=== PATIENT | male | born 1945 | race Caucasian/White ===

== ENCOUNTER 2016-12-04 07:05 | Day surgery (SDC) | payer MEDICARE, BC ==
[2016-11-29 12:02] VITALS: BMI 39.5
[~2016-12-04 07:05] MED LIST: LACTATED RINGERS 1,000 ML IV SCH
[2016-12-04 07:22] VITALS: TEMP 97.2
[2016-12-04 07:27] LABS: Glucose,Whole Blood 190 mg/dL (75-99)
[2016-12-04] MEDS ORDERED: PROPOFOL 10 MG/ML 20 ML VIAL IV ONE (07:33)
[2016-12-04] MEDS ORDERED: LIDOCAINE 1% INJ 10MG/ML (20 ML MDV) ONE (07:33)
--- NOTE | 2016-12-04 08:07 | P.PCN ---
Date of Procedure: 12/04/16 Procedure(s) Performed: BRIEF HISTORY: Patient is a 71-year-old pleasant white male, scheduled for an elective colonoscopy as a part of evaluation of change in bowel habits and prior history of colon polyps. According to the patient as well as colonoscopy was 5 years ago. PROCEDURE PERFORMED: Colonoscopy. PREOPERATIVE DIAGNOSIS: Change in bowel habits and prior history of colon polyps. IV sedation per Anesthesia. PROCEDURE: After informed consent was obtained, the patient, was brought into the endoscopy unit. IV sedation was administered by Anesthesia under continuous monitoring. Digital rectal examination was normal. Initially the Olympus CF-160 flexible video colonoscope was then inserted in the rectum, gradually advanced into the cecum without any difficulty. Careful examination was performed as the scope was gradually being withdrawn. Ileocecal valve and the appendiceal orifice were visualized and appeared normal. Prep was excellent. Mucosa of the cecum, ascending colon, transverse colon, descending colon, sigmoid colon, and rectum appeared normal. Scattered sigmoid diverticulosis seen. Retroflexion was performed in the rectum and no lesions were seen. The patient tolerated the procedure well. IMPRESSION: Normal-appearing colon from rectum to cecum with no evidence of colorectal neoplasia . Scattered sigmoid diverticulosis. RECOMMENDATIONS: Findings of this examination were discussed with the patient as well as his family. He was advised to have a repeat surveillance colonoscopy in 5 years from now because of the prior history of colon polyps.
[2016-12-04 08:15] LABS: Glucose,Whole Blood 196 mg/dL (75-99)
[2016-12-04 08:23] VITALS: BP 132/75; PULSE 77; RESP 18
== END 2016-12-04 09:21 | disposition home or self-care (01) ==
LOC: ORWHC2ENDO 07:05
PROVIDERS: ATTEND Internal Medicine Gastroenterology
DX: K57.30 Diverticulosis of large intestine without perforation or abscess without bleeding (principal); R19.4 Change in bowel habit; Z86.010 Personal history of colon polyps; I25.10 Atherosclerotic heart disease of native coronary artery without angina pectoris; I10 Essential (primary) hypertension; E78.5 Hyperlipidemia, unspecified; E11.9 Type 2 diabetes mellitus without complications; N28.9 Disorder of kidney and ureter, unspecified; E07.9 Disorder of thyroid, unspecified; Z86.73 Personal history of transient ischemic attack (TIA), and cerebral infarction without residual deficits; F32.9 Major depressive disorder, single episode, unspecified; K21.9 Gastro-esophageal reflux disease without esophagitis; Z95.1 Presence of aortocoronary bypass graft; Z79.84 Long term (current) use of oral hypoglycemic drugs; Z79.02 Long term (current) use of antithrombotics/antiplatelets; Z79.82 Long term (current) use of aspirin; Z79.899 Other long term (current) drug therapy; Z88.1 Allergy status to other antibiotic agents; Z88.0 Allergy status to penicillin; Z91.09 Other allergy status, other than to drugs and biological substances
CPT/HCPCS: 45378; J2001; J2704

== ENCOUNTER 2016-12-08 12:30 | Inpatient (IN) | payer MEDICARE, BC ==
[2016-12-08] MEDS ORDERED: SODIUM CHLORIDE 0.9% 1,000 ML IV STA (12:43)
[2016-12-08] MEDS ORDERED: RX INFO: IV CONTRAST WAS GIVEN 1 EACH MISC MISCELLANE PRN ×2 (12:43→22:30)
--- NOTE | 2016-12-08 12:43 | ED ---
General Adult HPI - General Chief complaint: Neuro Symptoms/Deficit Stated complaint: CVA Symptoms Time Seen by Provider: 12/08/16 12:40 Source: family, RN notes reviewed, old records reviewed Mode of arrival: wheelchair Limitations: altered mental status - History of Present Illness Initial comments: This is a 8-year-old male to the ER for evaluation. Patient does urinary for evaluation of weakness, altered mental status, left lower extremity and left upper extremity weakness. History of TIA, no permanent deficits from prior neurological issues. No headache. Patient states last night he had difficulty ambulating difficulty with strength in his left side tenderness was worse when he woke up this morning. Patient denies any trauma no headache no nausea vomiting shortness of breath of bowel pain recent travel history and no fevers. - Related Data Home Medications Medication Instructions Recorded Confirmed Allopurinol [Zyloprim] 100 mg PO DAILY 11/28/15 12/08/16 Aspirin 81 mg PO HS 11/28/15 12/08/16 Atorvastatin [Lipitor] 80 mg PO HS 11/28/15 12/08/16 Calcitriol 0.25 mcg PO QAM 11/28/15 12/08/16 Clopidogrel Bisulfate [Plavix] 75 mg PO QAM 11/28/15 12/08/16 Doxepin HCl [SINEquan] 50 mg PO HS 11/28/15 12/08/16 Folic Acid 1 mg PO QAM 11/28/15 12/08/16 Isosorbide Mononitrate [Isosorbide 30 mg PO HS 11/28/15 12/08/16 Mononitrate ER] Levothyroxine Sodium [Synthroid] 137 mcg PO QAM 11/28/15 12/08/16 Magnesium Oxide [Mag-Ox] 500 mg PO QAM 11/28/15 12/08/16 Ergocalciferol (Vitamin D2) 50,000 unit PO QMONTH 11/29/16 12/08/16 [Vitamin D2] Finasteride [Proscar] 5 mg PO DAILY 11/29/16 12/08/16 Furosemide [Lasix] 40 mg PO DAILY 11/29/16 12/08/16 Tamsulosin [Flomax] 0.4 mg PO DAILY 11/29/16 12/08/16 Acetaminophen [Tylenol Arthritis] 1,300 mg PO HS 12/08/16 12/08/16 Citalopram Hydrobromide [CeleXA] 20 mg PO DAILY 12/08/16 12/08/16 Ferrous Sulfate [Feosol] 325 mg PO DAILY 12/08/16 12/08/16 Metoprolol Succinate (ER) [Toprol 50 mg PO BID 12/08/16 12/08/16 Xl] [place]-3 Fatty Acids [Duck-3] 1,000 mg PO DAILY 12/08/16 12/08/16 Ranitidine HCl [Zantac] 150 mg PO BID 12/08/16 12/08/16 glipiZIDE [Glucotrol] 5 mg PO BID 12/08/16 12/08/16 Allergies Allergy/AdvReac Type Severity Reaction Status Date / Time Penicillins Allergy Severe Anaphylaxis Verified 12/08/16 14:30 cephalexin monohydrate Allergy Rash/Hives Verified 12/08/16 14:30 [From Keflex] gemfibrozil [From Lopid] AdvReac Abdominal Verified 12/08/16 14:30 Pain Review of Systems ROS Statement: Those systems with pertinent positive or pertinent negative responses have been documented in the HPI. ROS Other: All systems not noted in ROS Statement are negative. Past Medical History Past Medical History: Coronary Artery Disease (CAD), CVA/TIA, Diabetes Mellitus , GERD/Reflux, Hyperlipidemia, Hypertension, Myocardial Infarction (IA), Osteoarthritis (OA), Prostate Disorder, Renal Disease, Sleep Apnea/CPAP/BIPAP, Thyroid Disorder Additional Past Medical History / Comment(s): stroke 2003, heart murmer, OCC SOB , kidney stones, leakage of urine Last Myocardial Infarction Date:: 2010 History of Any Multi-Drug Resistant Organisms: None Reported Past Surgical History: Coronary Bypass/CABG, Heart Catheterization, Hernia Repair, Orthopedic Surgery Additional Past Surgical History / Comment(s): vasectomy, CABG 2010, keke knee arthroscopy, rt hand surgery x 3 Past Anesthesia/Blood Transfusion Reactions: No Reported Reaction Past Psychological History: No Psychological Hx Reported Smoking Status: Never smoker Past Alcohol Use History: None Reported Past Drug Use History: None Reported - Past Family History Mother Family Medical History: No Reported History General Exam - General Exam Comments Initial Comments: MH of 2, left and left leg to gravity Limitations: altered mental status General appearance: alert, in no apparent distress Head exam: Present: atraumatic, normocephalic, normal inspection Eye exam: Present: normal appearance, PERRL, EOMI. Absent: scleral icterus, conjunctival injection, periorbital swelling ENT exam: Present: normal exam, mucous membranes moist Neck exam: Present: normal inspection. Absent: tenderness, meningismus, lymphadenopathy Respiratory exam: Present: normal lung sounds bilaterally. Absent: respiratory distress, wheezes, rales, rhonchi, stridor Cardiovascular Exam: Present: regular rate, normal rhythm, normal heart sounds. Absent: systolic murmur, diastolic murmur, rubs, gallop, clicks GI/Abdominal exam: Present: soft, normal bowel sounds. Absent: distended, tenderness, guarding, rebound, rigid Extremities exam: Present: normal inspection, full ROM, normal capillary refill. Absent: tenderness, pedal edema, joint swelling, calf tenderness Back exam: Present: normal inspection Neurological exam: Present: alert, oriented X3, CN II-XII intact Psychiatric exam: Present: normal affect, normal mood Skin exam: Present: warm, dry, intact, normal color. Absent: rash Course Vital Signs 12/08/16 12/08/16 12/08/16 12:31 14:09 14:55 Temperature 99.4 F 97.9 F Pulse Rate 109 H 100 101 H Respiratory 18 24 20 Rate Blood Pressure 131/90 122/68 120/64 O2 Sat by Pulse 93 L 96 96 Oximetry - Reevaluation(s) Reevaluation #1: 12/08/16 15:18 Patient showing no improvement in symptoms at this time Reevaluation #2: 12/08/16 15:18 Patient not TPA secondary to low NIH but mainly outside window of time EKG Findings - EKG Comments: EKG Findings:: EKG shows sinus tachycardia rate 16, pr 200, QRS 96, QTC 441 Medical Decision Making - Medical Decision Making Summoning the ER for evaluation of left-sided weakness. Patient can lift left arm and left leg to gravity but states it is weaker left or right. A NIH of 2 2 , low NIH, patient be admitted for CVA enterological evaluation, history of TIA - Lab Data Result diagrams: 12/08/16 12:50 12/08/16 12:50 Lab Results 12/08/16 12/08/16 12/08/16 Range/Units 12:50 12:50 12:50 WBC 12.0 H (3.8-10.6) k/uL RBC 4.28 L (4.30-5.90) m/uL Hgb 13.3 (13.0-17.5) gm/dL Hct 38.3 L (39.0-53.0) % MCV 89.6 (80.0-100.0) fL MCH 31.1 (25.0-35.0) pg MCHC 34.7 (31.0-37.0) g/dL RDW 13.4 (11.5-15.5) % Plt Count 108 L (150-450) k/uL Neutrophils % 87 % Lymphocytes % 5 % Monocytes % 6 % Eosinophils % 1 % Basophils % 0 % Neutrophils # 10.4 H (1.3-7.7) k/uL Lymphocytes # 0.6 L (1.0-4.8) k/uL Monocytes # 0.7 (0-1.0) k/uL Eosinophils # 0.1 (0-0.7) k/uL Basophils # 0.0 (0-0.2) k/uL PT (9.0-12.0) sec INR (<1.1) APTT (22.0-30.0) sec Sodium 135 L (137-145) mmol/L Potassium 4.6 (3.5-5.1) mmol/L Chloride 98 (98-107) mmol/L Carbon Dioxide 21 L (22-30) mmol/L Anion Gap 16 mmol/L BUN 39 H (9-20) mg/dL Creatinine 1.71 H (0.66-1.25) mg/dL Est GFR (MDRD) Af Amer 48 (>60 ml/min/1.73 sqM) Est GFR (MDRD) Non-Af 40 (>60 ml/min/1.73 sqM) Glucose 311 H (74-99) mg/dL Calcium 9.4 (8.4-10.2) mg/dL Total Bilirubin 1.7 H (0.2-1.3) mg/dL AST 20 (17-59) U/L ALT 30 (21-72) U/L Alkaline Phosphatase 104 (38-126) U/L Total Creatine Kinase 28 L (55-170) U/L CK-MB (CK-2) <0.2 (0.0-2.4) ng/mL CK-MB (CK-2) Rel Index Troponin I <0.012 (0.000-0.034) ng/mL Total Protein 6.6 (6.3-8.2) g/dL Albumin 4.1 (3.5-5.0) g/dL 12/08/16 Range/Units 12:50 WBC (3.8-10.6) k/uL RBC (4.30-5.90) m/uL Hgb (13.0-17.5) gm/dL Hct (39.0-53.0) % MCV (80.0-100.0) fL MCH (25.0-35.0) pg MCHC (31.0-37.0) g/dL RDW (11.5-15.5) % Plt Count (150-450) k/uL Neutrophils % % Lymphocytes % % Monocytes % % Eosinophils % % Basophils % % Neutrophils # (1.3-7.7) k/uL Lymphocytes # (1.0-4.8) k/uL Monocytes # (0-1.0) k/uL Eosinophils # (0-0.7) k/uL Basophils # (0-0.2) k/uL PT 10.1 (9.0-12.0) sec INR 1.0 (<1.1) APTT 23.4 (22.0-30.0) sec Sodium (137-145) mmol/L Potassium (3.5-5.1) mmol/L Chloride (98-107) mmol/L Carbon Dioxide (22-30) mmol/L Anion Gap mmol/L BUN (9-20) mg/dL Creatinine (0.66-1.25) mg/dL Est GFR (MDRD) Af Amer (>60 ml/min/1.73 sqM) Est GFR (MDRD) Non-Af (>60 ml/min/1.73 sqM) Glucose (74-99) mg/dL Calcium (8.4-10.2) mg/dL Total Bilirubin (0.2-1.3) mg/dL AST (17-59) U/L ALT (21-72) U/L Alkaline Phosphatase (38-126) U/L Total Creatine Kinase (55-170) U/L CK-MB (CK-2) (0.0-2.4) ng/mL CK-MB (CK-2) Rel Index Troponin I (0.000-0.034) ng/mL Total Protein (6.3-8.2) g/dL Albumin (3.5-5.0) g/dL - Radiology Data Radiology results: report reviewed (CT brain negative for acute disease), image reviewed Disposition Clinical Impression: Altered mental status, Cerebrovascular accident Disposition: ADMITTED IP TO THIS [facility] Condition: Serious Referrals: Bulmaro Graham DO [Primary Care Provider] - 1-2 days
[2016-12-08 12:59] LABS: Basophils % (A) 0 %; CH 30.8; CHCM 34.5; Eosinophils # (A) 0.1 k/uL (0-0.7); Eosinophils % (A) 1 %; HCT 38.3 % (39.0-53.0); HDW 2.28; HGB 13.3 gm/dL (13.0-17.5); Luc % (Auto) 1; Lymphocytes # (A) 0.6 k/uL (1.0-4.8); Lymphocytes % (A) 5 %; MCH 31.1 pg (25.0-35.0); MCHC 34.7 g/dL (31.0-37.0); MCV 89.6 fL (80.0-100.0); Mean Platelet Volume 8.8; Monocytes # (A) 0.7 k/uL (0-1.0); Monocytes % (A) 6 %; Neutrophils # (A) 10.4 k/uL (1.3-7.7); Neutrophils % (A) 87 %; RBC 4.28 m/uL (4.30-5.90); RDW 13.4 % (11.5-15.5); WBC (Perox) 11.92
[2016-12-08] MEDS ORDERED: ONDANSETRON 4 MG/2 ML VIAL IVP STA (13:06)
[2016-12-08 13:08] LABS: Calcium 9.4 mg/dL (8.4-10.2); Potassium 4.6 mmol/L (3.5-5.1); Total Bilirubin 1.7 mg/dL (0.2-1.3); Total Protein 6.6 g/dL (6.3-8.2)
[2016-12-08 13:14] LABS: Partial Thromboplastin Time 23.4 sec (22.0-30.0); Prothrombin Time 10.1 sec (9.0-12.0)
[2016-12-08 13:21] LABS: Creatine Kinase 28 U/L (55-170)
[2016-12-08 13:34] LABS: Creatine Kinase MB <0.2 ng/mL (0.0-2.4); Troponin I <0.012 ng/mL (0.000-0.034)
--- NOTE | 2016-12-08 13:39 | CT ---
EXAMINATION TYPE: CT brain wo con for TPA DATE OF EXAM: 12/08/2016 1:29 PM COMPARISON: 11/29/2015 HISTORY: dizzy CT DLP: 1056.6 mGycm Automated exposure control for dose reduction was used. FINDINGS: There is a 4 x 3 cm area of hypodensity in the left occipital lobe. There is a 1 x 1.5 cm hypodense a karo in the anterior right internal capsule. There is similar area in the more anterior left internal capsule. There is no midline shift. There is no sign of intracranial hemorrhage. There is no mass eff ect. There is cerebral cortical atrophy. IMPRESSION: Old left occipital lobe infarct. Bilateral old anterior internal capsule infarcts. No acute abnormali ty and no adverse change compared to old CT scan.
--- NOTE | 2016-12-08 13:59 | XR ---
EXAMINATION TYPE: XR chest 2V DATE OF EXAM: 12/08/2016 1:50 PM COMPARISON: 12/01/2015 HISTORY: Difficulty walking TECHNIQUE: Frontal and lateral views of the chest are obtained. FINDINGS: There is no heart failure nor confluent pneumonic infiltrate. There is coarsening of inter stitial markings. Thoracic aorta is atheromatous. There are sternal wires. There is no pleural effusi on. IMPRESSION: Pulmonary fibrotic changes. No acute lung disease. No change compared to old exam.
[2016-12-08] MEDS ORDERED: ASPIRIN 325 MG TAB PO STA (15:15)
[2016-12-08 15:23] LABS: Appearance,Urine Clear (Clear); Bilirubin,Urine Negative (Negative); Glucose,Urine (UA) 3+ (Negative); Ketones,Urine Negative (Negative); Leukocyte Esterase,Urine Small (Negative); Mucus,Urine Rare /hpf; Nitrite,Urine Negative (Negative); Particle Count 5218; Protein,Urine 1+ (Negative); RBC,Urine 6 /hpf (0-5); Specific Gravity,Urine 1.007 (1.001-1.035); UA Billing (MACRO vs. MICRO) MICRO; Urobilinogen,Urine <2.0 mg/dL (<2.0); WBC,Urine 17 /hpf (0-5)
[2016-12-08] MEDS ORDERED: INSULIN LISPRO (humaLOG) 300 UNIT/3 ML VIAL SQ ONE (17:11)
[2016-12-08 17:30] LABS: Glucose,Whole Blood 310 mg/dL (75-99)
[2016-12-08] MEDS: SODIUM CHLORIDE 0.9% 1,000 ML IV SCH (17:37)
[2016-12-08] MEDS: glipiZIDE 5 MG TAB PO SCH (18:24)
[2016-12-08 20:48] LABS: Glucose,Whole Blood 197 mg/dL (75-99)
[2016-12-08] MEDS ORDERED: INSULIN GLARGINE 100 UNIT/ML 10 ML VIAL SQ SCH (21:00)
[2016-12-08] MEDS ORDERED: ONDANSETRON 4 MG/2 ML VIAL IVP PRN (21:58)
[2016-12-08 22:44] LABS: Glucose,Whole Blood 190 mg/dL (75-99)
--- NOTE | 2016-12-08 23:10 | CT ---
EXAM: CT Head Without Intravenous Contrast. CLINICAL HISTORY: Reason: Code Stroke TECHNIQUE: Axial computed tomography images of the head/brain without intravenous contrast. CTDI is 60.30 mGy and DLP is 1144.70 mGy-cm This CT exam was performed using one or more of the following dose reduction techniques: automated exposure control, adjustment of the mA and/or kV according to patient size, and/or use of iterative reconstruction technique. COMPARISON: CT head on 12/08/2016 at 1319 FINDINGS: Brain: No acute infarct or hemorrhage idenitified. No extra-axial fluid collection. No mass effect or midline shift. Stable scattered areas of hypoattenuation in the supratentorial white matter likely represent chronic small vessel ischemic changes. Involutional changes. Stable encephalomalacia in the left occipital lobe, compatible with remote infarct. Stable hypodensities in the anterior limbs of the internal capsule bilaterally, likely representing remote lacunar infarcts. Ventricles and sulci: No hydrocephalus. Skull: Normal. No bony lesion or fracture. Subcutaneous tissues: Normal. Sinuses: Mild mucosal thickening in the maxillary sinuses. Orbits: Grossly unremarkable. Other: Atherosclerotic calcifications in the intracranial vasculature. IMPRESSION: 1. No acute intracranial abnormality. 2. Stable chronic small vessel ischemic changes and remote infarcts in the left occipital lobe and anterior limbs of the internal capsules bilaterally.
--- NOTE | 2016-12-08 23:19 | CT ---
EXAM: CT Angiography Head With Intravenous Contrast. CLINICAL HISTORY: Reason: cva TECHNIQUE: Axial computed tomographic angiography images of the head with intravenous contrast using CT angiography protocol. CTDI is 185.40 mGy and DLP is 374.20 mGy-cm This CT exam was performed using one or more of the following dose reduction techniques: automated exposure control, adjustment of the mA and/or kV according to patient size, and/or use of iterative reconstruction technique. MIP reconstructed images were created and reviewed. COMPARISON: None FINDINGS: Distal internal carotid arteries: Atherosclerotic calcifications in the cavernous and supraclinoid portions of bilateral ICAs without significant stenosis. Teller of Maria: No significant stenosis, occlusion, or aneurysm. Distal vertebral arteries: Diminutive right vertebral artery. Atherosclerotic calcifications in the V4 segment of the left vertebral artery without significant stenosis. Basilar artery: No significant stenosis, aneurysm, or occlusion. IMPRESSION: No significant stenosis, occlusion, or aneurysm. EXAM: CT Angiography Neck With Intravenous Contrast. CLINICAL HISTORY: Reason: cva TECHNIQUE: Axial computed tomographic angiography images of the neck with intravenous contrast using CT angiography protocol. CTDI is 185.40 mGy and DLP is 374.20 mGy-cm This CT exam was performed using one or more of the following dose reduction techniques: automated exposure control, adjustment of the mA and/or kV according to patient size, and/or use of iterative reconstruction technique. MIP reconstructed images were created and reviewed. COMPARISON: None FINDINGS: Common carotid arteries: Normal without significant stenosis, occlusion, or dissection. Internal carotid arteries: Minimal atherosclerotic calcification in the proximal right ICA without significant stenosis. Normal left ICA without significant stenosis or occlusion or dissection. Vertebral arteries: Dominant left vertebral artery. 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 Other: Atherosclerotic calcifications of the aortic arch. Mild mucosal thickening in the maxillary sinuses. Small amount of fluid in the left mastoid air cells. 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 Difficult to determine the acuity of these findings without prior exams available for comparison. [employer] 12/08/16 23:28 Call Doctor Regarding Other, called Dr. Griffin on 12/08 23:27 (-04:00)
[2016-12-08 23:38] LABS: CH 30.9; CHCM 33.7; HCT 38.6 % (39.0-53.0); HDW 2.24; HGB 12.6 gm/dL (13.0-17.5); MCH 30.1 pg (25.0-35.0); MCHC 32.7 g/dL (31.0-37.0); MCV 92.1 fL (80.0-100.0); Mean Platelet Volume 8.3; RBC 4.19 m/uL (4.30-5.90); RDW 13.4 % (11.5-15.5); WBC 10.1 k/uL (3.8-10.6)
[2016-12-08 23:47] LABS: Potassium 4.4 mmol/L (3.5-5.1)
[2016-12-08 23:48] LABS: Partial Thromboplastin Time 24.7 sec (22.0-30.0); Prothrombin Time 10.6 sec (9.0-12.0)
[2016-12-08] MEDS ORDERED: ACETAMINOPHEN IV (For NPO) 1,000 MG in EMPTY BAG 1 BAG IVPB PRN (23:50)
[2016-12-09] MEDS: METOPROLOL SUCCINATE (ER) 50 MG TAB.ER.24H PO SCH ×3 (01:45→21:31)
[2016-12-09] MEDS: DOXEPIN 25 MG CAP PO SCH ×2 (01:46→21:30)
[2016-12-09] MEDS: FAMOTIDINE 20 MG TAB PO SCH ×2 (01:46→08:52)
[2016-12-09] MEDS: ATORVASTATIN 80 MG TAB PO SCH ×2 (01:46→21:29)
[2016-12-09] MEDS: SODIUM CHLORIDE 0.9% 1,000 ML IV SCH ×3 (01:48→21:31)
[2016-12-09 06:31] LABS: Cholesterol 129 mg/dL (<200); HDL Cholesterol 42 mg/dL (40-60); Triglycerides 172 mg/dL (<150)
[2016-12-09 06:36] LABS: Glucose,Whole Blood 342 mg/dL (75-99)
[2016-12-09] MEDS: glipiZIDE 5 MG TAB PO SCH (07:00)
[2016-12-09] MEDS: INSULIN LISPRO (humaLOG) 300 UNIT/3 ML VIAL SQ SCH ×4 (07:00→21:30)
[2016-12-09] MEDS: CLOPIDOGREL 75 MG TAB PO SCH (08:52)
[2016-12-09] MEDS ORDERED: ASPIRIN 325 MG TAB PO SCH (09:00)
[2016-12-09 10:44] LABS: Hemoglobin A1C 9.7 % (4.2-6.1)
[2016-12-09 11:53] LABS: Glucose,Whole Blood 253 mg/dL (75-99)
[2016-12-09 13:54] VITALS: BMI 36.3
--- NOTE | 2016-12-09 16:08 | HP ---
DATE OF ADMISSION: Patient is a 71-year-old gentleman who came in with left lower limb weakness and with some weakness in the left upper extremity along with altered mental status. His symptoms did improve significantly since his hospitalization. Patient's strength is about 5/5 now. Patient had a CVA on the left side in the past. Patient had CT angiography, although unfortunately CT angiography with some vertebral abnormalities with right-sided vertebral occlusion. Patient's CT of the head showed some old left occipital infarct and old bilateral anterior internal capsule infarcts from his old stroke. Patient is already on aspirin and Plavix. Patient has significant history of coronary artery disease. His ejection fraction is around 45%. Patient has other multiple medical issues with CKD stage III to IV, baseline creatinine of around 1.7 to 1.8. ( ) fortunately he received contrast with that kidney function yesterday for CT angiogram of the head and neck. Patient cannot have an MRI because of metal in his eyes. Patient's symptoms did improve now and Neurology will evaluate the patient. The patient was short of breath. Patient denied any clinical orthopnea or PND. Patient has had this shortness of breath going on since his coronary artery bypass grafting. Chest x-ray showed some pulmonary fibrotic changes. REVIEW OF SYSTEMS: CONSTITUTIONAL: No fever, no malaise, no fatigue. HEENT: No recent visual problems or hearing problems. Denied any sore throat. CARDIOVASCULAR: No chest pain, orthopnea, PND, no palpitations, no syncope. PULMONARY: No shortness of breath, no cough, no hemoptysis. GASTROINTESTINAL: No diarrhea, no nausea, no vomiting, no abdominal pain. Normoactive bowel sounds. NEUROLOGICAL: As described in HPI. HEMATOLOGICAL: Denies any bleeding or petechiae. GENITOURINARY: Denies any burning micturition, frequency, or urgency. MUSCULOSKELETAL/RHEUMATOLOGICAL: Denies any joint pain, swelling, or any muscle pain. ENDOCRINE: Denies any polyuria or polydipsia. The rest of the 14 point review of systems is negative. Home medications include: 1. Allopurinol. 2. Aspirin. 3. Atorvastatin. 4. Plavix. 5. Doxepin. 6. Folic acid. 7. Isosorbide mononitrate. 8. Levothyroxine. 9. Magnesium oxide. 10. Finasteride. 11. Lasix. 12. Tamsulosin. 13. Acetaminophen. 14. Celexa. 15. Ferrous sulfate. 16. Metoprolol. 17. [place]-3 fatty acids. 18. Ranitidine. 19. Glipizide. ALLERGIES: 1. PENICILLIN. 2. CEPHALEXIN. 3. GEMFIBROZIL. Past medical history is significant for: 1. Coronary artery disease. 2. CVA, TIA in the past. 3. Diabetes mellitus. 4. Gastroesophageal reflux disease. 5. Hyperlipidemia. 6. Hypertension. 7. Myocardial infarction. 8. Osteoarthritis. 9. Benign prostatic hypertrophy. 10. Sleep apnea. 11. Hypothyroidism. 12. Patient had a stroke in 2003. 13. Kidney stones in the past. PAST SURGICAL HISTORY: 1. Coronary artery bypass grafting. 2. Cardiac catheterization in the past. 3. Hernia repair. 4. Orthopedic surgeries in the past. SOCIAL HISTORY: Denied any smoking, alcohol abuse or any drug abuse. FAMILY HISTORY: None available at this point of time. PHYSICAL EXAMINATION: VITAL SIGNS: Temperature 97.9, pulse of 80, respiratory rate of 20. Blood pressure is 130/70. Saturating at 94% on 2 L of oxygen by nasal cannula. GENERAL: The patient is alert and oriented x3, not in any acute distress. Well developed, well nourished. HEENT: Pupils are round and equally reacting to light. EOMI. No scleral icterus. No conjunctival pallor. Normocephalic, atraumatic. No pharyngeal erythema. No thyromegaly. CARDIOVASCULAR: S1 and S2 present. No murmurs, rubs, or gallops. PULMONARY: Chest is clear to auscultation, no wheezing or crackles. ABDOMEN: Soft, nontender, nondistended, normoactive bowel sounds. No palpable organomegaly. MUSCULOSKELETAL: No joint swelling or deformity. EXTREMITIES: No cyanosis, clubbing, or pedal edema. NEUROLOGICAL: Gross neurological examination did not reveal any focal deficits. SKIN: No rashes. ASSESSMENT AND PLAN: 1. Possible transient ischemic attack or cerebrovascular accident involving the left side of the body. Patient's workup so far as mentioned above. Patient had a recent echocardiogram, because of which I am not repeating an echocardiogram. Patient is already on aspirin and Plavix. Neurology will further evaluate. Further plan as per their recommendations. 2. Shortness of breath. Patient does not appear to have a pneumonic process or congestive heart failure. Suspicious pulmonary fibrotic changes on the chest x-ray. Go ahead and consult Pulmonary for further evaluation. Etiology of his shortness of breath and hypoxemia is unknown, although patient gets short of breath significantly with minimal ambulation. 3. Coronary artery disease, status post coronary artery bypass graft. 4. Type 2 diabetes mellitus. Glipizide will be discontinued. Patient will be started on insulin. I will increase the dose of Glargine to 25 units. Patient will not be a candidate for glipizide, considering his multiple medical problems, including renal dysfunction. Patient does not take any pre-meal insulin. Patient may benefit from pre-meal insulin down the line. 5. Hypertension. 6. Chronic kidney disease, stage III, secondary to diabetic nephropathy. 7. Hypothyroidism. Continue with levothyroxine. 8. Minimally elevated troponin, probably due to chronic kidney disease. I will repeat another troponin, make sure it is not going up. Patient has multiple medical problems. His overall prognosis is poor.
[2016-12-09 17:02] LABS: Glucose,Whole Blood 175 mg/dL (75-99)
[2016-12-09 20:57] LABS: Glucose,Whole Blood 153 mg/dL (75-99)
[2016-12-09] MEDS: INSULIN GLARGINE 100 UNIT/ML 10 ML VIAL SQ SCH (21:30)
[2016-12-09] MEDS: ACETAMINOPHEN TAB 325 MG TAB PO PRN (21:32)
--- NOTE | 2016-12-09 23:15 | CONS ---
DATE OF CONSULTATION: 12/09/2016 CHIEF COMPLAINT: Left-sided weakness. HISTORY OF PRESENT ILLNESS: Mr. Ruiz is a pleasant 71-year-old male who is being evaluated by the neurology service per the request of Dr. Keating for left-sided weakness. The patient was brought into [facility] Emergency Room with symptoms of left lower extremity weakness. The patient states that he also had some mild weakness in his left upper extremity. The patient has a previous history of ischemic stroke with left-sided weakness and right visual field cut. He is on aspirin and Plavix at home. By the time he was in the emergency room, his left-sided weakness had significantly improved. A CT scan of the brain was done which showed an old ischemic stroke involving the left occipital lobe and lacunar infarcts involving bilateral internal capsules. Small-vessel ischemic changes were also seen. A repeat CT scan of the brain today showed no changes from his admission. A CT angiogram of the neck was done which showed occlusion of the right vertebral artery. His INR on admission was normal. His basic metabolic profile showed renal insufficiency with a BUN of 43 and creatinine of 1.8. His fasting lipid panel and serum homocysteine levels were normal. His CBC showed thrombocytopenia at 92,000 and mild anemia with a hemoglobin of 12.6. At the time of my evaluation, the patient is lying in his bed and appears to be in no acute distress. He reports resolution of his new left-sided weakness. PAST MEDICAL HISTORY: 1. Ischemic stroke. 2. Coronary artery disease. 3. Diabetes. 4. Gastroesophageal reflux disease. 5. Dyslipidemia. 6. Hypertension. 7. History of myocardial infarction. 8. Arthritis. 9. Benign prostatic hypertrophy. 10. Obstructive sleep apnea. 11. Hypothyroidism. 12. History of nephrolithiasis. 13. History of coronary artery bypass grafting. 14. Hernia repair. 15. Orthopedic surgeries. SOCIAL HISTORY: He denied any tobacco, alcohol or drug use. FAMILY HISTORY: Noncontributory. HOME MEDICATIONS: Reviewed in the chart. ALLERGIES: 1. PENICILLIN. 2. KEFLEX. 3. LOPID. REVIEW OF SYSTEMS: CONSTITUTIONAL: Positive for fatigue. EYES: Positive for right visual field deficit from previous stroke. ENT: Negative. CARDIOVASCULAR: As mentioned above. RESPIRATORY: Negative. NEUROLOGICAL: As mentioned above. GASTROINTESTINAL: Positive for occasional heartburn. GENITOURINARY: Positive for benign prostatic hypertrophy. Also positive for history of nephrolithiasis. PSYCHIATRIC: Negative. ENDOCRINE: Positive for diabetes and hypothyroidism. MUSCULOSKELETAL: Positive for occasional joint pain. DERMATOLOGICAL: Negative. PHYSICAL EXAM: Vital signs show a temperature of 97.1, pulse 104, respiration 20, blood pressure 122/60. GENERAL APPEARANCE: The patient is a mildly obese male who appears to be in no acute distress. HEENT: Normocephalic, atraumatic. Mild left facial droop is seen. Extraocular muscles are intact. Neck is supple with no masses felt. CARDIOVASCULAR: Regular rate and rhythm. ABDOMEN: Nontender, nondistended. Extremities showed trace edema with no clubbing seen. NEUROLOGICAL EXAM: The patient is awake and oriented x3. Speech and language are normal. Strength is 5 minus out of 5 in all 4 extremities. No pronator drift is seen. Sensory exam was normal to light touch in all 4 extremities. No tremors are noticed. Cranial nerve testing showed mild left facial droop and right visual field cut. IMPRESSION: 1. Transient ischemic attack. 2. Transient episode of left hemiparesis, resolved. 3. History of previous ischemic stroke with right visual field cut. 4. Thrombocytopenia. 5. Right vertebral artery occlusion. 6. Renal insufficiency. 7. Hypertension. 8. Dyslipidemia. RECOMMENDATION: The patient does appear to have suffered a transient ischemic attack with a transient episode of left hemiparesis. His left lower and upper extremity weakness appears to have resolved at this time. He continues to have a mild left facial droop, but it is unclear if this is new or old. His right visual field cut is old and is due to his left occipital lobe stroke. I will continue Plavix and aspirin at his home doses. Continue IV hydration as tolerated, given his renal insufficiency. I do recommend continuing to monitor his platelet level, as he does have thrombocytopenia on this admission. Physical Therapy has been consulted. Continue statin therapy. An EEG has been ordered. I will continue to follow with you. Further recommendations to follow. Thank you for allowing me to participate in the care of your patient. If you have any questions, please feel free to contact me.
[2016-12-10 06:17] LABS: Glucose,Whole Blood 151 mg/dL (75-99)
[2016-12-10] MEDS: LEVOTHYROXINE 137 MCG TAB PO SCH (06:50)
[2016-12-10] MEDS: INSULIN LISPRO (humaLOG) 300 UNIT/3 ML VIAL SQ SCH ×4 (06:51→21:51)
[2016-12-10] MEDS: SODIUM CHLORIDE 0.9% 1,000 ML IV SCH ×3 (06:51→20:29)
[2016-12-10 07:36] LABS: CH 30.5; CHCM 33.6; HCT 37.1 % (39.0-53.0); HDW 2.32; HGB 12.4 gm/dL (13.0-17.5); MCH 30.6 pg (25.0-35.0); MCHC 33.6 g/dL (31.0-37.0); MCV 91.3 fL (80.0-100.0); Mean Platelet Volume 8.9; RBC 4.06 m/uL (4.30-5.90); RDW 13.6 % (11.5-15.5); WBC 11.7 k/uL (3.8-10.6)
[2016-12-10 07:50] LABS: Calcium 8.4 mg/dL (8.4-10.2); Potassium 4.1 mmol/L (3.5-5.1)
[2016-12-10] MEDS: FAMOTIDINE 20 MG TAB PO SCH (10:17)
[2016-12-10] MEDS: FINASTERIDE 5 MG TAB PO SCH (10:18)
[2016-12-10] MEDS: CALCITRIOL 0.25 MCG CAP PO SCH (10:18)
[2016-12-10] MEDS: METOPROLOL SUCCINATE (ER) 50 MG TAB.ER.24H PO SCH ×2 (10:18→20:29)
[2016-12-10] MEDS: TAMSULOSIN 0.4 MG CAP.ER.24H PO SCH (10:19)
[2016-12-10] MEDS: ALLOPURINOL 100 MG TAB PO SCH (10:19)
[2016-12-10] MEDS: CITALOPRAM HYDROBROMIDE 20 MG TAB PO SCH (10:19)
[2016-12-10] MEDS: CLOPIDOGREL 75 MG TAB PO SCH (10:19)
[2016-12-10 11:45] LABS: Glucose,Whole Blood 280 mg/dL (75-99)
[2016-12-10] MEDS: FOLIC ACID 1 MG TAB PO SCH (12:02)
--- NOTE | 2016-12-10 14:16 | P.CNPUL ---
History of Present Illness Consult date: 12/10/16 Reason for consult: other Chief complaint: CVA, neurologic deficits History of present illness: 71-year-old male who came into the emergency room for evaluation. He apparently came in for complaints of weakness and mental status changes. He apparently at the left lower extremity left upper semi-weakness. He was thought to possibly have a CVA. Computed tomography scan showed nothing new. He did have some old strokes in the remote past. Those CAT scans were apparently stable. There are no new ischemic areas or hemorrhagic areas. He does have a history of TIA and previous CVAs and permanent deficits from the prior neurologic events. Apparently was not complaining of any headaches. He apparently was found have some difficulty ambulating and again the left side of his body seemed weaker tender. No trauma. No headache. No nausea vomiting. No shortness of breath. No chest pain. No other complaints for that matter. Review of Systems A 12 point review of system is performed. Currently not really having much in way of complaints. Still feels a little weak. No nausea vomiting. No chest pain or chest discomfort. No shortness of breath. He does feel a bit weak. Denies other complaints. Past Medical History Past Medical History: Coronary Artery Disease (CAD), CVA/TIA, Diabetes Mellitus , GERD/Reflux, Hyperlipidemia, Hypertension, Myocardial Infarction (MS), Osteoarthritis (OA), Prostate Disorder, Renal Disease, Sleep Apnea/CPAP/BIPAP, Thyroid Disorder Additional Past Medical History / Comment(s): stroke 2003, heart murmer, OCC SOB , kidney stones, leakage of urine Last Myocardial Infarction Date:: 2010 History of Any Multi-Drug Resistant Organisms: None Reported Past Surgical History: Coronary Bypass/CABG, Heart Catheterization, Hernia Repair, Orthopedic Surgery Additional Past Surgical History / Comment(s): vasectomy, CABG 2010 with 4 vessels, keke knee arthroscopy, rt hand surgery x 3 Past Anesthesia/Blood Transfusion Reactions: No Reported Reaction Past Psychological History: No Psychological Hx Reported Smoking Status: Never smoker Past Alcohol Use History: None Reported Past Drug Use History: None Reported - Past Family History Mother Family Medical History: No Reported History Medications and Allergies Home Medications Medication Instructions Recorded Confirmed Type Allopurinol [Zyloprim] 100 mg PO DAILY 11/28/15 12/08/16 History Aspirin 81 mg PO HS 11/28/15 12/08/16 History Atorvastatin [Lipitor] 80 mg PO HS 11/28/15 12/08/16 History Calcitriol 0.25 mcg PO QAM 11/28/15 12/08/16 History Clopidogrel Bisulfate [Plavix] 75 mg PO QAM 11/28/15 12/08/16 History Doxepin HCl [SINEquan] 50 mg PO HS 11/28/15 12/08/16 History Folic Acid 1 mg PO QAM 11/28/15 12/08/16 History Isosorbide Mononitrate [Isosorbide 30 mg PO HS 11/28/15 12/08/16 History Mononitrate ER] Levothyroxine Sodium [Synthroid] 137 mcg PO QAM 11/28/15 12/08/16 History Magnesium Oxide [Mag-Ox] 500 mg PO QAM 11/28/15 12/08/16 History Ergocalciferol (Vitamin D2) 50,000 unit PO QMONTH 11/29/16 12/08/16 History [Vitamin D2] Finasteride [Proscar] 5 mg PO DAILY 11/29/16 12/08/16 History Furosemide [Lasix] 40 mg PO DAILY 11/29/16 12/08/16 History Tamsulosin [Flomax] 0.4 mg PO DAILY 11/29/16 12/08/16 History Acetaminophen [Tylenol Arthritis] 1,300 mg PO HS 12/08/16 12/08/16 History Citalopram Hydrobromide [CeleXA] 20 mg PO DAILY 12/08/16 12/08/16 History Ferrous Sulfate [Feosol] 325 mg PO DAILY 12/08/16 12/08/16 History Metoprolol Succinate (ER) [Toprol 50 mg PO BID 12/08/16 12/08/16 History Xl] Whitsett-3 Fatty Acids [Whitsett-3] 1,000 mg PO DAILY 12/08/16 12/08/16 History Ranitidine HCl [Zantac] 150 mg PO BID 12/08/16 12/08/16 History glipiZIDE [Glucotrol] 5 mg PO BID 12/08/16 12/08/16 History Allergies Allergy/AdvReac Type Severity Reaction Status Date / Time Penicillins Allergy Severe Anaphylaxis Verified 12/08/16 14:30 cephalexin monohydrate Allergy Rash/Hives Verified 12/08/16 14:30 [From Keflex] gemfibrozil [From Lopid] AdvReac Abdominal Verified 12/08/16 14:30 Pain Physical Exam Osteopathic Statement: *. No significant issues noted on an osteopathic structural exam other than those noted in the History and Physical/Consult. Vitals: Vital Signs Temp Pulse Resp BP Pulse Ox 12/10/16 05:23 98.0 F 103 H 20 134/69 91 L 12/10/16 04:00 101 H 20 12/10/16 03:23 96.9 F L 101 H 20 131/68 94 L 12/10/16 01:23 97.6 F 101 H 20 134/70 92 L 12/10/16 00:00 107 H 20 12/09/16 23:23 98.0 F 107 H 20 144/79 90 L 12/09/16 21:23 97.0 F L 107 H 20 134/71 90 L 12/09/16 20:00 107 H 20 12/09/16 19:23 97.6 F 100 20 130/70 90 L 12/09/16 17:13 97.1 F L 104 H 20 122/60 93 L 12/09/16 16:00 90 20 12/09/16 15:23 98.3 F 90 20 128/76 96 Intake and Output 12/09/16 12/10/16 12/10/16 22:59 06:59 14:59 Intake Total 130 1000 480 Output Total 150 200 Balance -20 1000 280 Intake: IV 10 1000 Invasive Line 2 10 Sodium Chloride 0.9% 1, 1000 000 ml @ 100 mls/hr IV . Q10H [facility] Rx#:[id number] Oral 120 480 Output: Urine 150 200 Other: Voiding Method Urinal Urinal Urinal Diaper Diaper Diaper Incontinent Incontinent Incontinent # Voids 1 1 1 # Bowel Movements 0 1 Weight 115 kg 116.3 kg No acute distress, oriented 3. HEENT examination is grossly unremarkable. Mucous membranes are moist. No oral lesions. Neck supple. Full range of motion. No adenopathy or thyromegaly. Neck veins are flat. Cardiovascular examination reveals regular rhythm rate. S1 and S2 normal. No S3-S4 or murmur. Lungs reveal diminished breath sounds. No wheezes or rhonchi. No crackles. Breath sounds are equal bilaterally. Abdomen soft bowel sounds are heard. Extremities are intact. No cyanosis clubbing or edema. Skin is without rash or lesions. Brief neurological examination is nonfocal. Results - Laboratory Findings CBC and BMP: 12/10/16 07:13 12/10/16 07:13 PT/INR, D-dimer PT 10.6 sec (9.0-12.0) 12/08/16 23:21 INR 1.0 (<1.1) 12/08/16 23:21 Abnormal lab findings: Abnormal Labs 12/08/16 12/08/16 12/08/16 17:09 20:46 22:24 WBC RBC Hgb Hct Plt Count Sodium Carbon Dioxide BUN Creatinine Glucose POC Glucose (mg/dL) 310 H 197 H 190 H Creatine Kinase Troponin I Triglycerides 12/08/16 12/08/16 12/09/16 23:21 23:21 05:22 WBC RBC 4.19 L Hgb 12.6 L Hct 38.6 L Plt Count 92 L Sodium 135 L Carbon Dioxide BUN 43 H Creatinine 1.80 H Glucose 200 H POC Glucose (mg/dL) Creatine Kinase 37 L Troponin I 0.035 H* Triglycerides 12/09/16 12/09/16 12/09/16 05:22 06:33 11:49 WBC RBC Hgb Hct Plt Count Sodium Carbon Dioxide BUN Creatinine Glucose POC Glucose (mg/dL) 342 H 253 H Creatine Kinase Troponin I Triglycerides 172 H 12/09/16 12/09/16 12/09/16 16:59 18:57 20:56 WBC RBC Hgb Hct Plt Count Sodium Carbon Dioxide BUN Creatinine Glucose POC Glucose (mg/dL) 175 H 153 H Creatine Kinase Troponin I 0.057 H* Triglycerides 12/10/16 12/10/16 12/10/16 06:15 07:13 07:13 WBC 11.7 H RBC 4.06 L Hgb 12.4 L Hct 37.1 L Plt Count 113 L Sodium Carbon Dioxide 21 L BUN 51 H Creatinine 2.39 H Glucose 156 H POC Glucose (mg/dL) 151 H Creatine Kinase Troponin I Triglycerides 12/10/16 11:43 WBC RBC Hgb Hct Plt Count Sodium Carbon Dioxide BUN Creatinine Glucose POC Glucose (mg/dL) 280 H Creatine Kinase Troponin I Triglycerides - Diagnostic Findings Chest x-ray: image reviewed (X-rays labs and medications are all reviewed.) Assessment and Plan (1) CAD (coronary artery disease) Status: Acute (2) Diabetes Status: Acute (3) GERD (gastroesophageal reflux disease) Status: Acute (4) Hyperlipidemia Status: Acute (5) Hypertension Status: Acute (6) Myocardial infarction Status: Acute (7) Sleep apnea Status: Acute (8) Altered mental status Status: Acute (9) Cerebrovascular accident Status: Acute (10) Encephalopathy Status: Acute (11) TIA (transient ischemic attack) Status: Acute Plan: Plan dated 12/10/2016 The patient seemed to be relatively stable. 2 CAT scan showed no evidence of acute infarct. There are remote changes in the internal capsular is in other areas of the brain. No areas hemorrhage. The patient seems be relatively stable. We'll continue to follow. Time with Patient: Greater than 30
[2016-12-10 17:29] LABS: Glucose,Whole Blood 244 mg/dL (75-99)
[2016-12-10] MEDS: DOXEPIN 25 MG CAP PO SCH (20:29)
[2016-12-10] MEDS: ATORVASTATIN 80 MG TAB PO SCH (20:29)
[2016-12-10] MEDS: INSULIN GLARGINE 100 UNIT/ML 10 ML VIAL SQ SCH (20:33)
--- NOTE | 2016-12-10 21:15 | P.PN ---
Subjective Principal diagnosis: TIA Patient is 71 year-old male a followed by neurology for TIA which originally had presented with left-sided weakness that subsequently resolved. Patient does have a history of left-sided CVA with a right visual field cut. Home medications included Plavix and aspirin. On arrival at the ED, the patient' s deficits had significantly resolved. Patient's CT of the brain noted old lacunar infarcts and left occipital lobe infarct. CT angiogram noted occlusion of the right vertebral artery. On contact today, the patient was sitting in a bedside chair with family present. Patient was alert and oriented 3 and in no acute distress. Objective - Vital Signs Vital signs: Vital Signs Temp 99.1 F 12/10/16 20:00 Pulse 91 12/10/16 20:00 Resp 20 12/10/16 20:00 BP 131/75 12/10/16 20:00 Pulse Ox 94 L 12/10/16 20:00 Intake & Output 12/10/16 12/10/16 12/11/16 06:59 18:59 06:59 Intake Total 1000 480 327 Output Total 150 900 Balance 850 -420 327 Weight 116.3 kg Intake: IV 1000 Sodium Chloride 0.9% 1, 1000 000 ml @ 100 mls/hr IV . Q10H [facility] Rx#:[id number] Oral 480 327 Output: Urine 150 900 Other: Voiding Method Urinal Urinal Urinal Diaper Diaper Diaper Incontinent Incontinent Incontinent # Voids 1 1 2 # Bowel Movements 1 - Exam Constitutional: AOx3, cooperative Head: NC/AT EENT: mmild left facial droop, extraocular muscles intact.Throat: Supple, no masses Respiratory: No increased work of breathing Cardiac: Regular rate and Rhythm GI: non tender, non distended Musculoskeletal: [employer] strengths are equal bilaterally 5-/5, Lower extremity strengths are equal bilaterally at 5-/5. Neurological: CN II-XII in tact, patient was AOx3, speech and language are normal, no unilateralizing weakness, no seizure activity note on physical exam. Sensation was normal. No pronator drift. Mild left facial droop. Right visual field cut Integementary: no rash, no erythema Psychiatric: mood and affect appropriate - Constitutional Constitutional Comment(s): review of systems: all systems were negative unless piercing noted in the HPI. - Labs CBC & Chem 7: 12/10/16 07:13 04/18/17 07:13 Labs: Abnormal Lab Results - Last 24 Hours (Table) 12/10/16 12/10/16 12/10/16 Range/Units 06:15 07:13 07:13 WBC 11.7 H (3.8-10.6) k/uL RBC 4.06 L (4.30-5.90) m/uL Hgb 12.4 L (13.0-17.5) gm/dL Hct 37.1 L (39.0-53.0) % Plt Count 113 L (150-450) k/uL Carbon Dioxide 21 L (22-30) mmol/L BUN 51 H (9-20) mg/dL Creatinine 2.39 H (0.66-1.25) mg/dL Glucose 156 H (74-99) mg/dL POC Glucose (mg/dL) 151 H (75-99) mg/dL 12/10/16 12/10/16 Range/Units 11:43 17:06 WBC (3.8-10.6) k/uL RBC (4.30-5.90) m/uL Hgb (13.0-17.5) gm/dL Hct (39.0-53.0) % Plt Count (150-450) k/uL Carbon Dioxide (22-30) mmol/L BUN (9-20) mg/dL Creatinine (0.66-1.25) mg/dL Glucose (74-99) mg/dL POC Glucose (mg/dL) 280 H 244 H (75-99) mg/dL Assessment and Plan (1) Hyperlipidemia Status: Acute (2) Hypertension Status: Acute (3) TIA (transient ischemic attack) Status: Acute Plan: Patient's symptoms do appear to be consistent with a transient ischemic attack. TIA involved left hemiparesis. Weakness of the left-sided upper and lower extremity appears to have resolved. Patient does have ongoing mild left facial droop but it is unclear whether this is new or old. Right visual field cut is old and remaining from his left occipital lobe stroke. Continue Plavix and aspirin at existing dose and frequency. Continue Lipitor at existing dose and frequency EEG is pending. Physical therapy and occupational therapy have consulted on the patient. Outpatient physical therapy can be coordinated through our office at his follow-up appointment. Status: If the patient's EEG returns normal, the patient can be cleared for discharge from a neurological standpoint. Continue aspirin, Plavix and Lipitor as noted above at discharge. Patient to be advised to contact our office and have a follow-up appointment within 10-14 business days. I discussed the patient's pertinent medical information with Dr. Painter. He agrees with the plan of care as implemented.
[2016-12-10 22:10] LABS: Glucose,Whole Blood 215 mg/dL (75-99)
[2016-12-11 05:54] LABS: Glucose,Whole Blood 200 mg/dL (75-99)
[2016-12-11] MEDS: INSULIN LISPRO (humaLOG) 300 UNIT/3 ML VIAL SQ SCH ×4 (06:24→21:31)
[2016-12-11] MEDS: LEVOTHYROXINE 137 MCG TAB PO SCH (06:24)
[2016-12-11] MEDS: SODIUM CHLORIDE 0.9% 1,000 ML IV SCH (06:24)
[2016-12-11 07:08] LABS: Basophils % (A) 0 %; CH 30.8; CHCM 34.5; Eosinophils % (A) 0 %; HCT 33.1 % (39.0-53.0); HDW 2.42; HGB 11.2 gm/dL (13.0-17.5); Luc # (Auto) 0.22; Luc % (Auto) 3; Lymphocytes # (A) 0.5 k/uL (1.0-4.8); Lymphocytes % (A) 7 %; MCH 30.3 pg (25.0-35.0); MCHC 33.8 g/dL (31.0-37.0); MCV 89.7 fL (80.0-100.0); Mean Platelet Volume 8.8; Monocytes # (A) 0.6 k/uL (0-1.0); Monocytes % (A) 9 %; Neutrophils # (A) 5.7 k/uL (1.3-7.7); Neutrophils % (A) 80 %; RBC 3.69 m/uL (4.30-5.90); WBC 7.1 k/uL (3.8-10.6); WBC (Perox) 7.85
[2016-12-11] MEDS: TAMSULOSIN 0.4 MG CAP.ER.24H PO SCH (08:49)
[2016-12-11] MEDS: LEVOFLOXACIN 250 MG TAB PO SCH (08:49)
[2016-12-11] MEDS: FAMOTIDINE 20 MG TAB PO SCH (08:49)
[2016-12-11] MEDS: METOPROLOL SUCCINATE (ER) 50 MG TAB.ER.24H PO SCH ×2 (08:49→21:34)
[2016-12-11] MEDS: CITALOPRAM HYDROBROMIDE 20 MG TAB PO SCH (08:49)
[2016-12-11] MEDS: CALCITRIOL 0.25 MCG CAP PO SCH (08:49)
[2016-12-11] MEDS: ALLOPURINOL 100 MG TAB PO SCH (08:49)
[2016-12-11] MEDS: CLOPIDOGREL 75 MG TAB PO SCH (08:49)
[2016-12-11] MEDS: FINASTERIDE 5 MG TAB PO SCH (08:50)
--- NOTE | 2016-12-11 09:02 | EEG ---
DATE OF SERVICE: 12/10/2016 REASON FOR TESTING: Stroke. AGE: 71Y DESCRIPTION OF THE PROCEDURE: This EEG was performed using a 21-channel digital electroencephalograph, following the international 10 - 20 system. DESCRIPTION OF THE RECORDING: From the beginning of the tracing, and with the patient's eyes closed, the background rhythm was mostly consisting of 8 Hz alpha frequency in the posterior occipital leads. No obvious asymmetry is seen. Photic stimulation was performed with a minimal driving response seen. No pathological waves were elicited. Occasional movement artifacts and muscle artifacts are seen. Hyperventilation was not performed. The patient remains awake throughout the tracing. No epileptiform discharges were seen. His EKG lead showed a regular rate and rhythm. INTERPRETATION: This awake EEG can be considered within normal limits. There was no asymmetry seen. No epileptiform discharges were noticed. The absence of epileptiform discharges does not rule out the diagnosis of epilepsy, therefore, clinical correlation is recommended.
[2016-12-11] MEDS: ACETAMINOPHEN TAB 325 MG TAB PO PRN (09:45)
--- NOTE | 2016-12-11 09:47 | PN ---
DATE OF SERVICE: 12/10/2016 INTERVAL HISTORY: Mr. uRiz is a 71-year-old male with a known history of CVA with history of left-sided occipital CVA with right visual field cut came to the hospital with complaints of left-sided weakness which has subsequently resolved most likely from TIA. Patient had a stroke workup done including CT head, CT angiogram. CT angiogram showed occlusion of the proximal right vertebral artery with minimal reconstitution of flow within a diminutive distal right vertebral artery at approximately level of C4. No carotid stenosis has been noted. Otherwise, the patient denied any new complaints now. Patient is being followed with PT, OT and speech therapy. Denied any new complaints. No acute overnight issues. No complaints of chest pain. No short of breath. No nausea, vomiting, abdominal pain. All other 14-point review of systems negative except as above. Current medications include Tylenol, allopurinol, Lipitor, calcitriol, Celexa, Plavix, doxepin, famotidine, Proscar, folic acid, Lantus, Humalog, Synthroid, Toprol XL, Zofran and Flomax. PHYSICAL EXAMINATION: A 71-year-old male sitting on the chair, comfortable, wake, alert, oriented x3. Appears to be in no apparent distress. VITALS: Blood pressure is 131/75, pulse is 91, respirations 20, temperature afebrile, pulse ox 94% on 2 L nasal cannula. HEENT: Atraumatic, normocephalic. Neck is supple. No JVD. CVS EXAM: S1, S2 heard. No murmurs, no gallop. LUNGS: Bilateral air entry is present. No wheezing. No crackles. Nonlabored breathing. ABDOMEN: Soft, nontender. Bowel sounds present. [employer] DECK HAND: Awake, alert, oriented x3. Right visual field defect. Mild strength 4 out of 5 in bilateral lower extremities. PSYCHIATRIC: Cooperative. SKIN: No rash or skin lesions. LABORATORY DATA: WBC 11.7, hemoglobin 12.4, platelets 113. Sodium 137, potassium 4.1, chloride 103, bicarb 21. BUN 51, creatinine 2.39. IMPRESSION: 1. Transient ischemic attack involving the left side of the body, resolved at this time. Weakness is completely resolved. 2. History of cerebrovascular accident with right visual field cut due to occipital cerebrovascular accident previously. 3. Shortness of breath and hypoxemia, resolved at this time. Patient is saturating well on room air. 4. Suspected fibrotic changes in the lung. Pulmonary is following this patient. 5. History of coronary artery disease, status post coronary artery bypass graft. 6. Type 2 diabetes mellitus, currently patient was started on insulin. Will continue to hold glipizide upon discharge. 7. Hypertension. 8. Chronic kidney disease, stage III, secondary to diabetic nephropathy. 9. Hypothyroidism. 10. Minimally elevated troponin, possibly due to chronic kidney disease. Will continue ( ). 11. Acute on chronic kidney disease, stage III. DISCUSSION AND PLAN: Patient will be continued on aspirin and Plavix and stroke workup has been negative so far. EEG is pending. Continue the PT, OT and speech therapy. [facility] has been consulted for outpatient physical therapy and speech therapy setup. Neurology is following this patient. Possible discharge in next 24 hours.
[2016-12-11] MEDS ORDERED: HYDROcodone/APAP 5-325MG 1 EACH TAB PO PRN (10:46)
[2016-12-11 12:24] LABS: Glucose,Whole Blood 240 mg/dL (75-99)
[2016-12-11] MEDS: FOLIC ACID 1 MG TAB PO SCH (12:27)
[2016-12-11 14:06] LABS: Glucose,Whole Blood 199 mg/dL (75-99)
--- NOTE | 2016-12-11 16:30 | P.PN ---
Subjective Progress note dated 12/11/2016 71-year-old male who was seen in the emergency room for changes of mental status issues as well as weakness. He was thought to possibly have a CVA. Computed tomography scan of the head head did not show anything new area but he did have some old changes. He does have a previous history of TIA and CVAs in the past. Doing relatively well today. No major complaints. No chest pain or chest discomfort shortness of breath. No nausea vomiting or diarrhea. No fever no chills. No other complaints for that matter. Feels like he is almost back to baseline. Objective - Vital Signs Vital signs: Vital Signs Temp 97.4 F L 12/11/16 12:00 Pulse 84 12/11/16 12:00 Resp 20 12/11/16 12:00 BP 133/87 12/11/16 12:00 Pulse Ox 97 12/11/16 12:00 Intake & Output 12/10/16 12/11/16 12/11/16 18:59 06:59 18:59 Intake Total 480 1127 1120 Output Total 900 Balance -420 1127 1120 Weight 120.5 kg Intake: IV 800 800 Sodium Chloride 0.9% 1, 800 800 000 ml @ 100 mls/hr IV . Q10H [facility] Rx#:[id number] Oral 480 327 320 Output: Urine 900 Other: Voiding Method Urinal Urinal Urinal Diaper Diaper Diaper Incontinent Incontinent Incontinent # Voids 1 2 # Bowel Movements 1 - Exam No acute distress, oriented 3. HEENT examination is unremarkable. No oral lesions. Neck supple. Full range of motion. No adenopathy or thyromegaly. No neck vein distention. Cardiovascular examination reveals regular rhythm rate. S1 and S2 normal. No murmur. Lungs reveal some diminished breath sounds. No wheezes rhonchi or crackles. Abdomen soft bowel sounds are heard. No masses or tenderness. Extremities are intact. No cyanosis clubbing or edema. Skin without rash or lesion Brief neurologic examination is nonfocal. - Labs CBC & Chem 7: 12/11/16 05:55 12/11/16 05:55 Labs: Abnormal Lab Results - Last 24 Hours (Table) 12/10/16 12/10/16 12/11/16 Range/Units 17:06 21:50 05:52 RBC (4.30-5.90) m/uL Hgb (13.0-17.5) gm/dL Hct (39.0-53.0) % Plt Count (150-450) k/uL Lymphocytes # (1.0-4.8) k/uL Sodium (137-145) mmol/L Carbon Dioxide (22-30) mmol/L BUN (9-20) mg/dL Creatinine (0.66-1.25) mg/dL Glucose (74-99) mg/dL POC Glucose (mg/dL) 244 H 215 H 200 H (75-99) mg/dL Calcium (8.4-10.2) mg/dL 12/11/16 12/11/16 12/11/16 Range/Units 05:55 05:55 12:21 RBC 3.69 L (4.30-5.90) m/uL Hgb 11.2 L (13.0-17.5) gm/dL Hct 33.1 L (39.0-53.0) % Plt Count 95 L (150-450) k/uL Lymphocytes # 0.5 L (1.0-4.8) k/uL Sodium 136 L (137-145) mmol/L Carbon Dioxide 20 L (22-30) mmol/L BUN 53 H (9-20) mg/dL Creatinine 2.24 H (0.66-1.25) mg/dL Glucose 196 H (74-99) mg/dL POC Glucose (mg/dL) 240 H (75-99) mg/dL Calcium 8.0 L (8.4-10.2) mg/dL 12/11/16 Range/Units 14:03 RBC (4.30-5.90) m/uL Hgb (13.0-17.5) gm/dL Hct (39.0-53.0) % Plt Count (150-450) k/uL Lymphocytes # (1.0-4.8) k/uL Sodium (137-145) mmol/L Carbon Dioxide (22-30) mmol/L BUN (9-20) mg/dL Creatinine (0.66-1.25) mg/dL Glucose (74-99) mg/dL POC Glucose (mg/dL) 199 H (75-99) mg/dL Calcium (8.4-10.2) mg/dL Assessment and Plan (1) CAD (coronary artery disease) Status: Acute (2) Diabetes Status: Acute (3) GERD (gastroesophageal reflux disease) Status: Acute (4) Hyperlipidemia Status: Acute (5) Hypertension Status: Acute (6) Myocardial infarction Status: Acute (7) Sleep apnea Status: Acute (8) Altered mental status Status: Acute (9) Cerebrovascular accident Status: Acute (10) Encephalopathy Status: Acute (11) TIA (transient ischemic attack) Status: Acute Plan: Plan dated 12/10/2016 The patient seemed to be relatively stable. 2 CAT scan showed no evidence of acute infarct. There are remote changes in the internal capsular is in other areas of the brain. No areas hemorrhage. The patient seems be relatively stable. We'll continue to follow. Plan dated 12/11/2016 Patient seemed be doing relatively well. His CAT scan showed no evidence of an acute abnormality. He did have chronic changes but nothing again acute. Neurologic examination is nonfocal. Clinically he feels well. Additional recommendations are made. We'll continue to follow. Time with Patient: Less than 30
[2016-12-11 16:42] LABS: Glucose,Whole Blood 184 mg/dL (75-99)
[2016-12-11 19:53] LABS: Glucose,Whole Blood 251 mg/dL (75-99)
[2016-12-11] MEDS: INSULIN GLARGINE 100 UNIT/ML 10 ML VIAL SQ SCH (21:31)
[2016-12-11] MEDS: ATORVASTATIN 80 MG TAB PO SCH (21:32)
[2016-12-11] MEDS: DOXEPIN 25 MG CAP PO SCH (21:32)
[2016-12-12] MEDS: SODIUM CHLORIDE 0.9% 1,000 ML IV SCH ×2 (00:12→11:35)
[2016-12-12] MEDS: LEVOTHYROXINE 137 MCG TAB PO SCH (06:11)
[2016-12-12 07:37] LABS: Glucose,Whole Blood 180 mg/dL (75-99)
--- NOTE | 2016-12-12 09:11 | PN ---
DATE OF SERVICE: 12/11/2016 INTERVAL HISTORY: Mr. 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 He came to the hospital complaining of left-sided weakness which has subsequently resolved. Due to possible transient ischemic attack the patient had a stroke work-up done, CT head and CT angiogram and EEG, having shown no acute abnormalities noted. Patient was also found to have hypoxia which has resolved as well. Currently PT and OT are following. Anticipate discharge to rehab in the next 24 hours. The patient denied any complaints of chest pain or shortness of breath. No nausea, vomiting, abdominal pain. All other review of systems negative except as above. Current medications reviewed. PHYSICAL EXAMINATION: GENERAL: A 71-year-old male, lying in the bed, awake, alert, oriented x3. Appears to be in no apparent distress. VITALS: Blood pressure 137/81, pulse is 80, respirations 20, temperature afebrile, pulse ox 96% on 3 L nasal cannula. HEENT: Atraumatic, normocephalic. NECK: Supple. No JVD. CVS: S1, S2 heard. No murmurs, no gallops. LUNGS: Bilateral air entry is present. ABDOMEN: Soft, nontender. Bowel sounds present. JAVA J2EE ARCHITECT: Awake, alert, oriented x3. Able to move all extremities. The patient does visual field defect in the right eye. EXTREMITIES: No edema. PSYCHIATRIC: Cooperative, nonsuicidal. SKIN: No rash or skin lesions. LABORATORY DATA: WBC 7.1, hemoglobin 11.2, platelets are 95, sodium 136, potassium 4.0, chloride 105, bicarb is 23, creatinine 2.24. Blood sugar is elevated at 200. Calcium 8.0, troponin 0.034. IMPRESSION: 1. Transient ischemic attack involving the left side of the body, resolved at this time. 2. History of cerebrovascular accident with right visual field cut due to previous cerebrovascular accident. 3. Shortness of breath and hypoxia on admission, currently saturating on room air. 4. Suspected fibrotic changes in the lungs. Pulmonary has cleared the patient. No acute issues noted. 5. History of coronary artery disease, status post coronary artery bypass graft. 6. Type 2 diabetes mellitus. Currently started on insulin. Hold glipizide upon discharge. 7. Hypertension. 8. Chronic kidney disease stage III secondary to diabetic nephropathy. 9. Hypothyroidism. 10. Mildly elevated troponin, possibly due to chronic kidney disease. 11. Acute on chronic kidney disease stage III. RECOMMENDATIONS AND PLAN: The patient will be continued on aspirin, Plavix and statins. EEG is normal. Continue PT and OT. ( ) is following up possible to transfer to rehab tomorrow. Further recommendations based on clinical course.
[2016-12-12] MEDS: INSULIN LISPRO (humaLOG) 300 UNIT/3 ML VIAL SQ SCH ×2 (09:21→11:56)
[2016-12-12] MEDS: ALLOPURINOL 100 MG TAB PO SCH (09:22)
[2016-12-12] MEDS: CALCITRIOL 0.25 MCG CAP PO SCH (09:22)
[2016-12-12] MEDS: CLOPIDOGREL 75 MG TAB PO SCH (09:23)
[2016-12-12] MEDS: LEVOFLOXACIN 250 MG TAB PO SCH (09:23)
[2016-12-12] MEDS: FINASTERIDE 5 MG TAB PO SCH (09:23)
[2016-12-12] MEDS: METOPROLOL SUCCINATE (ER) 50 MG TAB.ER.24H PO SCH (09:23)
[2016-12-12] MEDS: TAMSULOSIN 0.4 MG CAP.ER.24H PO SCH (09:24)
[2016-12-12] MEDS: CITALOPRAM HYDROBROMIDE 20 MG TAB PO SCH (10:00)
[2016-12-12] MEDS: FAMOTIDINE 20 MG TAB PO SCH (10:00)
[2016-12-12 11:22] LABS: Glucose,Whole Blood 189 mg/dL (75-99)
[2016-12-12] MEDS: FOLIC ACID 1 MG TAB PO SCH (11:56)
--- NOTE | 2016-12-12 15:49 | P.PN ---
Subjective Progress note dated 12/11/2016 71-year-old male who was seen in the emergency room for changes of mental status issues as well as weakness. He was thought to possibly have a CVA. Computed tomography scan of the head head did not show anything new area but he did have some old changes. He does have a previous history of TIA and CVAs in the past. Doing relatively well today. No major complaints. No chest pain or chest discomfort shortness of breath. No nausea vomiting or diarrhea. No fever no chills. No other complaints for that matter. Feels like he is almost back to baseline. Progress note dated 12/12/2016 71-year-old male who was seen in the emergency room for changes in mental status as well as weakness. He was initially thought to have a possible CVA. CT T scan of the head did not show anything new. He did have some old changes. Doing relatively well. He may be discharged home today. He is not sure. Still feels weak and fatigued. No chest pain or chest discomfort. No fever no chills. No nausea vomiting or diarrhea. No abdominal pain. Denies other complaints at this time. Seems be eating and drinking okay. Objective - Vital Signs Vital signs: Vital Signs Temp 97.3 F L 12/12/16 07:00 Pulse 86 12/12/16 07:00 Resp 16 12/12/16 07:00 BP 145/76 12/12/16 07:00 Pulse Ox 98 12/12/16 11:40 Intake & Output 12/11/16 12/12/16 12/12/16 18:59 06:59 18:59 Intake Total 1770 Balance 1770 Intake: IV 800 Sodium Chloride 0.9% 1, 800 000 ml @ 100 mls/hr IV . Q10H [facility] Rx#:[id number] Oral 970 Other: Voiding Method Urinal Urinal Diaper Diaper Incontinent Incontinent # Voids 1 1 - Exam No acute distress, oriented 3. HEENT examination is unremarkable. No oral lesions. Neck supple. Full range of motion. No adenopathy or thyromegaly. No neck vein distention. Cardiovascular examination reveals regular rhythm rate. S1 and S2 normal. No murmur. Lungs reveal some diminished breath sounds. No wheezes rhonchi or crackles. Abdomen soft bowel sounds are heard. No masses or tenderness. Extremities are intact. No cyanosis clubbing or edema. Skin without rash or lesion Brief neurologic examination is nonfocal. - Labs CBC & Chem 7: 12/11/16 05:55 12/11/16 05:55 Labs: Abnormal Lab Results - Last 24 Hours (Table) 12/11/16 12/11/16 12/12/16 Range/Units 16:40 19:51 07:33 POC Glucose (mg/dL) 184 H 251 H 180 H (75-99) mg/dL 12/12/16 Range/Units 11:17 POC Glucose (mg/dL) 189 H (75-99) mg/dL Assessment and Plan (1) CAD (coronary artery disease) Status: Acute (2) Diabetes Status: Acute (3) GERD (gastroesophageal reflux disease) Status: Acute (4) Hyperlipidemia Status: Acute (5) Hypertension Status: Acute (6) Myocardial infarction Status: Acute (7) Sleep apnea Status: Acute (8) Altered mental status Status: Acute (9) Cerebrovascular accident Status: Acute (10) Encephalopathy Status: Acute (11) TIA (transient ischemic attack) Status: Acute Plan: Plan dated 12/10/2016 The patient seemed to be relatively stable. 2 CAT scan showed no evidence of acute infarct. There are remote changes in the internal capsular is in other areas of the brain. No areas hemorrhage. The patient seems be relatively stable. We'll continue to follow. Plan dated 12/11/2016 Patient seemed be doing relatively well. His CAT scan showed no evidence of an acute abnormality. He did have chronic changes but nothing again acute. Neurologic examination is nonfocal. Clinically he feels well. Additional recommendations are made. We'll continue to follow. Plan dated 12/12/2016 Patient continues to do well. The patient feels well. Still feels weak. They' re considering possible discharge. No decision has menorrhagia. No chest pain or chest discomfort. No respiratory issues. Not coughing up any phlegm. No GI or issues. Almost feels back to baseline. Time with Patient: Less than 30
[2016-12-12 15:50] VITALS: BP 147/78; PULSE 85; RESP 18; TEMP 98.6
--- NOTE | 2016-12-12 17:03 | DS ---
DATE OF ADMISSION: 12/08/2016 DATE OF DISCHARGE: 12/12/2016 DISCHARGE DIAGNOSES: 1. Transient ischemic attack on the left side of the body, resolved at this time. 2. History of cerebrovascular accident with right visual field cut due to previous occipital cerebrovascular accident. 3. Shortness of breath and hypoxia on admission, resolved now; saturating well on room air. 4. Suspected fibrotic changes in the lung. Patient was seen by Pulmonary. 5. Type 2 diabetes mellitus, uncontrolled; hemoglobin A1C of 9.7. Patient was started on insulin regimen and glipizide has been discontinued. 6. History of coronary artery disease, status post coronary artery bypass graft in the past. 7. Hypertension. 8. Chronic kidney disease, stage III. 9. Acute on chronic kidney disease, stage III. Baseline creatinine around 1.7. 10. Hypothyroidism. 11. Mildly elevated troponin secondary to acute kidney injury on chronic kidney disease. 12. Medical debility. 13. Enterococcus faecalis urinary tract infection. HOSPITAL COURSE: Mr. Ruiz is a 71-year-old male with known history of previous CVA admitted to the hospital with left-sided weakness, which subsequently resolved. Patient underwent stroke workup, including CT head x2 and EEG as well as CT angiography of the head and neck. 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 Patient was seen by Neurology and Pulmonary. Patient also had an EEG done which showed no epileptic focus and was within normal limits. Otherwise, patient is saturating well on room air and tolerating p.o. diet now. Patient does have uncontrolled diabetes mellitus and insulin regimen has been started. Patient was started on Lantus 25 units at bedtime along with sliding scale, and glipizide has been discontinued. Blood sugars are fairly maintained. Otherwise, patient is stable to be discharged to rehab. DISCHARGE PHYSICAL EXAMINATION: A 71-year-old male lying in the bed. Awake, alert, oriented x3. Appears to be in no distress. VITALS: Blood pressure is 147/78, pulse 85, respiration 18, temperature afebrile, pulse ox 94% on room air. Laboratory data reviewed. HEENT: Atraumatic, normocephalic. Neck is supple. No JVD. EYES: Extraocular movements intact. CVS: S1, S2 heard. No murmurs. No gallop. LUNGS: Bilateral air entry is present. No wheezing. No crackles. ABDOMEN: Soft, nontender. Bowel sounds are present. BREAD DISTRIBUTOR: Awake, alert, oriented x3. Able to move all his extremities. Patient does have visual field defect in the right eye. EXTREMITIES: Trace edema. Pulses palpable bilaterally. No clubbing or cyanosis. PSYCHIATRIC: Cooperative. LABORATORY DATA: Reviewed. BUN 53, creatinine 2.24 as of 12/11/2016. Influenza A and B negative. Otherwise, patient is stable to be discharged [facility] today. Discharge medications include: 1. Zyloprim 100 mg p.o. daily. 2. Aspirin 81 p.o. at bedtime. 3. Atorvastatin 80 mg p.o. at bedtime. 4. Calcitriol 0.25 mcg p.o. each morning. 5. Plavix 75 mg p.o. each morning. 6. Doxepin 50 mg p.o. at bedtime. 7. Folic acid 1 mg p.o. each morning. 8. Imdur 30 mg p.o. at bedtime. 9. Levothyroxine 137 mcg p.o. each morning. 10. Magnesium oxide 500 mg p.o. each morning. 11. Vitamin D2 50,000 units monthly. 12. Proscar 5 mg p.o. daily. 13. Flomax 0.4 mg p.o. daily. 14. Tylenol Arthritis 1300 mg p.o. at bedtime. 15. Celexa 20 mg p.o. daily. 16. Ferrous sulfate 320 mg p.o. daily. 17. Metoprolol XL 50 mg p.o. b.i.d. 18. [place]-3 fatty acids 30 mg p.o. daily. 19. Ranitidine 150 mg p.o. b.i.d. 20. Levofloxacin 250 mg p.o. daily. 21. Tamiflu 30 mg p.o. daily for 5 days. Start when you see the first signs of flu symptoms. 22. Insulin sliding scale. 23. Lantus 25 units subcutaneously at bedtime. Patient will be discharged to [facility] in stable condition. Activity as tolerated. Heart-healthy and diabetic diet. Follow with the primary care physician Dr. Bulmaro Velazquez in 1 to 3 days. Follow up with Dr. Painter in a week. Time taken more than 35 minutes, including 18 minutes counseling the patient and coordinating care.
[2016-12-12] MEDS ORDERED: INSULIN LISPRO (humaLOG) 300 UNIT/3 ML VIAL SQ SCH (17:30)
== END 2016-12-12 17:15 | DRG 69 ==
LOC: EC 12:30 → 6SEL 15:15 → 5MS5E 12-11 18:42
PROVIDERS: ADMIT Internal Medicine; ATTEND Internal Medicine
DX: G45.9 Transient cerebral ischemic attack, unspecified (principal); G93.40 Encephalopathy, unspecified; N17.9 Acute kidney failure, unspecified; N39.0 Urinary tract infection, site not specified; E11.65 Type 2 diabetes mellitus with hyperglycemia; D69.6 Thrombocytopenia, unspecified; E11.22 Type 2 diabetes mellitus with diabetic chronic kidney disease; N18.3 Chronic kidney disease, stage 3 (moderate); B95.2 Enterococcus as the cause of diseases classified elsewhere; E03.9 Hypothyroidism, unspecified; E78.5 Hyperlipidemia, unspecified; G47.30 Sleep apnea, unspecified; I69.398 Other sequelae of cerebral infarction; I12.9 Hypertensive chronic kidney disease with stage 1 through stage 4 chronic kidney disease, or unspecified chronic kidney disease; I25.10 Atherosclerotic heart disease of native coronary artery without angina pectoris; I25.2 Old myocardial infarction; I65.01 Occlusion and stenosis of right vertebral artery; K21.9 Gastro-esophageal reflux disease without esophagitis; R09.02 Hypoxemia; M19.90 Unspecified osteoarthritis, unspecified site; N40.0 Benign prostatic hyperplasia without lower urinary tract symptoms; D64.9 Anemia, unspecified; R01.1 Cardiac murmur, unspecified; R32 Unspecified urinary incontinence; Z79.84 Long term (current) use of oral hypoglycemic drugs; Z79.82 Long term (current) use of aspirin; Z79.899 Other long term (current) drug therapy; Z79.02 Long term (current) use of antithrombotics/antiplatelets; Z88.1 Allergy status to other antibiotic agents; Z88.0 Allergy status to penicillin; Z95.1 Presence of aortocoronary bypass graft
CPT/HCPCS: 36415; 70450; 70496; 70498; 71020; 80048; 80051; 80053; 80061; 81001; 82550; 82553; 82565; 82947; 83036; 83090; 83605; 84484; 84520; 85025; 85027; 85610; 85730; 87077; 87086; 87186; 87502; 93005; 94760; 95819; 96361; 96374; 99285

== ENCOUNTER → 2017-02-10 | Outpatient (CLI) | payer MEDICARE, BC ==
[2017-02-10 15:26] LABS: EKG EKG PERFORMED
[2017-02-10 15:46] LABS: Basophils % (A) 0 %; CH 29.7; CHCM 32.6; Eosinophils # (A) 0.2 k/uL (0-0.7); Eosinophils % (A) 2 %; HCT 36.3 % (39.0-53.0); HDW 2.36; HGB 11.8 gm/dL (13.0-17.5); Luc # (Auto) 0.06; Luc % (Auto) 1; Lymphocytes # (A) 1.6 k/uL (1.0-4.8); Lymphocytes % (A) 20 %; MCH 29.6 pg (25.0-35.0); MCHC 32.4 g/dL (31.0-37.0); MCV 91.4 fL (80.0-100.0); Mean Platelet Volume 7.6; Monocytes # (A) 0.3 k/uL (0-1.0); Monocytes % (A) 4 %; Neutrophils # (A) 5.7 k/uL (1.3-7.7); Neutrophils % (A) 73 %; RBC 3.97 m/uL (4.30-5.90); RDW 14.7 % (11.5-15.5); WBC 7.8 k/uL (3.8-10.6); WBC (Perox) 8.06
[2017-02-10 15:57] LABS: Anion Gap 15 mmol/L; Blood Urea Nitrogen 43 mg/dL (9-20); Calcium 9.7 mg/dL (8.4-10.2); Carbon Dioxide 23 mmol/L (22-30); Chloride 104 mmol/L (98-107); Glucose 157 mg/dL (74-99); Non-African American GFR(MDRD) 35 (>60 ml/min/1.73 sqM); Potassium 5.3 mmol/L (3.5-5.1); Sodium 142 mmol/L (137-145)
== END | disposition home or self-care (01) ==
LOC: LABWHC1 15:18
PROVIDERS: ATTEND Urology
DX: Z01.818 Encounter for other preprocedural examination (principal); E11.9 Type 2 diabetes mellitus without complications; E03.9 Hypothyroidism, unspecified; R35.0 Frequency of micturition; N40.1 Benign prostatic hyperplasia with lower urinary tract symptoms; R39.14 Feeling of incomplete bladder emptying; I10 Essential (primary) hypertension; I50.9 Heart failure, unspecified
CPT/HCPCS: 36415; 80048; 85025; 87077; 87086; 87186; 93005

== ENCOUNTER 2017-02-27 06:19 | Day surgery (SDC) | payer MEDICARE, BC ==
[2017-02-13 10:16] VITALS: BMI 36.2
[~2017-02-27 06:19] MED LIST changes: +CLINDAMYCIN 900 MG in DEXTROSE 5% IN WATER 50 ML IVPB ONE; +LIDOCAINE 1% 20 ML VIAL (10MG/ML) FOR IV START INTRADERMA PRN
[2017-02-27] MEDS ORDERED: LEVOFLOXACIN 500MG-D5W PMX 500 MG in DEXTROSE/WATER 1 100ML.BAG IVPB STA (06:33)
[2017-02-27 06:45] LABS: Glucose,Whole Blood 130 mg/dL (75-99)
[2017-02-27] MEDS ORDERED: PHENYLEPHRINE-0.9% NACL SYG 1 MG/10 ML SYRINGE ONE (07:42)
[2017-02-27] MEDS ORDERED: ROCURONIUM BROMIDE 10 MG/ML 10 ML VIAL IV ONE (07:42)
[2017-02-27] MEDS ORDERED: ePHEDrine 50 MG/ML 1 ML AMP ONE (07:42)
[2017-02-27] MEDS ORDERED: PROPOFOL 10 MG/ML 20 ML VIAL IV ONE (07:42)
[2017-02-27] MEDS ORDERED: MIDAZOLAM 2 MG/2 ML VIAL ONE (07:42)
[2017-02-27] MEDS ORDERED: LIDOCAINE 1% INJ 10MG/ML (20 ML MDV) ONE (07:42)
[2017-02-27] MEDS ORDERED: fentaNYL (PF) 50 MCG/ML 2 ML AMP ONE (07:42)
[2017-02-27] MEDS ORDERED: SUCCINYLCHOLINE CHLORIDE 100 MG/5 ML SYR IV ONE (07:42)
[2017-02-27] MEDS ORDERED: LACTATED RINGERS 1,000 ML IV ONE (09:05)
--- NOTE | 2017-02-27 10:08 | P.OP ---
Date of Procedure: 02/27/17 Preoperative Diagnosis: BPH with Obstruction Postoperative Diagnosis: Same Procedure(s) Performed: Cystoscopy, Bipolar Transurethral Resection of Prostate (TURP) Implants: Anesthesia: ELISAA Surgeon: Alli Delgado Estimated Blood Loss (ml): 50 IV fluids (ml): 800 Pathology: other (prostate chips) Condition: stable Disposition: PACU Indications for Procedure: He is a 71 year-old male with a history of a mildly elevated PSA level, likely due to BPH. He has no family history of prostate cancer. He has been evaluated in the past for microhematuria and obstructive voiding symptoms. On examination , the prostate is enlarged but smooth. The postvoid residual is increased. We discussed the fact that his progressive symptoms are likely due to BPH. He elected to be treated with combination medical BPH therapy (tamsulosin + finasteride), and although his PSA level decreased as expected his voiding symptoms failed to improve. Cystoscopy confirmed the presence of BPH, and he was advised to consider a TURP. I anticipate that this will improve his bladder emptying, but I explained to him that his irritative voiding symptoms may persist and require treatment with an OAB medication if indeed bladder emptying is improved. He recently received cardiac clearance for knee surgery, which he might put off until the fall, and he has elected to undergo a TURP prior to knee surgery. Operative Findings: Bilobar BPH, complete occlusion. Description of Procedure: The patient was taken in the operating room and placed in the dorsolithotomy position, The external genitalia was prepped and draped sterilely. The 25- [place] ACM[employer] resectoscope sheath was introduced into the bladder. The bladder was inspected. Both ureteral orifices were of normal anatomic location and configuration, and clear urine effluxed from both. No tumors or foreign bodies were seen. Examination of the prostate revealed complete obstruction with a bilobar configuration. Using the bipolar cutting loop, the lateral lobes were resected down to the surgical capsule. The floor of the prostate was then resected, proximal to the verumontanum. Lastly, any remaining anterior tissue was resected. The prostatic fossa was then carefully examined. The remaining apical tissue was then carefully resected. The resection was carried down to the surgical capsule in all 4 quadrants. The prostatic fossa was then carefully examined, and any areas of bleeding were controlled with electrocautery. Excellent hemostasis was attained. The resectoscope was withdrawn into the bulbous urethra. The external urinary sphincter remained intact. The prostatic fossa was open. The [employer] evacuator was used to remove all prostate chips from the bladder. These were saved and sent for pathologic examination. The resectoscope was removed, and a 20 [place] Barnhart catheter was placed. The return was clear. The patient tolerated the procedure well was taken to the recovery room in stable condition.
[2017-02-27 10:22] VITALS: TEMP 97
[2017-02-27 10:29] LABS: Glucose,Whole Blood 160 mg/dL (75-99)
[2017-02-27 13:46] VITALS: RESP 18
[2017-02-27 13:47] VITALS: BP 119/64; PULSE 77
== END 2017-02-27 13:51 | disposition home or self-care (01) ==
LOC: OR 06:19
PROVIDERS: ATTEND Urology
DX: N40.1 Benign prostatic hyperplasia with lower urinary tract symptoms (principal); N39.41 Urge incontinence; N13.8 Other obstructive and reflux uropathy; R39.14 Feeling of incomplete bladder emptying; R97.20 Elevated prostate specific antigen [PSA]; R39.15 Urgency of urination; R35.0 Frequency of micturition; N20.0 Calculus of kidney; I11.0 Hypertensive heart disease with heart failure; I50.9 Heart failure, unspecified; I25.10 Atherosclerotic heart disease of native coronary artery without angina pectoris; E11.9 Type 2 diabetes mellitus without complications; M10.9 Gout, unspecified; E03.9 Hypothyroidism, unspecified; E78.00 Pure hypercholesterolemia, unspecified; M19.90 Unspecified osteoarthritis, unspecified site; E78.5 Hyperlipidemia, unspecified; G47.33 Obstructive sleep apnea (adult) (pediatric); N28.9 Disorder of kidney and ureter, unspecified; I69.398 Other sequelae of cerebral infarction; H53.9 Unspecified visual disturbance; I25.2 Old myocardial infarction; Z79.84 Long term (current) use of oral hypoglycemic drugs; Z79.82 Long term (current) use of aspirin; Z79.899 Other long term (current) drug therapy; Z88.1 Allergy status to other antibiotic agents; Z88.0 Allergy status to penicillin; Z88.8 Allergy status to other drugs, medicaments and biological substances
CPT/HCPCS: 84132; 52601; J1956; 88305

== ENCOUNTER 2017-05-22 10:59 | Emergency (ER) | payer MEDICARE, BC ==
[2017-05-22] MEDS ORDERED: DIPH,PERTUS(ACELL)TETVAC-LF 0.5 ML VIAL IM ONE (11:06)
--- NOTE | 2017-05-22 11:11 | ED ---
General Adult HPI - General Stated complaint: Fall Time Seen by Provider: 05/22/17 11:05 Source: patient, RN notes reviewed Mode of arrival: ambulatory Limitations: no limitations - History of Present Illness Initial comments: Patient is a pleasant 71-year-old male presenting to the emergency department following a fall. Incident occurred just prior to arrival. Patient was 2 steps on a ladder and was getting down. Patient missed a step and fell. Patient did strike his head. Patient is on Plavix. No loss of consciousness. No headache or neck pain. No chest pain or dyspnea. No abdominal pain. Patient has mild lower back discomfort that he attributes to a fall that he had a week ago. Patient states he did not hurt his back at all today. - Related Data Home Medications Medication Instructions Recorded Confirmed Allopurinol [Zyloprim] 100 mg PO DAILY 11/28/15 05/22/17 Aspirin 81 mg PO HS 11/28/15 05/22/17 Atorvastatin [Lipitor] 80 mg PO HS 11/28/15 05/22/17 Calcitriol 0.25 mcg PO QAM 11/28/15 05/22/17 Clopidogrel Bisulfate [Plavix] 75 mg PO QAM 11/28/15 05/22/17 Doxepin HCl [SINEquan] 50 mg PO HS 11/28/15 05/22/17 Folic Acid 1 mg PO QAM 11/28/15 05/22/17 Isosorbide Mononitrate [Isosorbide 30 mg PO HS 11/28/15 05/22/17 Mononitrate ER] Levothyroxine Sodium [Synthroid] 137 mcg PO QAM 11/28/15 05/22/17 Ergocalciferol (Vitamin D2) 50,000 unit PO QMONTH 11/29/16 05/22/17 [Vitamin D2] Finasteride [Proscar] 5 mg PO DAILY 11/29/16 05/22/17 Tamsulosin [Flomax] 0.4 mg PO DAILY 11/29/16 05/22/17 Acetaminophen [Tylenol Arthritis] 1,300 mg PO HS 12/08/16 05/22/17 Citalopram Hydrobromide [CeleXA] 20 mg PO DAILY 12/08/16 05/22/17 Ferrous Sulfate [Iron (65 MG 325 mg PO DAILY 12/08/16 05/22/17 Elemental)] Sturdivant-3 Fatty Acids [Sturdivant-3] 1,000 mg PO DAILY 12/08/16 05/22/17 Ranitidine HCl [Zantac] 150 mg PO BID 12/08/16 05/22/17 Hydrocodone/Acetaminophen [[place] 1 tab PO BID 05/22/17 05/22/17 5-325] INSULIN LISPRO (humaLOG) [humaLOG See Protocol SQ AC-TID 05/22/17 05/22/17 (formulary)] Sulfamethoxazole/Trimethoprim 1 tab PO BID 05/22/17 05/22/17 [Bactrim DS 800-160 mg] glipiZIDE XL [Glucotrol Xl] 5 mg PO BID 05/22/17 05/22/17 Previous Rx's Medication Instructions Recorded Insulin Glargine [Lantus] 25 unit SQ HS #1 vial 12/12/16 Allergies Allergy/AdvReac Type Severity Reaction Status Date / Time Penicillins Allergy Severe Anaphylaxis Verified 05/22/17 11:43 cephalexin monohydrate Allergy Rash/Hives Verified 05/22/17 11:43 [From Keflex] gemfibrozil [From Lopid] AdvReac Abdominal Verified 05/22/17 11:43 Pain Review of Systems ROS Statement: Those systems with pertinent positive or pertinent negative responses have been documented in the HPI. ROS Other: All systems not noted in ROS Statement are negative. Constitutional: Denies: fever Eyes: Denies: eye pain ENT: Denies: ear pain Respiratory: Denies: cough Cardiovascular: Denies: chest pain Endocrine: Denies: fatigue Gastrointestinal: Denies: abdominal pain Genitourinary: Denies: dysuria Musculoskeletal: Denies: arthralgia Skin: Denies: rash Neurological: Denies: weakness, confusion Past Medical History Past Medical History: Coronary Artery Disease (CAD), CVA/TIA, Diabetes Mellitus , GERD/Reflux, Hyperlipidemia, Hypertension, Myocardial Infarction ([place]), Osteoarthritis (OA), Prostate Disorder, Renal Disease, Sleep Apnea/CPAP/BIPAP, Thyroid Disorder Additional Past Medical History / Comment(s): hx. TIA's, last one November 2016, heart murmur, OCC SOB, kidney stones, leakage of urine, uses CPAP, decreased kidney function, placed on antibiotics recently for UTI Last Myocardial Infarction Date:: 2010 History of Any Multi-Drug Resistant Organisms: None Reported Past Surgical History: Coronary Bypass/CABG, Heart Catheterization, Hernia Repair, Orthopedic Surgery Additional Past Surgical History / Comment(s): vasectomy, CABG 2011 with 4 vessels, keke knee arthroscopy, rt hand surgery x 3 Past Anesthesia/Blood Transfusion Reactions: No Reported Reaction Past Psychological History: No Psychological Hx Reported Smoking Status: Never smoker - Past Family History Mother Family Medical History: No Reported History General Exam Limitations: no limitations General appearance: alert Head exam: Present: other (Posterior left scalp laceration) Eye exam: Present: normal appearance, PERRL, EOMI. Absent: nystagmus ENT exam: Present: normal oropharynx Neck exam: Present: normal inspection. Absent: tenderness Respiratory exam: Present: normal lung sounds bilaterally Cardiovascular Exam: Present: regular rate, normal rhythm GI/Abdominal exam: Present: soft. Absent: tenderness Extremities exam: Present: normal inspection, full ROM. Absent: tenderness Back exam: Present: other (Mild ecchymosis right paralumbar region with deep yellow appearance and some purplish appearance consistent with healing ecchymotic region). Absent: tenderness Neurological exam: Present: alert, oriented X3, CN II-XII intact. Absent: motor sensory deficit Expanded Speech: Present: fluid speech Cranial nerves: EOM's Intact: Normal, Facial Sensation: Normal Sensory exam: Upper Extremity Light Touch: Normal, Lower Extremity Light Touch: Normal Motor strength exam: RUE: 5, LUE: 5, RLE: 5, LLE: 5 Eye Response: (4) open spontaneously Motor Response: (6) obeys commands Verbal Response: (5) oriented Psychiatric exam: Present: normal affect, normal mood Skin exam: Present: normal color Course Vital Signs 05/22/17 12:08 Temperature 97.8 F Pulse Rate 85 Respiratory 18 Rate Blood Pressure 145/85 O2 Sat by Pulse 96 Oximetry - Reevaluation(s) Reevaluation #1: 05/22/17 11:38 Patient does not want x-rays done of his lower back 05/22/17 12:20 Adry and creatinine are somewhat normal for patient. Elevated potassium. Patient be provided medication and is advised to follow-up with his doctor tomorrow for repeat potassium level. Patient also advised to follow-up for another repeat potassium level likely in the beginning of the week. EKG Findings - EKG Comments: EKG Findings:: Normal sinus rhythm 72. First-degree AV block LA 204. QRS 98. QT 398. QTC 435. Normal axis. Normal QRS. No acute ST change. Procedures - Laceration Laceration #1 Consent Obtained: verbal consent Time Out Performed: Yes Indication: laceration Site: scalp Size (cm): 3 Description: linear Depth: simple, single layer Pre-repair: wound explored, irrigated extensively Type of Sutures: other ([place]) Number of Sutures: 9 Patient Tolerated Procedure: well, no complications Medical Decision Making - Medical Decision Making Patient reevaluated and resting comfortably in bed. Patient and updated on results. Advised to hold Plavix for 2 days. Patient did ambulate without difficulty. - Lab Data Result diagrams: 05/22/17 11:28 05/22/17 11:28 Lab Results 05/22/17 05/22/17 05/22/17 Range/Units 11:11 11:28 11:28 WBC 5.5 (3.8-10.6) k/uL RBC 4.19 L (4.30-5.90) m/uL Hgb 12.6 L (13.0-17.5) gm/dL Hct 38.2 L (39.0-53.0) % MCV 91.3 (80.0-100.0) fL MCH 30.1 (25.0-35.0) pg MCHC 32.9 (31.0-37.0) g/dL RDW 14.1 (11.5-15.5) % Plt Count 134 L (150-450) k/uL Neutrophils % 77 % Lymphocytes % 12 % Monocytes % 5 % Eosinophils % 3 % Basophils % 1 % Neutrophils # 4.2 (1.3-7.7) k/uL Lymphocytes # 0.7 L (1.0-4.8) k/uL Monocytes # 0.3 (0-1.0) k/uL Eosinophils # 0.2 (0-0.7) k/uL Basophils # 0.0 (0-0.2) k/uL PT (9.0-12.0) sec INR (<1.2) APTT (22.0-30.0) sec Sodium 140 (137-145) mmol/L Potassium 6.1 H (3.5-5.1) mmol/L Chloride 111 H (98-107) mmol/L Carbon Dioxide 18 L (22-30) mmol/L Anion Gap 11 mmol/L BUN 56 H (9-20) mg/dL Creatinine 2.40 H (0.66-1.25) mg/dL Est GFR (MDRD) Af Amer 33 (>60 ml/min/1.73 sqM) Est GFR (MDRD) Non-Af 27 (>60 ml/min/1.73 sqM) Glucose 114 H (74-99) mg/dL POC Glucose (mg/dL) 124 H (75-99) mg/dL POC Glu Investigative Assistant ID [place] Calcium 9.1 (8.4-10.2) mg/dL Total Bilirubin 0.5 (0.2-1.3) mg/dL AST 14 L (17-59) U/L ALT 25 (21-72) U/L Alkaline Phosphatase 86 (38-126) U/L Total Creatine Kinase (55-170) U/L Total Protein 5.8 L (6.3-8.2) g/dL Albumin 3.6 (3.5-5.0) g/dL Amylase 36 (30-110) U/L Lipase 94 (23-300) U/L Serum Alcohol <10 mg/dL 05/22/17 05/22/17 Range/Units 11:28 11:28 WBC (3.8-10.6) k/uL RBC (4.30-5.90) m/uL Hgb (13.0-17.5) gm/dL Hct (39.0-53.0) % MCV (80.0-100.0) fL MCH (25.0-35.0) pg MCHC (31.0-37.0) g/dL RDW (11.5-15.5) % Plt Count (150-450) k/uL Neutrophils % % Lymphocytes % % Monocytes % % Eosinophils % % Basophils % % Neutrophils # (1.3-7.7) k/uL Lymphocytes # (1.0-4.8) k/uL Monocytes # (0-1.0) k/uL Eosinophils # (0-0.7) k/uL Basophils # (0-0.2) k/uL PT 10.2 (9.0-12.0) sec INR 1.0 (<1.2) APTT 24.9 (22.0-30.0) sec Sodium (137-145) mmol/L Potassium (3.5-5.1) mmol/L Chloride (98-107) mmol/L Carbon Dioxide (22-30) mmol/L Anion Gap mmol/L BUN (9-20) mg/dL Creatinine (0.66-1.25) mg/dL Est GFR (MDRD) Af Amer (>60 ml/min/1.73 sqM) Est GFR (MDRD) Non-Af (>60 ml/min/1.73 sqM) Glucose (74-99) mg/dL POC Glucose (mg/dL) (75-99) mg/dL POC Glu Investigative Assistant ID Calcium (8.4-10.2) mg/dL Total Bilirubin (0.2-1.3) mg/dL AST (17-59) U/L ALT (21-72) U/L Alkaline Phosphatase (38-126) U/L Total Creatine Kinase 35 L (55-170) U/L Total Protein (6.3-8.2) g/dL Albumin (3.5-5.0) g/dL Amylase (30-110) U/L Lipase (23-300) U/L Serum Alcohol mg/dL - Radiology Data Radiology results: image reviewed (Computed tomography scan of the brain and cervical spine show no acute fracture. Old infarcts. Scalp laceration.) Disposition Clinical Impression: Fall, Head injury, Laceration of scalp, Hyperkalemia Disposition: HOME SELF-CARE Condition: Stable Instructions: Laceration (ED), Fall Prevention for Older Adults (ED), Head Injury (ED) Additional Instructions: Twice daily apply antibiotic ointment to area of laceration. Staple removal in 7-10 days. Follow-up with primary care physician tomorrow for recheck and repeat potassium level. Hold Plavix for 2 days. Return for change in mental status, weakness, worsening symptoms or other concerns. [id number] Tylenol if needed for discomfort. Referrals: Bulmaro Graham DO [Primary Care Provider] - 1-2 days Time of Disposition: 12:00
[2017-05-22 11:12] LABS: Glucose,Whole Blood 124 mg/dL (75-99)
--- NOTE | 2017-05-22 11:30 | XR ---
EXAMINATION TYPE: XR pelvis AP view DATE OF EXAM: 05/22/2017 CLINICAL HISTORY: Fall TECHNIQUE: A single AP view of the pelvis is obtained. COMPARISON: None. FINDINGS: Exam is suboptimal secondary to patient body habitus and soft tissues obscuring bony detai l. There is no acute fracture/dislocation evident in the pelvis. The hip and sacroiliac joints appea r symmetric and unremarkable. The overlying soft tissue appears unremarkable. Degenerative changes o f the femoral acetabular joints are seen as joint space narrowing and acetabular sclerosis. Atheromat ous changes are present of the femoral arteries. IMPRESSION: There is no gross evidence for acute fracture or dislocation in the pelvis.
--- NOTE | 2017-05-22 11:30 | XR ---
EXAMINATION TYPE: XR chest 1V portable DATE OF EXAM: 05/22/2017 Comparison: 12/08/2016 Clinical History: 71-year-old male with pain, fall today and 2 days ago. Findings: Median sternotomy wires are present with post-CABG clips. Heart remains enlarged. Atelectatic calcifi cations within the aortic arch. Diffuse interstitial changes appear chronic. Hazy lower lung and renate pheral densities relating to large patient body habitus. No jodi consolidation, pneumothorax, or sig nificant pleural effusion identified. Impression: Cardiomegaly with extensive chronic appearing interstitial changes. No definite acute process.
[2017-05-22 11:48] LABS: Basophils % (A) 1 %; CH 29.4; CHCM 32.3; Eosinophils # (A) 0.2 k/uL (0-0.7); Eosinophils % (A) 3 %; HCT 38.2 % (39.0-53.0); HDW 2.24; HGB 12.6 gm/dL (13.0-17.5); Luc # (Auto) 0.08; Luc % (Auto) 1; Lymphocytes # (A) 0.7 k/uL (1.0-4.8); Lymphocytes % (A) 12 %; MCH 30.1 pg (25.0-35.0); MCHC 32.9 g/dL (31.0-37.0); MCV 91.3 fL (80.0-100.0); Mean Platelet Volume 7.9; Monocytes # (A) 0.3 k/uL (0-1.0); Monocytes % (A) 5 %; Neutrophils # (A) 4.2 k/uL (1.3-7.7); Neutrophils % (A) 77 %; RBC 4.19 m/uL (4.30-5.90); RDW 14.1 % (11.5-15.5); WBC 5.5 k/uL (3.8-10.6); WBC (Perox) 5.53
--- NOTE | 2017-05-22 11:52 | CT ---
EXAMINATION TYPE: CT brain tanya izaguirre con DATE OF EXAM: 05/22/2017 COMPARISON: 12/08/2016 HISTORY: 71-year-old male trauma, fall, laceration to back of head CT DLP: 1900 mGycm Automated exposure control for dose reduction was used. Technique: Examination of the head was done in axial plane without intravenous contrast. Coronal and sagittal reconstructions performed. CT of the cervical spine was obtained in axial plane without intravenous injection of contrast mater ial. Coronal and sagittal reformatted images were obtained from the axial views for evaluation of f ractures, spinal alignment and canal. FINDINGS: Head: There is no evidence of acute intracranial hemorrhage, acute ischemic changes, mass, mass-effect, or extra-axial fluid collection. There is no effacement of cerebral sulci or basal subarachnoid cister ns. There is no hydrocephalus. There is no midline shift. Vitale-white matter distinction is preserv ed. Areas of encephalomalacia within the bilateral basal ganglia and left occipital parietal junction are unchanged. Mild mucosal thickening within the maxillary sinuses. Partial opacification of the inferior left mast oid air cells. Stable high density material along the lateral margin of the right lobe. Orbits and gl obes are otherwise intact. There there is a mild to moderate superior left lateral scalp contusion with associated skin injury. No underlying calvarial fracture. Cervical spine: No craniocervical junction of the body, predental space widening, or prevertebral soft tissue swellin g. Degenerative changes at the C1 dens articulation. Alignment is maintained. Small disc osteophyte complexes at C3-C4 and C4-C5. Assessment of the spinal canal from C5-C6 and bel ow is limited secondary to artifact from the patient's shoulders. No acute fracture is identified. Sc attered facet arthropathy within the lower cervical spine with mild uncovertebral joint degenerative change. No significant bony spondylotic neural foraminal narrowing. Sagittal and coronal reformatted images confirm above findings. COMBINED IMPRESSION: 1. Left lateral scalp contusion and skin laceration. No underlying calvarial fracture or acute intrac ranial abnormality seen. 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 2. No acute fracture or malalignment of the cervical spine. Mild spondylitic change. 3. Mild chronic maxillary sinus disease. Some unchanged trapped fluid in the left mastoid air cells. Correlate for any mastoid pain to exclude mastoiditis.
[2017-05-22 12:02] LABS: ALT 25 U/L (21-72); AST 14 U/L (17-59); Alcohol <10 mg/dL; Alkaline Phosphatase 86 U/L (38-126); Amylase 36 U/L (30-110); Anion Gap 11 mmol/L; Blood Urea Nitrogen 56 mg/dL (9-20); Calcium 9.1 mg/dL (8.4-10.2); Carbon Dioxide 18 mmol/L (22-30); Chloride 111 mmol/L (98-107); Glucose 114 mg/dL (74-99); Non-African American GFR(MDRD) 27 (>60 ml/min/1.73 sqM); Potassium 6.1 mmol/L (3.5-5.1); Sodium 140 mmol/L (137-145); Total Bilirubin 0.5 mg/dL (0.2-1.3); Total Protein 5.8 g/dL (6.3-8.2)
[2017-05-22 12:09] LABS: Creatine Kinase 35 U/L (55-170)
[2017-05-22 12:11] VITALS: BP 145/85; PULSE 85; RESP 18; TEMP 97.8
[2017-05-22 12:12] LABS: Partial Thromboplastin Time 24.9 sec (22.0-30.0); Prothrombin Time 10.2 sec (9.0-12.0)
[2017-05-22] MEDS ORDERED: SODIUM POLYSTYRENE SULFONATE 15 GM/60 ML BOTTLE PO STA (12:13)
[2017-05-22] MEDS ORDERED: CALCIUM CARB-VIT D 500MG-200UN 1 EACH TAB PO STA (12:15)
[2017-05-22] MEDS ORDERED: SODIUM BICARBONATE TAB 650 MG TAB PO STA (12:18)
[2017-05-22 12:23] LABS: Troponin I <0.012 ng/mL (0.000-0.034)
== END 2017-05-22 12:35 | disposition home or self-care (01) ==
LOC: EC 10:59
DX: S01.01XA Laceration without foreign body of scalp, initial encounter (principal); S30.0XXA Contusion of lower back and pelvis, initial encounter; E87.5 Hyperkalemia; E78.5 Hyperlipidemia, unspecified; I10 Essential (primary) hypertension; I25.10 Atherosclerotic heart disease of native coronary artery without angina pectoris; E11.9 Type 2 diabetes mellitus without complications; K21.9 Gastro-esophageal reflux disease without esophagitis; E07.9 Disorder of thyroid, unspecified; M19.90 Unspecified osteoarthritis, unspecified site; N42.9 Disorder of prostate, unspecified; I25.2 Old myocardial infarction; Z79.02 Long term (current) use of antithrombotics/antiplatelets; Z79.4 Long term (current) use of insulin; Z79.82 Long term (current) use of aspirin; Z79.84 Long term (current) use of oral hypoglycemic drugs; Z79.891 Long term (current) use of opiate analgesic; Z79.899 Other long term (current) drug therapy; Z88.0 Allergy status to penicillin; Z88.1 Allergy status to other antibiotic agents; Z88.8 Allergy status to other drugs, medicaments and biological substances; Z87.442 Personal history of urinary calculi; Z86.73 Personal history of transient ischemic attack (TIA), and cerebral infarction without residual deficits; Z87.898 Personal history of other specified conditions; Z23 Encounter for immunization; W10.9XXA Fall (on) (from) unspecified stairs and steps, initial encounter
CPT/HCPCS: 12002; 36415; 70450; 71010; 72125; 72170; 80053; 80320; 82150; 82550; 82553; 83690; 84484; 85025; 85610; 85730; 86850; 86900; 86901; 90471; 90715; 93005; 99284

== ENCOUNTER → 2017-06-03 | Outpatient (CLI) | payer MEDICARE, BC ==
--- NOTE | 2017-06-03 15:43 | PN ---
PROGRESS NOTE This is a 71-year-old male patient coming in for an annual check regarding his sleep apnea. The patient was diagnosed having complex sleep apnea. His initial evaluation was done at [facility] in [place]. Subsequently the patient underwent a CPAP titration here in our Sleep Center and during the titration he had treatment emergent central apneas specially at CPAP pressures of 11 cm of water. My last evaluation with this patient was in May of 2016 and back then I switched this patient to an auto CPAP with a minimum pressure of 4 maximum pressure of 11 cm. Asked him to come make back for a followup. Initially he was responding. However over the past 6 months his response has gotten worse. Note that during this time, he suffered a CVA with some residual visual deficits in his right eye. He also underwent a prostate surgery. I checked his compliance data and looks very poor. His compliance data shows a CPAP use of 58 days only out of the past 180 days. His average CPAP is around 6.7 hours per night. His P90 pressure is at 9.8, his AHI while on treatment is 24 with 11.6, central events. His treatment is not successful. He is still having both obstructive and central events and on automatic CPAP pressure minimum of 4 and maximum of 11. He is using a Mirage Quattro full face mask. He is requesting further advice. He is insistence in his treatment knowing that he is quite symptomatic and sleep quality is poor. He is snoring very loudly. He is very much somnolent and sleepy during the day. His current vital signs are as follows: Blood pressure is 140/85, pulse 65, respirations 18, temperature 97.6, saturation 97% on room air. Weight is 251, height is 68 inches. BMI 38.1. Ringold score is 5. General appearance is calm and comfortable. Obese. Head is atraumatic, normocephalic. Neck is short. There is Mallampati class 4. There is no goiter or neck mass. Lungs diminished breath sounds; otherwise clear. Heart sounds are regular rate and rhythm. Normal S1, S2. No S3, S4. No murmurs. Abdomen is soft, nontender. No organomegaly. EXTREMITIES: No edema. No cyanosis or clubbing. Skin is negative for colitis or ulcers or wounds. Psych: Appropriate mood. No significant anxiety. Neuro alert and oriented times three. There is no focal neurological deficits. IMPRESSION: 1. Complex sleep apnea, a combination of obstructive and central. The patient had treatment emergent central sleep apnea and he failed CPAP therapy. He has been using all CPAP units for the past 1 year and based on the compliance data that was noted today, the patient continued to have residual and obstructive and central events despite using his CPAP machine. 2. Recent cerebrovascular accident recovered without any deficits. 3. Coronary artery disease without heart failure. He has undergone previous bypass surgery. 4. Diabetes mellitus. 5. Hypertension. 6. Hyperlipidemia. 7. Hypothyroidism. 8. Generalized anxiety/depression. PLAN: 1. I had a lengthy discussion with the patient. 2. I noted that the patient has gained around 20 pounds since his last evaluation and I asked him to lose weight. 3. Optimize sleep hygiene measures. 4. My advice to him is to come into the sleep center to undergo another titration. We will do a BiPAP titration. If he fails, we will upgrade him to an ASV mode of ventilation. He does not have any cardiomyopathy. Irregular CPAP therapy would not be successful for him as the over the past 1 year. MMODL / IJN: [id number] /
== END ==
LOC: SLEEP 13:49
PROVIDERS: ATTEND Internal Medicine Critical Care Medicine
DX: G47.33 Obstructive sleep apnea (adult) (pediatric) (principal); I25.10 Atherosclerotic heart disease of native coronary artery without angina pectoris; E11.9 Type 2 diabetes mellitus without complications; I10 Essential (primary) hypertension; E78.5 Hyperlipidemia, unspecified; E03.9 Hypothyroidism, unspecified; F41.9 Anxiety disorder, unspecified; F32.9 Major depressive disorder, single episode, unspecified

== ENCOUNTER 2017-07-10 13:40 | Inpatient (IN) | payer MEDICARE, BC ==
[2017-07-10] MEDS ORDERED: LEVOFLOXACIN 750MG-D5W PMX 750 MG in DEXTROSE/WATER 1 150ML.BAG IVPB STA (13:47)
[2017-07-10] MEDS ORDERED: IBUPROFEN 600 MG TAB PO STA (13:47)
[2017-07-10] MEDS ORDERED: ACETAMINOPHEN TAB 500 MG TAB PO STA (13:47)
[2017-07-10 13:52] LABS: Glucose,Whole Blood 187 mg/dL (75-99)
--- NOTE | 2017-07-10 13:59 | ED ---
General Adult HPI - General Stated complaint: CVA Time Seen by Provider: 07/10/17 13:40 Source: RN notes reviewed - History of Present Illness Initial comments: 71-year-old male who presents emergency department with past medical history significant for stroke with some residual facial droop. Patient will up this morning and was initially doing okay but about 9:00 he became weak all over. Patient states she has no focal weakness but in general he just feels extremely weak and tired all over. Patient denies any headache patient denies any numbness or focal weakness. Patient denies any lightheadedness or dizziness. Patient denies chest pain palpitations difficulty breathing shortness of breath. Patient denies abdominal pain patient denies nausea vomiting diarrhea. Patient denies any recent injury or trauma. Patient states family brought him in because they were worried he was having another stroke because of his overall weakness. - Related Data Home Medications Medication Instructions Recorded Confirmed Allopurinol [Zyloprim] 100 mg PO DAILY 11/28/15 07/10/17 Aspirin 81 mg PO HS 11/28/15 07/10/17 Atorvastatin [Lipitor] 80 mg PO HS 11/28/15 07/10/17 Calcitriol 0.25 mcg PO QAM 11/28/15 07/10/17 Clopidogrel Bisulfate [Plavix] 75 mg PO QAM 11/28/15 07/10/17 Doxepin HCl [SINEquan] 50 mg PO HS 11/28/15 07/10/17 Folic Acid 1 mg PO QAM 11/28/15 07/10/17 Isosorbide Mononitrate [Isosorbide 30 mg PO HS 11/28/15 07/10/17 Mononitrate ER] Levothyroxine Sodium [Synthroid] 137 mcg PO QAM 11/28/15 07/10/17 Ergocalciferol (Vitamin D2) 50,000 unit PO QMONTH 11/29/16 07/10/17 [Vitamin D2] Acetaminophen [Tylenol Arthritis] 1,300 mg PO BID 12/08/16 07/10/17 Citalopram Hydrobromide [CeleXA] 20 mg PO DAILY 12/08/16 07/10/17 Ferrous Sulfate [Iron (65 MG 325 mg PO DAILY 12/08/16 07/10/17 Elemental)] [place]-3 Fatty Acids [[place]-3] 1,000 mg PO DAILY 12/08/16 07/10/17 Ranitidine HCl [Zantac] 150 mg PO BID 12/08/16 07/10/17 Hydrocodone/Acetaminophen [[place] 1 tab PO BID 05/22/17 07/10/17 5-325] INSULIN LISPRO (humaLOG) [humaLOG] See Protocol SQ AC-TID 05/22/17 07/10/17 glipiZIDE XL [Glucotrol Xl] 5 mg PO BID 05/22/17 07/10/17 Previous Rx's Medication Instructions Recorded Insulin Glargine [Lantus] 25 unit SQ HS #1 vial 12/12/16 Allergies Allergy/AdvReac Type Severity Reaction Status Date / Time Penicillins Allergy Severe Anaphylaxis Verified 07/10/17 15:03 cephalexin monohydrate Allergy Rash/Hives Verified 07/10/17 15:03 [From Keflex] gemfibrozil [From Lopid] AdvReac Abdominal Verified 07/10/17 15:03 Pain Review of Systems ROS Statement: Those systems with pertinent positive or pertinent negative responses have been documented in the HPI. ROS Other: All systems not noted in ROS Statement are negative. Past Medical History Past Medical History: Coronary Artery Disease (CAD), CVA/TIA, Diabetes Mellitus , GERD/Reflux, Hyperlipidemia, Hypertension, Myocardial Infarction ([place]), Osteoarthritis (OA), Prostate Disorder, Renal Disease, Sleep Apnea/CPAP/BIPAP, Thyroid Disorder Additional Past Medical History / Comment(s): hx. TIA's, last one November 2016, heart murmur, OCC SOB, kidney stones, leakage of urine, uses CPAP, decreased kidney function, placed on antibiotics recently for UTI Last Myocardial Infarction Date:: 2010 History of Any Multi-Drug Resistant Organisms: None Reported Past Surgical History: Coronary Bypass/CABG, Heart Catheterization, Hernia Repair, Orthopedic Surgery Additional Past Surgical History / Comment(s): vasectomy, CABG 2011 with 4 vessels, keke knee arthroscopy, rt hand surgery x 3 Past Anesthesia/Blood Transfusion Reactions: No Reported Reaction Past Psychological History: No Psychological Hx Reported Smoking Status: Never smoker - Past Family History Mother Family Medical History: No Reported History General Exam - General Exam Comments Initial Comments: GENERAL: Patient is well-developed and well-nourished. Patient is nontoxic and well- hydrated and is in mild distress. ENT: Neck is soft and supple. No significant lymphadenopathy is noted. Oropharynx is clear. Moist mucous membranes. Neck has full range of motion without eliciting any pain. EYES: The sclera were anicteric and conjunctiva were pink and moist. Extraocular movements were intact and pupils were equal round and reactive to light. Eyelids were unremarkable. PULMONARY: Unlabored respirations. Good breath sounds bilaterally. No audible rales rhonchi or wheezing was noted. CARDIOVASCULAR: There is a regular rate and rhythm without any murmurs gallops or rubs. ABDOMEN: Soft and nontender with normal bowel sounds. No palpable organomegaly was noted. There is no palpable pulsatile mass. SKIN: Skin is clear with no lesions or rashes and otherwise unremarkable. Patient's skin is extremely hot I took his temperature he was 101.9 NEUROLOGIC: Patient is alert and oriented x3. Cranial nerves II through XII are grossly intact. Motor and sensory are also intact. Normal speech, volume and content. Symmetrical smile. MUSCULOSKELETAL: Normal extremities with adequate strength and full range of motion. No lower extremity swelling or edema. No calf tenderness. LYMPHATICS: No significant lymphadenopathy is noted PSYCHIATRIC: Normal psychiatric evaluation. Course Vital Signs 07/10/17 07/10/17 07/10/17 13:45 13:50 14:50 Temperature 101.9 F H 100.9 F H Pulse Rate 121 H 121 H 124 H Respiratory 20 20 18 Rate Blood Pressure 163/82 149/74 134/73 O2 Sat by Pulse 96 97 97 Oximetry 07/10/17 15:15 Temperature Pulse Rate 131 H Respiratory 18 Rate Blood Pressure 126/75 O2 Sat by Pulse 97 Oximetry Medical Decision Making - Medical Decision Making EKG shows a sinus tachycardia at 133 bpm ND interval is 160 QRS is 94 QT interval 342 QTC is 509. Patient's EKG shows no significant ST segment elevation. Patient was started on Levaquin immediately. Patient has urinary tract infection. I spoke with Dr. Keating and I admitted the patient and wrote admitting orders. - Lab Data Result diagrams: 07/10/17 14:02 07/10/17 14:02 Lab Results 07/10/17 07/10/17 07/10/17 Range/Units 13:44 14:02 14:02 WBC 8.4 (3.8-10.6) k/uL RBC 4.38 (4.30-5.90) m/uL Hgb 12.6 L (13.0-17.5) gm/dL Hct 39.5 (39.0-53.0) % MCV 90.3 (80.0-100.0) fL MCH 28.7 (25.0-35.0) pg MCHC 31.8 (31.0-37.0) g/dL RDW 15.7 H (11.5-15.5) % Plt Count 118 L (150-450) k/uL Neutrophils % 93 % Lymphocytes % 4 % Monocytes % 3 % Eosinophils % 1 % Basophils % 0 % Neutrophils # 7.8 H (1.3-7.7) k/uL Lymphocytes # 0.3 L (1.0-4.8) k/uL Monocytes # 0.2 (0-1.0) k/uL Eosinophils # 0.1 (0-0.7) k/uL Basophils # 0.0 (0-0.2) k/uL PT (9.0-12.0) sec INR (<1.2) APTT (22.0-30.0) sec Sodium (137-145) mmol/L Potassium (3.5-5.1) mmol/L Chloride (98-107) mmol/L Carbon Dioxide (22-30) mmol/L Anion Gap mmol/L BUN (9-20) mg/dL Creatinine (0.66-1.25) mg/dL Est GFR (MDRD) Af Amer (>60 ml/min/1.73 sqM) Est GFR (MDRD) Non-Af (>60 ml/min/1.73 sqM) Glucose (74-99) mg/dL POC Glucose (mg/dL) 187 H (75-99) mg/dL POC Glu Organ Fixer ID Cecily Leger Plasma Lactic Acid Meek (0.7-2.0) mmol/L Calcium (8.4-10.2) mg/dL Total Bilirubin (0.2-1.3) mg/dL AST (17-59) U/L ALT (21-72) U/L Alkaline Phosphatase (38-126) U/L Total Creatine Kinase 56 (55-170) U/L CK-MB (CK-2) <0.2 (0.0-2.4) ng/mL CK-MB (CK-2) Rel Index Troponin I <0.012 (0.000-0.034) ng/mL Total Protein (6.3-8.2) g/dL Albumin (3.5-5.0) g/dL Urine Color Urine Appearance (Clear) Urine pH (5.0-8.0) Ur Specific [place] (1.001-1.035) Urine Protein (Negative) Urine Glucose (UA) (Negative) Urine Ketones (Negative) Urine Blood (Negative) Urine Nitrite (Negative) Urine Bilirubin (Negative) Urine Urobilinogen (<2.0) mg/dL Ur Leukocyte Esterase (Negative) Urine RBC (0-5) /hpf Urine WBC (0-5) /hpf Urine WBC Clumps (None) /hpf Urine Bacteria (None) /hpf Urine Mucus (None) /hpf Urine Yeast (Budding) (None) /hpf 07/10/17 07/10/17 07/10/17 Range/Units 14:02 14:02 14:02 WBC (3.8-10.6) k/uL RBC (4.30-5.90) m/uL Hgb (13.0-17.5) gm/dL Hct (39.0-53.0) % MCV (80.0-100.0) fL MCH (25.0-35.0) pg MCHC (31.0-37.0) g/dL RDW (11.5-15.5) % Plt Count (150-450) k/uL Neutrophils % % Lymphocytes % % Monocytes % % Eosinophils % % Basophils % % Neutrophils # (1.3-7.7) k/uL Lymphocytes # (1.0-4.8) k/uL Monocytes # (0-1.0) k/uL Eosinophils # (0-0.7) k/uL Basophils # (0-0.2) k/uL PT 11.3 (9.0-12.0) sec INR 1.1 (<1.2) APTT 24.0 (22.0-30.0) sec Sodium 140 (137-145) mmol/L Potassium 4.9 (3.5-5.1) mmol/L Chloride 111 H (98-107) mmol/L Carbon Dioxide 16 L (22-30) mmol/L Anion Gap 13 mmol/L BUN 43 H (9-20) mg/dL Creatinine 1.90 H (0.66-1.25) mg/dL Est GFR (MDRD) Af Amer 43 (>60 ml/min/1.73 sqM) Est GFR (MDRD) Non-Af 35 (>60 ml/min/1.73 sqM) Glucose 190 H (74-99) mg/dL POC Glucose (mg/dL) (75-99) mg/dL POC Glu Organ Fixer ID Plasma Lactic Acid [place] 1.7 (0.7-2.0) mmol/L Calcium 9.3 (8.4-10.2) mg/dL Total Bilirubin 1.4 H (0.2-1.3) mg/dL AST 15 L (17-59) U/L ALT 28 (21-72) U/L Alkaline Phosphatase 73 (38-126) U/L Total Creatine Kinase (55-170) U/L CK-MB (CK-2) (0.0-2.4) ng/mL CK-MB (CK-2) Rel Index Troponin I (0.000-0.034) ng/mL Total Protein 6.1 L (6.3-8.2) g/dL Albumin 3.9 (3.5-5.0) g/dL Urine Color Urine Appearance (Clear) Urine pH (5.0-8.0) Ur Specific [place] (1.001-1.035) Urine Protein (Negative) Urine Glucose (UA) (Negative) Urine Ketones (Negative) Urine Blood (Negative) Urine Nitrite (Negative) Urine Bilirubin (Negative) Urine Urobilinogen (<2.0) mg/dL Ur Leukocyte Esterase (Negative) Urine RBC (0-5) /hpf Urine WBC (0-5) /hpf Urine WBC Clumps (None) /hpf Urine Bacteria (None) /hpf Urine Mucus (None) /hpf Urine Yeast (Budding) (None) /hpf 07/10/ Range/Units 14:45 WBC (3.8-10.6) k/uL RBC (4.30-5.90) m/uL Hgb (13.0-17.5) gm/dL Hct (39.0-53.0) % MCV (80.0-100.0) fL MCH (25.0-35.0) pg MCHC (31.0-37.0) g/dL RDW (11.5-15.5) % Plt Count (150-450) k/uL Neutrophils % % Lymphocytes % % Monocytes % % Eosinophils % % Basophils % % Neutrophils # (1.3-7.7) k/uL Lymphocytes # (1.0-4.8) k/uL Monocytes # (0-1.0) k/uL Eosinophils # (0-0.7) k/uL Basophils # (0-0.2) k/uL PT (9.0-12.0) sec INR (<1.2) APTT (22.0-30.0) sec Sodium (137-145) mmol/L Potassium (3.5-5.1) mmol/L Chloride (98-107) mmol/L Carbon Dioxide (22-30) mmol/L Anion Gap mmol/L BUN (9-20) mg/dL Creatinine (0.66-1.25) mg/dL Est GFR (MDRD) Af Amer (>60 ml/min/1.73 sqM) Est GFR (MDRD) Non-Af (>60 ml/min/1.73 sqM) Glucose (74-99) mg/dL POC Glucose (mg/dL) (75-99) mg/dL POC Glu Organ Fixer ID Plasma Lactic Acid Meek (0.7-2.0) mmol/L Calcium (8.4-10.2) mg/dL Total Bilirubin (0.2-1.3) mg/dL AST (17-59) U/L ALT (21-72) U/L Alkaline Phosphatase (38-126) U/L Total Creatine Kinase (55-170) U/L CK-MB (CK-2) (0.0-2.4) ng/mL CK-MB (CK-2) Rel Index Troponin I (0.000-0.034) ng/mL Total Protein (6.3-8.2) g/dL Albumin (3.5-5.0) g/dL Urine Color Light Yellow Urine Appearance Cloudy (Clear) Urine pH 6.5 (5.0-8.0) Ur Specific [place] 1.011 (1.001-1.035) Urine Protein 2+ H (Negative) Urine Glucose (UA) Negative (Negative) Urine Ketones Negative (Negative) Urine Blood Moderate H (Negative) Urine Nitrite Negative (Negative) Urine Bilirubin Negative (Negative) Urine Urobilinogen <2.0 (<2.0) mg/dL Ur Leukocyte Esterase Large H (Negative) Urine RBC 12 H (0-5) /hpf Urine WBC >182 H (0-5) /hpf Urine WBC Clumps Many H (None) /hpf Urine Bacteria Moderate H (None) /hpf Urine Mucus Rare H (None) /hpf Urine Yeast (Budding) Few H (None) /hpf Critical Care Time Critical Care Time: Yes Total Critical Care Time: 35 Disposition Clinical Impression: Sepsis, Urinary tract infection Disposition: ADMITTED IP TO THIS HOSP Referrals: None,Stated [REFERRING] - 1-2 days Time of Disposition: 16:02
[2017-07-10] MEDS: SODIUM CHLORIDE 0.9% 500 ML IV SCH ×2 (14:02→15:39)
[2017-07-10 14:26] LABS: INR 1.1 (<1.2); Prothrombin Time 11.3 sec (9.0-12.0)
[2017-07-10 14:32] LABS: Calcium 9.3 mg/dL (8.4-10.2); Potassium 4.9 mmol/L (3.5-5.1); Total Bilirubin 1.4 mg/dL (0.2-1.3); Total Protein 6.1 g/dL (6.3-8.2)
[2017-07-10 14:39] LABS: Basophils % (A) 0 %; CH 29.5; CHCM 32.9; Eosinophils # (A) 0.1 k/uL (0-0.7); Eosinophils % (A) 1 %; HCT 39.5 % (39.0-53.0); HDW 2.18; HGB 12.6 gm/dL (13.0-17.5); Luc # (Auto) 0.02; Luc % (Auto) 0; Lymphocytes # (A) 0.3 k/uL (1.0-4.8); Lymphocytes % (A) 4 %; MCH 28.7 pg (25.0-35.0); MCHC 31.8 g/dL (31.0-37.0); MCV 90.3 fL (80.0-100.0); Mean Platelet Volume 8.7; Monocytes # (A) 0.2 k/uL (0-1.0); Monocytes % (A) 3 %; Neutrophils # (A) 7.8 k/uL (1.3-7.7); Neutrophils % (A) 93 %; RBC 4.38 m/uL (4.30-5.90); RDW 15.7 % (11.5-15.5); WBC 8.4 k/uL (3.8-10.6)
--- NOTE | 2017-07-10 14:39 | XR ---
EXAMINATION TYPE: XR chest 2V DATE OF EXAM: 07/10/2017 COMPARISON: 05/22/2017 INDICATION: Fever altered mental status TECHNIQUE: Frontal and lateral views of the chest are obtained. FINDINGS: The heart size is prominent. The pulmonary vasculature is normal. Some mild infiltrate present at the retrocardiac left lower lobe. Correlate for atelectasis or pneumo brenna.. IMPRESSION: 1. Retrocardiac infiltrate is not excluded. Follow-up can be performed as clinically indicated.
[2017-07-10 14:42] LABS: Creatine Kinase 56 U/L (55-170)
[2017-07-10 14:55] LABS: Creatine Kinase MB <0.2 ng/mL (0.0-2.4); Troponin I <0.012 ng/mL (0.000-0.034)
[2017-07-10 15:51] LABS: Appearance,Urine Cloudy (Clear); Bacteria,Urine Moderate /hpf; Bilirubin,Urine Negative (Negative); Glucose,Urine (UA) Negative (Negative); Ketones,Urine Negative (Negative); Leukocyte Esterase,Urine Large (Negative); Mucus,Urine Rare /hpf; Nitrite,Urine Negative (Negative); PH, Urine 6.5 (5.0-8.0); Particle Count 3762; Protein,Urine 2+ (Negative); RBC,Urine 12 /hpf (0-5); Specific Gravity,Urine 1.011 (1.001-1.035); UA Billing (MACRO vs. MICRO) MICRO; Urobilinogen,Urine <2.0 mg/dL (<2.0); WBC,Urine >182 /hpf (0-5)
[2017-07-10] MEDS ORDERED: ERGOCALCIFEROL 50,000 UNIT CAP PO SCH (16:15)
--- NOTE | 2017-07-10 16:29 | P.HPIM ---
History of Present Illness Patient is a pleasant 71-year-old gentleman came in with complaints of fever chills started last night increased urinary frequency dysuria with significantly abnormal urine of increased the WBC in the urine white blood cell counts of greater than 180 in the urine along with increased leukocyte esterase WBC clumps. Patient had Enterococcus faecalis UTIs in the past, patient's enterococcus is fortunately sensitive to fluoroquinolones and patient is ALLERGIC to penicillins and cephalosporins area patient had ureteral procedure for a stricture couple days ago area patient denied any cough runny nose chest x -ray was questionable for retrocardiac shadow as per the radiologist reading although patient does not have any symptoms of pneumonia. Patient does have chronic kidney disease and his kidney function at this time is 1.9 which is actually better than his baseline. Urine cultures and blood cultures were obtained. Patient does not have any leukocytosis. Review of Systems REVIEW OF SYSTEMS: CONSTITUTIONAL: As mentioned in HPI HEENT: No recent visual problems or hearing problems. Denied any sore throat. CARDIOVASCULAR: No chest pain, orthopnea, PND, no palpitations, no syncope. PULMONARY: No shortness of breath, no cough, no hemoptysis. GASTROINTESTINAL: No diarrhea, no nausea, no vomiting, no abdominal pain. Normoactive bowel sounds. NEUROLOGICAL: No headaches, no weakness, no numbness. HEMATOLOGICAL: Denies any bleeding or petechiae. GENITOURINARY: As mentioned in HPI MUSCULOSKELETAL/RHEUMATOLOGICAL: Denies any joint pain, swelling, or any muscle pain. ENDOCRINE: Denies any polyuria or polydipsia. The rest of the 14-point review of systems is negative. Past Medical History Past Medical History: Coronary Artery Disease (CAD), CVA/TIA, Diabetes Mellitus , GERD/Reflux, Hyperlipidemia, Hypertension, Myocardial Infarction ([place]), Osteoarthritis ([place]), Prostate Disorder, Renal Disease, Sleep Apnea/CPAP/BIPAP, Thyroid Disorder Additional Past Medical History / Comment(s): hx. TIA's, last one November 2016, heart murmur, OCC SOB, kidney stones, leakage of urine, uses CPAP, decreased kidney function, placed on antibiotics recently for UTI Last Myocardial Infarction Date:: 2010 History of Any Multi-Drug Resistant Organisms: None Reported Past Surgical History: Coronary Bypass/CABG, Heart Catheterization, Hernia Repair, Orthopedic Surgery Additional Past Surgical History / Comment(s): vasectomy, CABG 2010 with 4 vessels, keke knee arthroscopy, rt hand surgery x 3 Past Anesthesia/Blood Transfusion Reactions: No Reported Reaction Past Psychological History: No Psychological Hx Reported Smoking Status: Never smoker - Past Family History Mother Family Medical History: No Reported History Medications and Allergies Home Medications Medication Instructions Recorded Confirmed Type Allopurinol [Zyloprim] 100 mg PO DAILY 11/28/15 07/10/17 History Aspirin 81 mg PO HS 11/28/15 07/10/17 History Atorvastatin [Lipitor] 80 mg PO HS 11/28/15 07/10/17 History Calcitriol 0.25 mcg PO QAM 11/28/15 07/10/17 History Clopidogrel Bisulfate [Plavix] 75 mg PO QAM 11/28/15 07/10/17 History Doxepin HCl [SINEquan] 50 mg PO HS 11/28/15 07/10/17 History Folic Acid 1 mg PO QAM 11/28/15 07/10/17 History Isosorbide Mononitrate [Isosorbide 30 mg PO HS 11/28/15 07/10/17 History Mononitrate ER] Levothyroxine Sodium [Synthroid] 137 mcg PO QAM 11/28/15 07/10/17 History Ergocalciferol (Vitamin D2) 50,000 unit PO QMONTH 11/29/16 07/10/17 History [Vitamin D2] Acetaminophen [Tylenol Arthritis] 1,300 mg PO BID 12/08/16 07/10/17 History Citalopram Hydrobromide [CeleXA] 20 mg PO DAILY 12/08/16 07/10/17 History Ferrous Sulfate [Iron (65 MG 325 mg PO DAILY 12/08/16 07/10/17 History Elemental)] [place]-3 Fatty Acids [[place]-3] 1,000 mg PO DAILY 12/08/16 07/10/17 History Ranitidine HCl [Zantac] 150 mg PO BID 12/08/16 07/10/17 History Insulin Glargine [Lantus] 25 unit SQ HS #1 vial 12/12/16 07/10/17 Rx Hydrocodone/Acetaminophen [[place] 1 tab PO BID 05/22/17 07/10/17 History 5-325] INSULIN LISPRO (humaLOG) [humaLOG] See Protocol SQ AC-TID 05/22/17 07/10/17 History glipiZIDE XL [Glucotrol Xl] 5 mg PO BID 05/22/17 07/10/17 History Allergies Allergy/AdvReac Type Severity Reaction Status Date / Time Penicillins Allergy Severe Anaphylaxis Verified 07/10/17 15:03 cephalexin monohydrate Allergy Rash/Hives Verified 07/10/17 15:03 [From Keflex] gemfibrozil [From Lopid] AdvReac Abdominal Verified 07/10/17 15:03 Pain Physical Exam Vitals: Vital Signs Temp Pulse Resp BP Pulse Ox 07/10/17 15:15 131 H 18 126/75 97 07/10/17 14:50 100.9 F H 124 H 18 134/73 97 07/10/17 13:50 121 H 20 149/74 97 07/10/17 13:45 101.9 F H 121 H 20 163/82 96 Intake and Output 07/10/17 07/10/17 07/10/17 06:59 14:59 22:59 Other: Weight 119.794 kg Patient Weight 07/11/17 06:59 Weight 119.794 kg PHYSICAL EXAMINATION: GENERAL: The patient is alert and oriented x3, not in any acute distress. Obese appears to be tired and fatigued HEENT: Pupils are round and equally reacting to light. EOMI. No scleral icterus. No conjunctival pallor. Normocephalic, atraumatic. No pharyngeal erythema. No thyromegaly. CARDIOVASCULAR: S1 and S2 present. No murmurs, rubs, or gallops. PULMONARY: Chest is clear to auscultation, no wheezing or crackles. ABDOMEN: Soft, nontender, nondistended, normoactive bowel sounds. No palpable organomegaly. MUSCULOSKELETAL: No joint swelling or deformity. EXTREMITIES: No cyanosis, clubbing, or pedal edema. NEUROLOGICAL: Gross neurological examination did not reveal any focal deficits. SKIN: No rashes. Results CBC & Chem 7: 07/10/17 14:02 07/10/17 14:02 Labs: Abnormal Lab Results - Last 24 Hours (Table) 07/10/17 07/10/17 07/10/17 Range/Units 13:44 14:02 14:02 Hgb 12.6 L (13.0-17.5) gm/dL RDW 15.7 H (11.5-15.5) % Plt Count 118 L (150-450) k/uL Neutrophils # 7.8 H (1.3-7.7) k/uL Lymphocytes # 0.3 L (1.0-4.8) k/uL Chloride 111 H (98-107) mmol/L Carbon Dioxide 16 L (22-30) mmol/L BUN 43 H (9-20) mg/dL Creatinine 1.90 H (0.66-1.25) mg/dL Glucose 190 H (74-99) mg/dL POC Glucose (mg/dL) 187 H (75-99) mg/dL Total Bilirubin 1.4 H (0.2-1.3) mg/dL AST 15 L (17-59) U/L Total Protein 6.1 L (6.3-8.2) g/dL Urine Protein (Negative) Urine Blood (Negative) Ur Leukocyte Esterase (Negative) Urine RBC (0-5) /hpf Urine WBC (0-5) /hpf Urine WBC Clumps (None) /hpf Urine Bacteria (None) /hpf Urine Mucus (None) /hpf Urine Yeast (Budding) (None) /hpf 07/10/ Range/Units 14:45 Hgb (13.0-17.5) gm/dL RDW (11.5-15.5) % Plt Count (150-450) k/uL Neutrophils # (1.3-7.7) k/uL Lymphocytes # (1.0-4.8) k/uL Chloride (98-107) mmol/L Carbon Dioxide (22-30) mmol/L BUN (9-20) mg/dL Creatinine (0.66-1.25) mg/dL Glucose (74-99) mg/dL POC Glucose (mg/dL) (75-99) mg/dL Total Bilirubin (0.2-1.3) mg/dL AST (17-59) U/L Total Protein (6.3-8.2) g/dL Urine Protein 2+ H (Negative) Urine Blood Moderate H (Negative) Ur Leukocyte Esterase Large H (Negative) Urine RBC 12 H (0-5) /hpf Urine WBC >182 H (0-5) /hpf Urine WBC Clumps Many H (None) /hpf Urine Bacteria Moderate H (None) /hpf Urine Mucus Rare H (None) /hpf Urine Yeast (Budding) Few H (None) /hpf Assessment and Plan Plan: #1 urinary tract infection: Recent urethral procedure, patient will be started on levofloxacin. Await urine cultures and blood cultures. #2 morbid obesity with history of sleep apnea patient will continue CPAP machine here. 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 #4 recent history of CVA without any residual weakness. #5 gastric esophageal reflux disease number #6 hyponatremia #7 hypertension #8 cannot disease #9 urethral stricture and prostatic hypertrophy #7 hypothyroidism #8 chronic kidney disease stage III secondary to diabetic nephropathy, avoid nephrotoxic agents For above-mentioned chronic medical problems patient will be continued on appropriate home medications.
[2017-07-10 17:22] LABS: Glucose,Whole Blood 154 mg/dL (75-99)
[2017-07-10] MEDS ORDERED: SODIUM CHLORIDE 0.9% 1,000 ML IV ONE (19:37)
[2017-07-10 21:00] LABS: Glucose,Whole Blood 215 mg/dL (75-99)
[2017-07-10] MEDS: SODIUM CHLORIDE 0.9% 1,000 ML IV SCH (21:22)
[2017-07-10] MEDS: ISOSORBIDE MONONITRATE ER 30 MG TAB.ER.24H PO SCH (21:29)
[2017-07-10] MEDS: INSULIN DETEMIR 100 UNIT/ML 10 ML VIAL SQ SCH (21:29)
[2017-07-10] MEDS: ASPIRIN 81 MG PO SCH (21:29)
[2017-07-10] MEDS: ATORVASTATIN 80 MG TAB PO SCH (21:29)
[2017-07-10] MEDS: INSULIN ASPART 100 UNIT/ML 1 ML 10 ML VIAL SQ SCH (21:29)
[2017-07-10] MEDS: FAMOTIDINE 20 MG TAB PO SCH (21:30)
[2017-07-10] MEDS: DOXEPIN 25 MG CAP PO SCH (21:30)
[2017-07-10] MEDS: HYDROcodone/APAP 5-325MG 1 EACH TAB PO SCH (21:34)
[2017-07-11] MEDS: SODIUM CHLORIDE 0.9% 1,000 ML IV SCH ×2 (05:18→12:24)
[2017-07-11] MEDS: LEVOTHYROXINE 137 MCG TAB PO SCH (06:13)
[2017-07-11 07:09] LABS: Glucose,Whole Blood 159 mg/dL (75-99)
[2017-07-11 08:23] LABS: Basophils % (A) 0 %; CH 29.6; Eosinophils % (A) 0 %; HCT 33.5 % (39.0-53.0); HDW 2.19; HGB 10.7 gm/dL (13.0-17.5); Luc # (Auto) 0.15; Luc % (Auto) 1; Lymphocytes # (A) 0.5 k/uL (1.0-4.8); Lymphocytes % (A) 4 %; MCH 28.9 pg (25.0-35.0); MCV 90.1 fL (80.0-100.0); Mean Platelet Volume 8.2; Monocytes # (A) 0.8 k/uL (0-1.0); Monocytes % (A) 6 %; Neutrophils # (A) 13.2 k/uL (1.3-7.7); Neutrophils % (A) 90 %; RBC 3.72 m/uL (4.30-5.90); RDW 14.1 % (11.5-15.5); WBC 14.8 k/uL (3.8-10.6); WBC (Perox) 14.89
[2017-07-11 08:35] LABS: Potassium 4.7 mmol/L (3.5-5.1); Total Bilirubin 1.2 mg/dL (0.2-1.3)
[2017-07-11] MEDS ORDERED: ACETAMINOPHEN TAB 325 MG TAB PO STA (08:40)
[2017-07-11] MEDS ORDERED: LEVOFLOXACIN 750MG-D5W PMX 750 MG in DEXTROSE/WATER 1 150ML.BAG IVPB SCH (09:00)
[2017-07-11] MEDS ORDERED: NON-FORMULARY DRUG (Omega-3 Fatty Acids [Omega-3] 1,000 MG) PO SCH (09:00)
--- NOTE | 2017-07-11 09:20 | XR ---
EXAMINATION TYPE: XR chest 1V portable DATE OF EXAM: 07/11/2017 COMPARISON: 07/10/2017 HISTORY: Fever TECHNIQUE: Single frontal view of the chest is obtained. FINDINGS: Bilateral areas of subsegmental infiltrate noted. Heart is enlarged and there is postsurgi [place] change. Atherosclerotic change of the aorta. No pneumothorax. Biapical pleural thickening. IMPRESSION: 1. Bilateral areas of infiltrate stable. 2. Interstitium appears to be improved may reflect improving interstitial congestion or pneumonitis. Correlate clinically.
[2017-07-11] MEDS: FOLIC ACID 1 MG TAB PO SCH (09:22)
[2017-07-11] MEDS: ALLOPURINOL 100 MG TAB PO SCH (09:22)
[2017-07-11] MEDS: CALCITRIOL 0.25 MCG CAP PO SCH (09:22)
[2017-07-11] MEDS: FERROUS SULFATE 325 MG TAB PO SCH (09:22)
[2017-07-11] MEDS: CITALOPRAM HYDROBROMIDE 20 MG TAB PO SCH (09:22)
[2017-07-11] MEDS: FAMOTIDINE 20 MG TAB PO SCH (09:22)
[2017-07-11] MEDS: CLOPIDOGREL 75 MG TAB PO SCH (09:22)
[2017-07-11] MEDS: HYDROcodone/APAP 5-325MG 1 EACH TAB PO SCH ×2 (09:33→21:50)
[2017-07-11] MEDS: INSULIN ASPART 100 UNIT/ML 1 ML 10 ML VIAL SQ SCH ×4 (09:34→21:50)
--- NOTE | 2017-07-11 09:55 | P.NPCON ---
History of Present Illness - Reason for Consult chronic renal failure - History of Present Illness Reason for consultation: Chronic kidney disease History of present illness: Patient is a 71-year-old male seen in renal consultation for chronic kidney disease. Patient has chronic kidney disease stage III secondary to diabetic kidney disease with baseline creatinine near 2. Patient presented to the hospital with generalized weakness. He does have a history of CVA in the family was worried that he was having another stroke and therefore brought him to the hospital. He is currently able to move all his extremities. He does admit to having dry heaves prior to admission which is now resolved. He did receive 2 L of fluid bolus on admission and was maintained on normal saline at 1 25 mL an hour overnight. Fluids were discontinued this morning. Oral intake is good. Admits to good urine output. No hematuria or dysuria. Patient states he did have urethral stricture and had scar tissue removed this past Friday. He denies any hematuria or dysuria. His urinalysis is suggestive of a UTI and is currently maintained on antibiotics. Creatinine is 2.1 today. Hemodynamically he stable. Denies use of NSAIDs. No other complaints at this time. Vital signs are stable. Temperature was 100.9F as of this morning. He's also noted to be tachycardic. General: The patient appeared well nourished and normally developed. HEENT: Head exam is unremarkable. Neck is without jugular venous distension. LUNGS: Lungs are clear to auscultation and percussion. Breath sounds decreased. HEART: Rate and Rhythm are regular. First and second heart sounds normal. No murmurs, rubs or gallops. ABDOMEN: Abdominal exam reveals normal bowel sounds. Non-tender and non- distended. No evidence of peritonitis. EXTREMITITES: No clubbing, cyanosis, or edema. Past Medical History Past Medical History: Coronary Artery Disease (CAD), CVA/TIA, Diabetes Mellitus , GERD/Reflux, Hyperlipidemia, Hypertension, Myocardial Infarction ([place]), Osteoarthritis (OA), Prostate Disorder, Renal Disease, Sleep Apnea/CPAP/BIPAP, Thyroid Disorder Additional Past Medical History / Comment(s): hx. TIA's, last one November 2016, heart murmur, OCC SOB, kidney stones, leakage of urine, uses CPAP, decreased kidney function, placed on antibiotics recently for UTI Last Myocardial Infarction Date:: 2010 History of Any Multi-Drug Resistant Organisms: None Reported Past Surgical History: Coronary Bypass/CABG, Heart Catheterization, Hernia Repair, Orthopedic Surgery, Prostate Surgery Additional Past Surgical History / Comment(s): vasectomy, CABG 2011 with 4 vessels, keke knee arthroscopy, rt hand surgery x 3 Past Anesthesia/Blood Transfusion Reactions: No Reported Reaction Smoking Status: Never smoker - Past Family History Mother Family Medical History: Congestive Heart Failure (CHF) Additional Family Medical History / Comment(s): at age 92 Father Family Medical History: CVA/TIA, Myocardial Infarction ([place]) Medications and Allergies Home Medications Medication Instructions Recorded Confirmed Type Allopurinol [Zyloprim] 100 mg PO DAILY 11/28/15 07/10/17 History Aspirin 81 mg PO HS 11/28/15 07/10/17 History Atorvastatin [Lipitor] 80 mg PO HS 11/28/15 07/10/17 History Calcitriol 0.25 mcg PO QAM 11/28/15 07/10/17 History Clopidogrel Bisulfate [Plavix] 75 mg PO QAM 11/28/15 07/10/17 History Doxepin HCl [SINEquan] 50 mg PO HS 11/28/15 07/10/17 History Folic Acid 1 mg PO QAM 11/28/15 07/10/17 History Isosorbide Mononitrate [Isosorbide 30 mg PO HS 11/28/15 07/10/17 History Mononitrate ER] Levothyroxine Sodium [Synthroid] 137 mcg PO QAM 11/28/15 07/10/17 History Ergocalciferol (Vitamin D2) 50,000 unit PO QMONTH 11/29/16 07/10/17 History [Vitamin D2] Acetaminophen [Tylenol Arthritis] 1,300 mg PO BID 12/08/16 07/10/17 History Citalopram Hydrobromide [CeleXA] 20 mg PO DAILY 12/08/16 07/10/17 History Ferrous Sulfate [Iron (65 MG 325 mg PO DAILY 12/08/16 07/10/17 History Elemental)] [place]-3 Fatty Acids [[place]-3] 1,000 mg PO DAILY 12/08/16 07/10/17 History Ranitidine HCl [Zantac] 150 mg PO BID 12/08/16 07/10/17 History Insulin Glargine [Lantus] 25 unit SQ HS #1 vial 12/12/16 07/10/17 Rx Hydrocodone/Acetaminophen [[place] 1 tab PO BID 05/22/17 07/10/17 History 5-325] INSULIN LISPRO (humaLOG) [humaLOG] See Protocol SQ AC-TID 05/22/17 07/10/17 History glipiZIDE XL [Glucotrol Xl] 5 mg PO BID 05/22/17 07/10/17 History Allergies Allergy/AdvReac Type Severity Reaction Status Date / Time Penicillins Allergy Severe Anaphylaxis Verified 07/10/17 15:03 cephalexin monohydrate Allergy Rash/Hives Verified 07/10/17 15:03 [From Keflex] gemfibrozil [From Lopid] AdvReac Abdominal Verified 07/10/17 15:03 Pain Physical Exam Vitals: Vital Signs Temp Pulse Pulse Resp BP BP Pulse Ox 07/11/17 07:00 100.9 F H 111 H 20 129/76 97 07/10/17 23:00 97.8 F 119 H 18 145/89 96 07/10/17 20:00 119 H 18 07/10/17 17:12 16 07/10/17 16:37 98.5 F 112 H 20 107/72 96 07/10/17 15:15 131 H 18 126/75 97 07/10/17 14:50 100.9 F H 124 H 18 134/73 97 07/10/17 13:50 121 H 20 149/74 97 07/10/17 13:45 101.9 F H 121 H 20 163/82 96 Intake and Output 07/10/17 07/11/17 07/11/17 22:59 06:59 14:59 Intake Total 3023 Balance 3023 Intake: Intake, IV Titration 3023 Amount Levofloxacin 750Mg-D5w 999 Pmx 750 mg In Dextrose/ Water 1 150ml.bag @ 100 mls/hr IVPB ONCE STA Rx#: [id number] Levofloxacin 750Mg-D5w 150 Pmx 750 mg In Dextrose/ Water 1 150ml.bag @ 100 mls/hr IVPB Q24HR [facility] Rx# :[id number] Sodium Chloride 0.9% 1, 375 000 ml @ 125 mls/hr IV . Q8H [facility] Rx#:[id number] Sodium Chloride 0.9% 1, 999 000 ml @ 999 mls/hr IV . Q1H1M ONE Rx#:[id number] Sodium Chloride 0.9% 500 500 ml @ 1000 mls/hr IV Q35M [facility] Rx#:[id number] Other: # Voids 3 Results - Lab Results Most recent lab results Calcium 8.0 mg/dL (8.4-10.2) L 07/11/17 08:00 07/11/17 08:00 07/11/17 08:00 Assessment and Plan Plan: Assessment: #1. Chronic kidney disease stage III secondary to diabetic kidney disease with baseline creatinine near 2. GFR is near baseline. Serologic workup as an outpatient has been negative. #2. Metabolic acidosis secondary to chronic kidney disease and IV fluids. Also noted to have a high lactic acid level on admission which improved with IV hydration. #3. UTI maintained on antibiotics. #4. Insulin-dependent diabetes mellitus. Plan: Continue to hold off on IV fluids at this time. His oral intake is good. Follow-up urine culture. Avoid nephrotoxic agents and hypotensive episodes. Add oral sodium bicarbonate 650 mg twice daily. Thank you for the consultation. I will continue to follow the patient with you during his hospital stay.
[2017-07-11 11:54] LABS: Glucose,Whole Blood 165 mg/dL (75-99)
[2017-07-11] MEDS: SODIUM BICARBONATE TAB 650 MG TAB PO SCH ×2 (13:27→21:50)
--- NOTE | 2017-07-11 13:41 | CDI ---
In responding to this query, please exercise your independent professional judgment. The [facility] Coding Staff and Clinical Documentation Specialists appreciate your assistance in clarifying documentation, maintaining compliance with coding guidelines, accurately documenting patients condition and capturing severity of illness. The fact that a question is asked does not imply that any particular answer is desired or expected. Communication forms are a method of clarifying documentation and are not made part of the Legal Health Record. Thank you in advance for your clarification. Last Revision, June 2015 Aniyahadelfo Montano [address] [facility] [place] [address] Documentation Clarification Form Date: 07/11/2017 1:36:00 PM From: Tabitha Hilton Admit Date: 07/10/2017 4:11:00 PM Patient Name: Junaid Ruiz Visit Number: [id number] Dr. Lucero Keating The H&P shows documentation of 'hyponatremia'. Clinical indicators: Labs on 07/10 show Na 140 Treatment: IV fluids 0.9% Sodium Chloride boluses given In order to capture the severity of condition, please clarify if the condition signifies: Hyponatremia Ruled In Hyponatremia Ruled Out Unable to determine Other condition, please specify Please document in your progress notes and discharge summary in order to capture severity of illness and risk of mortality. Include clinical findings that support your diagnosis. FYI: Press F11 to launch patient chart. JED
--- NOTE | 2017-07-11 13:48 | CDI ---
In responding to this query, please exercise your independent professional judgment. The [facility] Coding Staff and Clinical Documentation Specialists appreciate your assistance in clarifying documentation, maintaining compliance with coding guidelines, accurately documenting patients condition and capturing severity of illness. The fact that a question is asked does not imply that any particular answer is desired or expected. Communication forms are a method of clarifying documentation and are not made part of the Legal Health Record. Thank you in advance for your clarification. Last Revision, June 2015 Aniyah Montano [address] [facility] [place] [address] Documentation Clarification Form Date: 07/11/2017 1:41:00 PM From: Tabitha Hilton Admit Date: 07/10/2017 4:11:00 PM Patient Name: Junaid Ruiz Visit Number: [id number] Dr. Lucero Keating History/Risk Factors: 'Patient had a ureteral procedure for a stricture a couple days ago' per H& P. DM Renal Disease - CKD stage 3 Clinical Indicators: Vital Signs on admission: temp 101.9, hr 121 WBC on admission: 8.4, on 07/11 was 14.8 Urinalysis: cloudy, 2+ prot, mod blood, lg leuks, wbc >182 Urine Culture: pending Treatment: Antibiotics: IV Levaquin IV fluid boluses Please document the condition that these clinical indicators signify, whether Present on Admission, and cause if known: UTI - If due to catheter, device or implant, or recent procedure please document Specify organism, if known Contaminated specimen Unable to determine Other Please document in your progress notes and discharge summary in order to capture severity of illness and risk of mortality. Include clinical findings that support your diagnosis. FYI: Press F11 to launch patient chart. JED
--- NOTE | 2017-07-11 13:58 | CDI ---
In responding to this query, please exercise your independent professional judgment. The [facility] Coding Staff and Clinical Documentation Specialists appreciate your assistance in clarifying documentation, maintaining compliance with coding guidelines, accurately documenting patients condition and capturing severity of illness. The fact that a question is asked does not imply that any particular answer is desired or expected. Communication forms are a method of clarifying documentation and are not made part of the Legal Health Record. Thank you in advance for your clarification. Last Revision, November 2016 Aniyah Montano [address] [facility] [place] [address] Documentation Clarification Form Date: 07/11/2017 1:50:00 PM From: Tabitha Hilton Admit Date: 07/10/2017 4:11:00 PM Patient Name: Junaid Ruiz Visit Number: [id number] Dr. Lucero Keating History/Risk Factors: Recent ureteral procedure UTI DM CKD stg 3 Clinical Indicators: WBC on admission was 8.4, on 07/11 was 14.8 Lactic acid: on admission was 1.7, then 3.0 and 2.6 Vitals signs on admission: temp 101.9, hr 121, RR 20, bp 163/82, sats 96% on 4L nc 'Sepsis' was noted by the ED Sepsis screening shows 'severe sepsis risk...sepsis protocol followed' Treatment: Antibiotics: IV Levaquin IV fluid Bolus In your professional opinion, please clarify if these findings signify one of the following conditions, whether the condition is POA, and cause, if known: Sepsis, ruled out Sepsis, ruled in Unable to determine Other, please specify Present on Admission: Yes No Please document in your progress notes and discharge summary in order to capture severity of illness and risk of mortality. Include clinical findings that support your diagnosis. FYI: Press F11 to launch patient chart. JED
[2017-07-11] MEDS ORDERED: IPRATROPIUM-ALBUTEROL 3 ML NEB INHALATION PRN (14:58)
[2017-07-11] MEDS: IPRATROPIUM-ALBUTEROL 3 ML NEB INHALATION SCH ×2 (16:15→20:00)
[2017-07-11 17:07] LABS: Glucose,Whole Blood 151 mg/dL (75-99)
--- NOTE | 2017-07-11 17:35 | P.GSCN ---
History of Present Illness Consult date: 07/11/17 Reason for Consult: Urinary tract infection with sepsis History of present illness: The patient is a 71-year-old male admitted through the emergency room on 07/10 with a fever of 101.9 and possible sepsis with hypotension secondary to a urinary tract infection. He had undergone cystoscopy with dilation of a bulbus urethral stricture on 07/[address] Delgado. He was given 500 mg of Cipro orally following the procedure. He said the following day he developed urinary frequency, urgency and was somewhat weak. On 07/10 he apparently passed out when he stood up and was taken to the emergency room for evaluation. He was noted to have a white blood count of 8400 and a urinalysis suggested a UTI. He has been placed on antibiotics and says that he is no longer dizzy. He says that he had been experiencing frequency and urgency prior to his admission but this has improved. The patient has a history of BPH and underwent TURP in 02/2017. He had been evaluated by Dr. Delgado earlier in the week due to cyst and slow urinary flow and at that time was noted to have a postvoid residual of 354 mL. He says that his urine flow is improved following urethral dilation. Cystoscopy showed no residual bladder outflow obstruction from the prostate. Review of Systems - Constitutional Reports chills, Reports fever, Reports weakness - Cardiovascular Reports lightheadedness, Denies chest pain, Denies palpitations - Respiratory Denies cough, Denies wheezing - Gastrointestinal Denies abdominal pain - Genitourinary Reports as per HPI Past Medical History Past Medical History: Coronary Artery Disease (CAD), CVA/TIA, Diabetes Mellitus , GERD/Reflux, Hyperlipidemia, Hypertension, Myocardial Infarction ([place]), Osteoarthritis (OA), Prostate Disorder, Renal Disease, Sleep Apnea/CPAP/BIPAP, Thyroid Disorder Additional Past Medical History / Comment(s): hx. TIA's, last one November 2016, heart murmur, OCC SOB, kidney stones, leakage of urine, uses CPAP, decreased kidney function, placed on antibiotics recently for UTI Last Myocardial Infarction Date:: 2010 History of Any Multi-Drug Resistant Organisms: None Reported Past Surgical History: Coronary Bypass/CABG, Heart Catheterization, Hernia Repair, Orthopedic Surgery, Prostate Surgery Additional Past Surgical History / Comment(s): vasectomy, CABG 2010 with 4 vessels, keke knee arthroscopy, rt hand surgery x 3, TURP 02/2017 Past Anesthesia/Blood Transfusion Reactions: No Reported Reaction Smoking Status: Never smoker - Past Family History Mother Family Medical History: Congestive Heart Failure (CHF) Additional Family Medical History / Comment(s): at age 92 Father Family Medical History: CVA/TIA, Myocardial Infarction ([place]) Medications and Allergies Home Medications Medication Instructions Recorded Confirmed Type Allopurinol [Zyloprim] 100 mg PO DAILY 11/28/15 07/10/17 History Aspirin 81 mg PO HS 11/28/15 07/10/17 History Atorvastatin [Lipitor] 80 mg PO HS 11/28/15 07/10/17 History Calcitriol 0.25 mcg PO QAM 11/28/15 07/10/17 History Clopidogrel Bisulfate [Plavix] 75 mg PO QAM 11/28/15 07/10/17 History Doxepin HCl [SINEquan] 50 mg PO HS 11/28/15 07/10/17 History Folic Acid 1 mg PO QAM 11/28/15 07/10/17 History Isosorbide Mononitrate [Isosorbide 30 mg PO HS 11/28/15 07/10/17 History Mononitrate ER] Levothyroxine Sodium [Synthroid] 137 mcg PO QAM 11/28/15 07/10/17 History Ergocalciferol (Vitamin D2) 50,000 unit PO QMONTH 11/29/16 07/10/17 History [Vitamin D2] Acetaminophen [Tylenol Arthritis] 1,300 mg PO BID 12/08/16 07/10/17 History Citalopram Hydrobromide [CeleXA] 20 mg PO DAILY 12/08/16 07/10/17 History Ferrous Sulfate [Iron (65 MG 325 mg PO DAILY 12/08/16 07/10/17 History Elemental)] [place]-3 Fatty Acids [[place]-3] 1,000 mg PO DAILY 12/08/16 07/10/17 History Ranitidine HCl [Zantac] 150 mg PO BID 12/08/16 07/10/17 History Insulin Glargine [Lantus] 25 unit SQ HS #1 vial 12/12/16 07/10/17 Rx Hydrocodone/Acetaminophen [[place] 1 tab PO BID 05/22/17 07/10/17 History 5-325] INSULIN LISPRO (humaLOG) [humaLOG] See Protocol SQ AC-TID 05/22/17 07/10/17 History glipiZIDE XL [Glucotrol Xl] 5 mg PO BID 05/22/17 07/10/17 History Allergies Allergy/AdvReac Type Severity Reaction Status Date / Time Penicillins Allergy Severe Anaphylaxis Verified 07/10/17 15:03 cephalexin monohydrate Allergy Rash/Hives Verified 07/10/17 15:03 [From Keflex] gemfibrozil [From Lopid] AdvReac Abdominal Verified 07/10/17 15:03 Pain Surgical - Exam Vital Signs Temp Pulse Resp BP Pulse Ox 101.9 F H 121 H 20 163/82 96 07/10/17 13:45 07/10/17 13:45 07/10/17 13:45 07/10/17 13:45 07/10/17 13:45 Results - Labs 07/11/17 08:00 07/11/17 08:00 Abnormal Lab Results - Last 24 Hours (Table) 07/10/17 07/10/17 07/10/17 Range/Units 14:45 17:19 18:00 WBC (3.8-10.6) k/uL RBC (4.30-5.90) m/uL Hgb (13.0-17.5) gm/dL Hct (39.0-53.0) % Plt Count (150-450) k/uL Neutrophils # (1.3-7.7) k/uL Lymphocytes # (1.0-4.8) k/uL Chloride (98-107) mmol/L Carbon Dioxide (22-30) mmol/L BUN (9-20) mg/dL Creatinine (0.66-1.25) mg/dL Glucose (74-99) mg/dL POC Glucose (mg/dL) 154 H (75-99) mg/dL Hemoglobin A1c 6.8 H (4.0-6.0) % Plasma Lactic Acid Meek (0.7-2.0) mmol/L Calcium (8.4-10.2) mg/dL Total Protein (6.3-8.2) g/dL Albumin (3.5-5.0) g/dL Urine Protein 2+ H (Negative) Urine Blood Moderate H (Negative) Ur Leukocyte Esterase Large H (Negative) Urine RBC 12 H (0-5) /hpf Urine WBC >182 H (0-5) /hpf Urine WBC Clumps Many H (None) /hpf Urine Bacteria Moderate H (None) /hpf Urine Mucus Rare H (None) /hpf Urine Yeast (Budding) Few H (None) /hpf 07/10/17 07/10/17 07/10/17 Range/Units 18:21 20:59 22:19 WBC (3.8-10.6) k/uL RBC (4.30-5.90) m/uL Hgb (13.0-17.5) gm/dL Hct (39.0-53.0) % Plt Count (150-450) k/uL Neutrophils # (1.3-7.7) k/uL Lymphocytes # (1.0-4.8) k/uL Chloride (98-107) mmol/L Carbon Dioxide (22-30) mmol/L BUN (9-20) mg/dL Creatinine (0.66-1.25) mg/dL Glucose (74-99) mg/dL POC Glucose (mg/dL) 215 H (75-99) mg/dL Hemoglobin A1c (4.0-6.0) % Plasma Lactic Acid Meek 3.0 H* 2.6 H* (0.7-2.0) mmol/L Calcium (8.4-10.2) mg/dL Total Protein (6.3-8.2) g/dL Albumin (3.5-5.0) g/dL Urine Protein (Negative) Urine Blood (Negative) Ur Leukocyte Esterase (Negative) Urine RBC (0-5) /hpf Urine WBC (0-5) /hpf Urine WBC Clumps (None) /hpf Urine Bacteria (None) /hpf Urine Mucus (None) /hpf Urine Yeast (Budding) (None) /hpf 07/11/17 07/11/17 07/11/17 Range/Units 07:04 08:00 08:00 WBC 14.8 H (3.8-10.6) k/uL RBC 3.72 L (4.30-5.90) m/uL Hgb 10.7 L (13.0-17.5) gm/dL Hct 33.5 L (39.0-53.0) % Plt Count 104 L (150-450) k/uL Neutrophils # 13.2 H (1.3-7.7) k/uL Lymphocytes # 0.5 L (1.0-4.8) k/uL Chloride 112 H (98-107) mmol/L Carbon Dioxide 16 L (22-30) mmol/L BUN 45 H (9-20) mg/dL Creatinine 2.10 H (0.66-1.25) mg/dL Glucose 159 H (74-99) mg/dL POC Glucose (mg/dL) 159 H (75-99) mg/dL Hemoglobin A1c (4.0-6.0) % Plasma Lactic Acid Meek (0.7-2.0) mmol/L Calcium 8.0 L (8.4-10.2) mg/dL Total Protein 5.0 L (6.3-8.2) g/dL Albumin 2.9 L (3.5-5.0) g/dL Urine Protein (Negative) Urine Blood (Negative) Ur Leukocyte Esterase (Negative) Urine RBC (0-5) /hpf Urine WBC (0-5) /hpf Urine WBC Clumps (None) /hpf Urine Bacteria (None) /hpf Urine Mucus (None) /hpf Urine Yeast (Budding) (None) /hpf 07/11/17 Range/Units 11:49 WBC (3.8-10.6) k/uL RBC (4.30-5.90) m/uL Hgb (13.0-17.5) gm/dL Hct (39.0-53.0) % Plt Count (150-450) k/uL Neutrophils # (1.3-7.7) k/uL Lymphocytes # (1.0-4.8) k/uL Chloride (98-107) mmol/L Carbon Dioxide (22-30) mmol/L BUN (9-20) mg/dL Creatinine (0.66-1.25) mg/dL Glucose (74-99) mg/dL POC Glucose (mg/dL) 165 H (75-99) mg/dL Hemoglobin A1c (4.0-6.0) % Plasma Lactic Acid Meek (0.7-2.0) mmol/L Calcium (8.4-10.2) mg/dL Total Protein (6.3-8.2) g/dL Albumin (3.5-5.0) g/dL Urine Protein (Negative) Urine Blood (Negative) Ur Leukocyte Esterase (Negative) Urine RBC (0-5) /hpf Urine WBC (0-5) /hpf Urine WBC Clumps (None) /hpf Urine Bacteria (None) /hpf Urine Mucus (None) /hpf Urine Yeast (Budding) (None) /hpf Microbiology - Last 24 Hours (Table) 07/10/17 14:45 Urine Culture - Preliminary Urine,Voided Diabetes panel 07/10/17 07/11/17 Range/Units 18:00 08:00 Sodium 138 (137-145) mmol/L Potassium 4.7 (3.5-5.1) mmol/L Chloride 112 H (98-107) mmol/L Carbon Dioxide 16 L (22-30) mmol/L BUN 45 H (9-20) mg/dL Creatinine 2.10 H (0.66-1.25) mg/dL Glucose 159 H (74-99) mg/dL Hemoglobin A1c 6.8 H (4.0-6.0) % Calcium 8.0 L (8.4-10.2) mg/dL AST 24 (17-59) U/L ALT 28 (21-72) U/L Alkaline Phosphatase 57 (38-126) U/L Total Protein 5.0 L (6.3-8.2) g/dL Albumin 2.9 L (3.5-5.0) g/dL Calcium panel 07/11/17 Range/Units 08:00 Calcium 8.0 L (8.4-10.2) mg/dL Albumin 2.9 L (3.5-5.0) g/dL Pituitary panel 07/11/17 Range/Units 08:00 Sodium 138 (137-145) mmol/L Potassium 4.7 (3.5-5.1) mmol/L Chloride 112 H (98-107) mmol/L Carbon Dioxide 16 L (22-30) mmol/L BUN 45 H (9-20) mg/dL Creatinine 2.10 H (0.66-1.25) mg/dL Glucose 159 H (74-99) mg/dL Calcium 8.0 L (8.4-10.2) mg/dL Adrenal panel 07/11/17 Range/Units 08:00 Sodium 138 (137-145) mmol/L Potassium 4.7 (3.5-5.1) mmol/L Chloride 112 H (98-107) mmol/L Carbon Dioxide 16 L (22-30) mmol/L BUN 45 H (9-20) mg/dL Creatinine 2.10 H (0.66-1.25) mg/dL Glucose 159 H (74-99) mg/dL Calcium 8.0 L (8.4-10.2) mg/dL Total Bilirubin 1.2 (0.2-1.3) mg/dL AST 24 (17-59) U/L ALT 28 (21-72) U/L Alkaline Phosphatase 57 (38-126) U/L Total Protein 5.0 L (6.3-8.2) g/dL Albumin 2.9 L (3.5-5.0) g/dL Assessment and Plan Assessment: Patient appears to have sepsis secondary to a urinary tract source. It is possible that he developed bacteremia immediately following his urethral dilation on 07/08. He has improved with the use of IV fluids and IV levofloxacin. Postvoid residual will be checked to ensure that the bladder is emptying adequately. Further recommendations are dependent on the results of the urine culture.
--- NOTE | 2017-07-11 18:04 | P.PN ---
Subjective Progress Note Date: 07/11/17 progress note being dictated for Dr. Keating Interval history:Patient is a pleasant 71-year-old gentleman came in with complaints of fever chills started last night increased urinary frequency dysuria with significantly abnormal urine of increased the WBC in the urine white blood cell counts of greater than 180 in the urine along with increased leukocyte esterase WBC clumps. Patient had Enterococcus faecalis UTIs in the past, patient's enterococcus is fortunately sensitive to fluoroquinolones and patient is ALLERGIC to penicillins and cephalosporins area patient had ureteral procedure for a stricture couple days ago area patient denied any cough runny nose chest x-ray was questionable for retrocardiac shadow as per the radiologist reading although patient does not have any symptoms of pneumonia. Patient does have chronic kidney disease and his kidney function at this time is 1.9 which is actually better than his baseline. Urine cultures and blood cultures were obtained. Patient does not have any leukocytosis. Review of Systems REVIEW OF SYSTEMS: CONSTITUTIONAL: As mentioned in HPI HEENT: No recent visual problems or hearing problems. Denied any sore throat. CARDIOVASCULAR: No chest pain, orthopnea, PND, no palpitations, no syncope. PULMONARY: No shortness of breath, no cough, no hemoptysis. GASTROINTESTINAL: No diarrhea, no nausea, no vomiting, no abdominal pain. Normoactive bowel sounds. NEUROLOGICAL: No headaches, no weakness, no numbness. HEMATOLOGICAL: Denies any bleeding or petechiae. GENITOURINARY: As mentioned in HPI MUSCULOSKELETAL/RHEUMATOLOGICAL: Denies any joint pain, swelling, or any muscle pain. ENDOCRINE: Denies any polyuria or polydipsia. The rest of the 14-point review of systems is negative. 07/11/2017 received IV fluids for elevated lactic acid, significantly improved, down to 1.6. tachycardia improved, down to low 100s.T-max 100.9,WBC 14.8.urine culture pending,preliminary blood culture negative at 24 hours.creatinine mildly worsened up to 2.1. maintaining O2 sats of 95% on 4lnc in a patient who does not wear O2 at home, chest x-ray ordered, results noted.good diet intake , with no nausea vomiting or diarrhea.IV fluids have been discontinued. evaluated by nephrology, recommendations noted. Objective - Vital Signs Vital signs: Vital Signs Temp 98.0 F 11/17/17 09:52 Pulse 103 H 07/11/17 09:52 Resp 20 07/11/17 09:52 BP 129/76 07/11/17 07:00 Pulse Ox 95 07/11/17 09:52 Intake & Output 07/10/17 07/11/17 07/11/17 18:59 06:59 18:59 Intake Total 3023 Balance 3023 Weight 119.794 kg Intake: Intake, IV Titration 3023 Amount Levofloxacin 750Mg-D5w 999 Pmx 750 mg In Dextrose/ Water 1 150ml.bag @ 100 mls/hr IVPB ONCE STA Rx#: [id number] Levofloxacin 750Mg-D5w 150 Pmx 750 mg In Dextrose/ Water 1 150ml.bag @ 100 mls/hr IVPB Q24HR [facility] Rx# :[id number] Sodium Chloride 0.9% 1, 375 000 ml @ 125 mls/hr IV . Q8H [facility] Rx#:[id number] Sodium Chloride 0.9% 1, 999 000 ml @ 999 mls/hr IV . Q1H1M [facility] Rx#:[id number] Sodium Chloride 0.9% 500 500 ml @ 1000 mls/hr IV Q35M [facility] Rx#:[id number] Other: # Voids 3 - Exam GENERAL: The patient is alert and oriented x3, not in any acute distress. HEENT: Pupils are round and equally reacting to light. EOMI. No scleral icterus. No conjunctival pallor. Normocephalic, atraumatic. No pharyngeal erythema. No thyromegaly. CARDIOVASCULAR: S1 and S2 present. No murmurs, rubs, or gallops. PULMONARY: Chest is clear to auscultation, no wheezing or crackles. ABDOMEN: Soft, nontender, nondistended, normoactive bowel sounds. No palpable organomegaly. MUSCULOSKELETAL: No joint swelling or deformity. EXTREMITIES: No cyanosis, clubbing, or pedal edema. NEUROLOGICAL: Gross neurological examination did not reveal any focal deficits. SKIN: No rashes. - Labs CBC & Chem 7: 07/11/17 08:00 07/11/17 08:00 Labs: Abnormal Lab Results - Last 24 Hours (Table) 07/10/17 07/10/17 07/10/17 Range/Units 14:45 17:19 18:00 WBC (3.8-10.6) k/uL RBC (4.30-5.90) m/uL Hgb (13.0-17.5) gm/dL Hct (39.0-53.0) % Plt Count (150-450) k/uL Neutrophils # (1.3-7.7) k/uL Lymphocytes # (1.0-4.8) k/uL Chloride (98-107) mmol/L Carbon Dioxide (22-30) mmol/L BUN (9-20) mg/dL Creatinine (0.66-1.25) mg/dL Glucose (74-99) mg/dL POC Glucose (mg/dL) 154 H (75-99) mg/dL Hemoglobin A1c 6.8 H (4.0-6.0) % Plasma Lactic Acid Meek (0.7-2.0) mmol/L Calcium (8.4-10.2) mg/dL Total Protein (6.3-8.2) g/dL Albumin (3.5-5.0) g/dL Urine Protein 2+ H (Negative) Urine Blood Moderate H (Negative) Ur Leukocyte Esterase Large H (Negative) Urine RBC 12 H (0-5) /hpf Urine WBC >182 H (0-5) /hpf Urine WBC Clumps Many H (None) /hpf Urine Bacteria Moderate H (None) /hpf Urine Mucus Rare H (None) /hpf Urine Yeast (Budding) Few H (None) /hpf 07/10/17 07/10/17 07/10/17 Range/Units 18:21 20:59 22:19 WBC (3.8-10.6) k/uL RBC (4.30-5.90) m/uL Hgb (13.0-17.5) gm/dL Hct (39.0-53.0) % Plt Count (150-450) k/uL Neutrophils # (1.3-7.7) k/uL Lymphocytes # (1.0-4.8) k/uL Chloride (98-107) mmol/L Carbon Dioxide (22-30) mmol/L BUN (9-20) mg/dL Creatinine (0.66-1.25) mg/dL Glucose (74-99) mg/dL POC Glucose (mg/dL) 215 H (75-99) mg/dL Hemoglobin A1c (4.0-6.0) % Plasma Lactic Acid Meek 3.0 H* 2.6 H* (0.7-2.0) mmol/L Calcium (8.4-10.2) mg/dL Total Protein (6.3-8.2) g/dL Albumin (3.5-5.0) g/dL Urine Protein (Negative) Urine Blood (Negative) Ur Leukocyte Esterase (Negative) Urine RBC (0-5) /hpf Urine WBC (0-5) /hpf Urine WBC Clumps (None) /hpf Urine Bacteria (None) /hpf Urine Mucus (None) /hpf Urine Yeast (Budding) (None) /hpf 07/11/17 07/11/17 07/11/17 Range/Units 07:04 08:00 08:00 WBC 14.8 H (3.8-10.6) k/uL RBC 3.72 L (4.30-5.90) m/uL Hgb 10.7 L (13.0-17.5) gm/dL Hct 33.5 L (39.0-53.0) % Plt Count 104 L (150-450) k/uL Neutrophils # 13.2 H (1.3-7.7) k/uL Lymphocytes # 0.5 L (1.0-4.8) k/uL Chloride 112 H (98-107) mmol/L Carbon Dioxide 16 L (22-30) mmol/L BUN 45 H (9-20) mg/dL Creatinine 2.10 H (0.66-1.25) mg/dL Glucose 159 H (74-99) mg/dL POC Glucose (mg/dL) 159 H (75-99) mg/dL Hemoglobin A1c (4.0-6.0) % Plasma Lactic Acid Meek (0.7-2.0) mmol/L Calcium 8.0 L (8.4-10.2) mg/dL Total Protein 5.0 L (6.3-8.2) g/dL Albumin 2.9 L (3.5-5.0) g/dL Urine Protein (Negative) Urine Blood (Negative) Ur Leukocyte Esterase (Negative) Urine RBC (0-5) /hpf Urine WBC (0-5) /hpf Urine WBC Clumps (None) /hpf Urine Bacteria (None) /hpf Urine Mucus (None) /hpf Urine Yeast (Budding) (None) /hpf 07/11/17 Range/Units 11:49 WBC (3.8-10.6) k/uL RBC (4.30-5.90) m/uL Hgb (13.0-17.5) gm/dL Hct (39.0-53.0) % Plt Count (150-450) k/uL Neutrophils # (1.3-7.7) k/uL Lymphocytes # (1.0-4.8) k/uL Chloride (98-107) mmol/L Carbon Dioxide (22-30) mmol/L BUN (9-20) mg/dL Creatinine (0.66-1.25) mg/dL Glucose (74-99) mg/dL POC Glucose (mg/dL) 165 H (75-99) mg/dL Hemoglobin A1c (4.0-6.0) % Plasma Lactic Acid Meek (0.7-2.0) mmol/L Calcium (8.4-10.2) mg/dL Total Protein (6.3-8.2) g/dL Albumin (3.5-5.0) g/dL Urine Protein (Negative) Urine Blood (Negative) Ur Leukocyte Esterase (Negative) Urine RBC (0-5) /hpf Urine WBC (0-5) /hpf Urine WBC Clumps (None) /hpf Urine Bacteria (None) /hpf Urine Mucus (None) /hpf Urine Yeast (Budding) (None) /hpf Microbiology - Last 24 Hours (Table) 07/10/17 14:45 Urine Culture - Preliminary Urine,Voided Assessment and Plan Assessment: #1 sepsis with acuteurinary tract infection: Recent urethral procedure, patient will be started on levofloxacin. Await urine cultures and blood cultures. 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 #5 gastric esophageal reflux disease number #6 morbid obesity,BMI 36.8 with history of sleep apnea patient will continue CPAP machine here. #7 hypertension #8 CAD #9 urethral stricture and prostatic hypertrophy #7 hypothyroidism #8 chronic kidney disease stage III secondary to diabetic nephropathy plan: Continue on current medication regime, sodium bicarb,monitoring. Duo nebs added to med regime. await final urine and blood culture results.repeat lactic acid. ID consulted. The impression and plan of care has been dictated as directed. : I performed a history and examination of this patient, discussed the same with the dictator. I agree with the dictator's note ,documented as a scribe. Any additional findings or plans will be noted.
--- NOTE | 2017-07-11 18:06 | P.PN ---
Subjective Progress Note Date: 07/11/17 progress note being dictated for Dr. Keating Interval history:Patient is a pleasant 71-year-old gentleman came in with complaints of fever chills started last night increased urinary frequency dysuria with significantly abnormal urine of increased the WBC in the urine white blood cell counts of greater than 180 in the urine along with increased leukocyte esterase WBC clumps. Patient had Enterococcus faecalis UTIs in the past, patient's enterococcus is fortunately sensitive to fluoroquinolones and patient is ALLERGIC to penicillins and cephalosporins area patient had ureteral procedure for a stricture couple days ago area patient denied any cough runny nose chest x-ray was questionable for retrocardiac shadow as per the radiologist reading although patient does not have any symptoms of pneumonia. Patient does have chronic kidney disease and his kidney function at this time is 1.9 which is actually better than his baseline. Urine cultures and blood cultures were obtained. Patient does not have any leukocytosis. Review of Systems REVIEW OF SYSTEMS: CONSTITUTIONAL: As mentioned in HPI HEENT: No recent visual problems or hearing problems. Denied any sore throat. CARDIOVASCULAR: No chest pain, orthopnea, PND, no palpitations, no syncope. PULMONARY: No shortness of breath, no cough, no hemoptysis. GASTROINTESTINAL: No diarrhea, no nausea, no vomiting, no abdominal pain. Normoactive bowel sounds. NEUROLOGICAL: No headaches, no weakness, no numbness. HEMATOLOGICAL: Denies any bleeding or petechiae. GENITOURINARY: As mentioned in HPI MUSCULOSKELETAL/RHEUMATOLOGICAL: Denies any joint pain, swelling, or any muscle pain. ENDOCRINE: Denies any polyuria or polydipsia. The rest of the 14-point review of systems is negative. 07/11/2017 received IV fluids for elevated lactic acid, significantly improved, down to 1.6. tachycardia improved, down to low 100s.T-max 100.9,WBC 14.8.urine culture pending,preliminary blood culture negative at 24 hours.creatinine mildly worsened up to 2.1. maintaining O2 sats of 95% on 4lnc in a patient who does not wear O2 at home, chest x-ray ordered, results noted.good diet intake , with no nausea vomiting or diarrhea.IV fluids have been discontinued. evaluated by nephrology, recommendations noted. Objective - Vital Signs Vital signs: Vital Signs Temp 99.2 F 11/17/17 15:00 Pulse 101 H 07/11/17 16:24 Resp 18 07/11/17 16:00 BP 109/60 07/11/17 15:00 Pulse Ox 95 07/11/17 15:00 Intake & Output 07/10/17 07/11/17 07/11/17 18:59 06:59 18:59 Intake Total 3023 Output Total 325 Balance 3023 -325 Weight 119.794 kg Intake: Intake, IV Titration 3023 Amount Levofloxacin 750Mg-D5w 999 Pmx 750 mg In Dextrose/ Water 1 150ml.bag @ 100 mls/hr IVPB ONCE STA Rx#: [id number] Levofloxacin 750Mg-D5w 150 Pmx 750 mg In Dextrose/ Water 1 150ml.bag @ 100 mls/hr IVPB Q24HR [facility] Rx# :[id number] Sodium Chloride 0.9% 1, 375 000 ml @ 125 mls/hr IV . Q8H [facility] Rx#:[id number] Sodium Chloride 0.9% 1, 999 000 ml @ 999 mls/hr IV . Q1H1M [facility] Rx#:[id number] Sodium Chloride 0.9% 500 500 ml @ 1000 mls/hr IV Q35M [facility] Rx#:[id number] Output: Urine 325 Other: # Voids 3 1 - Labs CBC & Chem 7: 07/11/17 08:00 07/11/17 08:00 Labs: Abnormal Lab Results - Last 24 Hours (Table) 07/10/17 07/10/17 07/10/17 Range/Units 18:00 18:21 20:59 WBC (3.8-10.6) k/uL RBC (4.30-5.90) m/uL Hgb (13.0-17.5) gm/dL Hct (39.0-53.0) % Plt Count (150-450) k/uL Neutrophils # (1.3-7.7) k/uL Lymphocytes # (1.0-4.8) k/uL Chloride (98-107) mmol/L Carbon Dioxide (22-30) mmol/L BUN (9-20) mg/dL Creatinine (0.66-1.25) mg/dL Glucose (74-99) mg/dL POC Glucose (mg/dL) 215 H (75-99) mg/dL Hemoglobin A1c 6.8 H (4.0-6.0) % Plasma Lactic Acid Meek 3.0 H* (0.7-2.0) mmol/L Calcium (8.4-10.2) mg/dL Total Protein (6.3-8.2) g/dL Albumin (3.5-5.0) g/dL 07/10/17 07/11/17 07/11/17 Range/Units 22:19 07:04 08:00 WBC 14.8 H (3.8-10.6) k/uL RBC 3.72 L (4.30-5.90) m/uL Hgb 10.7 L (13.0-17.5) gm/dL Hct 33.5 L (39.0-53.0) % Plt Count 104 L (150-450) k/uL Neutrophils # 13.2 H (1.3-7.7) k/uL Lymphocytes # 0.5 L (1.0-4.8) k/uL Chloride (98-107) mmol/L Carbon Dioxide (22-30) mmol/L BUN (9-20) mg/dL Creatinine (0.66-1.25) mg/dL Glucose (74-99) mg/dL POC Glucose (mg/dL) 159 H (75-99) mg/dL Hemoglobin A1c (4.0-6.0) % Plasma Lactic Acid Meek 2.6 H* (0.7-2.0) mmol/L Calcium (8.4-10.2) mg/dL Total Protein (6.3-8.2) g/dL Albumin (3.5-5.0) g/dL 07/11/17 07/11/17 07/11/17 Range/Units 08:00 11:49 17:06 WBC (3.8-10.6) k/uL RBC (4.30-5.90) m/uL Hgb (13.0-17.5) gm/dL Hct (39.0-53.0) % Plt Count (150-450) k/uL Neutrophils # (1.3-7.7) k/uL Lymphocytes # (1.0-4.8) k/uL Chloride 112 H (98-107) mmol/L Carbon Dioxide 16 L (22-30) mmol/L BUN 45 H (9-20) mg/dL Creatinine 2.10 H (0.66-1.25) mg/dL Glucose 159 H (74-99) mg/dL POC Glucose (mg/dL) 165 H 151 H (75-99) mg/dL Hemoglobin A1c (4.0-6.0) % Plasma Lactic Acid Meek (0.7-2.0) mmol/L Calcium 8.0 L (8.4-10.2) mg/dL Total Protein 5.0 L (6.3-8.2) g/dL Albumin 2.9 L (3.5-5.0) g/dL Microbiology - Last 24 Hours (Table) 07/10/17 14:02 Blood Culture - Preliminary Blood No Growth after 24 hours 07/10/17 14:45 Urine Culture - Preliminary Urine,Voided
[2017-07-11 20:47] LABS: Glucose,Whole Blood 165 mg/dL (75-99)
[2017-07-11] MEDS: DOXEPIN 25 MG CAP PO SCH (21:50)
[2017-07-11] MEDS: ATORVASTATIN 80 MG TAB PO SCH (21:50)
[2017-07-11] MEDS: ISOSORBIDE MONONITRATE ER 30 MG TAB.ER.24H PO SCH (21:50)
[2017-07-11] MEDS: INSULIN DETEMIR 100 UNIT/ML 10 ML VIAL SQ SCH (21:50)
[2017-07-11] MEDS: ASPIRIN 81 MG PO SCH (21:50)
[2017-07-12] MEDS: LEVOTHYROXINE 137 MCG TAB PO SCH (06:24)
[2017-07-12] MEDS: INSULIN ASPART 100 UNIT/ML 1 ML 10 ML VIAL SQ SCH ×4 (07:39→21:26)
[2017-07-12 07:41] LABS: Glucose,Whole Blood 98 mg/dL (75-99)
[2017-07-12] MEDS: CALCITRIOL 0.25 MCG CAP PO SCH (08:48)
[2017-07-12] MEDS: FAMOTIDINE 20 MG TAB PO SCH (08:48)
[2017-07-12] MEDS: FOLIC ACID 1 MG TAB PO SCH (08:48)
[2017-07-12] MEDS: FERROUS SULFATE 325 MG TAB PO SCH (08:49)
[2017-07-12] MEDS: CITALOPRAM HYDROBROMIDE 20 MG TAB PO SCH (08:49)
[2017-07-12] MEDS: CLOPIDOGREL 75 MG TAB PO SCH (08:49)
[2017-07-12] MEDS: ALLOPURINOL 100 MG TAB PO SCH (08:49)
[2017-07-12] MEDS: SODIUM BICARBONATE TAB 650 MG TAB PO SCH ×2 (08:49→21:27)
[2017-07-12] MEDS: IPRATROPIUM-ALBUTEROL 3 ML NEB INHALATION SCH ×4 (08:53→19:54)
[2017-07-12] MEDS: HYDROcodone/APAP 5-325MG 1 EACH TAB PO SCH ×2 (08:54→21:27)
--- NOTE | 2017-07-12 09:53 | P.PN ---
Progress Note - Text Progress Note Date: 07/12/17 The patient is afebrile. He continues to have some periodic dizziness and lightheadedness and a cardiology consultation has been requested. He has had problems with urinary frequency, urgency and sensations of incomplete bladder emptying. Bladder scan was performed and showed over 800 mL in his bladder. A catheter has been placed. Blood cultures have shown no growth so far. Urine cultures are growing a gram-negative blanca. Impression: Sepsis secondary to urinary tract infection-complicated by incomplete bladder emptying. Plan: Patient's catheter will remain in place and he will most likely be discharged with it once it has been determined what the optimal antibiotic treatment will be for him.
[2017-07-12] MEDS ORDERED: METOPROLOL TARTRATE 25 MG TAB PO SCH (10:00)
--- NOTE | 2017-07-12 12:01 | P.PN ---
Subjective Patient was admitted for secondary to urinary tract infection from recent erythromycin ablation. Patient was evaluated by nephrology as well as urology and patient had a urinary coud catheter placed today. Awaiting urine cultures patient has minimally worsened creatinine which is being addressed by nephrology. Constitutional: Denied any fatigue denied any fever. Cardio vascular: denied any chest pain, palpitations Gastrointestinal denied any nausea vomiting Pulmonary: Denied any shortness of breath cough Neurologic denied any new focal deficits Objective - Vital Signs Vital signs: Vital Signs Temp 98.2 F 07/12/17 07:00 Pulse 116 H 07/12/17 11:57 Resp 22 07/12/17 07:00 BP 145/84 07/12/17 07:00 Pulse Ox 96 07/12/17 08:56 Intake & Output 07/11/17 07/12/17 07/12/17 18:59 06:59 18:59 Intake Total 950 320 Output Total 272 373 9737 Balance -325 550 -1030 Intake: Oral 950 320 Output: Urine 478 378 3861 Other: # Voids 1 2 # Bowel Movements 1 - Exam GENERAL: The patient is alert and oriented x3, not in any acute distress. HEENT: Pupils are round and equally reacting to light. EOMI. No scleral icterus. No conjunctival pallor. Normocephalic, atraumatic. No pharyngeal erythema. No thyromegaly. CARDIOVASCULAR: S1 and S2 present. No murmurs, rubs, or gallops. PULMONARY: Chest is clear to auscultation, no wheezing or crackles. ABDOMEN: Soft, nontender, nondistended, normoactive bowel sounds. No palpable organomegaly. MUSCULOSKELETAL: No joint swelling or deformity. EXTREMITIES: No cyanosis, clubbing, or pedal edema. NEUROLOGICAL: Gross neurological examination did not reveal any focal deficits. SKIN: No rashes. - Labs CBC & Chem 7: 07/11/17 08:00 07/11/17 08:00 Labs: Abnormal Lab Results - Last 24 Hours (Table) 07/11/17 07/11/17 Range/Units 17:06 20:18 POC Glucose (mg/dL) 151 H 165 H (75-99) mg/dL Microbiology - Last 24 Hours (Table) 07/10/17 14:45 Urine Culture - Preliminary Urine,Voided Gram Neg Bacilli 07/10/17 18:21 Blood Culture - Preliminary Blood No Growth after 24 hours 07/10/17 14:02 Blood Culture - Preliminary Blood No Growth after 24 hours Assessment and Plan Plan: #1 sepsis with acuteurinary tract infection: Recent urethral procedure, patient will be started on levofloxacin. Await urine cultures and blood cultures. 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 #5 gastric esophageal reflux disease number #6 morbid obesity,BMI 36.8 with history of sleep apnea patient will continue CPAP machine here. #7 hypertension #8 CAD #9 urethral stricture and prostatic hypertrophy #7 hypothyroidism #8 chronic kidney disease stage III secondary to diabetic nephropathy plan: Continue on current medication regime, sodium bicarb,monitoring. Duo nebs added to med regime. await final urine and blood culture results.repeat lactic acid. ID consulted.
[2017-07-12 12:09] LABS: Glucose,Whole Blood 181 mg/dL (75-99)
--- NOTE | 2017-07-12 12:59 | P.CRDCN ---
History of Present Illness Consult date: 07/12/17 Requesting physician: Lucero Keating Reason for Consult (text): tachycardia Chief complaint: weakness History of present illness: His pleasant 71-year-old gentleman who follows with Dr. MONALISA Petty in the office. He has a known history of CVA, CAD, prior coronary artery bypass grafting and known occlusion of all vein grafts. Recently saw Dr. MONALISA Petty in the office for preoperative clearance for an arthroscopic knee procedure which time he was told he was high risk and the patient has since decided to cancel the surgery. Over the past week or so he has been having issues with urinary retention. He' s been following with the urologist who has done several outpatient cystoscopes. He presented to the emergency department due to weakness and overall not feeling well. Patient was found to have a UTI with sepsis. Cardiology was asked to see the patient in consultation due to tachycardia. EKG showed sinus tachycardia. The patient had previously been on metoprolol succinate at home which had according to the patient been discontinued by one of his physicians. Past Medical History Past Medical History: Coronary Artery Disease (CAD), CVA/TIA, Diabetes Mellitus , GERD/Reflux, Hyperlipidemia, Hypertension, Myocardial Infarction ([place]), Osteoarthritis (OA), Prostate Disorder, Renal Disease, Sleep Apnea/CPAP/BIPAP, Thyroid Disorder Additional Past Medical History / Comment(s): hx. TIA's, last one November 2016, heart murmur, OCC SOB, kidney stones, leakage of urine, uses CPAP, decreased kidney function, placed on antibiotics recently for UTI Last Myocardial Infarction Date:: 2010 History of Any Multi-Drug Resistant Organisms: None Reported Past Surgical History: Coronary Bypass/CABG, Heart Catheterization, Hernia Repair, Orthopedic Surgery, Prostate Surgery Additional Past Surgical History / Comment(s): vasectomy, CABG 2010 with 4 vessels, keke knee arthroscopy, rt hand surgery x 3, TURP 02/2017 Past Anesthesia/Blood Transfusion Reactions: No Reported Reaction Smoking Status: Never smoker - Past Family History Mother Family Medical History: Congestive Heart Failure (CHF) Additional Family Medical History / Comment(s): at age 92 Father Family Medical History: CVA/TIA, Myocardial Infarction ([place]) Medications and Allergies Home Medications Medication Instructions Recorded Confirmed Type Allopurinol [Zyloprim] 100 mg PO DAILY 11/28/15 07/10/17 History Aspirin 81 mg PO HS 11/28/15 07/10/17 History Atorvastatin [Lipitor] 80 mg PO HS 11/28/15 07/10/17 History Calcitriol 0.25 mcg PO QAM 11/28/15 07/10/17 History Clopidogrel Bisulfate [Plavix] 75 mg PO QAM 11/28/15 07/10/17 History Doxepin HCl [SINEquan] 50 mg PO HS 11/28/15 07/10/17 History Folic Acid 1 mg PO QAM 11/28/15 07/10/17 History Isosorbide Mononitrate [Isosorbide 30 mg PO HS 11/28/15 07/10/17 History Mononitrate ER] Levothyroxine Sodium [Synthroid] 137 mcg PO QAM 11/28/15 07/10/17 History Ergocalciferol (Vitamin D2) 50,000 unit PO QMONTH 11/29/16 07/10/17 History [Vitamin D2] Acetaminophen [Tylenol Arthritis] 1,300 mg PO BID 12/08/16 07/10/17 History Citalopram Hydrobromide [CeleXA] 20 mg PO DAILY 12/08/16 07/10/17 History Ferrous Sulfate [Iron (65 MG 325 mg PO DAILY 12/08/16 07/10/17 History Elemental)] [place]-3 Fatty Acids [[place]-3] 1,000 mg PO DAILY 12/08/16 07/10/17 History Ranitidine HCl [Zantac] 150 mg PO BID 12/08/16 07/10/17 History Insulin Glargine [Lantus] 25 unit SQ HS #1 vial 12/12/16 07/10/17 Rx Hydrocodone/Acetaminophen [[place] 1 tab PO BID 05/22/17 07/10/17 History 5-325] INSULIN LISPRO (humaLOG) [humaLOG] See Protocol SQ AC-TID 05/22/17 07/10/17 History glipiZIDE XL [Glucotrol Xl] 5 mg PO BID 05/22/17 07/10/17 History Allergies Allergy/AdvReac Type Severity Reaction Status Date / Time Penicillins Allergy Severe Anaphylaxis Verified 07/10/17 15:03 cephalexin monohydrate Allergy Rash/Hives Verified 07/10/17 15:03 [From Keflex] gemfibrozil [From Lopid] AdvReac Abdominal Verified 07/10/17 15:03 Pain Physical Exam Vitals: Vital Signs Temp Pulse Pulse Resp BP Pulse Ox 07/12/17 12:10 118 H 07/12/17 11:57 116 H 07/12/17 09:04 110 H 07/12/17 08:56 118 H 96 07/12/17 07:00 98.2 F 120 H 22 145/84 96 07/12/17 02:36 106 H 24 07/11/17 23:00 97.8 F 118 H 24 134/76 96 07/11/17 19:22 120 H 07/11/17 19:16 97.6 F 120 H 20 143/71 95 07/11/17 16:24 101 H 07/11/17 16:15 102 H 07/11/17 16:00 18 07/11/17 15:00 99.2 F 105 H 18 109/60 95 Intake and Output 07/11/17 07/12/17 07/12/17 22:59 06:59 14:59 Intake Total 350 600 320 Output Total 342 736 1472 Balance 125 300 -1030 Intake: Oral 350 600 320 Output: Urine 740 202 1056 Other: # Voids 1 2 # Bowel Movements 1 PHYSICAL EXAMINATION: HEENT: Head is atraumatic, normocephalic. Pupils equal, round. Neck is supple. There is no elevated jugular venous pressure. HEART EXAMINATION: Heart sounds regular, tachycardic, S1 and S2 with a systolic murmur. CHEST EXAMINATION: Lungs are clear to auscultation and precussion. No chest wall tenderness is noted on palpation or with deep breathing. ABDOMEN: Soft, nontender. Bowel sounds are heard. No organomegaly noted. Barnhart catheter in place. EXTREMITIES: 2+ peripheral pulses with no evidence of peripheral edema and no calf tenderness noted. NEUROLOGIC patient is awake, alert and oriented x3. . Results 07/11/17 08:00 07/11/17 08:00 Current Medications Generic Name Dose Route Start Last Admin Trade Name Freq PRN Reason Stop Dose Admin Hydrocodone Bitart/Acetaminophen 1 each 07/10/17 21:00 07/12/17 08:54 [place] 5-325 PO 1 each BID KINGA Administration Albuterol/Ipratropium 3 ml 07/11/17 16:00 07/12/17 11:57 Duoneb 0.5 Mg-3 Mg/3 Ml Soln INHALATION 3 ml RT-QID KINGA Administration Albuterol/Ipratropium 3 ml 07/11/17 14:58 Duoneb 0.5 Mg-3 Mg/3 Ml Soln INHALATION RT-Q2H PRN Shortness Of Breath Or Wheezing Allopurinol 100 mg 07/11/17 09:00 07/12/17 08:49 Zyloprim PO 100 mg DAILY KINGA Administration Aspirin 81 mg 07/10/17 21:00 07/11/17 21:50 Aspirin PO 81 mg HS KINGA Administration Atorvastatin Calcium 80 mg 07/10/17 21:00 07/11/17 21:50 Lipitor PO 80 mg HS KINGA Administration Calcitriol 0.25 mcg 07/11/17 09:00 07/12/17 08:48 Rocaltrol PO 0.25 mcg QAM KINGA Administration Citalopram Hydrobromide 20 mg 07/11/17 09:00 07/12/17 08:49 Celexa PO 20 mg DAILY KINGA Administration Clopidogrel Bisulfate 75 mg 07/11/17 09:00 07/12/17 08:49 Plavix PO 75 mg QAM KINGA Administration Doxepin HCl 50 mg 07/10/17 21:00 07/11/17 21:50 Sinequan PO 50 mg HS KINGA Administration Ergocalciferol 50,000 unit 07/10/17 16:15 Vitamin D2 PO QMONTH KINGA Famotidine 20 mg 07/12/17 09:00 07/12/17 08:48 Pepcid PO 20 mg DAILY KINGA Administration Ferrous Sulfate 325 mg 07/11/17 09:00 07/12/17 08:49 Feosol PO 325 mg DAILY KINGA Administration Folic Acid 1 mg 07/11/17 09:00 07/12/17 08:48 Folic Acid PO 1 mg QAM KINGA Administration Insulin Aspart 0 unit 07/10/17 21:00 07/12/17 12:24 Novolog SQ 3 unit ACHS KINGA Administration Protocol Insulin Detemir 25 unit 07/10/17 21:00 07/11/17 21:50 Levemir SQ 25 unit HS KINGA Administration Isosorbide Mononitrate 30 mg 07/10/17 21:00 07/11/17 21:50 Imdur PO 30 mg HS KINGA Administration Levofloxacin 750 mg 07/13/17 09:00 Levaquin PO Q48H KINGA Levothyroxine Sodium 137 mcg 07/11/17 06:30 07/12/17 06:24 Synthroid PO 137 mcg DAILY@0630 KINGA Administration Metoprolol Tartrate 50 mg 07/12/17 21:00 Lopressor PO BID KINGA Sodium Bicarbonate 650 mg 07/11/17 09:45 07/12/17 08:49 Sodium Bicarbonate Tab PO 650 mg BID KINGA Administration Intake and Output 07/11/17 07/12/17 07/12/17 22:59 06:59 14:59 Intake Total 350 600 320 Output Total 773 264 2996 Balance 125 300 -1030 Intake: Oral 350 600 320 Output: Urine 633 621 8425 Other: # Voids 1 2 # Bowel Movements 1 07/11/17 08:00 07/11/17 08:00 Assessment and Plan Assessment: #1 urinary tract infection with sepsis #2 tachycardia, secondary to discontinuation of beta radha as well as underlying infectious process urinary retention #3 coronary artery disease with prior coronary artery bypass grafting with known occlusion of vein grafts A bur for history of CVA Plan: From cardiology's perspective, we will obtain a 2-D echo with Doppler. We do not recommend the patient undergo any elective arthroscopic for seizures not only due to cardiac risks but also due to underlying infection. We will resume beta radha, metoprolol titrate 50 mg by mouth twice a day. We will continue to follow with the patient provide further recommendations accordingly. SECURITY ESCORT note has been reviewed, I agree with a documented findings and plan of care. Patient was seen and examined.
--- NOTE | 2017-07-12 13:48 | PN ---
PROGRESS NOTE Patient is seen for followup for chronic kidney disease stage 3 secondary to diabetic kidney disease. His renal function is at baseline with creatinine about 1.9-2 mg/dL. Patient has urine retention with incomplete bladder emptying, currently with an indwelling Evans catheter. He has been evaluated by Urology. He does have a history of BPH and previous TURP in February of 2017. O/E Pt is comfortable, awake. Not in any acute distress. Lungs are clear Hear sounds are heard. No rub or murmur. Abdomen is soft, nontender Ext. show no edema Indwelling evans catheter is noted with good uop. Assessment/ Plan 1. CKD, stage IV, renal function close to baseline. Continue evans. No nephrotoxic agent on board. 2. Urinary tract infection with urine culture growing gram-negative bacilli, maintained on Levaquin. 3. Chronic kidney disease, mineral bone disorder maintained on calcitriol. 4. Urine retention with evans. PLAN: Encourage increased oral intake. Continue with the Evans catheter. Maintain followup as outpatient with Urology. MMODL / IJN: [id number] / JED
[2017-07-12] MEDS: CEFEPIME 2 GM in SODIUM CHLORIDE 0.9% 50 ML IVPB SCH ×2 (14:44→21:26)
[2017-07-12 17:15] LABS: Glucose,Whole Blood 186 mg/dL (75-99)
[2017-07-12 20:57] LABS: Glucose,Whole Blood 226 mg/dL (75-99)
[2017-07-12] MEDS: INSULIN DETEMIR 100 UNIT/ML 10 ML VIAL SQ SCH (21:27)
[2017-07-12] MEDS: ASPIRIN 81 MG PO SCH (21:27)
[2017-07-12] MEDS: ISOSORBIDE MONONITRATE ER 30 MG TAB.ER.24H PO SCH (21:27)
[2017-07-12] MEDS: DOXEPIN 25 MG CAP PO SCH (21:27)
[2017-07-12] MEDS: METOPROLOL TARTRATE 50 MG TAB PO SCH (21:27)
[2017-07-12] MEDS: ATORVASTATIN 80 MG TAB PO SCH (21:28)
--- NOTE | 2017-07-13 00:35 | P.CONS ---
History of Present Illness - Reason for Consult Consult date: 07/12/17 - Chief Complaint Fever and chills - History of Present Illness 71-year-old male presents to Hospital feeling very poorly. Having fevers and chills generalized weakness. Also developed generalized malaise and what appears to be rigors. The patient was noted to likely have a urinary tract infection and was seen by urology. Evaluation revealed evidence of large volume within his bladder and a coud catheter was placed. 832 mL of urine drained at the time of the catheter placement. The patient had rapid improvement of his symptoms. Patient however did have significant fever, developed leukocytosis and has evidence of sepsis from urinary system with a gram-negative bacillus. Most recent urine cultures revealed evidence of enterococcus. The patient did have outpatient evaluation by urology as noted and did receive a dose of ciprofloxacin. Constantly there is concerned to quinolone resistant pathogens. Review of Systems As per the HPI had significant weakness, fevers chills Reiger's. HEENT:Denies headache or acute visual change. Denies sinus or mouth discomforts. Denies neck stiffness or pain. Denies significant oral cavity pain. Denies difficulty on swallowing. Lungs: Denies significant shortness of breath, cough, sputum production, or hemoptysis. Cardiovascular: Denies significant shortness of breath, chest pain, chest wall pain, orthopnea, dyspnea on exertion, syncope Gastrointestinal:Denies nausea, vomiting, diarrhea, constipation, hematemesis, melena, hematochezia. No no significant change of bowel habit noticed. Musculoskeletal: denies significant myalgias or arthralgias. No new joint swelling. Denies new back pain. Skin: Denies new rash or lesions. No new ulcers or wounds are related.. Neuro: Denies headache or visual change. Denies any new onset weakness or difficulty with ambulation. Denies falls or seizures. Psychiatric:Denies anxiety or depression. Endocrine: Denies significant fatigue, denies significant weight loss or weight gain. urologic as per HPI Past Medical History Past Medical History: Coronary Artery Disease (CAD), CVA/TIA, Diabetes Mellitus , GERD/Reflux, Hyperlipidemia, Hypertension, Myocardial Infarction (MA), Osteoarthritis (OA), Prostate Disorder, Renal Disease, Sleep Apnea/CPAP/BIPAP, Thyroid Disorder Additional Past Medical History / Comment(s): hx. TIA's, last one November 2016, heart murmur, OCC SOB, kidney stones, leakage of urine, uses CPAP, decreased kidney function, placed on antibiotics recently for UTI Last Myocardial Infarction Date:: 2010 History of Any Multi-Drug Resistant Organisms: None Reported Past Surgical History: Coronary Bypass/CABG, Heart Catheterization, Hernia Repair, Orthopedic Surgery, Prostate Surgery Additional Past Surgical History / Comment(s): vasectomy, CABG 2010 with 4 vessels, keke knee arthroscopy, rt hand surgery x 3, TURP 02/2017 Past Anesthesia/Blood Transfusion Reactions: No Reported Reaction Additional Psychological History / Comment(s): . The adult children are healthy. Lifelong nonsmoker. No alcohol use. 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 Was in the in the [employer] no significant trouble since then. Pet dog at home Smoking Status: Never smoker - Past Family History Mother Family Medical History: Congestive Heart Failure (CHF) Additional Family Medical History / Comment(s): at age 92 Father Family Medical History: CVA/TIA, Myocardial Infarction (MA) Medications and Allergies Home Medications and Allergies Comment(s): Current Medications Hydrocodone Bitart/Acetaminophen ([place] 5-325) 1 each PO BID [facility] Last Admin: 07/12/17 21:27 Dose: 1 each Albuterol/Ipratropium (Duoneb 0.5 Mg-3 Mg/3 Ml Soln) 3 ml INHALATION RT-QID [facility] Last Admin: 07/12/17 19:54 Dose: 3 ml Albuterol/Ipratropium (Duoneb 0.5 Mg-3 Mg/3 Ml Soln) 3 ml INHALATION RT-Q2H PRN PRN Reason: Shortness Of Breath Or Wheezing Allopurinol (Zyloprim) 100 mg PO DAILY [facility] Last Admin: 07/12/17 08:49 Dose: 100 mg Aspirin (Aspirin) 81 mg PO HS [facility] Last Admin: 07/12/17 21:27 Dose: 81 mg Atorvastatin Calcium (Lipitor) 80 mg PO HS [facility] Last Admin: 07/12/17 21:28 Dose: 80 mg Calcitriol (Rocaltrol) 0.25 mcg PO QAM [facility] Last Admin: 07/12/17 08:48 Dose: 0.25 mcg Citalopram Hydrobromide (Celexa) 20 mg PO DAILY [facility] Last Admin: 07/12/17 08:49 Dose: 20 mg Clopidogrel Bisulfate (Plavix) 75 mg PO QAM [facility] Last Admin: 07/12/17 08:49 Dose: 75 mg Doxepin HCl (Sinequan) 50 mg PO [facility] Last Admin: 07/12/17 21:27 Dose: 50 mg Ergocalciferol (Vitamin D2) 50,000 unit PO QMONTH [facility] Famotidine (Pepcid) 20 mg PO DAILY [facility] Last Admin: 07/12/17 08:48 Dose: 20 mg Ferrous Sulfate (Feosol) 325 mg PO DAILY [facility] Last Admin: 07/12/17 08:49 Dose: 325 mg Folic Acid (Folic Acid) 1 mg PO QAM [facility] Last Admin: 07/12/17 08:48 Dose: 1 mg Cefepime HCl 2 gm/ Sodium (Chloride) 50 mls @ 100 mls/hr IVPB Q12HR [facility] Last Admin: 07/12/17 21:26 Dose: 100 mls/hr Insulin Aspart (Novolog) 0 unit SQ [facility] PRN Reason: Protocol Last Admin: 07/12/17 21:26 Dose: 5 unit Insulin Detemir (Levemir) 25 unit SQ [facility] Last Admin: 07/12/17 21:27 Dose: 25 unit Isosorbide Mononitrate (Imdur) 30 mg PO [facility] Last Admin: 07/12/17 21:27 Dose: 30 mg Levothyroxine Sodium (Synthroid) 137 mcg PO DAILY@0630 [facility] Last Admin: 07/12/17 06:24 Dose: 137 mcg Metoprolol Tartrate (Lopressor) 50 mg PO BID [facility] Last Admin: 07/12/17 21:27 Dose: 50 mg Sodium Bicarbonate (Sodium Bicarbonate Tab) 650 mg PO BID [facility] Last Admin: 07/12/17 21:27 Dose: 650 mg Home Medications Medication Instructions Recorded Confirmed Type Allopurinol [Zyloprim] 100 mg PO DAILY 11/28/15 07/10/17 History Aspirin 81 mg PO 11/28/15 07/10/17 History Atorvastatin [Lipitor] 80 mg PO HS 11/28/15 07/10/17 History Calcitriol 0.25 mcg PO QAM 11/28/15 07/10/17 History Clopidogrel Bisulfate [Plavix] 75 mg PO QAM 11/28/15 07/10/17 History Doxepin HCl [SINEquan] 50 mg PO 11/28/15 07/10/17 History Folic Acid 1 mg PO QAM 11/28/15 07/10/17 History Isosorbide Mononitrate [Isosorbide 30 mg PO HS 11/28/15 07/10/17 History Mononitrate ER] Levothyroxine Sodium [Synthroid] 137 mcg PO QAM 11/28/15 07/10/17 History Ergocalciferol (Vitamin D2) 50,000 unit PO QMONTH 11/29/16 07/10/17 History [Vitamin D2] Acetaminophen [Tylenol Arthritis] 1,300 mg PO BID 12/08/16 07/10/17 History Citalopram Hydrobromide [CeleXA] 20 mg PO DAILY 12/08/16 07/10/17 History Ferrous Sulfate [Iron (65 MG 325 mg PO DAILY 12/08/16 07/10/17 History Elemental)] Beverly-3 Fatty Acids [Beverly-3] 1,000 mg PO DAILY 12/08/16 07/10/17 History Ranitidine HCl [Zantac] 150 mg PO BID 12/08/16 07/10/17 History Insulin Glargine [Lantus] 25 unit SQ HS #1 vial 12/12/16 07/10/17 Rx Hydrocodone/Acetaminophen [[place] 1 tab PO BID 05/22/17 07/10/17 History 5-325] INSULIN LISPRO (humaLOG) [humaLOG] See Protocol SQ AC-TID 05/22/17 07/10/17 History glipiZIDE XL [Glucotrol Xl] 5 mg PO BID 05/22/17 07/10/17 History Allergies Allergy/AdvReac Type Severity Reaction Status Date / Time Penicillins Allergy Severe Anaphylaxis Verified 07/10/17 15:03 cephalexin monohydrate Allergy Rash/Hives Verified 07/10/17 15:03 [From Keflex] gemfibrozil [From Lopid] AdvReac Abdominal Verified 07/10/17 15:03 Pain Physical Exam Vitals: Vital Signs Temp Pulse Pulse Resp BP Pulse Ox 07/12/17 23:00 98.9 F 125 H 28 H 146/75 95 07/12/17 20:06 116 H 07/12/17 19:55 118 H 93 L 07/12/17 16:00 96 07/12/17 15:49 90 07/12/17 15:00 97.0 F L 99 20 144/81 97 07/12/17 12:10 118 H 07/12/17 11:57 116 H 07/12/17 09:04 110 H 07/12/17 08:56 118 H 96 07/12/17 07:00 98.2 F 120 H 22 145/84 96 07/12/17 02:36 106 H 24 Intake and Output 07/12/17 07/12/17 07/13/17 14:59 22:59 06:59 Intake Total 520 500 Output Total 1350 1000 Balance -830 -500 Intake: Oral 520 500 Output: Urine 1350 1000 Other: Voiding Method Indwelling Catheter # Voids 0 Had temperature max of 101.9 8-year-old male presents to the emergency center feeling very poorly with fevers and chills. Was also very miserable because of his inability to urinate. HEENT: Anicteric conjunctiva are pink and moist nasal mucosa grossly intact without significant lesions, there is no thrush. Neck: The neck is supple without significant lymphadenopathy or thyromegaly. Lungs: Good bilateral air entry without significant crackles or wheezing. There is no significant bronchial sounds. There is no egophony or dullness. Heart: Regular rate and rhythm with an audible S1-S2, no S3 no S4. There is no significant murmur click or rub, PMI was nondisplaced. Abdomen: Positive bowel sounds soft and nontender without palpable masses or organomegaly. There was no guarding or rebound. A severe bladder tenderness has resolved after the placement of the coud catheter. Extremities: The upper extremities have excellent pulses they are symmetric, no significant petechiae or telangiectasia. No splinter hemorrhages were noted. Lower extremities have trace pedal edema bilaterally. No ulcers are seen. Neuro: Awake alert oriented to person place and time. There are no acute new gross focal sensory motor deficits. Results CBC & Chem 7: 07/11/17 08:00 07/11/17 08:00 Labs: Abnormal Lab Results - Last 24 Hours (Table) 07/12/17 07/12/17 07/12/17 Range/Units 11:59 17:04 20:39 POC Glucose (mg/dL) 181 H 186 H 226 H (75-99) mg/dL Microbiology - Last 24 Hours (Table) 07/10/17 18:21 Blood Culture - Preliminary Blood No Growth after 48 hours 07/12/17 09:25 Urine Culture - Preliminary Urine,Catheterized 07/10/17 14:02 Blood Culture - Preliminary Blood No Growth after 48 hours 07/10/17 14:45 Urine Culture - Preliminary Urine,Voided Gram Neg Bacilli Laboratory Results WBC 14.8 k/uL (3.8-10.6) H 07/11/17 08:00 RBC 3.72 m/uL (4.30-5.90) L 07/11/17 08:00 Hgb 10.7 gm/dL (13.0-17.5) L 07/11/17 08:00 Hct 33.5 % (39.0-53.0) L 07/11/17 08:00 MCV 90.1 fL (80.0-100.0) 07/11/17 08:00 MCH 28.9 pg (25.0-35.0) 07/11/17 08:00 MCHC 32.0 g/dL (31.0-37.0) 07/11/17 08:00 RDW 14.1 % (11.5-15.5) 07/11/17 08:00 Plt Count 104 k/uL (150-450) L 07/11/17 08:00 Neutrophils % 90 % 07/11/17 08:00 Lymphocytes % 4 % 07/11/17 08:00 Monocytes % 6 % 07/11/17 08:00 Eosinophils % 0 % 07/11/17 08:00 Basophils % 0 % 07/11/17 08:00 Neutrophils # 13.2 k/uL (1.3-7.7) H 07/11/17 08:00 Lymphocytes # 0.5 k/uL (1.0-4.8) L 07/11/17 08:00 Monocytes # 0.8 k/uL (0-1.0) 07/11/17 08:00 Eosinophils # 0.0 k/uL (0-0.7) 07/11/17 08:00 Basophils # 0.0 k/uL (0-0.2) 07/11/17 08:00 PT 11.3 sec (9.0-12.0) 07/10/17 14:02 INR 1.1 (<1.2) 07/10/17 14:02 APTT 24.0 sec (22.0-30.0) 07/10/17 14:02 Sodium 138 mmol/L (137-145) 07/11/17 08:00 Potassium 4.7 mmol/L (3.5-5.1) 07/11/17 08:00 Chloride 112 mmol/L (98-107) H 07/11/17 08:00 Carbon Dioxide 16 mmol/L (22-30) L 07/11/17 08:00 Anion Gap 10 mmol/L 07/11/17 08:00 BUN 45 mg/dL (9-20) H 07/11/17 08:00 Creatinine 2.10 mg/dL (0.66-1.25) H 07/11/17 08:00 Est GFR (MDRD) Af Amer 38 (>60 ml/min/1.73 sqM) 07/11/17 08:00 Est GFR (MDRD) Non-Af 31 (>60 ml/min/1.73 sqM) 07/11/17 08:00 Glucose 159 mg/dL (74-99) H 07/11/17 08:00 POC Glucose (mg/dL) 226 mg/dL (75-99) H 07/12/17 20:39 POC Glu Delivery Merchandiser ID Mary Macdonald 07/12/17 20:[address] Glu mg/dL 148 07/10/17 18:00 Hemoglobin A1c 6.8 % (4.0-6.0) H 07/10/17 18:00 Lactic Ac Sepsis Rflx Y 07/10/17 19:02 Plasma Lactic Acid Meek 1.0 mmol/L (0.7-2.0) 07/11/17 23:55 Calcium 8.0 mg/dL (8.4-10.2) L 07/11/17 08:00 Total Bilirubin 1.2 mg/dL (0.2-1.3) 07/11/17 08:00 AST 24 U/L (17-59) 07/11/17 08:00 ALT 28 U/L (21-72) 07/11/17 08:00 Alkaline Phosphatase 57 U/L (38-126) 07/11/17 08:00 Total Creatine Kinase 56 U/L (55-170) 07/10/17 14:02 CK-MB (CK-2) <0.2 ng/mL (0.0-2.4) 07/10/17 14:02 CK-MB (CK-2) Rel Index 07/10/17 14:02 Troponin I <0.012 ng/mL (0.000-0.034) 07/10/17 14:02 Total Protein 5.0 g/dL (6.3-8.2) L 07/11/17 08:00 Albumin 2.9 g/dL (3.5-5.0) L 07/11/17 08:00 Urine Color Light Yellow 07/10/17 14:45 Urine Appearance Cloudy (Clear) 07/10/17 14:45 Urine pH 6.5 (5.0-8.0) 07/10/17 14:45 Ur Specific [place] 1.011 (1.001-1.035) 07/10/17 14:45 Urine Protein 2+ (Negative) H 07/10/17 14:45 Urine Glucose (UA) Negative (Negative) 07/10/17 14:45 Urine Ketones Negative (Negative) 07/10/17 14:45 Urine Blood Moderate (Negative) H 07/10/17 14:45 Urine Nitrite Negative (Negative) 07/10/17 14:45 Urine Bilirubin Negative (Negative) 07/10/17 14:45 Urine Urobilinogen <2.0 mg/dL (<2.0) 07/10/17 14:45 Ur Leukocyte Esterase Large (Negative) H 07/10/17 14:45 Urine RBC 12 /hpf (0-5) H 07/10/17 14:45 Urine WBC >182 /hpf (0-5) H 07/10/17 14:45 Urine WBC Clumps Many /hpf (None) H 07/10/17 14:45 Urine Bacteria Moderate /hpf (None) H 07/10/17 14:45 Urine Mucus Rare /hpf (None) H 07/10/17 14:45 Urine Yeast (Budding) Few /hpf (None) H 07/10/17 14:45 Influenza Type A RNA Not Detected (Not Detectd) 07/10/17 15:45 Influenza Type B (PCR) Not Detected (Not Detectd) 07/10/17 15:45 Assessment and Plan (1) Urinary tract infection Current Visit: Yes Status: Acute Code(s): N39.0 - URINARY TRACT INFECTION, SITE NOT SPECIFIED SNOMED Code(s): 03726158 (2) Altered mental status Current Visit: No Status: Acute Code(s): R41.82 - ALTERED MENTAL STATUS, UNSPECIFIED SNOMED Code(s): 838313041 (3) Gram negative sepsis Narrative/Plan: 71-year-old male presents to Hospital with significant fever and chills associated with significant discomfort. The patient was noticed to have great difficulties with urination. Consequently urological evaluation occurred and a coud catheter was placed. A large volume of urine was drained from the bladder the patient has subsequently been feeling considerably improved. Pain and discomfort improved. Fever is resolving. However there is evidence of the positive urine culture with gram-negative bacilli. This is different from his recently isolated enterococcus. Because he did have a procedure and received fluoroquinolone prophylaxis it is likely that the current gram-negative will be resistant and constantly antimicrobial therapy with cefepime as been initiated. Choice of antibiotic is somewhat complicated because of his significant ALLERGIES. However there should be very little cross-reactivity between the penicillin in the cefepime. He will monitored and culture will help determine the course of antibiotic therapy at the time of his discharge. He is definitely feeling better but not get at his baseline. His family is informed of his current status. Current Visit: Yes Status: Acute Code(s): A41.50 - GRAM-NEGATIVE SEPSIS, UNSPECIFIED SNOMED Code(s): 240304207
[2017-07-13] MEDS: LEVOTHYROXINE 137 MCG TAB PO SCH (06:36)
[2017-07-13] MEDS: INSULIN ASPART 100 UNIT/ML 1 ML 10 ML VIAL SQ SCH ×4 (07:37→22:20)
[2017-07-13 07:50] LABS: Glucose,Whole Blood 116 mg/dL (75-99)
[2017-07-13] MEDS: IPRATROPIUM-ALBUTEROL 3 ML NEB INHALATION SCH ×4 (07:58→19:57)
[2017-07-13] MEDS: CEFEPIME 2 GM in SODIUM CHLORIDE 0.9% 50 ML IVPB SCH (08:17)
[2017-07-13] MEDS: SODIUM BICARBONATE TAB 650 MG TAB PO SCH ×2 (08:17→22:23)
[2017-07-13] MEDS: ALLOPURINOL 100 MG TAB PO SCH (08:17)
[2017-07-13] MEDS: FAMOTIDINE 20 MG TAB PO SCH (08:17)
[2017-07-13] MEDS: CITALOPRAM HYDROBROMIDE 20 MG TAB PO SCH (08:17)
[2017-07-13] MEDS: FOLIC ACID 1 MG TAB PO SCH (08:17)
[2017-07-13] MEDS: CLOPIDOGREL 75 MG TAB PO SCH (08:17)
[2017-07-13] MEDS: METOPROLOL TARTRATE 50 MG TAB PO SCH (08:18)
[2017-07-13] MEDS: CALCITRIOL 0.25 MCG CAP PO SCH (08:18)
[2017-07-13] MEDS: FERROUS SULFATE 325 MG TAB PO SCH (08:18)
[2017-07-13] MEDS: HYDROcodone/APAP 5-325MG 1 EACH TAB PO SCH ×2 (08:26→22:19)
--- NOTE | 2017-07-13 08:31 | ECHOF ---
Referral Reason:tachycardia MEASUREMENTS -------- HEIGHT: 182.9 cm WEIGHT: 119.7 kg BP: 145/84 Ao Diam: 3.5 cm (2.0 - 3.7) AV Cusp: 2.0 cm (1.5 - 2.6) LA Diam: 3.7 cm (2.7 - 3.8) MV EXCURSION: 13.536 mm (> 18.000) MV EF SLOPE: 105 mm/s (70 - 150) EPSS: 0.9 cm MV E Ran: 0.43 m/s MV DecT: 150 ms MV A Ran: 0.58 m/s MV E/A Ratio: 0.74 RAP: 5.00 mmHg RVSP: 14.31 mmHg FINDINGS -------- Resting tachycardia (HR>100bpm). This was a technically difficult study with suboptimal views. Limited Study The right ventricle is normal in size and function. The RV was not well visualized. The left atrial size is normal. The right atrium was not well visualized. 1.5mg of Definity was utilized for enhancement of images Aortic valve is trileaflet and is mildly thickened. The mitral valve was not well visualized. The tricuspid valve was not well visualized. The pulmonic valve was not well visualized. CONCLUSIONS -------- 1. Resting tachycardia (HR>100bpm). 2. This was a technically difficult study with suboptimal views. 3. Limited Study 4. Unable to comment on EF due to poor images with definity. 5. The right ventricle is normal in size and function. 6. The RV was not well visualized. 7. The left atrial size is normal. 8. The right atrium was not well visualized. 9. 1.5mg of Definity was utilized for enhancement of images 10. Aortic valve is trileaflet and is mildly thickened. 11. The mitral valve was not well visualized. 12. The tricuspid valve was not well visualized. 13. The pulmonic valve was not well visualized. FINISHING RANGE FEEDER: Xiao Hayes RDCS
[2017-07-13 08:33] LABS: CH 28.6; CHCM 31.2; HCT 31.6 % (39.0-53.0); HDW 2.32; HGB 10.1 gm/dL (13.0-17.5); MCH 29.3 pg (25.0-35.0); MCHC 31.8 g/dL (31.0-37.0); MCV 92.1 fL (80.0-100.0); Mean Platelet Volume 9.5; RBC 3.43 m/uL (4.30-5.90); RDW 15.3 % (11.5-15.5); WBC 11.1 k/uL (3.8-10.6)
[2017-07-13 08:41] LABS: Calcium 8.8 mg/dL (8.4-10.2); Potassium 4.4 mmol/L (3.5-5.1)
[2017-07-13] MEDS ORDERED: LEVOFLOXACIN 750 MG TAB PO SCH (09:00)
[2017-07-13] MEDS ORDERED: METOPROLOL TARTRATE 25 MG TAB PO STA (09:12)
--- NOTE | 2017-07-13 10:57 | PN ---
PROGRESS NOTE Mr. Ruiz is known to have ischemic heart disease, inoperable with a previous bypass surgery and unsuccessful PCI. He presented with sepsis. His sepsis is improving. Yesterday was tachycardic. Echocardiogram was not very good. Study could not discern the endocardial margins and patient was tachycardic. After initiation of beta radha his heart rate is in the high 80s and low 90s. I am recommending increase beta radha to 75 mg b.i.d. He is resting comfortably without symptoms. Blood pressure 130/70, pulse rate 90 per minute. JVD is 1 cm. S1, S2 with a short systolic murmur is audible along left sternal border. Lungs reveal diminished air entry. Abdomen is soft, nontender. Lower extremities reveal diminished pulses. Plan is to increase beta radha and I will repeat an echocardiogram to get a better visualization since the heart rate is lower and this will be done tomorrow. MMODL / IJN: [id number] /
[2017-07-13 12:01] LABS: Glucose,Whole Blood 183 mg/dL (75-99)
--- NOTE | 2017-07-13 12:09 | P.PN ---
Subjective Patient was admitted for secondary to urinary tract infection from recent erythromycin ablation. Patient was evaluated by nephrology as well as urology and patient had a urinary coud catheter placed today. Awaiting urine cultures patient has minimally worsened creatinine which is being addressed by nephrology. Constitutional: Denied any fatigue denied any fever. 07/13/2017 No overnight events urine cultures are showing Pseudomonas which is resistant to cefepime was same thing was discussed with ID and IUD will change the antibiotics. No overnight events. Cardio vascular: denied any chest pain, palpitations Gastrointestinal denied any nausea vomiting Pulmonary: Denied any shortness of breath cough Neurologic denied any new focal deficits Objective - Vital Signs Vital signs: Vital Signs Temp 97.1 F L 07/13/17 07:00 Pulse 102 H 07/13/17 11:26 Resp 20 07/13/17 07:00 BP 136/73 07/13/17 07:00 Pulse Ox 94 L 07/13/17 08:00 Intake & Output 07/12/17 07/13/17 07/13/17 18:59 06:59 18:59 Intake Total 520 800 320 Output Total 1350 1600 Balance -830 -800 320 Intake: Oral 520 800 320 Output: Urine 1350 1600 Other: Voiding Method Indwelling Catheter Indwelling Catheter Indwelling Catheter # Voids 0 - Exam GENERAL: The patient is alert and oriented x3, not in any acute distress. HEENT: Pupils are round and equally reacting to light. EOMI. No scleral icterus. No conjunctival pallor. Normocephalic, atraumatic. No pharyngeal erythema. No thyromegaly. CARDIOVASCULAR: S1 and S2 present. No murmurs, rubs, or gallops. PULMONARY: Chest is clear to auscultation, no wheezing or crackles. ABDOMEN: Soft, nontender, nondistended, normoactive bowel sounds. No palpable organomegaly. MUSCULOSKELETAL: No joint swelling or deformity. EXTREMITIES: No cyanosis, clubbing, or pedal edema. NEUROLOGICAL: Gross neurological examination did not reveal any focal deficits. SKIN: No rashes. - Labs CBC & Chem 7: 07/13/17 07:21 07/13/17 07:21 Labs: Abnormal Lab Results - Last 24 Hours (Table) 07/12/17 07/12/17 07/12/17 Range/Units 11:59 17:04 20:39 WBC (3.8-10.6) k/uL RBC (4.30-5.90) m/uL Hgb (13.0-17.5) gm/dL Hct (39.0-53.0) % Plt Count (150-450) k/uL Chloride (98-107) mmol/L Carbon Dioxide (22-30) mmol/L BUN (9-20) mg/dL Creatinine (0.66-1.25) mg/dL Glucose (74-99) mg/dL POC Glucose (mg/dL) 181 H 186 H 226 H (75-99) mg/dL 07/13/17 07/13/17 07/13/17 Range/Units 07:21 07:21 07:22 WBC 11.1 H (3.8-10.6) k/uL RBC 3.43 L (4.30-5.90) m/uL Hgb 10.1 L (13.0-17.5) gm/dL Hct 31.6 L (39.0-53.0) % Plt Count 109 L (150-450) k/uL Chloride 114 H (98-107) mmol/L Carbon Dioxide 18 L (22-30) mmol/L BUN 60 H (9-20) mg/dL Creatinine 2.49 H (0.66-1.25) mg/dL Glucose 118 H (74-99) mg/dL POC Glucose (mg/dL) 116 H (75-99) mg/dL 07/13/17 Range/Units 11:57 WBC (3.8-10.6) k/uL RBC (4.30-5.90) m/uL Hgb (13.0-17.5) gm/dL Hct (39.0-53.0) % Plt Count (150-450) k/uL Chloride (98-107) mmol/L Carbon Dioxide (22-30) mmol/L BUN (9-20) mg/dL Creatinine (0.66-1.25) mg/dL Glucose (74-99) mg/dL POC Glucose (mg/dL) 183 H (75-99) mg/dL Microbiology - Last 24 Hours (Table) 07/10/17 14:45 Urine Culture - Final Urine,Voided Pseudomonas aeruginosa 07/10/17 18:21 Blood Culture - Preliminary Blood No Growth after 48 hours 07/12/17 09:25 Urine Culture - Preliminary Urine,Catheterized 07/10/17 14:02 Blood Culture - Preliminary Blood No Growth after 48 hours Assessment and Plan Plan: #1 sepsis with urinary tract infection: Recent urethral procedure, patient will be started on levofloxacin. Await urine cultures and blood cultures. 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 #5 gastric esophageal reflux disease number #6 morbid obesity,BMI 36.8 with history of sleep apnea patient will continue CPAP machine here. #7 hypertension #8 CAD #9 urethral stricture and prostatic hypertrophy #7 hypothyroidism #8 chronic kidney disease stage III secondary to diabetic nephropathy, mild worsening in renal function and nephrology is following the patient. plan: Continue on current medication regime, sodium bicarb,monitoring. Duo nebs added to med regime. await final urine and blood culture results.repeat lactic acid. ID consulted.
--- NOTE | 2017-07-13 12:14 | P.PN ---
Progress Note - Text Progress Note Date: 07/13/17 The patient is afebrile and is more comfortable since a catheter was inserted yesterday. Blood cultures are no growth. Urine cultures have grown pseudomonas aeruginosa which was resistant to Levaquin. The patient has been placed on cefapime by Dr Coon. I would suggest that his catheter remain in place until he is seem by Dr Delgado tomorrow as his large post void residual will complicate treatment of his UTI.
--- NOTE | 2017-07-13 16:33 | PN ---
PROGRESS NOTE Patient is seen for followup for chronic kidney disease. He currently has an indwelling Barnhart catheter and has had good urine output. EXAMINATION: His blood pressure was 136/73, heart rate of 92 per minute. Patient is afebrile. Examination of the heart: S1, S2. Examination lungs: Bilateral breath sounds are heard. Decreased breath sounds at bases. Abdomen is soft, nontender. Examination lower extremities shows no significant edema. JTAC exam shows patient is moving all 4 extremities. LAB: Show sodium 142, potassium 4.4, CO2 is 18, chloride 114, BUN 60, serum creatinine 2.49. ASSESSMENT: 1. Chronic kidney disease, NKF stage IV with baseline creatinine about 1.9 to 2 mg/dL. He has been at 2.4 previously as well. Today, the serum creatinine is a bit higher. The patient has had good oral intake. He is not hypotensive and he is not maintained on any nephrotoxic medications. He has had good urine output with the indwelling Barnhart catheter with 24 hour output of 2.9 L. Therefore, we will not make and therefore there will not be any significant changes and we can repeat labs in a.m. 2. Urinary tract infection with urine culture growing Pseudomonas, maintained on ceftazidime. 3. CKD mineral bone disorder, maintained on Rocaltrol. 4. A metabolic acidosis associated with renal failure, currently on sodium bicarb. PLAN: Continue to encourage increased oral intake. Continue oral sodium bicarb. Repeat labs in a.m. MMODL / IJN: [id number] /
[2017-07-13 16:44] LABS: Glucose,Whole Blood 192 mg/dL (75-99)
[2017-07-13 20:28] LABS: Glucose,Whole Blood 176 mg/dL (75-99)
[2017-07-13] MEDS: ATORVASTATIN 80 MG TAB PO SCH (22:18)
[2017-07-13] MEDS: DOXEPIN 25 MG CAP PO SCH (22:18)
[2017-07-13] MEDS: ASPIRIN 81 MG PO SCH (22:19)
[2017-07-13] MEDS: INSULIN DETEMIR 100 UNIT/ML 10 ML VIAL SQ SCH (22:20)
[2017-07-13] MEDS: METOPROLOL TARTRATE 25 MG TAB PO SCH (22:21)
[2017-07-13] MEDS: ISOSORBIDE MONONITRATE ER 30 MG TAB.ER.24H PO SCH (22:21)
--- NOTE | 2017-07-13 23:39 | P.PN ---
Subjective Progress Note Date: 07/13/17 Principal diagnosis: Sepsis 71-year-old male presents to Hospital feeling very poorly. Having fevers and chills generalized weakness. Also developed generalized malaise and what appears to be rigors. The patient was noted to likely have a urinary tract infection and was seen by urology. Evaluation revealed evidence of large volume within his bladder and a coud catheter was placed. 832 mL of urine drained at the time of the catheter placement. The patient had rapid improvement of his symptoms. Patient however did have significant fever, developed leukocytosis and has evidence of sepsis from urinary system with a gram-negative bacillus. Most recent urine cultures revealed evidence of enterococcus. The patient did have outpatient evaluation by urology as noted and did receive a dose of ciprofloxacin. Constantly there is concerned to quinolone resistant pathogens. The culture is now been finalized and a drug-resistant pseudomonas aeruginosa has been found. It is however somewhat intermediate to the cefepime and this was transitioned. He is feeling better but is not at his baseline as per his . fortunately is showing some improvement. He is much more comfortable as far as the significant urinary retention and bladder discomfort. Objective - Vital Signs Vital signs: Vital Signs Temp 98.2 F 07/13/17 22:55 Pulse 107 H 07/13/17 22:55 Resp 20 07/13/17 22:55 BP 152/88 07/13/17 22:55 Pulse Ox 96 07/13/17 22:55 Intake & Output 07/13/17 07/13/17 07/14/17 06:59 18:59 06:59 Intake Total 800 920 0 Output Total 1600 1600 Balance -800 -680 0 Intake: Oral 800 920 0 Output: Urine 1600 1600 Other: Voiding Method Indwelling Catheter Indwelling Catheter Indwelling Catheter # Voids 3 - Exam 71-year-old male presents to the emergency center feeling very poorly with fevers and chills. Was also very miserable because of his inability to urinate. This is all now improved HEENT: Anicteric conjunctiva are pink and moist nasal mucosa grossly intact without significant lesions, there is no thrush. Neck: The neck is supple without significant lymphadenopathy or thyromegaly. Lungs: Good bilateral air entry without significant crackles or wheezing. There is no significant bronchial sounds. There is no egophony or dullness. Heart: Regular rate and rhythm with an audible S1-S2, no S3 no S4. There is no significant murmur click or rub, PMI was nondisplaced. Abdomen: Positive bowel sounds soft and nontender without palpable masses or organomegaly. There was no guarding or rebound. A severe bladder tenderness has resolved after the placement of the coud catheter. Extremities: The upper extremities have excellent pulses they are symmetric, no significant petechiae or telangiectasia. No splinter hemorrhages were noted. Lower extremities have trace pedal edema bilaterally. No ulcers are seen. Neuro: Awake alert oriented to person place and time. There are no acute new gross focal sensory motor deficits. - Labs CBC & Chem 7: 07/13/17 07:21 07/13/17 07:21 Labs: Abnormal Lab Results - Last 24 Hours (Table) 07/13/17 07/13/17 07/13/17 Range/Units 07:21 07:21 07:22 WBC 11.1 H (3.8-10.6) k/uL RBC 3.43 L (4.30-5.90) m/uL Hgb 10.1 L (13.0-17.5) gm/dL Hct 31.6 L (39.0-53.0) % Plt Count 109 L (150-450) k/uL Chloride 114 H (98-107) mmol/L Carbon Dioxide 18 L (22-30) mmol/L BUN 60 H (9-20) mg/dL Creatinine 2.49 H (0.66-1.25) mg/dL Glucose 118 H (74-99) mg/dL POC Glucose (mg/dL) 116 H (75-99) mg/dL 07/13/17 07/13/17 07/13/17 Range/Units 11:57 16:35 20:26 WBC (3.8-10.6) k/uL RBC (4.30-5.90) m/uL Hgb (13.0-17.5) gm/dL Hct (39.0-53.0) % Plt Count (150-450) k/uL Chloride (98-107) mmol/L Carbon Dioxide (22-30) mmol/L BUN (9-20) mg/dL Creatinine (0.66-1.25) mg/dL Glucose (74-99) mg/dL POC Glucose (mg/dL) 183 H 192 H 176 H (75-99) mg/dL Microbiology - Last 24 Hours (Table) 07/10/17 18:21 Blood Culture - Preliminary Blood No Growth after 72 hours 07/10/17 14:02 Blood Culture - Preliminary Blood No Growth after 72 hours 07/12/17 09:25 Urine Culture - Preliminary Urine,Catheterized Gram Neg Bacilli 07/10/17 14:45 Urine Culture - Final Urine,Voided Pseudomonas aeruginosa Laboratory Results WBC 11.1 k/uL (3.8-10.6) H 07/13/17 07:21 RBC 3.43 m/uL (4.30-5.90) L 07/13/17 07:21 Hgb 10.1 gm/dL (13.0-17.5) L 07/13/17 07:21 Hct 31.6 % (39.0-53.0) L 07/13/17 07:21 MCV 92.1 fL (80.0-100.0) 07/13/17 07:21 MCH 29.3 pg (25.0-35.0) 07/13/17 07:21 MCHC 31.8 g/dL (31.0-37.0) 07/13/17 07:21 RDW 15.3 % (11.5-15.5) 07/13/17 07:21 Plt Count 109 k/uL (150-450) L 07/13/17 07:21 Neutrophils % 90 % 07/11/17 08:00 Lymphocytes % 4 % 07/11/17 08:00 Monocytes % 6 % 07/11/17 08:00 Eosinophils % 0 % 07/11/17 08:00 Basophils % 0 % 07/11/17 08:00 Neutrophils # 13.2 k/uL (1.3-7.7) H 07/11/17 08:00 Lymphocytes # 0.5 k/uL (1.0-4.8) L 07/11/17 08:00 Monocytes # 0.8 k/uL (0-1.0) 07/11/17 08:00 Eosinophils # 0.0 k/uL (0-0.7) 07/11/17 08:00 Basophils # 0.0 k/uL (0-0.2) 07/11/17 08:00 PT 11.3 sec (9.0-12.0) 07/10/17 14:02 INR 1.1 (<1.2) 07/10/17 14:02 APTT 24.0 sec (22.0-30.0) 07/10/17 14:02 Sodium 142 mmol/L (137-145) 07/13/17 07:21 Potassium 4.4 mmol/L (3.5-5.1) 07/13/17 07:21 Chloride 114 mmol/L (98-107) H 07/13/17 07:21 Carbon Dioxide 18 mmol/L (22-30) L 07/13/17 07:21 Anion Gap 10 mmol/L 07/13/17 07:21 BUN 60 mg/dL (9-20) H 07/13/17 07:21 Creatinine 2.49 mg/dL (0.66-1.25) H 07/13/17 07:21 Est GFR (MDRD) Af Amer 31 (>60 ml/min/1.73 sqM) 07/13/17 07:21 Est GFR (MDRD) Non-Af 26 (>60 ml/min/1.73 sqM) 07/13/17 07:21 Glucose 118 mg/dL (74-99) H 07/13/17 07:21 POC Glucose (mg/dL) 176 mg/dL (75-99) H 07/13/17 20:26 POC Glu [employer]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 Johanny Goldstein 07/13/17 20:[address] Glu mg/dL 148 07/10/17 18:00 Hemoglobin A1c 6.8 % (4.0-6.0) H 07/10/17 18:00 Lactic Ac Sepsis Rflx Y 07/10/17 19:02 Plasma Lactic Acid [place] 1.0 mmol/L (0.7-2.0) 07/11/17 23:55 Calcium 8.8 mg/dL (8.4-10.2) 07/13/17 07:21 Total Bilirubin 1.2 mg/dL (0.2-1.3) 07/11/17 08:00 AST 24 U/L (17-59) 07/11/17 08:00 ALT 28 U/L (21-72) 07/11/17 08:00 Alkaline Phosphatase 57 U/L (38-126) 07/11/17 08:00 Total Creatine Kinase 56 U/L (55-170) 07/10/17 14:02 CK-MB (CK-2) <0.2 ng/mL (0.0-2.4) 07/10/17 14:02 CK-MB (CK-2) Rel Index 07/10/17 14:02 Troponin I <0.012 ng/mL (0.000-0.034) 07/10/17 14:02 Total Protein 5.0 g/dL (6.3-8.2) L 07/11/17 08:00 Albumin 2.9 g/dL (3.5-5.0) L 07/11/17 08:00 Urine Color Light Yellow 07/10/17 14:45 Urine Appearance Cloudy (Clear) 07/10/17 14:45 Urine pH 6.5 (5.0-8.0) 07/10/17 14:45 Ur Specific [place] 1.011 (1.001-1.035) 07/10/17 14:45 Urine Protein 2+ (Negative) H 07/10/17 14:45 Urine Glucose (UA) Negative (Negative) 07/10/17 14:45 Urine Ketones Negative (Negative) 07/10/17 14:45 Urine Blood Moderate (Negative) H 07/10/17 14:45 Urine Nitrite Negative (Negative) 07/10/17 14:45 Urine Bilirubin Negative (Negative) 07/10/17 14:45 Urine Urobilinogen <2.0 mg/dL (<2.0) 07/10/17 14:45 Ur Leukocyte Esterase Large (Negative) H 07/10/17 14:45 Urine RBC 12 /hpf (0-5) H 07/10/17 14:45 Urine WBC >182 /hpf (0-5) H 07/10/17 14:45 Urine WBC Clumps Many /hpf (None) H 07/10/17 14:45 Urine Bacteria Moderate /hpf (None) H 07/10/17 14:45 Urine Mucus Rare /hpf (None) H 07/10/17 14:45 Urine Yeast (Budding) Few /hpf (None) H 07/10/17 14:45 Influenza Type A RNA Not Detected (Not Detectd) 07/10/17 15:45 Influenza Type B (PCR) Not Detected (Not Detectd) 07/10/17 15:45 Microbiology 07/10/17 18:21 Blood Blood Culture - Preliminary No Growth after 72 hours 07/10/17 14:02 Blood Blood Culture - Preliminary No Growth after 72 hours 07/12/17 09:25 Urine,Catheterized Urine Culture - Preliminary Gram Neg Bacilli 07/10/17 14:45 Urine,Voided Urine Culture - Final Pseudomonas aeruginosa Assessment and Plan (1) Urinary tract infection Current Visit: Yes Status: Acute Code(s): N39.0 - URINARY TRACT INFECTION, SITE NOT SPECIFIED SNOMED Code(s): 23489473 (2) Altered mental status Current Visit: No Status: Acute Code(s): R41.82 - ALTERED MENTAL STATUS, UNSPECIFIED SNOMED Code(s): 124329107 (3) Gram negative sepsis Narrative/Plan: 71-year-old male presents to Hospital with significant fever and chills associated with significant discomfort. The patient was noticed to have great difficulties with urination. Consequently urological evaluation occurred and a coud catheter was placed. A large volume of urine was drained from the bladder the patient has subsequently been feeling considerably improved. Pain and discomfort improved. Fever is resolving. However there is evidence of the positive urine culture with gram-negative bacilli. This is different from his recently isolated enterococcus. Because he did have a procedure and received fluoroquinolone prophylaxis it is likely that the current gram-negative will be resistant and constantly antimicrobial therapy with cefepime as been initiated. Choice of antibiotic is somewhat complicated because of his significant ALLERGIES. However there should be very little cross-reactivity between the penicillin in the cefepime. The pseudomonas aeruginosa was intermediate to the cefepime consequences changed to Fortaz which we once a day. Request vascular surgery to place IV access, given his chronic renal failure he will not be a candidate for PICC line. He is definitely feeling better and his mentation is much clear. His is present and is pleased with his improvement. Current Visit: Yes Status: Acute Code(s): A41.50 - GRAM-NEGATIVE SEPSIS, UNSPECIFIED SNOMED Code(s): 054828272
[2017-07-14] MEDS: LEVOTHYROXINE 137 MCG TAB PO SCH (06:43)
[2017-07-14 07:33] LABS: Glucose,Whole Blood 85 mg/dL (75-99)
[2017-07-14] MEDS: IPRATROPIUM-ALBUTEROL 3 ML NEB INHALATION SCH ×4 (08:05→19:08)
[2017-07-14 08:35] LABS: Calcium 9.1 mg/dL (8.4-10.2); Potassium 4.3 mmol/L (3.5-5.1)
--- NOTE | 2017-07-14 09:31 | P.GSCN ---
History of Present Illness Consult date: 07/14/17 Reason for Consult: Urinary tract infection with sepsis, need for long-term antibiotics, need for Ghotra placement. Requesting physician: Janusz Coon History of present illness: This 71-year-old gentleman with a previous medical history of stroke 2, chronic kidney disease, insulin-dependent diabetes, hypertension, hyperlipidemia , hypothyroid, CAD with previous bypass surgery, and BPH with recent cystoscopy and dilation of urethral stricture presented to the emergency room on 2016 after his called EMS secondary to the patient blacking out at home. He also had increasing generalized weakness. Apparently there was concern for stroke which has been ruled out. He did have a fever at the time of 101.9F, tachycardia, and an elevated lactic acid of 3.0. He was admitted for urinary tract infection with sepsis, and treatment with IV antibiotics. His urine culture was positive for Pseudomonas necessitating long-term ceftazidime IV antibiotic infusion. Secondary to his chronic renal failure Dr. Coon did not feel a PICC line was appropriate, and he subsequently consulted Dr. Dumont for placement of Ghotra catheter. Review of Systems 14 point review systems was completed and was negative except as noted. - Constitutional Reports as per HPI, Reports chills, Reports fever, Reports malaise, Reports weakness - Genitourinary Reports as per HPI, Reports dysuria, Reports urinary frequency, Reports urinary retention Past Medical History Past Medical History: Coronary Artery Disease (CAD), CVA/TIA, Diabetes Mellitus , GERD/Reflux, Hyperlipidemia, Hypertension, Myocardial Infarction ([place]), Osteoarthritis (OA), Prostate Disorder, Renal Disease, Sleep Apnea/CPAP/BIPAP, Thyroid Disorder Additional Past Medical History / Comment(s): hx. TIA's, last one November 2016, heart murmur, OCC SOB, kidney stones, leakage of urine, uses CPAP, decreased kidney function, placed on antibiotics recently for UTI Last Myocardial Infarction Date:: 2010 History of Any Multi-Drug Resistant Organisms: None Reported Past Surgical History: Coronary Bypass/CABG, Heart Catheterization, Hernia Repair, Orthopedic Surgery, Prostate Surgery Additional Past Surgical History / Comment(s): vasectomy, CABG 2010 with 4 vessels, keke knee arthroscopy, rt hand surgery x 3, TURP 02/2017, cystoscopy and dilation of urethral stricture 07/08/17 Past Anesthesia/Blood Transfusion Reactions: No Reported Reaction Additional Psychological History / Comment(s): . The adult children are healthy. Lifelong nonsmoker. No alcohol use. 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 Was in the in the [employer] no significant trouble since then. Pet dog at home Smoking Status: Never smoker Past Alcohol Use History: None Reported Past Drug Use History: None Reported - Past Family History Mother Family Medical History: Congestive Heart Failure (CHF) Additional Family Medical History / Comment(s): at age 92 Father Family Medical History: CVA/TIA, Myocardial Infarction ([place]) Medications and Allergies Home Medications Medication Instructions Recorded Confirmed Type Allopurinol [Zyloprim] 100 mg PO DAILY 11/28/15 07/10/17 History Aspirin 81 mg PO HS 11/28/15 07/10/17 History Atorvastatin [Lipitor] 80 mg PO HS 11/28/15 07/10/17 History Calcitriol 0.25 mcg PO QAM 11/28/15 07/10/17 History Clopidogrel Bisulfate [Plavix] 75 mg PO QAM 11/28/15 07/10/17 History Doxepin HCl [SINEquan] 50 mg PO HS 11/28/15 07/10/17 History Folic Acid 1 mg PO QAM 11/28/15 07/10/17 History Isosorbide Mononitrate [Isosorbide 30 mg PO HS 11/28/15 07/10/17 History Mononitrate ER] Levothyroxine Sodium [Synthroid] 137 mcg PO QAM 11/28/15 07/10/17 History Ergocalciferol (Vitamin D2) 50,000 unit PO QMONTH 11/29/16 07/10/17 History [Vitamin D2] Acetaminophen [Tylenol Arthritis] 1,300 mg PO BID 12/08/16 07/10/17 History Citalopram Hydrobromide [CeleXA] 20 mg PO DAILY 12/08/16 07/10/17 History Ferrous Sulfate [Iron (65 MG 325 mg PO DAILY 12/08/16 07/10/17 History Elemental)] [place]-3 Fatty Acids [[place]-3] 1,000 mg PO DAILY 12/08/16 07/10/17 History Ranitidine HCl [Zantac] 150 mg PO BID 12/08/16 07/10/17 History Insulin Glargine [Lantus] 25 unit SQ HS #1 vial 12/12/16 07/10/17 Rx Hydrocodone/Acetaminophen [[place] 1 tab PO BID 05/22/17 07/10/17 History 5-325] INSULIN LISPRO (humaLOG) [humaLOG] See Protocol SQ AC-TID 05/22/17 07/10/17 History glipiZIDE XL [Glucotrol Xl] 5 mg PO BID 05/22/17 07/10/17 History Ceftazidime [Fortaz] 2 gm IV DAILY #14 vial 07/13/17 Rx Allergies Allergy/AdvReac Type Severity Reaction Status Date / Time Penicillins Allergy Severe Anaphylaxis Verified 07/10/17 15:03 cephalexin monohydrate Allergy Rash/Hives Verified 07/10/17 15:03 [From Keflex] gemfibrozil [From Lopid] AdvReac Abdominal Verified 07/10/17 15:03 Pain Surgical - Exam Vital Signs Temp Pulse Resp BP Pulse Ox 101.9 F H 121 H 20 163/82 96 07/10/17 13:45 07/10/17 13:45 07/10/17 13:45 07/10/17 13:45 07/10/17 13:45 - General well developed, well nourished, no distress, no pain, obese - Eyes PERRL, normal ocular movement - ENT no hearing loss - Neck no masses, no bruits, trachea midline - Respiratory Lungs sounds diminished bilaterally with expiratory wheezes present. Currently on room air with oxygen saturation 96%. - Cardiovascular S1, S2 present. Regular rate and rhythm. Palpable peripheral pulses bilaterally. 2+ pitting edema to bilateral lower extremities. - Abdomen Abdomen: soft, non tender, bowel sounds - Genitourinary [place] present draining clear, yellow urine. - Rectum Deferred - Integumentary no rash, no growths - Neurologic normal coordination, normal sensation - Psychiatric oriented to time, oriented to person, oriented to place, speech is normal, memory intact Results - Labs 07/13/17 07:21 07/14/17 07:22 Abnormal Lab Results - Last 24 Hours (Table) 07/13/17 07/13/17 07/13/17 Range/Units 11:57 16:35 20:26 Chloride (98-107) mmol/L Carbon Dioxide (22-30) mmol/L BUN (9-20) mg/dL Creatinine (0.66-1.25) mg/dL POC Glucose (mg/dL) 183 H 192 H 176 H (75-99) mg/dL 07/14/17 Range/Units 07:22 Chloride 114 H (98-107) mmol/L Carbon Dioxide 19 L (22-30) mmol/L BUN 54 H (9-20) mg/dL Creatinine 2.14 H (0.66-1.25) mg/dL POC Glucose (mg/dL) (75-99) mg/dL Microbiology - Last 24 Hours (Table) 07/10/17 18:21 Blood Culture - Preliminary Blood No Growth after 72 hours 07/10/17 14:02 Blood Culture - Preliminary Blood No Growth after 72 hours 07/12/17 09:25 Urine Culture - Preliminary Urine,Catheterized Gram Neg Bacilli 07/10/17 14:45 Urine Culture - Final Urine,Voided Pseudomonas aeruginosa Diabetes panel 07/14/17 Range/Units 07:22 Sodium 141 (137-145) mmol/L Potassium 4.3 (3.5-5.1) mmol/L Chloride 114 H (98-107) mmol/L Carbon Dioxide 19 L (22-30) mmol/L BUN 54 H (9-20) mg/dL Creatinine 2.14 H (0.66-1.25) mg/dL Glucose 82 (74-99) mg/dL Calcium 9.1 (8.4-10.2) mg/dL Calcium panel 07/14/17 Range/Units 07:22 Calcium 9.1 (8.4-10.2) mg/dL Pituitary panel 07/14/17 Range/Units 07:22 Sodium 141 (137-145) mmol/L Potassium 4.3 (3.5-5.1) mmol/L Chloride 114 H (98-107) mmol/L Carbon Dioxide 19 L (22-30) mmol/L BUN 54 H (9-20) mg/dL Creatinine 2.14 H (0.66-1.25) mg/dL Glucose 82 (74-99) mg/dL Calcium 9.1 (8.4-10.2) mg/dL Adrenal panel 07/14/17 Range/Units 07:22 Sodium 141 (137-145) mmol/L Potassium 4.3 (3.5-5.1) mmol/L Chloride 114 H (98-107) mmol/L Carbon Dioxide 19 L (22-30) mmol/L BUN 54 H (9-20) mg/dL Creatinine 2.14 H (0.66-1.25) mg/dL Glucose 82 (74-99) mg/dL Calcium 9.1 (8.4-10.2) mg/dL - Imaging Chest x-ray: report reviewed, image reviewed EKG: image reviewed Assessment and Plan (1) Type 2 diabetes mellitus Current Visit: Yes Status: Chronic Code(s): E11.9 - TYPE 2 DIABETES MELLITUS WITHOUT COMPLICATIONS SNOMED Code(s): 66542965 (2) History of stroke Current Visit: No Status: Resolved Code(s): Z86.73 - PRSNL HX OF TIA (TIA), AND CEREB INFRC W/O RESID DEFICITS SNOMED Code(s): 360512062 (3) Obesity (BMI 30-39.9) Current Visit: Yes Status: Chronic Code(s): E66.9 - OBESITY, UNSPECIFIED SNOMED Code(s): 623742206 (4) BPH (benign prostatic hyperplasia) Current Visit: Yes Status: Acute Code(s): N40.0 - BENIGN PROSTATIC HYPERPLASIA WITHOUT LOWER URINRY TRACT SYMP SNOMED Code(s): 741083488 (5) Chronic kidney disease Current Visit: Yes Status: Chronic Code(s): N18.9 - CHRONIC KIDNEY DISEASE, UNSPECIFIED SNOMED Code(s): 203414469 (6) Sepsis Current Visit: Yes Status: Acute Code(s): A41.9 - SEPSIS, UNSPECIFIED ORGANISM SNOMED Code(s): 94847884 (7) Urinary tract infection Current Visit: Yes Status: Acute Code(s): N39.0 - URINARY TRACT INFECTION, SITE NOT SPECIFIED SNOMED Code(s): 62477818 (8) CAD (coronary artery disease) Current Visit: No Status: Chronic Code(s): I25.10 - ATHSCL HEART DISEASE OF [place] CORONARY ARTERY W/O ANG PCTRS SNOMED Code(s): 82577518 (9) GERD (gastroesophageal reflux disease) Current Visit: No Status: Chronic Code(s): K21.9 - GASTRO-ESOPHAGEAL REFLUX DISEASE WITHOUT ESOPHAGITIS SNOMED Code(s): 882743483 (10) Hyperlipidemia Current Visit: No Status: Chronic Code(s): E78.5 - HYPERLIPIDEMIA, UNSPECIFIED SNOMED Code(s): 68488036 (11) Hypertension Current Visit: Yes Status: Chronic Code(s): I10 - ESSENTIAL (PRIMARY) HYPERTENSION SNOMED Code(s): 37317743 Plan: The patient was seen and examined at the bedside. Chart/diagnostics were reviewed. Patient will need long-term IV antibiotics for Pseudomonas urinary tract infection. The case was discussed with Dr. Dumont. We will make plans to insert Ghotra catheter when an OR is available. Medical management per primary care services. Antibiotic management per infectious disease services. Thank you Dr. Coon for this consult. We look forward to working with you in the care of your patient. Time with Patient: Greater than 30
[2017-07-14] MEDS: FERROUS SULFATE 325 MG TAB PO SCH (09:37)
[2017-07-14] MEDS: CITALOPRAM HYDROBROMIDE 20 MG TAB PO SCH (09:37)
[2017-07-14] MEDS: ALLOPURINOL 100 MG TAB PO SCH (09:37)
[2017-07-14] MEDS: FOLIC ACID 1 MG TAB PO SCH (09:37)
[2017-07-14] MEDS: FAMOTIDINE 20 MG TAB PO SCH (09:37)
[2017-07-14] MEDS: CALCITRIOL 0.25 MCG CAP PO SCH (09:37)
[2017-07-14] MEDS: METOPROLOL TARTRATE 25 MG TAB PO SCH ×2 (09:37→21:57)
[2017-07-14] MEDS: INSULIN ASPART 100 UNIT/ML 1 ML 10 ML VIAL SQ SCH ×4 (09:37→21:56)
[2017-07-14] MEDS: SODIUM BICARBONATE TAB 650 MG TAB PO SCH ×2 (09:37→21:57)
[2017-07-14] MEDS: HYDROcodone/APAP 5-325MG 1 EACH TAB PO SCH ×2 (09:38→21:55)
[2017-07-14] MEDS: CLOPIDOGREL 75 MG TAB PO SCH (09:38)
[2017-07-14 12:09] LABS: Glucose,Whole Blood 136 mg/dL (75-99)
--- NOTE | 2017-07-14 12:29 | P.PN ---
Subjective Progress Note Date: 07/14/17 progress note being dictated for Dr. Keating Interval history:Patient is a pleasant 71-year-old gentleman came in with complaints of fever chills started last night increased urinary frequency dysuria with significantly abnormal urine of increased the WBC in the urine white blood cell counts of greater than 180 in the urine along with increased leukocyte esterase WBC clumps. Patient had Enterococcus faecalis UTIs in the past, patient's enterococcus is fortunately sensitive to fluoroquinolones and patient is ALLERGIC to penicillins and cephalosporins area patient had ureteral procedure for a stricture couple days ago area patient denied any cough runny nose chest x-ray was questionable for retrocardiac shadow as per the radiologist reading although patient does not have any symptoms of pneumonia. Patient does have chronic kidney disease and his kidney function at this time is 1.9 which is actually better than his baseline. Urine cultures and blood cultures were obtained. Patient does not have any leukocytosis. Review of Systems REVIEW OF SYSTEMS: CONSTITUTIONAL: As mentioned in HPI HEENT: No recent visual problems or hearing problems. Denied any sore throat. CARDIOVASCULAR: No chest pain, orthopnea, PND, no palpitations, no syncope. PULMONARY: No shortness of breath, no cough, no hemoptysis. GASTROINTESTINAL: No diarrhea, no nausea, no vomiting, no abdominal pain. Normoactive bowel sounds. NEUROLOGICAL: No headaches, no weakness, no numbness. HEMATOLOGICAL: Denies any bleeding or petechiae. GENITOURINARY: As mentioned in HPI MUSCULOSKELETAL/RHEUMATOLOGICAL: Denies any joint pain, swelling, or any muscle pain. ENDOCRINE: Denies any polyuria or polydipsia. The rest of the 14-point review of systems is negative. 07/11/2017 received IV fluids for elevated lactic acid, significantly improved, down to 1.6. tachycardia improved, down to low 100s.T-max 100.9,WBC 14.8.urine culture pending,preliminary blood culture negative at 24 hours.creatinine mildly worsened up to 2.1. maintaining O2 sats of 95% on 4lnc in a patient who does not wear O2 at home, chest x-ray ordered, results noted.good diet intake , with no nausea vomiting or diarrhea.IV fluids have been discontinued. evaluated by nephrology, recommendations noted. 07/12/2017Patient was admitted for secondary to urinary tract infection from recent erythromycin ablation. Patient was evaluated by nephrology as well as urology and patient had a urinary coud catheter placed today. Awaiting urine cultures patient has minimally worsened creatinine which is being addressed by nephrology. Constitutional: Denied any fatigue denied any fever. 07/13/2017 No overnight events urine cultures are showing Pseudomonas which is resistant to cefepime was same thing was discussed with ID and IUD will change the antibiotics. No overnight events. Cardio vascular: denied any chest pain, palpitations Gastrointestinal denied any nausea vomiting Pulmonary: Denied any shortness of breath cough Neurologic denied any new focal deficits 07/14/2017. Evaluated by a cardiovascular services, awaiting placement of Ghotra catheter. Renal function slowly improving, creatinine down to 2.14. Afebrile Denies chest pain, palpitations or increasing shortness of breath. Objective - Vital Signs Vital signs: Vital Signs Temp 96.4 F L 07/14/17 07:00 Pulse 88 07/14/17 11:51 Resp 18 07/14/17 08:00 BP 145/82 07/14/17 07:00 Pulse Ox 95 07/14/17 07:00 Intake & Output 07/13/17 07/14/17 07/14/17 18:59 06:59 18:59 Intake Total 920 0 Output Total 1600 1400 800 Balance -680 -1400 -800 Intake: Oral 920 0 Output: Urine 1600 1400 800 Other: Voiding Method Indwelling Catheter Indwelling Catheter Indwelling Catheter # Voids 3 - Exam GENERAL: The patient is alert and oriented x3, not in any acute distress. HEENT: Pupils are round and equally reacting to light. EOMI. No scleral icterus. No conjunctival pallor. Normocephalic, atraumatic. No pharyngeal erythema. No thyromegaly. CARDIOVASCULAR: S1 and S2 present. No murmurs, rubs, or gallops. PULMONARY: Chest is clear to auscultation, positive expiratory wheezing, no crackles. ABDOMEN: Soft, nontender, nondistended, normoactive bowel sounds. No palpable organomegaly. MUSCULOSKELETAL: No joint swelling or deformity. EXTREMITIES: No cyanosis, clubbing, pos. pedal edema. NEUROLOGICAL: Gross neurological examination did not reveal any focal deficits. SKIN: No rashes. Microbiology 07/12/17 09:25 Urine,Catheterized Urine Culture - Final Pseudomonas aeruginosa 07/10/17 18:21 Blood Blood Culture - Preliminary No Growth after 72 hours 07/10/17 14:02 Blood Blood Culture - Preliminary No Growth after 72 hours 07/10/17 14:45 Urine,Voided Urine Culture - Final Pseudomonas aeruginosa - Labs CBC & Chem 7: 07/13/17 07:21 07/14/17 07:22 Labs: Abnormal Lab Results - Last 24 Hours (Table) 07/13/17 07/13/17 07/14/17 Range/Units 16:35 20:26 07:22 Chloride 114 H (98-107) mmol/L Carbon Dioxide 19 L (22-30) mmol/L BUN 54 H (9-20) mg/dL Creatinine 2.14 H (0.66-1.25) mg/dL POC Glucose (mg/dL) 192 H 176 H (75-99) mg/dL 07/14/17 Range/Units 12:07 Chloride (98-107) mmol/L Carbon Dioxide (22-30) mmol/L BUN (9-20) mg/dL Creatinine (0.66-1.25) mg/dL POC Glucose (mg/dL) 136 H (75-99) mg/dL Microbiology - Last 24 Hours (Table) 07/12/17 09:25 Urine Culture - Final Urine,Catheterized Pseudomonas aeruginosa 07/10/17 18:21 Blood Culture - Preliminary Blood No Growth after 72 hours 07/10/17 14:02 Blood Culture - Preliminary Blood No Growth after 72 hours Assessment and Plan Assessment: #1 sepsis with acuteurinary tract infection: Recent urethral procedure. Barnhart catheter placed. 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 #5 gastric esophageal reflux disease number #6 morbid obesity,BMI 36.8 with history of sleep apnea patient #7 hypertension #8 CAD #9 urethral stricture and prostatic hypertrophy #7 hypothyroidism #8 chronic kidney disease stage III secondary to diabetic nephropathy plan: Continue on current medication regime, sodium bicarb,monitoring. Antibiotics as per infectious disease. Ghotra catheter placement pending. Follow closely with nephrology area prognosis guarded. The impression and plan of care has been dictated as directed. : I performed a history and examination of this patient, discussed the same with the dictator. I agree with the dictator's note ,documented as a scribe. Any additional findings or plans will be noted.
--- NOTE | 2017-07-14 13:08 | P.PN ---
Subjective Patient is seen in follow-up for chronic kidney disease. Patient has chronic kidney disease stage III secondary to diabetic kidney disease. His baseline creatinine is near 2. GFR is near baseline. Patient presented with weakness. He is noted to have a UTI with urine culture positive for Pseudomonas. He also has a Barnhart catheter in place for urinary retention. He is currently resting in bed. His oral intake is good. Hemodynamically stable. No vomiting or diarrhea. Vital signs are stable. General: The patient appeared well nourished and normally developed. HEENT: Head exam is unremarkable. Neck is without jugular venous distension. LUNGS: Lungs are clear to auscultation and percussion. Breath sounds decreased. HEART: Rate and Rhythm are regular. First and second heart sounds normal. No murmurs, rubs or gallops. ABDOMEN: Abdominal exam reveals normal bowel sounds. Non-tender and non- distended. No evidence of peritonitis. EXTREMITITES: No clubbing, cyanosis, or edema. Objective - Vital Signs Vital signs: Vital Signs Temp 96.4 F L 07/14/17 07:00 Pulse 88 07/14/17 11:51 Resp 18 07/14/17 08:00 BP 145/82 07/14/17 07:00 Pulse Ox 95 07/14/17 07:00 Intake & Output 07/13/17 07/14/17 07/14/17 18:59 06:59 18:59 Intake Total 920 0 Output Total 1600 1400 800 Balance -680 -1400 -800 Intake: Oral 920 0 Output: Urine 1600 1400 800 Other: Voiding Method Indwelling Catheter Indwelling Catheter Indwelling Catheter # Voids 3 - Labs CBC & Chem 7: 07/13/17 07:21 07/14/17 07:22 Labs: Abnormal Lab Results - Last 24 Hours (Table) 07/13/17 07/13/17 07/14/17 Range/Units 16:35 20:26 07:22 Chloride 114 H (98-107) mmol/L Carbon Dioxide 19 L (22-30) mmol/L BUN 54 H (9-20) mg/dL Creatinine 2.14 H (0.66-1.25) mg/dL POC Glucose (mg/dL) 192 H 176 H (75-99) mg/dL 07/14/17 Range/Units 12:07 Chloride (98-107) mmol/L Carbon Dioxide (22-30) mmol/L BUN (9-20) mg/dL Creatinine (0.66-1.25) mg/dL POC Glucose (mg/dL) 136 H (75-99) mg/dL Microbiology - Last 24 Hours (Table) 07/12/17 09:25 Urine Culture - Final Urine,Catheterized Pseudomonas aeruginosa 07/10/17 18:21 Blood Culture - Preliminary Blood No Growth after 72 hours 07/10/17 14:02 Blood Culture - Preliminary Blood No Growth after 72 hours Assessment and Plan Plan: Assessment: #1. Chronic kidney disease stage III secondary to diabetic kidney disease with baseline creatinine near 2. GFR is near baseline. Serologic workup as an outpatient has been negative. #2. Metabolic acidosis secondary to chronic kidney disease and IV fluids. Also noted to have a high lactic acid level on admission which improved with IV hydration. #3. UTI maintained on antibiotics. Urine culture positive for Pseudomonas. #4. Insulin-dependent diabetes mellitus. #5. Urinary retention status post Barnhart catheter placement. Nonoliguric. Plan: Encouraged oral intake. Avoid nephrotoxic agents and hypotensive episodes. Continue oral sodium bicarbonate 650 mg twice daily.
[2017-07-14 17:06] LABS: Glucose,Whole Blood 101 mg/dL (75-99)
--- NOTE | 2017-07-14 17:17 | P.PN ---
Progress Note - Text Progress Note Date: 07/14/17 Mr. Ruiz' condition is improving. He is afebrile. His WBC count is decreasing. His Barnhart catheters draining clear yellow urine. He is currently receiving ceftazidime for treatment of his Pseudomonas UTI. He will continue to receive this as an outpatient. I have suggested that the Barnhart catheter remain in place for 1 additional week. The patient and his were instructed to remove the catheter early in the morning 07/21/2017. He will be seen later that day in the office to assess bladder emptying. Please notify me if I can be of any further assistance during this hospitalization.
[2017-07-14 20:37] LABS: Glucose,Whole Blood 147 mg/dL (75-99)
[2017-07-14] MEDS: ASPIRIN 81 MG PO SCH (21:55)
[2017-07-14] MEDS: ATORVASTATIN 80 MG TAB PO SCH (21:55)
[2017-07-14] MEDS: DOXEPIN 25 MG CAP PO SCH (21:56)
[2017-07-14] MEDS: INSULIN DETEMIR 100 UNIT/ML 10 ML VIAL SQ SCH (21:57)
[2017-07-14] MEDS: ISOSORBIDE MONONITRATE ER 30 MG TAB.ER.24H PO SCH (21:57)
--- NOTE | 2017-07-14 22:50 | P.PN ---
Subjective Progress Note Date: 07/14/17 Principal diagnosis: Sepsis 71-year-old male presents to Hospital feeling very poorly. Having fevers and chills generalized weakness. Also developed generalized malaise and what appears to be rigors. The patient was noted to likely have a urinary tract infection and was seen by urology. Evaluation revealed evidence of large volume within his bladder and a coud catheter was placed. 832 mL of urine drained at the time of the catheter placement. The patient had rapid improvement of his symptoms. Patient however did have significant fever, developed leukocytosis and has evidence of sepsis from urinary system with a gram-negative bacillus. Most recent urine cultures revealed evidence of enterococcus. The patient did have outpatient evaluation by urology as noted and did receive a dose of ciprofloxacin. Constantly there is concerned to quinolone resistant pathogens. The culture is now been finalized and a drug-resistant pseudomonas aeruginosa has been found. It is however somewhat intermediate to the cefepime and this was transitioned. He is feeling better but is not at his baseline as per his . fortunately is showing some improvement. He is much more comfortable as far as the significant urinary retention and bladder discomfort. Objective - Vital Signs Vital signs: Vital Signs Temp 98.1 F 07/14/17 22:23 Pulse 118 H 07/14/17 22:23 Resp 20 07/14/17 22:23 BP 173/96 07/14/17 22:23 Pulse Ox 95 07/14/17 22:23 Intake & Output 07/14/17 07/14/17 07/15/17 06:59 18:59 06:59 Intake Total 0 Output Total 1400 1800 900 Balance -1400 -1800 -900 Intake: Oral 0 Output: Urine 1400 1800 900 Other: Voiding Method Indwelling Catheter Indwelling Catheter # Voids 3 # Bowel Movements 0 - Exam 71-year-old male presents to the emergency center feeling very poorly with fevers and chills. Was also very miserable because of his inability to urinate. This is all now improved HEENT: Anicteric conjunctiva are pink and moist nasal mucosa grossly intact without significant lesions, there is no thrush. Neck: The neck is supple without significant lymphadenopathy or thyromegaly. Lungs: Good bilateral air entry without significant crackles or wheezing. There is no significant bronchial sounds. There is no egophony or dullness. Heart: Regular rate and rhythm with an audible S1-S2, no S3 no S4. There is no significant murmur click or rub, PMI was nondisplaced. Abdomen: Positive bowel sounds soft and nontender without palpable masses or organomegaly. There was no guarding or rebound. A severe bladder tenderness has resolved after the placement of the coud catheter. Extremities: The upper extremities have excellent pulses they are symmetric, no significant petechiae or telangiectasia. No splinter hemorrhages were noted. Lower extremities have trace pedal edema bilaterally. No ulcers are seen. Neuro: Awake alert oriented to person place and time. There are no acute new gross focal sensory motor deficits. - Labs CBC & Chem 7: 07/13/17 07:21 07/14/17 07:22 Labs: Abnormal Lab Results - Last 24 Hours (Table) 07/14/17 07/14/17 07/14/17 Range/Units 07:22 12:07 17:03 Chloride 114 H (98-107) mmol/L Carbon Dioxide 19 L (22-30) mmol/L BUN 54 H (9-20) mg/dL Creatinine 2.14 H (0.66-1.25) mg/dL POC Glucose (mg/dL) 136 H 101 H (75-99) mg/dL 07/14/17 Range/Units 20:30 Chloride (98-107) mmol/L Carbon Dioxide (22-30) mmol/L BUN (9-20) mg/dL Creatinine (0.66-1.25) mg/dL POC Glucose (mg/dL) 147 H (75-99) mg/dL Microbiology - Last 24 Hours (Table) 07/10/17 18:21 Blood Culture - Preliminary Blood No Growth after 96 hours 07/10/17 14:02 Blood Culture - Preliminary Blood No Growth after 96 hours 07/12/17 09:25 Urine Culture - Final Urine,Catheterized Pseudomonas aeruginosa Laboratory Results WBC 11.1 k/uL (3.8-10.6) H 07/13/17 07:21 RBC 3.43 m/uL (4.30-5.90) L 07/13/17 07:21 Hgb 10.1 gm/dL (13.0-17.5) L 07/13/17 07:21 Hct 31.6 % (39.0-53.0) L 07/13/17 07:21 MCV 92.1 fL (80.0-100.0) 07/13/17 07:21 MCH 29.3 pg (25.0-35.0) 07/13/17 07:21 MCHC 31.8 g/dL (31.0-37.0) 07/13/17 07:21 RDW 15.3 % (11.5-15.5) 07/13/17 07:21 Plt Count 109 k/uL (150-450) L 07/13/17 07:21 Neutrophils % 90 % 07/11/17 08:00 Lymphocytes % 4 % 07/11/17 08:00 Monocytes % 6 % 07/11/17 08:00 Eosinophils % 0 % 07/11/17 08:00 Basophils % 0 % 07/11/17 08:00 Neutrophils # 13.2 k/uL (1.3-7.7) H 07/11/17 08:00 Lymphocytes # 0.5 k/uL (1.0-4.8) L 07/11/17 08:00 Monocytes # 0.8 k/uL (0-1.0) 07/11/17 08:00 Eosinophils # 0.0 k/uL (0-0.7) 07/11/17 08:00 Basophils # 0.0 k/uL (0-0.2) 07/11/17 08:00 PT 11.3 sec (9.0-12.0) 07/10/17 14:02 INR 1.1 (<1.2) 07/10/17 14:02 APTT 24.0 sec (22.0-30.0) 07/10/17 14:02 Sodium 141 mmol/L (137-145) 07/14/17 07:22 Potassium 4.3 mmol/L (3.5-5.1) 07/14/17 07:22 Chloride 114 mmol/L (98-107) H 07/14/17 07:22 Carbon Dioxide 19 mmol/L (22-30) L 07/14/17 07:22 Anion Gap 8 mmol/L 07/14/17 07:22 BUN 54 mg/dL (9-20) H 07/14/17 07:22 Creatinine 2.14 mg/dL (0.66-1.25) H 07/14/17 07:22 Est GFR (MDRD) Af Amer 37 (>60 ml/min/1.73 sqM) 07/14/17 07:22 Est GFR (MDRD) Non-Af 31 (>60 ml/min/1.73 sqM) 07/14/17 07:22 Glucose 82 mg/dL (74-99) 07/14/17 07:22 POC Glucose (mg/dL) 147 mg/dL (75-99) H 07/14/17 20:30 POC Glu Can [place] ID Johanny Goldstein 07/14/17 20:[address] Glu mg/dL 148 07/10/17 18:00 Hemoglobin A1c 6.8 % (4.0-6.0) H 07/10/17 18:00 Lactic Ac Sepsis Rflx Y 07/10/17 19:02 Plasma Lactic Acid [place] 1.0 mmol/L (0.7-2.0) 07/11/17 23:55 Calcium 9.1 mg/dL (8.4-10.2) 07/14/17 07:22 Total Bilirubin 1.2 mg/dL (0.2-1.3) 07/11/17 08:00 AST 24 U/L (17-59) 07/11/17 08:00 ALT 28 U/L (21-72) 07/11/17 08:00 Alkaline Phosphatase 57 U/L (38-126) 07/11/17 08:00 Total Creatine Kinase 56 U/L (55-170) 07/10/17 14:02 CK-MB (CK-2) <0.2 ng/mL (0.0-2.4) 07/10/17 14:02 CK-MB (CK-2) Rel Index 07/10/17 14:02 Troponin I <0.012 ng/mL (0.000-0.034) 07/10/17 14:02 Total Protein 5.0 g/dL (6.3-8.2) L 07/11/17 08:00 Albumin 2.9 g/dL (3.5-5.0) L 07/11/17 08:00 Urine Color Light Yellow 07/10/17 14:45 Urine Appearance Cloudy (Clear) 07/10/17 14:45 Urine pH 6.5 (5.0-8.0) 07/10/17 14:45 Ur Specific [place] 1.011 (1.001-1.035) 07/10/17 14:45 Urine Protein 2+ (Negative) H 07/10/17 14:45 Urine Glucose (UA) Negative (Negative) 07/10/17 14:45 Urine Ketones Negative (Negative) 07/10/17 14:45 Urine Blood Moderate (Negative) H 07/10/17 14:45 Urine Nitrite Negative (Negative) 07/10/17 14:45 Urine Bilirubin Negative (Negative) 07/10/17 14:45 Urine Urobilinogen <2.0 mg/dL (<2.0) 07/10/17 14:45 Ur Leukocyte Esterase Large (Negative) H 07/10/17 14:45 Urine RBC 12 /hpf (0-5) H 07/10/17 14:45 Urine WBC >182 /hpf (0-5) H 07/10/17 14:45 Urine WBC Clumps Many /hpf (None) H 07/10/17 14:45 Urine Bacteria Moderate /hpf (None) H 07/10/17 14:45 Urine Mucus Rare /hpf (None) H 07/10/17 14:45 Urine Yeast (Budding) Few /hpf (None) H 07/10/17 14:45 Influenza Type A RNA Not Detected (Not Detectd) 07/10/17 15:45 Influenza Type B (PCR) Not Detected (Not Detectd) 07/10/17 15:45 Microbiology 07/10/17 18:21 Blood Blood Culture - Preliminary No Growth after 96 hours 07/10/17 14:02 Blood Blood Culture - Preliminary No Growth after 96 hours 07/12/17 09:25 Urine,Catheterized Urine Culture - Final Pseudomonas aeruginosa 07/10/17 14:45 Urine,Voided Urine Culture - Final Pseudomonas aeruginosa Assessment and Plan (1) Urinary tract infection Current Visit: Yes Status: Acute Code(s): N39.0 - URINARY TRACT INFECTION, SITE NOT SPECIFIED SNOMED Code(s): 73254080 (2) Altered mental status Current Visit: No Status: Acute Code(s): R41.82 - ALTERED MENTAL STATUS, UNSPECIFIED SNOMED Code(s): 807917380 (3) Gram negative sepsis Narrative/Plan: 71-year-old male presents to Hospital with significant fever and chills associated with significant discomfort. The patient was noticed to have great difficulties with urination. Consequently urological evaluation occurred and a coud catheter was placed. A large volume of urine was drained from the bladder the patient has subsequently been feeling considerably improved. Pain and discomfort improved. Fever is resolving. However there is evidence of the positive urine culture with gram-negative bacilli. This is different from his recently isolated enterococcus. Because he did have a procedure and received fluoroquinolone prophylaxis it is likely that the current gram-negative will be resistant and constantly antimicrobial therapy with cefepime as been initiated. Choice of antibiotic is somewhat complicated because of his significant ALLERGIES. However there should be very little cross-reactivity between the penicillin in the cefepime. The pseudomonas aeruginosa was intermediate to the cefepime consequences changed to Fortaz which we once a day. Request vascular surgery to place IV access, given his chronic renal failure he will not be a candidate for PICC line. He is definitely feeling better and his mentation is much clear. His is present and is pleased with his improvement. Current Visit: Yes Status: Acute Code(s): A41.50 - GRAM-NEGATIVE SEPSIS, UNSPECIFIED SNOMED Code(s): 202453826
[2017-07-15] MEDS: LEVOTHYROXINE 137 MCG TAB PO SCH (06:09)
[2017-07-15] MEDS: IPRATROPIUM-ALBUTEROL 3 ML NEB INHALATION SCH ×3 (06:50→15:32)
[2017-07-15 07:16] LABS: Glucose,Whole Blood 108 mg/dL (75-99)
[2017-07-15 07:38] LABS: Glucose,Whole Blood 93 mg/dL (75-99)
[2017-07-15] MEDS ORDERED: LACTATED RINGERS 1,000 ML IV ONE (07:45)
[2017-07-15] MEDS ORDERED: ONDANSETRON 4 MG/2 ML VIAL IVP ONE (07:46)
[2017-07-15] MEDS ORDERED: LIDOCAINE 1% 20 ML VIAL (10MG/ML) FOR IV START INTRADERMA ONE (07:46)
[2017-07-15] MEDS ORDERED: PROPOFOL 10 MG/ML 20 ML VIAL IV ONE (07:58)
[2017-07-15] MEDS ORDERED: KETAMINE 10 MG/ML 20 ML VIAL ONE (07:58)
[2017-07-15] MEDS ORDERED: fentaNYL (PF) 50 MCG/ML 2 ML AMP ONE (07:58)
[2017-07-15] MEDS ORDERED: MIDAZOLAM 2 MG/2 ML VIAL ONE (07:58)
--- NOTE | 2017-07-15 08:05 | P.CON ---
Consult Note - . Consult date: 07/15/17 Assessment/Plan:: Subjective: This 71-year-old gentleman was admitted with sepsis. He requires IV antibiotics. Ghotra has been requested. Objective: fairly alert 71-year-old gentleman in no distress. No cervical masses or adenopathy. Lungs are well aerated. Assessment: patient requires IV access on medium term Plan: I discussed with the patient options and risks. He wishes to proceed with Ghotra.
[2017-07-15] MEDS ORDERED: LIDOCAINE 1% INJ 10MG/ML (20 ML MDV) SQ ONE (08:18)
[2017-07-15] MEDS ORDERED: HEPARIN SODIUM,PORCINE 100 UNIT/ML 5 ML VIAL IV ONE (08:18)
--- NOTE | 2017-07-15 09:17 | P.PCN ---
Date of Procedure: 07/15/17 Preoperative Diagnosis: Sepsis requiring IV access Postoperative Diagnosis: Same Procedure(s) Performed: Insertion of Ghotra catheter via right internal jugular Anesthesia: MAC Surgeon: Ivan Dumont Estimated Blood Loss (ml): 100 Pathology: none sent Condition: stable Disposition: PACU Indications for Procedure: Patient was admitted with sepsis and requires medium term IV access. Operative Findings: No significant abnormalities were seen. Description of Procedure: With the patient spine position, under benefit of IV sedation, we prepped and draped in standard fashion. We initially tried a couple of sticks to obtain subclavian access. Not able to do so easily we then anesthetize and under ultrasound guidance accessed the right internal jugular. Guidewire was placed through the needle and the needle was removed. We tunneled a Ghotra from beneath the clavicle to the puncture site on the side of the neck. Stab wounds were made at each location. We cut the catheter to length. We placed a dilator and sheath over the guidewire in standard Seldinger fashion. The dilator and guidewire were removed. Catheter was placed through the sheath and the sheath was removed. The Ghotra appeared to be at the junction of the internal jugular and the subclavian veins. There was good blood return. It was charged with standard heparin solution. Sterile dressings were applied. The patient tolerated the procedure well and was taken recovery room in stable condition. Instructions were given to keep the patient in upright position and keep pressure on the right neck due to his Plavix.
--- NOTE | 2017-07-15 10:00 | XR ---
EXAMINATION TYPE: XR chest 1V DATE OF EXAM: 07/15/2017 COMPARISON: Prior chest x-ray 07/11/2017 HISTORY: Status post ECMO placement TECHNIQUE: Single frontal view of the chest is obtained. FINDINGS: Right jugular central venous catheter is in place, distal tip near the confluence of the i nnominate veins. No evident pneumothorax or pleural effusion. IMPRESSION: Central venous catheter as described. No evident complication status post central venous catheter placement.
[2017-07-15 10:02] VITALS: BP 155/87; TEMP 98.2
[2017-07-15] MEDS: INSULIN ASPART 100 UNIT/ML 1 ML 10 ML VIAL SQ SCH ×2 (10:17→12:42)
[2017-07-15] MEDS: HYDROcodone/APAP 5-325MG 1 EACH TAB PO SCH (10:18)
--- NOTE | 2017-07-15 10:31 | P.PN ---
Subjective Patient is seen in follow-up for chronic kidney disease. Patient has chronic kidney disease stage III secondary to diabetic kidney disease. His baseline creatinine is near 2. GFR is near baseline. Patient presented with weakness. He is noted to have a UTI with urine culture positive for Pseudomonas. He also has a Barnhart catheter in place for urinary retention. He is currently resting in bed. His oral intake is good. Hemodynamically stable. No vomiting or diarrhea. Patient just returned from Ghotra catheter placement and is difficult to awaken. Vital signs are stable. General: The patient appeared well nourished and normally developed. HEENT: Head exam is unremarkable. Neck is without jugular venous distension. LUNGS: Lungs are clear to auscultation and percussion. Breath sounds decreased. HEART: Rate and Rhythm are regular. First and second heart sounds normal. No murmurs, rubs or gallops. ABDOMEN: Abdominal exam reveals normal bowel sounds. Non-tender and non- distended. No evidence of peritonitis. EXTREMITITES: No clubbing, cyanosis, or edema. Objective - Vital Signs Vital signs: Vital Signs Temp 98.2 F 07/15/17 10:02 Pulse 95 07/15/17 10:02 Resp 18 07/15/17 10:02 BP 155/87 07/15/17 10:02 Pulse Ox 95 07/15/17 10:02 Intake & Output 07/14/17 07/15/17 07/15/17 18:59 06:59 18:59 Intake Total 650 Output Total 1800 900 100 Balance -1800 -900 550 Intake: IV 650 Output: Urine 1800 900 Estimated Blood Loss 100 Other: Voiding Method Indwelling Catheter Indwelling Catheter # Voids 1,100 # Bowel Movements 0 - Labs CBC & Chem 7: 07/13/17 07:21 07/14/17 07:22 Labs: Abnormal Lab Results - Last 24 Hours (Table) 07/14/17 07/14/17 07/14/17 Range/Units 12:07 17:03 20:30 POC Glucose (mg/dL) 136 H 101 H 147 H (75-99) mg/dL 07/15/17 Range/Units 07:12 POC Glucose (mg/dL) 108 H (75-99) mg/dL Microbiology - Last 24 Hours (Table) 07/10/17 18:21 Blood Culture - Preliminary Blood No Growth after 96 hours 07/10/17 14:02 Blood Culture - Preliminary Blood No Growth after 96 hours 07/12/17 09:25 Urine Culture - Final Urine,Catheterized Pseudomonas aeruginosa Assessment and Plan Plan: Assessment: #1. Chronic kidney disease stage III secondary to diabetic kidney disease with baseline creatinine near 2. GFR is near baseline. Serologic workup as an outpatient has been negative. #2. Metabolic acidosis secondary to chronic kidney disease and IV fluids. Also noted to have a high lactic acid level on admission which improved with IV hydration. #3. UTI maintained on antibiotics. Urine culture positive for Pseudomonas. #4. Insulin-dependent diabetes mellitus. #5. Urinary retention status post Barnhart catheter placement. Nonoliguric. Plan: Encouraged oral intake. Avoid nephrotoxic agents and hypotensive episodes. Continue oral sodium bicarbonate 650 mg twice daily. Follow-up labs.
[2017-07-15 10:40] LABS: Basophils % (A) 0 %; CH 29.2; CHCM 32.1; Eosinophils # (A) 0.2 k/uL (0-0.7); Eosinophils % (A) 3 %; HCT 33.2 % (39.0-53.0); HDW 2.49; HGB 10.4 gm/dL (13.0-17.5); Luc # (Auto) 0.18; Luc % (Auto) 3; Lymphocytes % (A) 14 %; MCH 28.6 pg (25.0-35.0); MCHC 31.2 g/dL (31.0-37.0); MCV 91.7 fL (80.0-100.0); Mean Platelet Volume 8.1; Monocytes # (A) 0.6 k/uL (0-1.0); Monocytes % (A) 9 %; Neutrophils # (A) 4.9 k/uL (1.3-7.7); Neutrophils % (A) 71 %; RBC 3.62 m/uL (4.30-5.90); RDW 14.7 % (11.5-15.5); WBC 6.9 k/uL (3.8-10.6); WBC (Perox) 7.02
[2017-07-15 10:54] LABS: ABG Base Excess -5.1 mmol/L; ABG HCO3 19 mmol/L (21-25); ABG PCO2 34 mmHg (35-45); ABG PH 7.36 (7.35-7.45); ABG PO2 90 mmHg (83-108); ABG TCO2 20 mmol/L (19-24)
--- NOTE | 2017-07-15 11:22 | ECHOF ---
Referral Reason:Repeat MEASUREMENTS -------- HEIGHT: 180.3 cm WEIGHT: 119.7 kg BP: 160/91 RVIDd: 3.3 cm (< 3.3) IVSd: 1.3 cm (0.6 - 1.1) LVIDd: 5.3 cm (3.9 - 5.3) LVPWd: 1.3 cm (0.6 - 1.1) IVSs: 1.8 cm LVIDs: 4.8 cm LVPWs: 2.0 cm LAESV Index (A-L): 41.13 ml/m Ao Diam: 3.5 cm (2.0 - 3.7) AV Cusp: 1.8 cm (1.5 - 2.6) LA Diam: 3.7 cm (2.7 - 3.8) MV E Ran: 1.04 m/s MV DecT: 178 ms MV A Ran: 0.75 m/s MV E/A Ratio: 1.39 RAP: 5.00 mmHg RVSP: 29.33 mmHg FINDINGS -------- Sinus rhythm. This was a technically difficult study with suboptimal views. The left ventricular size is normal. There is mild concentric left ventricular hypertrophy. Overa ll left ventricular systolic function is low-normal with, an EF between 50 - 55 %. The right ventricle is normal in size and function. LA is severely dilated >40 ml/m2 The right atrium is normal in size. 1.5mg of Definity was utilized for enhancement of images Aortic valve is trileaflet and is mildly thickened. There is no evidence of aortic regurgitation. There is no evidence of aortic stenosis. The mitral valve leaflets are mildly thickened. There is trace to mild mitral regurgitation. Trace tricuspid regurgitation present. Right ventricular systolic pressure is normal at < 35 mmHg. There is no evidence of pulmonary hypertension. The aortic root size is normal. Normal inferior vena cava with normal inspiratory collapse consistent with estimated right atrial pre ssure of 5 mmHg. The pericardium is normal. There is no pericardial effusion. CONCLUSIONS -------- 1. Sinus rhythm. 2. This was a technically difficult study with suboptimal views. 3. The left ventricular size is normal. 4. There is mild concentric left ventricular hypertrophy. 5. Overall left ventricular systolic function is low-normal with, an EF between 50 - 55 %. 6. LA is severely dilated >40 ml/m2 7. 1.5mg of Definity was utilized for enhancement of images 8. Aortic valve is trileaflet and is mildly thickened. 9. The mitral valve leaflets are mildly thickened. 10. There is trace to mild mitral regurgitation. 11. Trace tricuspid regurgitation present. 12. Right ventricular systolic pressure is normal at < 35 mmHg. 13. There is no evidence of pulmonary hypertension. 14. The aortic root size is normal. 15. There is no pericardial effusion. ELEVATOR REPAIRER: Germán Priest RDCS
[2017-07-15 11:27] LABS: Calcium 9.3 mg/dL (8.4-10.2); Potassium 4.4 mmol/L (3.5-5.1)
[2017-07-15] MEDS: METOPROLOL TARTRATE 25 MG TAB PO SCH (11:32)
[2017-07-15] MEDS: FOLIC ACID 1 MG TAB PO SCH (11:32)
[2017-07-15] MEDS: ALLOPURINOL 100 MG TAB PO SCH (11:33)
[2017-07-15] MEDS: SODIUM BICARBONATE TAB 650 MG TAB PO SCH (11:33)
[2017-07-15] MEDS: CITALOPRAM HYDROBROMIDE 20 MG TAB PO SCH (11:33)
[2017-07-15] MEDS: hydrALAZINE HCL 25 MG TAB PO SCH ×2 (11:33→15:34)
[2017-07-15] MEDS: FERROUS SULFATE 325 MG TAB PO SCH (11:33)
[2017-07-15] MEDS: CLOPIDOGREL 75 MG TAB PO SCH (11:33)
[2017-07-15] MEDS: FAMOTIDINE 20 MG TAB PO SCH (11:33)
[2017-07-15] MEDS: CALCITRIOL 0.25 MCG CAP PO SCH (11:33)
[2017-07-15 11:43] LABS: Glucose,Whole Blood 120 mg/dL (75-99)
--- NOTE | 2017-07-15 13:19 | FL ---
Fluoroscopy HISTORY: Central venous catheter placement 41 seconds fluoroscopy time supplied to the referring clinician. 1 intraoperative C-arm images docum ent the procedure. See dictated report from thoracic surgery.
--- NOTE | 2017-07-15 13:47 | P.DS ---
Providers Date of admission: 07/10/17 16:11 Expected date of discharge: 07/15/17 Attending physician: Lucero Keating Consults: 07/10/17 19:38 Consult Physician Routine Consulting Provider: Dru Chapin Consult Reason/Comments: recent scope, known to patient Do you want consulting provider notified?: Yes, Notify in am 07/12/17 08:05 Consult Physician Routine Consulting Provider: Loco Petty Consult Reason/Comments: tachycardia Do you want consulting provider notified?: Yes 07/12/17 08:14 Consult Physician Urgent Consulting Provider: Janusz Coon Consult Reason/Comments: sepsis Do you want consulting provider notified?: Yes 07/13/17 23:39 Consult Physician Routine Consulting Provider: Ivan Dumont Consult Reason/Comments: Brandin Do you want consulting provider notified?: Yes, Notify in am Primary care physician: Bulmaro Graham [facility] Course: Final Diagnoses: #1 sepsis with acuteurinary tract infection: Recent urethral procedure. Barnhart catheter placed. Pseudomonas in the urine, resistant to cefepime. Barnhart catheter to be removed 07/21/2017 in am, with F/U with Dr. Delgado that afternoon for further assessment of bladder emptying. 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 #5 gastric esophageal reflux disease number #6 morbid obesity,BMI 36.8 with history of sleep apnea patient #7 hypertension #8 CAD #9 urethral stricture and prostatic hypertrophy #7 hypothyroidism #8 chronic kidney disease stage III secondary to diabetic nephropathy Hospital course: This is a pleasant 71-year-old gentleman admitted with complaints of fever, chills, increased urinary frequency, dysuria with significantly abnormal urine of increased WBCs in the urine, white blood cell counts of greater than 180 in the urine along with increased leukocyte esterase WBC clumps, elevated lactic acid in a patient with chronic kidney disease. Patient had Enterococcus faecalis UTIs in the past. Recent urethral dilation on 07/08. Chest x-ray was questionable for retrocardiac shadow as per the radiologist reading although patient does not have any symptoms of pneumonia. Evaluated by urology, infectious disease, cardiovascular surgery, and nephrology. Maintained on IV fluid hydration initially. Received IV antibiotics as per infectious disease. Urine cultures reporting Pseudomonas. Significant clinical improvement. Ghotra catheter placed. Cleared by all consults for discharge. Patient is being discharged to [facility] subacute rehab. in a stable condition with guarded prognosis. The impression and plan of care has been dictated as directed. : I performed a history and examination of this patient, discussed the same with the dictator. I agree with the dictator's note ,documented as a scribe. Any additional findings or plans will be noted. Patient Condition at Discharge: Stable Plan - Discharge Summary Discharge Rx Participant: No New Discharge Prescriptions: New Ceftazidime [Fortaz] 2 gm IV DAILY #14 vial Famotidine [Pepcid] 20 mg PO DAILY tab hydrALAZINE HCL [Apresoline] 25 mg PO TID tab INSULIN LISPRO (HumaLOG) [humaLOG] 0 unit SQ ACHS #1 vial Ipratropium-Albuterol Nebulize [Duoneb 0.5 mg-3 mg/3 ml Soln] 3 ml INHALATION RT-QID ampul.neb Ipratropium-Albuterol Nebulize [Duoneb 0.5 mg-3 mg/3 ml Soln] 3 ml INHALATION Q4H PRN ampul.neb PRN Reason: Shortness Of Breath Or Wheezing Metoprolol Tartrate [Lopressor] 75 mg PO BID tab Sodium Bicarbonate Tab 650 mg PO BID tab Continue Folic Acid 1 mg PO QAM Clopidogrel Bisulfate [Plavix] 75 mg PO QAM Allopurinol [Zyloprim] 100 mg PO DAILY Isosorbide Mononitrate [Isosorbide Mononitrate ER] 30 mg PO HS Atorvastatin [Lipitor] 80 mg PO HS Levothyroxine Sodium [Synthroid] 137 mcg PO QAM Doxepin HCl [SINEquan] 50 mg PO HS Calcitriol 0.25 mcg PO QAM Aspirin 81 mg PO HS Ergocalciferol (Vitamin D2) [Vitamin D2] 50,000 unit PO QMONTH Ferrous Sulfate [Iron (65 MG Elemental)] 325 mg PO DAILY Deshler-3 Fatty Acids [Deshler-3] 1,000 mg PO DAILY Citalopram Hydrobromide [CeleXA] 20 mg PO DAILY Insulin Glargine [Lantus] 25 unit SQ HS #1 vial Discontinued Ranitidine HCl [Zantac] 150 mg PO BID Acetaminophen [Tylenol Arthritis] 1,300 mg PO BID Hydrocodone/Acetaminophen [Panora 5-325] 1 tab PO BID glipiZIDE XL [Glucotrol Xl] 5 mg PO BID INSULIN LISPRO (humaLOG) [humaLOG] See Protocol SQ AC-TID Discharge Medication List Allopurinol [Zyloprim] 100 mg PO DAILY 11/28/15 [History] Aspirin 81 mg PO HS 11/28/15 [History] Atorvastatin [Lipitor] 80 mg PO HS 11/28/15 [History] Calcitriol 0.25 mcg PO QAM 11/28/15 [History] Clopidogrel Bisulfate [Plavix] 75 mg PO QAM 11/28/15 [History] Doxepin HCl [SINEquan] 50 mg PO HS 11/28/15 [History] Folic Acid 1 mg PO QAM 11/28/15 [History] Isosorbide Mononitrate [Isosorbide Mononitrate ER] 30 mg PO HS 11/28/15 [History ] Levothyroxine Sodium [Synthroid] 137 mcg PO QAM 11/28/15 [History] Ergocalciferol (Vitamin D2) [Vitamin D2] 50,000 unit PO QMONTH 11/29/16 [History ] Citalopram Hydrobromide [CeleXA] 20 mg PO DAILY 12/08/16 [History] Ferrous Sulfate [Iron (65 MG Elemental)] 325 mg PO DAILY 12/08/16 [History] Deshler-3 Fatty Acids [Deshler-3] 1,000 mg PO DAILY 12/08/16 [History] Insulin Glargine [Lantus] 25 unit SQ HS #1 vial 12/12/16 [Rx] Ceftazidime [Fortaz] 2 gm IV DAILY #14 vial 07/13/17 [Rx] Famotidine [Pepcid] 20 mg PO DAILY tab 07/15/17 [Rx] INSULIN LISPRO (HumaLOG) [humaLOG] 0 unit SQ ACHS #1 vial 07/15/17 [Rx] Ipratropium-Albuterol Nebulize [Duoneb 0.5 mg-3 mg/3 ml Soln] 3 ml INHALATION Q4H PRN ampul.neb 07/15/17 [Rx] Ipratropium-Albuterol Nebulize [Duoneb 0.5 mg-3 mg/3 ml Soln] 3 ml INHALATION RT -QID ampul.neb 07/15/17 [Rx] Metoprolol Tartrate [Lopressor] 75 mg PO BID tab 07/15/17 [Rx] Sodium Bicarbonate Tab 650 mg PO BID tab 07/15/17 [Rx] hydrALAZINE HCL [Apresoline] 25 mg PO TID tab 07/15/17 [Rx] Follow up Appointment(s)/Referral(s): Alli Delgado MD [STAFF PHYSICIAN] - 07/21/17 2:40 pm [facility], [NON-STAFF] - Brock Hu MD [STAFF PHYSICIAN] - 3 Days (while at [facility]) Bulmaro Graham DO [Primary Care Provider] - 1 Week (after dc from [facility]) Yamil Esquivel DO [STAFF PHYSICIAN] - 1 Week Patient Instructions/Handouts: Urinary Tract Infection in Men (DC), Barnhart Catheter Placement and Care (DC), Tunneled Central Lines in Adult (DC) Activity/Diet/Wound Care/Special Instructions: [facility], diabetic diet. Change positions every 2 hours while awake. Fall precautions. Barrier cream to skin breakdown on buttocks. Discharge home with Barnhart catheter. Instruct patient to remove Barnhart catheter early in the morning 07/21/2017. Follow-up appointment with Dr. Delgado that day should be in the late afternoon. CBC,BMP in 3 days Discharge Disposition: TRANSFER TO SNF/ECF
--- NOTE | 2017-07-15 14:36 | P.PN ---
Subjective Progress Note Date: 07/14/17 Mr. Ruiz is a 71-year-old male we are seeing today in a follow-up. He is in the hospital with urosepsis and was tachycardic. Echocardiogram was repeated today since the first one was inconclusive. Beta radha was initiated and subsequently increased to 75 mg BID. His heart rate has been maintaining in the 80s for all of the day today and his blood pressure is tolerating the recent increase. At the time of my exam he is sitting up in bed with his at the bedside. He denies chest pain or palpitations but continues to complain of shortness of breath. He is currently awaiting line placement for outpatient IV antibiotics so he can be discharged home. Objective - Vital Signs Vital signs: Vital Signs Temp 96.4 F L 07/14/17 07:00 Pulse 88 07/14/17 11:51 Resp 18 07/14/17 08:00 BP 145/82 07/14/17 07:00 Pulse Ox 95 07/14/17 07:00 Intake & Output 07/13/17 07/14/17 07/14/17 18:59 06:59 18:59 Intake Total 920 0 Output Total 1600 1400 800 Balance -680 -1400 -800 Intake: Oral 920 0 Output: Urine 1600 1400 800 Other: Voiding Method Indwelling Catheter Indwelling Catheter Indwelling Catheter # Voids 3 - Exam GENERAL: Well-appearing, well-nourished and in no acute distress. NECK: Supple without JVD or thyromegaly. LUNGS: Breath sounds clear to auscultation bilaterally. Respiration equal and unlabored. No wheezes, rales or rhonchi. Diminished. HEART: Regular rate and rhythm with systolic ejection murmur at the left sternal border and base, no rubs or gallops. S1 and S2 heard. EXTREMITIES: Normal range of motion, trace bilateral edema. No clubbing or cyanosis. Peripheral pulses intact and strong. - Labs CBC & Chem 7: 07/15/17 10:24 07/15/17 10:24 Labs: Abnormal Lab Results - Last 24 Hours (Table) 07/13/17 07/13/17 07/14/17 Range/Units 16:35 20:26 07:22 Chloride 114 H (98-107) mmol/L Carbon Dioxide 19 L (22-30) mmol/L BUN 54 H (9-20) mg/dL Creatinine 2.14 H (0.66-1.25) mg/dL POC Glucose (mg/dL) 192 H 176 H (75-99) mg/dL 07/14/17 Range/Units 12:07 Chloride (98-107) mmol/L Carbon Dioxide (22-30) mmol/L BUN (9-20) mg/dL Creatinine (0.66-1.25) mg/dL POC Glucose (mg/dL) 136 H (75-99) mg/dL Microbiology - Last 24 Hours (Table) 07/12/17 09:25 Urine Culture - Final Urine,Catheterized Pseudomonas aeruginosa 07/10/17 18:21 Blood Culture - Preliminary Blood No Growth after 72 hours 07/10/17 14:02 Blood Culture - Preliminary Blood No Growth after 72 hours Assessment and Plan Assessment: ASSESSMENT 1. Urinary tract infection with sepsis 2. Tachycardia, secondary to discontinuation of beta radha as well as underlying infectious process and urinary retention 3. Coronary artery disease with prior coronary artery bypass grafting with known occlusion of vein grafts 4. History of CVA PLAN Repeat 2-D echo and Doppler study to assess cardiac structure and function of the patient's heart rate is under control. Continue with beta radha as previously prescribed dose. Nurse Practitioner note has been reviewed, I agree with a documented findings and plan of care. Patient was seen and examined.
[2017-07-15 15:32] VITALS: RESP 16
[2017-07-15 15:44] VITALS: PULSE 90
--- NOTE | 2017-07-15 22:23 | P.PN ---
Subjective Progress Note Date: 07/15/17 Principal diagnosis: Sepsis 71-year-old male presents to Hospital feeling very poorly. Having fevers and chills generalized weakness. Also developed generalized malaise and what appears to be rigors. The patient was noted to likely have a urinary tract infection and was seen by urology. Evaluation revealed evidence of large volume within his bladder and a coud catheter was placed. 832 mL of urine drained at the time of the catheter placement. The patient had rapid improvement of his symptoms. Patient however did have significant fever, developed leukocytosis and has evidence of sepsis from urinary system with a gram-negative bacillus. Most recent urine cultures revealed evidence of enterococcus. The patient did have outpatient evaluation by urology as noted and did receive a dose of ciprofloxacin. Constantly there is concerned to quinolone resistant pathogens. The culture is now been finalized and a drug-resistant pseudomonas aeruginosa has been found. It is however somewhat intermediate to the cefepime and this was transitioned. He is feeling better but is not at his baseline as per his . fortunately is showing some improvement. He is much more comfortable as far as the significant urinary retention and bladder discomfort. Objective - Vital Signs Vital signs: Vital Signs Temp 98.2 F 07/15/17 10:02 Pulse 90 07/15/17 15:43 Resp 16 07/15/17 15:31 BP 155/87 07/15/17 10:02 Pulse Ox 93 L 07/15/17 15:33 Intake & Output 07/15/17 07/15/17 07/16/17 06:59 18:59 06:59 Intake Total 650 Output Total 900 1600 Balance -900 -950 Intake: IV 650 Output: Urine 900 1500 Estimated Blood Loss 100 Other: Voiding Method Indwelling Catheter Indwelling Catheter # Voids 1,100 # Bowel Movements 0 - Exam 71-year-old male presents to the emergency center feeling very poorly with fevers and chills. Was also very miserable because of his inability to urinate. This is all now improved HEENT: Anicteric conjunctiva are pink and moist nasal mucosa grossly intact without significant lesions, there is no thrush. Neck: The neck is supple without significant lymphadenopathy or thyromegaly. Lungs: Good bilateral air entry without significant crackles or wheezing. There is no significant bronchial sounds. There is no egophony or dullness. Heart: Regular rate and rhythm with an audible S1-S2, no S3 no S4. There is no significant murmur click or rub, PMI was nondisplaced. Abdomen: Positive bowel sounds soft and nontender without palpable masses or organomegaly. There was no guarding or rebound. A severe bladder tenderness has resolved after the placement of the coud catheter. Extremities: The upper extremities have excellent pulses they are symmetric, no significant petechiae or telangiectasia. No splinter hemorrhages were noted. Lower extremities have trace pedal edema bilaterally. No ulcers are seen. Neuro: Awake alert oriented to person place and time. There are no acute new gross focal sensory motor deficits. - Labs CBC & Chem 7: 07/15/17 10:24 07/15/17 10:24 Labs: Abnormal Lab Results - Last 24 Hours (Table) 07/15/17 07/15/17 07/15/17 Range/Units 07:12 10:24 10:24 RBC 3.62 L (4.30-5.90) m/uL Hgb 10.4 L (13.0-17.5) gm/dL Hct 33.2 L (39.0-53.0) % ABG pCO2 (35-45) mmHg ABG HCO3 (21-25) mmol/L Chloride 113 H (98-107) mmol/L Carbon Dioxide 19 L (22-30) mmol/L BUN 50 H (9-20) mg/dL Creatinine 2.06 H (0.66-1.25) mg/dL Glucose 106 H (74-99) mg/dL POC Glucose (mg/dL) 108 H (75-99) mg/dL 07/15/17 07/15/17 Range/Units 10:41 11:37 RBC (4.30-5.90) m/uL Hgb (13.0-17.5) gm/dL Hct (39.0-53.0) % ABG pCO2 34 L (35-45) mmHg ABG HCO3 19 L (21-25) mmol/L Chloride (98-107) mmol/L Carbon Dioxide (22-30) mmol/L BUN (9-20) mg/dL Creatinine (0.66-1.25) mg/dL Glucose (74-99) mg/dL POC Glucose (mg/dL) 120 H (75-99) mg/dL Microbiology - Last 24 Hours (Table) 07/10/17 18:21 Blood Culture - Preliminary Blood No Growth after 120 hours 07/10/17 14:02 Blood Culture - Preliminary Blood No Growth after 120 hours Laboratory Results WBC 6.9 k/uL (3.8-10.6) 07/15/17 10:24 RBC 3.62 m/uL (4.30-5.90) L 07/15/17 10:24 Hgb 10.4 gm/dL (13.0-17.5) L 07/15/17 10:24 Hct 33.2 % (39.0-53.0) L 07/15/17 10:24 MCV 91.7 fL (80.0-100.0) 07/15/17 10:24 MCH 28.6 pg (25.0-35.0) 07/15/17 10:24 MCHC 31.2 g/dL (31.0-37.0) 07/15/17 10:24 RDW 14.7 % (11.5-15.5) 07/15/17 10:24 Plt Count 160 k/uL (150-450) 07/15/17 10:24 Neutrophils % 71 % 07/15/17 10:24 Lymphocytes % 14 % 07/15/17 10:24 Monocytes % 9 % 07/15/17 10:24 Eosinophils % 3 % 07/15/17 10:24 Basophils % 0 % 07/15/17 10:24 Neutrophils # 4.9 k/uL (1.3-7.7) 07/15/17 10:24 Lymphocytes # 1.0 k/uL (1.0-4.8) 07/15/17 10:24 Monocytes # 0.6 k/uL (0-1.0) 07/15/17 10:24 Eosinophils # 0.2 k/uL (0-0.7) 07/15/17 10:24 Basophils # 0.0 k/uL (0-0.2) 07/15/17 10:24 PT 11.3 sec (9.0-12.0) 07/10/17 14:02 INR 1.1 (<1.2) 07/10/17 14:02 APTT 24.0 sec (22.0-30.0) 07/10/17 14:02 Sample Site r rad 07/15/17 10:41 ABG pH 7.36 (7.35-7.45) 07/15/17 10:41 ABG pCO2 34 mmHg (35-45) L 07/15/17 10:41 ABG pO2 90 mmHg (83-108) 07/15/17 10:41 ABG HCO3 19 mmol/L (21-25) L 07/15/17 10:41 ABG Total CO2 20 mmol/L (19-24) 07/15/17 10:41 ABG O2 Saturation 97.0 % (94-97) 07/15/17 10:41 ABG Base Excess -5.1 mmol/L 07/15/17 10:41 FiO2 28 % 07/15/17 10:41 Sodium 142 mmol/L (137-145) 07/15/17 10:24 Potassium 4.4 mmol/L (3.5-5.1) 07/15/17 10:24 Chloride 113 mmol/L (98-107) H 07/15/17 10:24 Carbon Dioxide 19 mmol/L (22-30) L 07/15/17 10:24 Anion Gap 10 mmol/L 07/15/17 10:24 BUN 50 mg/dL (9-20) H 07/15/17 10:24 Creatinine 2.06 mg/dL (0.66-1.25) H 07/15/17 10:24 Est GFR (MDRD) Af Amer 39 (>60 ml/min/1.73 sqM) 07/15/17 10:24 Est GFR (MDRD) Non-Af 32 (>60 ml/min/1.73 sqM) 07/15/17 10:24 Glucose 106 mg/dL (74-99) H 07/15/17 10:24 POC Glucose (mg/dL) 120 mg/dL (75-99) H 07/15/17 11:37 POC Glu Swimming Coach Or Instructor ID Gogo Adams 07/15/17 11:[address] Glu mg/dL 148 07/10/17 18:00 Hemoglobin A1c 6.8 % (4.0-6.0) H 07/10/17 18:00 Lactic Ac Sepsis Rflx Y 07/10/17 19:02 Plasma Lactic Acid [place] 1.0 mmol/L (0.7-2.0) 07/11/17 23:55 Calcium 9.3 mg/dL (8.4-10.2) 07/15/17 10:24 Total Bilirubin 1.2 mg/dL (0.2-1.3) 07/11/17 08:00 AST 24 U/L (17-59) 07/11/17 08:00 ALT 28 U/L (21-72) 07/11/17 08:00 Alkaline Phosphatase 57 U/L (38-126) 07/11/17 08:00 Ammonia 9 umol/L (<30) 07/15/17 10:24 Total Creatine Kinase 56 U/L (55-170) 07/10/17 14:02 CK-MB (CK-2) <0.2 ng/mL (0.0-2.4) 07/10/17 14:02 CK-MB (CK-2) Rel Index 07/10/17 14:02 Troponin I <0.012 ng/mL (0.000-0.034) 07/10/17 14:02 Total Protein 5.0 g/dL (6.3-8.2) L 07/11/17 08:00 Albumin 2.9 g/dL (3.5-5.0) L 07/11/17 08:00 Urine Color Light Yellow 07/10/17 14:45 Urine Appearance Cloudy (Clear) 07/10/17 14:45 Urine pH 6.5 (5.0-8.0) 07/10/17 14:45 Ur Specific [place] 1.011 (1.001-1.035) 07/10/17 14:45 Urine Protein 2+ (Negative) H 07/10/17 14:45 Urine Glucose (UA) Negative (Negative) 07/10/17 14:45 Urine Ketones Negative (Negative) 07/10/17 14:45 Urine Blood Moderate (Negative) H 07/10/17 14:45 Urine Nitrite Negative (Negative) 07/10/17 14:45 Urine Bilirubin Negative (Negative) 07/10/17 14:45 Urine Urobilinogen <2.0 mg/dL (<2.0) 07/10/17 14:45 Ur Leukocyte Esterase Large (Negative) H 07/10/17 14:45 Urine RBC 12 /hpf (0-5) H 07/10/17 14:45 Urine WBC >182 /hpf (0-5) H 07/10/17 14:45 Urine WBC Clumps Many /hpf (None) H 07/10/17 14:45 Urine Bacteria Moderate /hpf (None) H 07/10/17 14:45 Urine Mucus Rare /hpf (None) H 07/10/17 14:45 Urine Yeast (Budding) Few /hpf (None) H 07/10/17 14:45 Influenza Type A RNA Not Detected (Not Detectd) 07/10/17 15:45 Influenza Type B (PCR) Not Detected (Not Detectd) 07/10/17 15:45 Microbiology 07/10/17 18:21 Blood Blood Culture - Preliminary No Growth after 120 hours 07/10/17 14:02 Blood Blood Culture - Preliminary No Growth after 120 hours Microbiology 07/10/17 18:21 Blood Blood Culture - Preliminary No Growth after 120 hours 07/10/17 14:02 Blood Blood Culture - Preliminary No Growth after 120 hours 07/12/17 09:25 Urine,Catheterized Urine Culture - Final Pseudomonas aeruginosa 07/10/17 14:45 Urine,Voided Urine Culture - Final Pseudomonas aeruginosa Assessment and Plan (1) Urinary tract infection Status: Acute Code(s): N39.0 - URINARY TRACT INFECTION, SITE NOT SPECIFIED SNOMED Code(s): 55705662 (2) Altered mental status Status: Acute Code(s): R41.82 - ALTERED MENTAL STATUS, UNSPECIFIED SNOMED Code(s): 775627679 (3) Gram negative sepsis Narrative/Plan: 71-year-old male presents to Hospital with significant fever and chills associated with significant discomfort. The patient was noticed to have great difficulties with urination. Consequently urological evaluation occurred and a coud catheter was placed. A large volume of urine was drained from the bladder the patient has subsequently been feeling considerably improved. Pain and discomfort improved. Fever is resolving. However there is evidence of the positive urine culture with gram-negative bacilli. This is different from his recently isolated enterococcus. Because he did have a procedure and received fluoroquinolone prophylaxis it is likely that the current gram-negative will be resistant and constantly antimicrobial therapy with cefepime as been initiated. Choice of antibiotic is somewhat complicated because of his significant ALLERGIES. However there should be very little cross-reactivity between the penicillin in the cefepime. The pseudomonas aeruginosa was intermediate to the cefepime consequences changed to Fortaz which is once a day. vascular surgery to place has placed IV access, given his chronic renal failure he will not be a candidate for PICC line. He is definitely feeling better and his mentation is much clear. His is present and is pleased with his improvement. will be transferred to the extended Care facility to complete 2 weeks of Fortaz. An of therapy should have follow-up urinalysis and culture. Status: Acute Code(s): A41.50 - GRAM-NEGATIVE SEPSIS, UNSPECIFIED SNOMED Code(s): 717337836
== END 2017-07-15 16:10 | DRG 698 ==
LOC: EC 13:40 → 4MS4W 16:11
PROVIDERS: ADMIT Internal Medicine; ATTEND Internal Medicine
PROC: B543ZZA Ultrasonography of Right Jugular Veins, Guidance (ICD-10-PCS; 2017-07-15)
PROC: 05HM33Z Insertion of Infusion Device into Right Internal Jugular Vein, Percutaneous Approach (ICD-10-PCS; principal; 2017-07-15 08:00)
DX: N99.511 Cystostomy infection (principal); A41.50 Gram-negative sepsis, unspecified; J96.01 Acute respiratory failure with hypoxia; N18.4 Chronic kidney disease, stage 4 (severe); E87.2 Acidosis; N39.0 Urinary tract infection, site not specified; E11.21 Type 2 diabetes mellitus with diabetic nephropathy; E11.9 Type 2 diabetes mellitus without complications; I25.10 Atherosclerotic heart disease of native coronary artery without angina pectoris; K21.9 Gastro-esophageal reflux disease without esophagitis; E78.5 Hyperlipidemia, unspecified; M19.90 Unspecified osteoarthritis, unspecified site; E66.01 Morbid (severe) obesity due to excess calories; E11.42 Type 2 diabetes mellitus with diabetic polyneuropathy; E11.22 Type 2 diabetes mellitus with diabetic chronic kidney disease; I12.9 Hypertensive chronic kidney disease with stage 1 through stage 4 chronic kidney disease, or unspecified chronic kidney disease; N35.9 Urethral stricture, unspecified; G47.30 Sleep apnea, unspecified; E03.9 Hypothyroidism, unspecified; N40.0 Benign prostatic hyperplasia without lower urinary tract symptoms; Z79.2 Long term (current) use of antibiotics; Z79.4 Long term (current) use of insulin; Z87.19 Personal history of other diseases of the digestive system; Z86.73 Personal history of transient ischemic attack (TIA), and cerebral infarction without residual deficits; Z79.82 Long term (current) use of aspirin; Z95.1 Presence of aortocoronary bypass graft; I25.2 Old myocardial infarction; Z79.899 Other long term (current) drug therapy; Z82.3 Family history of stroke; Z82.49 Family history of ischemic heart disease and other diseases of the circulatory system; Z90.79 Acquired absence of other genital organ(s); Z79.02 Long term (current) use of antithrombotics/antiplatelets; Z88.0 Allergy status to penicillin; Z88.8 Allergy status to other drugs, medicaments and biological substances; Z88.1 Allergy status to other antibiotic agents; Z87.442 Personal history of urinary calculi; Y73.3 Surgical instruments, materials and gastroenterology and urology devices (including sutures) associated with adverse incidents; Y83.9 Surgical procedure, unspecified as the cause of abnormal reaction of the patient, or of later complication, without mention of misadventure at the time of the procedure
CPT/HCPCS: 36415; 36600; 71010; 71020; 77001; 80048; 80053; 81001; 82140; 82550; 82553; 82805; 83036; 83605; 84484; 85025; 85027; 85610; 85730; 87040; 87077; 87086; 87186; 87502; 93005; 93306; 94640; 94760; 96361; 96365; 99291

== ENCOUNTER → 2017-10-28 | Outpatient (CLI) | payer MEDICARE, BC | END | disposition home or self-care (01) | LOC: CPPFTMAIN 13:16 | PROVIDERS: ATTEND Family Medicine | DX: J44.9 Chronic obstructive pulmonary disease, unspecified (principal); J98.4 Other disorders of lung | CPT/HCPCS: 94060; 94726; 94729 ==

== ENCOUNTER → 2017-12-02 | Outpatient (CLI) | payer MEDICARE, BC ==
--- NOTE | 2017-12-02 15:43 | US ---
EXAMINATION TYPE: US kidneys/renal and bladder DATE OF EXAM: 12/02/2017 COMPARISON: 11/29/2015 CLINICAL HISTORY: 72-year-old male N39.0 Recurrent Urinary tract Infections. Technique: Multiple sonographic images of the kidneys and bladder are obtained. 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 Right Kidney: 9.6 X 4.1 X 3.7 cm with lobulated surface and cortical thinning. No hydronephrosis. Th ere is a 1.5 x 1.2 x 1.2 cm round hypoechoic lesion along the upper pole and a 1.0 cm exophytic hypoe choic lesion at the midpole not clearly seen on the patient's prior exams. Left Kidney: 6.7 X 2.8 X3.4 cm atrophic with thin and echogenic cortex; no evidence of hydronephrosi s. Partial distention of the bladder limits its evaluation. Neither ureteral jet is seen in the course o f the exam. IMPRESSION: 1. Technically limited exam. 2. No hydronephrosis on either side. 3. Bilateral chronic medical renal disease. Asymmetric atrophy of the left kidney. 4. Lobulated contour of the right kidney with 2 lesions measuring 1.5 and 1.0 cm not clearly seen pre viously but probably representing cysts with internal debris. Six-month follow-up ultrasound is recom mended to ensure stability and exclude solid masses.
== END | disposition home or self-care (01) ==
LOC: RADUSWWP 14:01
PROVIDERS: ATTEND Internal Medicine Infectious Disease
DX: N18.9 Chronic kidney disease, unspecified (principal); N26.1 Atrophy of kidney (terminal); N28.89 Other specified disorders of kidney and ureter
CPT/HCPCS: 76770

== ENCOUNTER → 2018-01-30 | Outpatient (CLI) | payer MEDICARE, BC ==
[2018-01-30 11:25] LABS: T4, Free (Free Thyroxine) 1.35 ng/dL (0.78-2.19)
== END | disposition home or self-care (01) ==
LOC: LABWHC1 10:27
PROVIDERS: ATTEND Family Medicine
DX: E03.9 Hypothyroidism, unspecified (principal); E11.21 Type 2 diabetes mellitus with diabetic nephropathy
CPT/HCPCS: 36415; 82043; 82570; 84439; 84443

== ENCOUNTER 2018-02-05 13:02 | Inpatient (IN) | payer MEDICARE, BC ==
[2018-02-05] MEDS ORDERED: SODIUM CHLORIDE 0.9% 1,000 ML IV STA (13:39)
[2018-02-05 13:57] LABS: Basophils % (A) 0 %; Eosinophils # (A) 0.2 k/uL (0-0.7); Eosinophils % (A) 4 %; HCT 37.4 % (39.0-53.0); HGB 12.2 gm/dL (13.0-17.5); Lymphocytes # (A) 1.2 k/uL (1.0-4.8); Lymphocytes % (A) 21 %; MCH 29.3 pg (25.0-35.0); MCHC 32.6 g/dL (31.0-37.0); MCV 89.9 fL (80.0-100.0); Mean Platelet Volume 7.7; Monocytes # (A) 0.3 k/uL (0-1.0); Monocytes % (A) 5 %; Neutrophils # (A) 3.9 k/uL (1.3-7.7); Neutrophils % (A) 68 %; Platelet Count 139 k/uL (150-450); RBC 4.16 m/uL (4.30-5.90); RDW 14.4 % (11.5-15.5); WBC 5.7 k/uL (3.8-10.6)
[2018-02-05 14:06] LABS: Albumin 3.8 g/dL (3.5-5.0); Calcium 9.1 mg/dL (8.4-10.2); Potassium 4.7 mmol/L (3.5-5.1); Total Bilirubin 0.4 mg/dL (0.2-1.3); Total Protein 5.8 g/dL (6.3-8.2)
--- NOTE | 2018-02-05 14:10 | XR ---
EXAMINATION TYPE: XR abdomen 2V DATE OF EXAM: 02/05/2018 2:02 PM CLINICAL HISTORY: Abdominal pain TECHNIQUE: Single supine KUB image of the abdomen is obtained. COMPARISON: None. FINDINGS: Scattered gas is seen in non-distended small bowel loops. Gas and fecal material is seen in non-distended colon. No gross evidence of pneumoperitoneum although this finding is limited on supin e imaging The lung bases are clear and the osseous structures are intact. Stable calculus within the right hemipelvis from 2017 likely represents a phlebolith. Moderate atherosclerosis is noted. IMPRESSION: Nonobstructive bowel gas pattern.
[2018-02-05 14:25] LABS: Appearance,Urine Cloudy (Clear); Bacteria,Urine Rare /hpf; Bilirubin,Urine Negative (Negative); Blood,Urine Trace (Negative); Color,Urine Light Yellow; Glucose,Urine (UA) Negative (Negative); Hyaline Casts,Urine 1 /lpf (0-2); Ketones,Urine Negative (Negative); Leukocyte Esterase,Urine Large (Negative); Mucus,Urine Rare /hpf; Nitrite,Urine Negative (Negative); Protein,Urine 1+ (Negative); RBC,Urine 2 /hpf (0-5); Specific Gravity,Urine 1.009 (1.001-1.035); Squamous Epithelial Cell,Urine <1 /hpf (0-4); Urobilinogen,Urine <2.0 mg/dL (<2.0); WBC,Urine >182 /hpf (0-5)
--- NOTE | 2018-02-05 15:21 | ED ---
General Adult HPI - General Chief complaint: Abdominal Pain Stated complaint: UTI Time Seen by Provider: 02/05/18 13:28 Source: patient, family, RN notes reviewed, old records reviewed Mode of arrival: ambulatory Limitations: no limitations - History of Present Illness Initial comments: Chief complaint and history of present illness a 72-year-old male brought in by his . 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 The patient's complaining of low back pain. Patient was in hospital the middle of last year with urosepsis. The patient had pseudomonas on his urine culture at that time. The patient did bring urine culture results performed by the [place]. Results of the urine culture performed by the [facility] laboratory department showed pseudomonas aeruginosa. Sensitive to progress [place] and tazobactam - Related Data Home Medications Medication Instructions Recorded Confirmed Allopurinol [Zyloprim] 100 mg PO QAM 11/28/15 02/05/18 Aspirin 81 mg PO HS 11/28/15 02/05/18 Atorvastatin [Lipitor] 80 mg PO HS 11/28/15 02/05/18 Calcitriol 0.25 mcg PO QAM 11/28/15 02/05/18 Clopidogrel Bisulfate [Plavix] 75 mg PO QAM 11/28/15 02/05/18 Folic Acid 1 mg PO QAM 11/28/15 02/05/18 Isosorbide Mononitrate [Isosorbide 30 mg PO HS 11/28/15 02/05/18 Mononitrate ER] Levothyroxine Sodium [Synthroid] 137 mcg PO QAM 11/28/15 02/05/18 Ergocalciferol (Vitamin D2) 50,000 unit PO Q14D 11/29/16 02/05/18 [Vitamin D2] Acetaminophen [Tylenol Arthritis] 1,300 mg PO HS 02/05/18 02/05/18 Citalopram Hydrobromide [CeleXA] 20 mg PO DAILY 02/05/18 02/05/18 Doxepin [SINEquan] 25 mg PO HS 02/05/18 02/05/18 Fish Oil/Dha/Epa [Fish Oil 1,200 1 cap PO HS 02/05/18 02/05/18 mg Fish Oil] Hydrochlorothiazide [Hydrodiuril] 25 mg PO QAM 02/05/18 02/05/18 INSULIN LISPRO (HumaLOG) [humaLOG] See Protocol SQ ACHS 02/05/18 02/05/18 Iron 27mg 27 mg PO QAM 02/05/18 02/05/18 Magnesium Oxide [Mag-Ox] 500 mg PO HS 02/05/18 02/05/18 Metoprolol Tartrate [Lopressor] 75 mg PO BID 02/05/18 02/05/18 Ranitidine HCl 150 mg PO BID 02/05/18 02/05/18 Tamsulosin HCl [Flomax] 0.4 mg PO QAM 02/05/18 02/05/18 glipiZIDE [Glucotrol] 5 mg PO AC-BID 02/05/18 02/05/18 Previous Rx's Medication Instructions Recorded Insulin Glargine [Lantus] 25 unit SQ HS #1 vial 12/12/16 hydrALAZINE HCL [Apresoline] 25 mg PO TID tab 07/15/17 Allergies Allergy/AdvReac Type Severity Reaction Status Date / Time Penicillins Allergy Severe Anaphylaxis Verified 02/05/18 13:28 cephalexin monohydrate Allergy Rash/Hives Verified 02/05/18 13:28 [From Keflex] gemfibrozil [From Lopid] AdvReac Abdominal Verified 02/05/18 13:28 Pain Review of Systems ROS Statement: Those systems with pertinent positive or pertinent negative responses have been documented in the HPI. Review of systems. This is a 72-year-old male with complaint of low back pain no other complaints. Denying any visual acuity changes no chest pain or shortness of breath no complaints of GI/ problems this time and no neuro deficits. All systems are reviewed. Past medical processing significant for coronary artery disease TIA, insulin- dependent diabetes mellitus, GERD, hyperlipidemia, hypertension, previous SC. Also history of OA, prostate disorder, stage III renal insufficiency. Sleep apnea and hypothyroidism. The patient's surgeries include coronary bypass, hernia repair, several orthopedic surgeries prostate surgery and vasectomy. Family history noncontributory ALLERGIES to penicillin, cephalexin and gemfibrozil ROS Other: All systems not noted in ROS Statement are negative. Past Medical History Past Medical History: Coronary Artery Disease (CAD), CVA/TIA, Diabetes Mellitus , GERD/Reflux, Hyperlipidemia, Hypertension, Myocardial Infarction (SC), Osteoarthritis (OA), Prostate Disorder, Renal Disease, Sleep Apnea/CPAP/BIPAP, Thyroid Disorder Additional Past Medical History / Comment(s): hx. TIA's, last one November 2016, heart murmur, OCC SOB, kidney stones, leakage of urine, uses CPAP, decreased kidney function, placed on antibiotics recently for UTI Last Myocardial Infarction Date:: 2010 History of Any Multi-Drug Resistant Organisms: Other MDRO Past Surgical History: Coronary Bypass/CABG, Heart Catheterization, Hernia Repair, Orthopedic Surgery, Prostate Surgery Additional Past Surgical History / Comment(s): vasectomy, CABG 2010 with 4 vessels, keke knee arthroscopy, rt hand surgery x 3, TURP 02/2017, cystoscopy and dilation of urethral stricture 07/08/17 Past Anesthesia/Blood Transfusion Reactions: No Reported Reaction Past Psychological History: No Psychological Hx Reported Smoking Status: Never smoker Past Alcohol Use History: None Reported Past Drug Use History: None Reported - Past Family History Mother Family Medical History: Congestive Heart Failure (CHF) Additional Family Medical History / Comment(s): at age 92 Father Family Medical History: CVA/TIA, Myocardial Infarction (SC) General Exam - General Exam Comments Initial Comments: General: The patient is awake and alert, hear a complaint of low back pain. Also with a history of frequent UTIs and urosepsis. Vital signs shows temperature 96.9 pulse 60 respiratory rate 20 pulse ox 99% room air blood pressure 151/85 Eye: Pupils are equal, round and reactive to light, extra-ocular movements are intact ; there is normal conjunctiva bilaterally. No signs of icterus. Ears, nose, mouth and throat: There are moist mucous membranes and no oral lesions. Neck: The neck is supple, there is no tenderness, no complaint of neck pain. No anterior cervical lymphadenopathy. Cardiovascular: There is a regular rate and rhythm. No murmur, rub or gallop is appreciated. Respiratory: Lungs are clear to auscultation, respirations are non-labored, breath sounds are equal. No wheezes, stridor, rales, or rhonchi. Gastrointestinal: Soft, non-distended, non-tender abdomen without masses or organomegaly noted. There is no rebound or guarding present. No CVA tenderness. Bowel sounds are unremarkable. Back: There is no tenderness to palpation in the midline. Denies back pain. Musculoskeletal: Mild pitting edema left leg worse than the right. Is on diuretics. He had vein graft from the left leg. Neurological: Mild dizziness, no neuro deficits. Skin: Skin is warm and dry and no rashes or lesions are noted. Psychiatric: Cooperative, Limitations: no limitations Course Vital Signs 02/05/18 13:14 Temperature 96.9 F L Pulse Rate 60 Respiratory 20 Rate Blood Pressure 151/85 O2 Sat by Pulse 99 Oximetry Medical Decision Making - Medical Decision Making Medical decision making; this is a 72-year-old male here with his . The patient was sent into the hospital for possibility of urinary tract infection with a past history of multiple UTIs and urosepsis. The patient's complaint is low back pain. Labs show white count of 5 hemoglobin 12 medical 37 with a potassium 4.7 BUN 44 creatinine 1.9 and GFR 35. Glucose 124. Urine shows leukoesterase positive, rated an 180 whites, wbc's in clumps. Positive bacteria. One month ago the patient had a urine test done and was cultured and sensitivities were performed. Pseudomonas aeruginosa was growing. The infection was sensitive to up her piperacillin/ tazobactam. I reviewed the infectious disease consultation by Dr. Coon previous visit and it was thought that the patient would benefit from cefepime. There is no apparent reaction to that per patient and at bedside to the best of the recollection. This be the first time an antibiotic is been given since that culture and sensitivity was done 40 days ago. - Lab Data Result diagrams: 02/05/18 13:30 02/05/18 13:30 Lab Results 02/05/18 02/05/18 02/05/18 Range/Units 13:30 13:30 13:55 WBC 5.7 (3.8-10.6) k/uL RBC 4.16 L (4.30-5.90) m/uL Hgb 12.2 L (13.0-17.5) gm/dL Hct 37.4 L (39.0-53.0) % MCV 89.9 (80.0-100.0) fL MCH 29.3 (25.0-35.0) pg MCHC 32.6 (31.0-37.0) g/dL RDW 14.4 (11.5-15.5) % Plt Count 139 L (150-450) k/uL Neutrophils % 68 % Lymphocytes % 21 % Monocytes % 5 % Eosinophils % 4 % Basophils % 0 % Neutrophils # 3.9 (1.3-7.7) k/uL Lymphocytes # 1.2 (1.0-4.8) k/uL Monocytes # 0.3 (0-1.0) k/uL Eosinophils # 0.2 (0-0.7) k/uL Basophils # 0.0 (0-0.2) k/uL Sodium 142 (137-145) mmol/L Potassium 4.7 (3.5-5.1) mmol/L Chloride 107 (98-107) mmol/L Carbon Dioxide 23 (22-30) mmol/L Anion Gap 12 mmol/L BUN 44 H (9-20) mg/dL Creatinine 1.90 H (0.66-1.25) mg/dL Est GFR (CKD-EPI)AfAm 40 (>60 ml/min/1.73 sqM) Est GFR (CKD-EPI)NonAf 35 (>60 ml/min/1.73 sqM) Glucose 124 H (74-99) mg/dL Calcium 9.1 (8.4-10.2) mg/dL Total Bilirubin 0.4 (0.2-1.3) mg/dL AST 15 L (17-59) U/L ALT 30 (21-72) U/L Alkaline Phosphatase 84 (38-126) U/L Total Protein 5.8 L (6.3-8.2) g/dL Albumin 3.8 (3.5-5.0) g/dL Amylase 34 (30-110) U/L Lipase 44 (23-300) U/L Urine Color Light Yellow Urine Appearance Cloudy (Clear) Urine pH 6.0 (5.0-8.0) Ur Specific [place] 1.009 (1.001-1.035) Urine Protein 1+ H (Negative) Urine Glucose (UA) Negative (Negative) Urine Ketones Negative (Negative) Urine Blood Trace H (Negative) Urine Nitrite Negative (Negative) Urine Bilirubin Negative (Negative) Urine Urobilinogen <2.0 (<2.0) mg/dL Ur Leukocyte Esterase Large H (Negative) Urine RBC 2 (0-5) /hpf Urine WBC >182 H (0-5) /hpf Urine WBC Clumps Few H (None) /hpf Ur Squamous Epith Cells <1 (0-4) /hpf Urine Bacteria Rare H (None) /hpf Hyaline Casts 1 (0-2) /lpf Urine Mucus Rare H (None) /hpf Disposition Clinical Impression: Urinary tract infection Disposition: ADMITTED IP TO THIS HOSP Condition: Fair Referrals: Bulmaro Graham DO [Primary Care Provider] - 1-2 days
[2018-02-05] MEDS ORDERED: CEFEPIME 1 GM in SODIUM CHLORIDE 0.9% 50 ML IVPB STA (15:39)
[2018-02-05] MEDS ORDERED: NALOXONE 0.4 MG/ML 1 ML VIAL IV PRN ×2 (15:41→17:48)
[2018-02-05] MEDS ORDERED: ACETAMINOPHEN TAB 325 MG TAB PO PRN ×2 (15:41→17:48)
[2018-02-05] MEDS ORDERED: SODIUM CHLORIDE 0.9% 1,000 ML IV SCH (15:45)
[2018-02-05] MEDS ORDERED: ONDANSETRON 4 MG/2 ML VIAL IVP PRN (17:48)
[2018-02-05 17:55] LABS: Glucose,Whole Blood 87 mg/dL (75-99)
[2018-02-05] MEDS ORDERED: LEVOFLOXACIN 500MG-D5W PMX 500 MG in DEXTROSE/WATER 1 100ML.BAG IVPB SCH (18:00)
--- NOTE | 2018-02-05 18:08 | P.HPIM ---
History of Present Illness H&P Date: 02/05/18 Chief Complaint: Confusion This is 71-year-old male with past medical history of sepsis from UTI and multiple other medical problems was admitted to the hospital for confusion and not feeding well for the last few days patient went disease primary care physician and since the patient did have symptoms like this before when he did have the UTI and the sepsis the patient was admitted to the hospital Patient has been weak but no chest pain no shortness of breath Review of systems and systems has been reviewed all negative and positive findings as per HPI the patient able to answer some questions but did have periods of confusion Past Medical History: Coronary Artery Disease (CAD), CVA/TIA, Diabetes Mellitus , GERD/Reflux, Hyperlipidemia, Hypertension, Myocardial Infarction (CA), Osteoarthritis (OA), Prostate Disorder, Renal Disease, Sleep Apnea/CPAP/BIPAP, Thyroid Disorder Additional Past Medical History / Comment(s): hx. TIA's, last one November 2016, heart murmur, OCC SOB, kidney stones, leakage of urine, uses CPAP, decreased kidney function, placed on antibiotics recently for UTI Last Myocardial Infarction Date:: 2010 History of Any Multi-Drug Resistant Organisms: Other MDRO Past Surgical History: Coronary Bypass/CABG, Heart Catheterization, Hernia Repair, Orthopedic Surgery, Prostate Surgery Additional Past Surgical History / Comment(s): vasectomy, CABG 2010 with 4 vessels, keke knee arthroscopy, rt hand surgery x 3, TURP 02/2017, cystoscopy and dilation of urethral stricture 07/08/17 Past Anesthesia/Blood Transfusion Reactions: No Reported Reaction Past Psychological History: No Psychological Hx Reported Smoking Status: Never smoker Past Alcohol Use History: None Reported Past Drug Use History: None Reported - Past Family History Mother Family Medical History: Congestive Heart Failure (CHF) Additional Family Medical History / Comment(s): at age 92 Father Family Medical History: CVA/TIA, Myocardial Infarction (CA) Constitutional: Generalized weakness Eyes: Anicteric sclerae, moist conjunctiva, no lid-lag PERRLA ENMT: Cranial nerves grossly intact Neck: Supple, FROM, no masses, or JVD No carotid bruits No thyromegaly Lungs: Clear to auscultation Clear to percussion Normal respiratory effort, no accessory muscle use Cardiovascular: Heart regular in rate and rhythm, No murmurs, gallops, or rubs No peripheral edema Abdominal: Soft Nontender, no guarding, rebound or rigidity Abdomen moving with respiration Skin: Normal temperature, tone, texture, turgor No induration No subcutaneous nodules No rash, lesions No ulcers Extremities: 3+ edema in the lower extremities bilaterally Psychiatric:Alert and oriented to person, place and time Appropriate affect Intact judgement Neuro: Generalized weakness Laboratory Results - last 24 hr 02/05/18 02/05/18 02/05/18 13:30 13:30 13:55 WBC 5.7 RBC 4.16 L Hgb 12.2 L Hct 37.4 L MCV 89.9 MCH 29.3 MCHC 32.6 RDW 14.4 Plt Count 139 L Neutrophils % 68 Lymphocytes % 21 Monocytes % 5 Eosinophils % 4 Basophils % 0 Neutrophils # 3.9 Lymphocytes # 1.2 Monocytes # 0.3 Eosinophils # 0.2 Basophils # 0.0 Sodium 142 Potassium 4.7 Chloride 107 Carbon Dioxide 23 Anion Gap 12 BUN 44 H Creatinine 1.90 H Est GFR (CKD-EPI)AfAm 40 Est GFR (CKD-EPI)NonAf 35 Glucose 124 H POC Glucose (mg/dL) POC Glu [employer] [place] ID Calcium 9.1 Total Bilirubin 0.4 AST 15 L ALT 30 Alkaline Phosphatase 84 Total Protein 5.8 L Albumin 3.8 Amylase 34 Lipase 44 Urine Color Light Yellow Urine Appearance Cloudy Urine pH 6.0 Ur Specific [place] 1.009 Urine Protein 1+ H Urine Glucose (UA) Negative Urine Ketones Negative Urine Blood Trace H Urine Nitrite Negative Urine Bilirubin Negative Urine Urobilinogen <2.0 Ur Leukocyte Esterase Large H Urine RBC 2 Urine WBC >182 H Urine WBC Clumps Few H Ur Squamous Epith Cells <1 Urine Bacteria Rare H Hyaline Casts 1 Urine Mucus Rare H 02/05/18 17:34 WBC RBC Hgb Hct MCV MCH MCHC RDW Plt Count Neutrophils % Lymphocytes % Monocytes % Eosinophils % Basophils % Neutrophils # Lymphocytes # Monocytes # Eosinophils # Basophils # Sodium Potassium Chloride Carbon Dioxide Anion Gap BUN Creatinine Est GFR (CKD-EPI)AfAm Est GFR (CKD-EPI)NonAf Glucose POC Glucose (mg/dL) 87 POC Glu [employer] [place] ID Nan Stephenson Calcium Total Bilirubin AST ALT Alkaline Phosphatase Total Protein Albumin Amylase Lipase Urine Color Urine Appearance Urine pH Ur Specific [place] Urine Protein Urine Glucose (UA) Urine Ketones Urine Blood Urine Nitrite Urine Bilirubin Urine Urobilinogen Ur Leukocyte Esterase Urine RBC Urine WBC Urine WBC Clumps Ur Squamous Epith Cells Urine Bacteria Hyaline Casts Urine Mucus Vital Signs 02/05/18 02/05/18 02/05/18 13:14 15:41 17:10 Temperature 96.9 F L 97.3 F L Pulse Rate 60 67 73 Pulse Rate [ Pulse Oximetery ] Respiratory 20 18 20 Rate Blood Pressure 151/85 126/63 140/69 Blood Pressure [Left Arm] O2 Sat by Pulse 99 98 95 Oximetry 02/05/18 17:30 Temperature 97.7 F Pulse Rate Pulse Rate [ 73 Pulse Oximetery ] Respiratory 18 Rate Blood Pressure Blood Pressure 152/87 [Left Arm] O2 Sat by Pulse 97 Oximetry Assessment and plan UTI with symptoms of confusion worrisome about sepsis we will start the patient on Levaquin and Merrem since the patient did have sepsis in the past and does have multiple antibiotic ALLERGIES Confusion and altered mental status likely due to recurrent UTI Diabetes we'll put the patient on sliding scale insulin Hypertension DVT and GI prophylaxis currently will not start the patient on heparin due to the thrombocytopenia Admit the patient to the regular medical floor Expected length of stay more than 2 days We will also check cardiac enzymes EKG Past Medical History Past Medical History: Coronary Artery Disease (CAD), CVA/TIA, Diabetes Mellitus , GERD/Reflux, Hyperlipidemia, Hypertension, Myocardial Infarction (CA), Osteoarthritis (OA), Prostate Disorder, Renal Disease, Sleep Apnea/CPAP/BIPAP, Thyroid Disorder Additional Past Medical History / Comment(s): hx. TIA's, last one November 2016, heart murmur, OCC SOB, kidney stones, leakage of urine, uses CPAP, decreased kidney function, uti's Last Myocardial Infarction Date:: 2010 History of Any Multi-Drug Resistant Organisms: Other MDRO Past Surgical History: Coronary Bypass/CABG, Heart Catheterization, Hernia Repair, Orthopedic Surgery, Prostate Surgery Additional Past Surgical History / Comment(s): vasectomy, CABG 2010 with 4 vessels, keke knee arthroscopy, rt hand surgery x 3, TURP 02/2017, cystoscopy and dilation of urethral stricture 07/08/17 Past Anesthesia/Blood Transfusion Reactions: No Reported Reaction Smoking Status: Never smoker - Past Family History Mother Family Medical History: Congestive Heart Failure (CHF) Additional Family Medical History / Comment(s): at age 92 Father Family Medical History: CVA/TIA, Myocardial Infarction (CA) Medications and Allergies Home Medications Medication Instructions Recorded Confirmed Type Allopurinol [Zyloprim] 100 mg PO QAM 11/28/15 02/05/18 History Aspirin 81 mg PO HS 11/28/15 02/05/18 History Atorvastatin [Lipitor] 80 mg PO HS 11/28/15 02/05/18 History Calcitriol 0.25 mcg PO QAM 11/28/15 02/05/18 History Clopidogrel Bisulfate [Plavix] 75 mg PO QAM 11/28/15 02/05/18 History Folic Acid 1 mg PO QAM 11/28/15 02/05/18 History Isosorbide Mononitrate [Isosorbide 30 mg PO HS 11/28/15 02/05/18 History Mononitrate ER] Levothyroxine Sodium [Synthroid] 137 mcg PO QAM 11/28/15 02/05/18 History Ergocalciferol (Vitamin D2) 50,000 unit PO Q14D 11/29/16 02/05/18 History [Vitamin D2] Insulin Glargine [Lantus] 25 unit SQ HS #1 vial 12/12/16 02/05/18 Rx hydrALAZINE HCL [Apresoline] 25 mg PO TID tab 07/15/17 02/05/18 Rx Acetaminophen [Tylenol Arthritis] 1,300 mg PO HS 02/05/18 02/05/18 History Citalopram Hydrobromide [CeleXA] 20 mg PO DAILY 02/05/18 02/05/18 History Doxepin [SINEquan] 25 mg PO HS 02/05/18 02/05/18 History Fish Oil/Dha/Epa [Fish Oil 1,200 1 cap PO HS 02/05/18 02/05/18 History mg Fish Oil] Hydrochlorothiazide [Hydrodiuril] 25 mg PO QAM 02/05/18 02/05/18 History INSULIN LISPRO (HumaLOG) [humaLOG] See Protocol SQ ACHS 02/05/18 02/05/18 History Iron 27mg 27 mg PO QAM 02/05/18 02/05/18 History Magnesium Oxide [Mag-Ox] 500 mg PO HS 02/05/18 02/05/18 History Metoprolol Tartrate [Lopressor] 75 mg PO BID 02/05/18 02/05/18 History Ranitidine HCl 150 mg PO BID 02/05/18 02/05/18 History Tamsulosin HCl [Flomax] 0.4 mg PO QAM 02/05/18 02/05/18 History glipiZIDE [Glucotrol] 5 mg PO AC-BID 02/05/18 02/05/18 History Allergies Allergy/AdvReac Type Severity Reaction Status Date / Time Penicillins Allergy Severe Anaphylaxis Verified 02/05/18 13:28 cephalexin monohydrate Allergy Rash/Hives Verified 02/05/18 13:28 [From Keflex] gemfibrozil [From Lopid] AdvReac Abdominal Verified 02/05/18 13:28 Pain Physical Exam Vitals: Vital Signs Temp Pulse Pulse Resp BP BP Pulse Ox 02/05/18 17:30 97.7 F 73 18 152/87 97 02/05/18 17:10 73 20 140/69 95 02/05/18 15:41 97.3 F L 67 18 126/63 98 02/05/18 13:14 96.9 F L 60 20 151/85 99 Intake and Output 02/05/18 02/05/18 02/05/18 06:59 14:59 22:59 Intake Total 600 Balance 600 Intake: Oral 600 Other: Voiding Method Toilet Incontinent # Voids 1 Weight 117.934 kg Results CBC & Chem 7: 02/05/18 13:30 02/05/18 13:30 Labs: Abnormal Lab Results - Last 24 Hours (Table) 02/05/18 02/05/18 02/05/18 Range/Units 13:30 13:30 13:55 RBC 4.16 L (4.30-5.90) m/uL Hgb 12.2 L (13.0-17.5) gm/dL Hct 37.4 L (39.0-53.0) % Plt Count 139 L (150-450) k/uL BUN 44 H (9-20) mg/dL Creatinine 1.90 H (0.66-1.25) mg/dL Glucose 124 H (74-99) mg/dL AST 15 L (17-59) U/L Total Protein 5.8 L (6.3-8.2) g/dL Urine Protein 1+ H (Negative) Urine Blood Trace H (Negative) Ur Leukocyte Esterase Large H (Negative) Urine WBC >182 H (0-5) /hpf Urine WBC Clumps Few H (None) /hpf Urine Bacteria Rare H (None) /hpf Urine Mucus Rare H (None) /hpf Thrombosis Risk Factor Assmnt - Choose All That Apply Each Risk Factor Represents 2 Points: Age 61-74 years Thrombosis Risk Factor Assessment Total Risk Factor Score: 2 Thrombosis Risk Factor Assessment Level: Low Risk
[2018-02-05] MEDS: SODIUM CHLORIDE 0.9% 1,000 ML IV SCH (18:22)
[2018-02-05 19:18] LABS: Creatine Kinase MB 0.3 ng/mL (0.0-2.4)
[2018-02-05] MEDS: MEROPENEM 500 MG in SODIUM CHLORIDE 0.9% 50 ML IVPB SCH (19:54)
[2018-02-05 20:52] LABS: Glucose,Whole Blood 126 mg/dL (75-99)
[2018-02-05] MEDS: ISOSORBIDE MONONITRATE ER 30 MG TAB.ER.24H PO SCH (21:06)
[2018-02-05] MEDS: ASPIRIN 81 MG PO SCH (21:06)
[2018-02-05] MEDS: ATORVASTATIN 80 MG TAB PO SCH (21:06)
[2018-02-05] MEDS: METOPROLOL TARTRATE 25 MG TAB PO SCH (21:06)
[2018-02-05] MEDS: DOXEPIN 25 MG CAP PO SCH (21:06)
[2018-02-05] MEDS: INSULIN ASPART 100 UNIT/ML 1 ML 10 ML VIAL SQ SCH (21:07)
[2018-02-05] MEDS: MAGNESIUM OXIDE 400 MG TAB PO SCH (21:07)
[2018-02-05] MEDS: FAMOTIDINE 20 MG TAB PO SCH (21:08)
[2018-02-05] MEDS: ACETAMINOPHEN TAB 325 MG TAB PO SCH (21:27)
[2018-02-06] MEDS ORDERED: HEPARIN SODIUM,PORCINE 5,000 UNIT/ML 1 ML VIAL SQ SCH
[2018-02-06 00:36] LABS: Creatine Kinase 22 U/L (55-170)
[2018-02-06] MEDS: MEROPENEM 500 MG in SODIUM CHLORIDE 0.9% 50 ML IVPB SCH ×3 (00:40→21:01)
[2018-02-06 00:48] LABS: Creatine Kinase MB <0.2 ng/mL (0.0-2.4); Troponin I <0.012 ng/mL (0.000-0.034)
[2018-02-06 00:56] LABS: Hemoglobin A1C 6.3 % (4.0-6.0)
[2018-02-06] MEDS: LEVOTHYROXINE 137 MCG TAB PO SCH (06:13)
[2018-02-06 07:14] LABS: Glucose,Whole Blood 104 mg/dL (75-99)
[2018-02-06] MEDS: INSULIN ASPART 100 UNIT/ML 1 ML 10 ML VIAL SQ SCH ×4 (07:40→21:02)
[2018-02-06] MEDS: METOPROLOL TARTRATE 25 MG TAB PO SCH ×2 (07:43→20:32)
[2018-02-06] MEDS: FAMOTIDINE 20 MG TAB PO SCH ×2 (07:43→20:33)
[2018-02-06] MEDS: CLOPIDOGREL 75 MG TAB PO SCH (07:43)
[2018-02-06] MEDS: SODIUM CHLORIDE 0.9% 1,000 ML IV SCH ×2 (07:43→21:03)
[2018-02-06] MEDS: CALCITRIOL 0.25 MCG CAP PO SCH (07:43)
[2018-02-06] MEDS: ALLOPURINOL 100 MG TAB PO SCH (07:44)
[2018-02-06] MEDS: TAMSULOSIN 0.4 MG CAP.ER.24H PO SCH (07:44)
[2018-02-06] MEDS: HYDROCHLOROTHIAZIDE 25 MG TAB PO SCH (07:44)
[2018-02-06] MEDS: CITALOPRAM HYDROBROMIDE 20 MG TAB PO SCH (07:44)
[2018-02-06] MEDS: FUROSEMIDE 40 MG TAB PO SCH (07:44)
[2018-02-06 07:52] LABS: Basophils % (A) 0 %; Eosinophils # (A) 0.2 k/uL (0-0.7); Eosinophils % (A) 4 %; HCT 33.1 % (39.0-53.0); HGB 10.7 gm/dL (13.0-17.5); Lymphocytes # (A) 0.8 k/uL (1.0-4.8); Lymphocytes % (A) 15 %; MCH 28.9 pg (25.0-35.0); MCHC 32.4 g/dL (31.0-37.0); MCV 89.3 fL (80.0-100.0); Mean Platelet Volume 7.4; Monocytes # (A) 0.3 k/uL (0-1.0); Monocytes % (A) 6 %; Neutrophils # (A) 3.8 k/uL (1.3-7.7); Neutrophils % (A) 74 %; Platelet Count 119 k/uL (150-450); RDW 14.4 % (11.5-15.5); WBC 5.2 k/uL (3.8-10.6)
[2018-02-06 08:10] LABS: Albumin 2.9 g/dL (3.5-5.0); Calcium 8.7 mg/dL (8.4-10.2); Potassium 5.1 mmol/L (3.5-5.1); Total Bilirubin 0.5 mg/dL (0.2-1.3); Total Protein 4.8 g/dL (6.3-8.2)
[2018-02-06 08:18] LABS: Creatine Kinase <20 U/L (55-170)
[2018-02-06 08:31] LABS: Creatine Kinase MB <0.2 ng/mL (0.0-2.4); Troponin I <0.012 ng/mL (0.000-0.034)
[2018-02-06 12:11] LABS: Glucose,Whole Blood 126 mg/dL (75-99)
--- NOTE | 2018-02-06 12:28 | P.PN ---
Subjective Progress Note Date: 02/06/18 Principal diagnosis: Patient still feels weak able to answer questions but slow in answering appears to have difficulty concentrating Review of systems and systems has been reviewed all negative and positive findings as per HPI the patient states that he is improving slowly Constitutional: No acute distress, conversant, pleasant Appears to be weak Eyes: Anicteric sclerae, moist conjunctiva, no lid-lag PERRLA ENMT: Cranial nerves grossly intact Neck: Supple, Lungs: Clear to auscultation Clear to percussion Normal respiratory effort, no accessory muscle use Cardiovascular: Heart regular in rate and rhythm, No murmurs, gallops, or rubs No peripheral edema Abdominal: Soft Nontender, no guarding, rebound or rigidity Abdomen moving with respiration Normoactive bowel sounds No hepatomegaly, No splenomegaly No palpable mass No abdominal wall hernia noted Skin: Normal temperature, tone, texture, turgor No induration No subcutaneous nodules No rash, lesions No ulcers Extremities: No digital cyanosis No clubbing Pedal pulses intact and symmetrical Radial pulses intact and symmetrical Normal gait and station No calf tenderness Psychiatric: Less confused today Neuro: Generalized weakness Laboratory Results - last 24 hr 02/05/18 02/05/18 02/05/18 13:30 13:30 13:55 WBC 5.7 RBC 4.16 L Hgb 12.2 L Hct 37.4 L MCV 89.9 MCH 29.3 MCHC 32.6 RDW 14.4 Plt Count 139 L Neutrophils % 68 Lymphocytes % 21 Monocytes % 5 Eosinophils % 4 Basophils % 0 Neutrophils # 3.9 Lymphocytes # 1.2 Monocytes # 0.3 Eosinophils # 0.2 Basophils # 0.0 Sodium 142 Potassium 4.7 Chloride 107 Carbon Dioxide 23 Anion Gap 12 BUN 44 H Creatinine 1.90 H Est GFR (CKD-EPI)AfAm 40 Est GFR (CKD-EPI)NonAf 35 Glucose 124 H POC Glucose (mg/dL) POC Glu Linking Machine Operator ID Estimated Ave Glu mg/dL Hemoglobin A1c Calcium 9.1 Total Bilirubin 0.4 AST 15 L ALT 30 Alkaline Phosphatase 84 Total Creatine Kinase CK-MB (CK-2) CK-MB (CK-2) Rel Index Troponin I Total Protein 5.8 L Albumin 3.8 Amylase 34 Lipase 44 Urine Color Light Yellow Urine Appearance Cloudy Urine pH 6.0 Ur Specific [place] 1.009 Urine Protein 1+ H Urine Glucose (UA) Negative Urine Ketones Negative Urine Blood Trace H Urine Nitrite Negative Urine Bilirubin Negative Urine Urobilinogen <2.0 Ur Leukocyte Esterase Large H Urine RBC 2 Urine WBC >182 H Urine WBC Clumps Few H Ur Squamous Epith Cells <1 Urine Bacteria Rare H Hyaline Casts 1 Urine Mucus Rare H 02/05/18 02/05/18 02/05/18 17:34 18:32 18:32 WBC RBC Hgb Hct MCV MCH MCHC RDW Plt Count Neutrophils % Lymphocytes % Monocytes % Eosinophils % Basophils % Neutrophils # Lymphocytes # Monocytes # Eosinophils # Basophils # Sodium Potassium Chloride Carbon Dioxide Anion Gap BUN Creatinine Est GFR (CKD-EPI)AfAm Est GFR (CKD-EPI)NonAf Glucose POC Glucose (mg/dL) 87 POC Glu Linking Machine Operator ID Nan Stephenson Estimated Ave Glu mg/dL 134 Hemoglobin A1c 6.3 H Calcium Total Bilirubin AST ALT Alkaline Phosphatase Total Creatine Kinase 26 L CK-MB (CK-2) 0.3 CK-MB (CK-2) Rel Index 1.2 Troponin I Total Protein Albumin Amylase Lipase Urine Color Urine Appearance Urine pH Ur Specific [place] Urine Protein Urine Glucose (UA) Urine Ketones Urine Blood Urine Nitrite Urine Bilirubin Urine Urobilinogen Ur Leukocyte Esterase Urine RBC Urine WBC Urine WBC Clumps Ur Squamous Epith Cells Urine Bacteria Hyaline Casts Urine Mucus 02/05/18 02/05/18 02/06/18 20:50 23:40 07:04 WBC RBC Hgb Hct MCV MCH MCHC RDW Plt Count Neutrophils % Lymphocytes % Monocytes % Eosinophils % Basophils % Neutrophils # Lymphocytes # Monocytes # Eosinophils # Basophils # Sodium Potassium Chloride Carbon Dioxide Anion Gap BUN Creatinine Est GFR (CKD-EPI)AfAm Est GFR (CKD-EPI)NonAf Glucose POC Glucose (mg/dL) 126 H POC Glu Linking Machine Operator ID Sarah Walker Estimated Ave Glu mg/dL Hemoglobin A1c Calcium Total Bilirubin AST ALT Alkaline Phosphatase Total Creatine Kinase 22 L <20 L CK-MB (CK-2) <0.2 <0.2 CK-MB (CK-2) Rel Index Troponin I <0.012 <0.012 Total Protein Albumin Amylase Lipase Urine Color Urine Appearance Urine pH Ur Specific [place] Urine Protein Urine Glucose (UA) Urine Ketones Urine Blood Urine Nitrite Urine Bilirubin Urine Urobilinogen Ur Leukocyte Esterase Urine RBC Urine WBC Urine WBC Clumps Ur Squamous Epith Cells Urine Bacteria Hyaline Casts Urine Mucus 02/06/18 02/06/18 02/06/18 07:04 07:04 07:12 WBC 5.2 RBC 3.70 L Hgb 10.7 L Hct 33.1 L MCV 89.3 MCH 28.9 MCHC 32.4 RDW 14.4 Plt Count 119 L Neutrophils % 74 Lymphocytes % 15 Monocytes % 6 Eosinophils % 4 Basophils % 0 Neutrophils # 3.8 Lymphocytes # 0.8 L Monocytes # 0.3 Eosinophils # 0.2 Basophils # 0.0 Sodium 141 Potassium 5.1 Chloride 111 H Carbon Dioxide 21 L Anion Gap 9 BUN 42 H Creatinine 1.85 H Est GFR (CKD-EPI)AfAm 42 Est GFR (CKD-EPI)NonAf 36 Glucose 99 POC Glucose (mg/dL) 104 H POC Glu Linking Machine Operator ID Lori Solomon Estimated Ave Glu mg/dL Hemoglobin A1c Calcium 8.7 Total Bilirubin 0.5 AST 11 L ALT 27 Alkaline Phosphatase 71 Total Creatine Kinase CK-MB (CK-2) CK-MB (CK-2) Rel Index Troponin I Total Protein 4.8 L Albumin 2.9 L Amylase Lipase Urine Color Urine Appearance Urine pH Ur Specific [place] Urine Protein Urine Glucose (UA) Urine Ketones Urine Blood Urine Nitrite Urine Bilirubin Urine Urobilinogen Ur Leukocyte Esterase Urine RBC Urine WBC Urine WBC Clumps Ur Squamous Epith Cells Urine Bacteria Hyaline Casts Urine Mucus 02/06/18 11:38 WBC RBC Hgb Hct MCV MCH MCHC RDW Plt Count Neutrophils % Lymphocytes % Monocytes % Eosinophils % Basophils % Neutrophils # Lymphocytes # Monocytes # Eosinophils # Basophils # Sodium Potassium Chloride Carbon Dioxide Anion Gap BUN Creatinine Est GFR (CKD-EPI)AfAm Est GFR (CKD-EPI)NonAf Glucose POC Glucose (mg/dL) 126 H POC Glu Linking Machine Operator ID Lori Solomon Estimated Ave Glu mg/dL Hemoglobin A1c Calcium Total Bilirubin AST ALT Alkaline Phosphatase Total Creatine Kinase CK-MB (CK-2) CK-MB (CK-2) Rel Index Troponin I Total Protein Albumin Amylase Lipase Urine Color Urine Appearance Urine pH Ur Specific [place] Urine Protein Urine Glucose (UA) Urine Ketones Urine Blood Urine Nitrite Urine Bilirubin Urine Urobilinogen Ur Leukocyte Esterase Urine RBC Urine WBC Urine WBC Clumps Ur Squamous Epith Cells Urine Bacteria Hyaline Casts Urine Mucus Vital Signs - 24 hr 02/05/18 02/05/18 02/05/18 13:14 15:41 17:10 Temperature 96.9 F L 97.3 F L Pulse Rate 60 67 73 Pulse Rate [ Pulse Oximetery ] Respiratory 20 18 20 Rate Blood Pressure 151/85 126/63 140/69 Blood Pressure [Left Arm] Blood Pressure [Right Arm] O2 Sat by Pulse 99 98 95 Oximetry 02/05/18 02/05/18 02/06/18 17:30 23:00 05:25 Temperature 97.7 F 98.2 F 96.1 F L Pulse Rate Pulse Rate [ 73 78 72 Pulse Oximetery ] Respiratory 18 18 14 Rate Blood Pressure Blood Pressure 152/87 119/60 [Left Arm] Blood Pressure 129/70 [Right Arm] O2 Sat by Pulse 97 95 96 Oximetry Assessment and plan UTI with confusion slowly improving we'll continue IV antibiotics Generalized weakness likely due to the current UTI Confusion likely due to the current UTI but since the patient did have a history of CVA in the past we'll check MRI of the brain to rule out CVA Diabetes we'll put the patient on sliding scale insulin Objective - Vital Signs Vital signs: Vital Signs Temp 96.1 F L 02/06/18 05:25 Pulse 72 02/06/18 05:25 Resp 14 02/06/18 05:25 BP 129/70 02/06/18 05:25 Pulse Ox 96 02/06/18 05:25 Intake & Output 02/05/18 02/06/18 02/06/18 18:59 06:59 18:59 Intake Total 600 200 Balance 600 200 Weight 117.934 kg Intake: Oral 600 200 Other: Voiding Method Incontinent Incontinent # Voids 1 2 # Bowel Movements 1 - Labs CBC & Chem 7: 02/06/18 07:04 02/06/18 07:04 Labs: Abnormal Lab Results - Last 24 Hours (Table) 02/05/18 02/05/18 02/05/18 Range/Units 13:30 13:30 13:55 RBC 4.16 L (4.30-5.90) m/uL Hgb 12.2 L (13.0-17.5) gm/dL Hct 37.4 L (39.0-53.0) % Plt Count 139 L (150-450) k/uL Lymphocytes # (1.0-4.8) k/uL Chloride (98-107) mmol/L Carbon Dioxide (22-30) mmol/L BUN 44 H (9-20) mg/dL Creatinine 1.90 H (0.66-1.25) mg/dL Glucose 124 H (74-99) mg/dL POC Glucose (mg/dL) (75-99) mg/dL Hemoglobin A1c (4.0-6.0) % AST 15 L (17-59) U/L Total Creatine Kinase (55-170) U/L Total Protein 5.8 L (6.3-8.2) g/dL Albumin (3.5-5.0) g/dL Urine Protein 1+ H (Negative) Urine Blood Trace H (Negative) Ur Leukocyte Esterase Large H (Negative) Urine WBC >182 H (0-5) /hpf Urine WBC Clumps Few H (None) /hpf Urine Bacteria Rare H (None) /hpf Urine Mucus Rare H (None) /hpf 02/05/18 02/05/18 02/05/18 Range/Units 18:32 18:32 20:50 RBC (4.30-5.90) m/uL Hgb (13.0-17.5) gm/dL Hct (39.0-53.0) % Plt Count (150-450) k/uL Lymphocytes # (1.0-4.8) k/uL Chloride (98-107) mmol/L Carbon Dioxide (22-30) mmol/L BUN (9-20) mg/dL Creatinine (0.66-1.25) mg/dL Glucose (74-99) mg/dL POC Glucose (mg/dL) 126 H (75-99) mg/dL Hemoglobin A1c 6.3 H (4.0-6.0) % AST (17-59) U/L Total Creatine Kinase 26 L (55-170) U/L Total Protein (6.3-8.2) g/dL Albumin (3.5-5.0) g/dL Urine Protein (Negative) Urine Blood (Negative) Ur Leukocyte Esterase (Negative) Urine WBC (0-5) /hpf Urine WBC Clumps (None) /hpf Urine Bacteria (None) /hpf Urine Mucus (None) /hpf 02/05/18 02/06/18 02/06/18 Range/Units 23:40 07:04 07:04 RBC 3.70 L (4.30-5.90) m/uL Hgb 10.7 L (13.0-17.5) gm/dL Hct 33.1 L (39.0-53.0) % Plt Count 119 L (150-450) k/uL Lymphocytes # 0.8 L (1.0-4.8) k/uL Chloride (98-107) mmol/L Carbon Dioxide (22-30) mmol/L BUN (9-20) mg/dL Creatinine (0.66-1.25) mg/dL Glucose (74-99) mg/dL POC Glucose (mg/dL) (75-99) mg/dL Hemoglobin A1c (4.0-6.0) % AST (17-59) U/L Total Creatine Kinase 22 L <20 L (55-170) U/L Total Protein (6.3-8.2) g/dL Albumin (3.5-5.0) g/dL Urine Protein (Negative) Urine Blood (Negative) Ur Leukocyte Esterase (Negative) Urine WBC (0-5) /hpf Urine WBC Clumps (None) /hpf Urine Bacteria (None) /hpf Urine Mucus (None) /hpf 02/06/18 02/06/18 02/06/18 Range/Units 07:04 07:12 11:38 RBC (4.30-5.90) m/uL Hgb (13.0-17.5) gm/dL Hct (39.0-53.0) % Plt Count (150-450) k/uL Lymphocytes # (1.0-4.8) k/uL Chloride 111 H (98-107) mmol/L Carbon Dioxide 21 L (22-30) mmol/L BUN 42 H (9-20) mg/dL Creatinine 1.85 H (0.66-1.25) mg/dL Glucose (74-99) mg/dL POC Glucose (mg/dL) 104 H 126 H (75-99) mg/dL Hemoglobin A1c (4.0-6.0) % AST 11 L (17-59) U/L Total Creatine Kinase (55-170) U/L Total Protein 4.8 L (6.3-8.2) g/dL Albumin 2.9 L (3.5-5.0) g/dL Urine Protein (Negative) Urine Blood (Negative) Ur Leukocyte Esterase (Negative) Urine WBC (0-5) /hpf Urine WBC Clumps (None) /hpf Urine Bacteria (None) /hpf Urine Mucus (None) /hpf Microbiology - Last 24 Hours (Table) 02/05/18 13:55 Urine Culture - Preliminary Urine,Voided
[2018-02-06 17:41] LABS: Glucose,Whole Blood 162 mg/dL (75-99)
[2018-02-06] MEDS ORDERED: LEVOFLOXACIN 250 MG TAB PO SCH (18:00)
[2018-02-06] MEDS: ASPIRIN 81 MG PO SCH (20:32)
[2018-02-06] MEDS: ATORVASTATIN 80 MG TAB PO SCH (20:32)
[2018-02-06] MEDS: ISOSORBIDE MONONITRATE ER 30 MG TAB.ER.24H PO SCH (20:32)
[2018-02-06] MEDS: MAGNESIUM OXIDE 400 MG TAB PO SCH (20:32)
[2018-02-06] MEDS: DOXEPIN 25 MG CAP PO SCH (20:33)
[2018-02-06 20:42] LABS: Glucose,Whole Blood 155 mg/dL (75-99)
[2018-02-06] MEDS: ACETAMINOPHEN TAB 325 MG TAB PO SCH (21:14)
[2018-02-07] MEDS: LEVOTHYROXINE 137 MCG TAB PO SCH (06:29)
[2018-02-07 07:12] LABS: Glucose,Whole Blood 123 mg/dL (75-99)
[2018-02-07] MEDS: INSULIN ASPART 100 UNIT/ML 1 ML 10 ML VIAL SQ SCH ×4 (07:39→21:33)
[2018-02-07] MEDS: MEROPENEM 500 MG in SODIUM CHLORIDE 0.9% 50 ML IVPB SCH (07:56)
[2018-02-07] MEDS: CITALOPRAM HYDROBROMIDE 20 MG TAB PO SCH (07:57)
[2018-02-07] MEDS: TAMSULOSIN 0.4 MG CAP.ER.24H PO SCH (07:57)
[2018-02-07] MEDS: FAMOTIDINE 20 MG TAB PO SCH ×2 (07:57→20:21)
[2018-02-07] MEDS: FUROSEMIDE 40 MG TAB PO SCH (07:57)
[2018-02-07] MEDS: METOPROLOL TARTRATE 25 MG TAB PO SCH ×2 (07:58→20:21)
[2018-02-07] MEDS: CLOPIDOGREL 75 MG TAB PO SCH (07:58)
[2018-02-07] MEDS: CALCITRIOL 0.25 MCG CAP PO SCH (07:58)
[2018-02-07] MEDS: HYDROCHLOROTHIAZIDE 25 MG TAB PO SCH (07:59)
[2018-02-07] MEDS: ALLOPURINOL 100 MG TAB PO SCH (07:59)
[2018-02-07] MEDS: SODIUM CHLORIDE 0.9% 1,000 ML IV SCH ×2 (07:59→23:41)
[2018-02-07 08:21] LABS: Basophils % (A) 0 %; Eosinophils # (A) 0.2 k/uL (0-0.7); Eosinophils % (A) 4 %; HCT 34.8 % (39.0-53.0); HGB 11.1 gm/dL (13.0-17.5); Lymphocytes % (A) 19 %; MCHC 31.8 g/dL (31.0-37.0); MCV 91.1 fL (80.0-100.0); Mean Platelet Volume 7.5; Monocytes # (A) 0.3 k/uL (0-1.0); Monocytes % (A) 6 %; Neutrophils # (A) 3.6 k/uL (1.3-7.7); Neutrophils % (A) 70 %; Platelet Count 128 k/uL (150-450); RBC 3.82 m/uL (4.30-5.90); RDW 14.4 % (11.5-15.5); WBC 5.2 k/uL (3.8-10.6)
[2018-02-07 09:26] LABS: Calcium 8.9 mg/dL (8.4-10.2); Potassium 4.7 mmol/L (3.5-5.1); Total Bilirubin 0.4 mg/dL (0.2-1.3)
--- NOTE | 2018-02-07 11:37 | P.PN ---
Subjective Progress Note Date: 02/07/18 Principal diagnosis: Assessment and plan UTI with confusion appears to be stable Generalized weakness likely due to the current UTI Confusion likely due to the current UTI History of CVA will not be able to do an MRI of the brain patient does have foreign body in his eye Diabetes we'll put the patient on sliding scale insulin Patient feels okay today still weak Constitutional: No acute distress, Eyes: Anicteric sclerae, moist conjunctiva, no lid-lag PERRLA ENMT: NC/AT Oropharynx clear, no erythema, exudates Neck: Supple, FROM, no masses, or JVD No carotid bruits No thyromegaly Lungs: Clear to auscultation Clear to percussion Normal respiratory effort, no accessory muscle use Cardiovascular: Heart regular in rate and rhythm, No murmurs, gallops, or rubs No peripheral edema Abdominal: Soft Nontender, no guarding, Skin: Normal temperature, tone, texture, turgor No induration No subcutaneous nodules No rash, lesions No ulcers Extremities: No digital cyanosis No clubbing Pedal pulses intact and symmetrical Radial pulses intact and symmetrical Normal gait and station No calf tenderness Psychiatric:Alert and oriented to person, place and time Appropriate affect Intact judgement Neuro: Generalized weakness Laboratory Results - last 24 hr 02/06/18 02/06/18 02/06/18 11:38 17:15 20:40 WBC RBC Hgb Hct MCV MCH MCHC RDW Plt Count Neutrophils % Lymphocytes % Monocytes % Eosinophils % Basophils % Neutrophils # Lymphocytes # Monocytes # Eosinophils # Basophils # Sodium Potassium Chloride Carbon Dioxide Anion Gap BUN Creatinine Est GFR (CKD-EPI)AfAm Est GFR (CKD-EPI)NonAf Glucose POC Glucose (mg/dL) 126 H 162 H 155 H POC Glu Profile Saw Setup Operator oLri Marc, Emma Lund Calcium Total Bilirubin AST ALT Alkaline Phosphatase Total Protein Albumin 02/07/18 02/07/18 02/07/18 07:08 07:57 07:57 WBC 5.2 RBC 3.82 L Hgb 11.1 L Hct 34.8 L MCV 91.1 MCH 29.0 MCHC 31.8 RDW 14.4 Plt Count 128 L Neutrophils % 70 Lymphocytes % 19 Monocytes % 6 Eosinophils % 4 Basophils % 0 Neutrophils # 3.6 Lymphocytes # 1.0 Monocytes # 0.3 Eosinophils # 0.2 Basophils # 0.0 Sodium 141 Potassium 4.7 Chloride 111 H Carbon Dioxide 22 Anion Gap 8 BUN 41 H Creatinine 1.90 H Est GFR (CKD-EPI)AfAm 40 Est GFR (CKD-EPI)NonAf 35 Glucose 123 H POC Glucose (mg/dL) 123 H POC Glu Profile Saw Setup Operator ID Malissa Gibson Calcium 8.9 Total Bilirubin 0.4 AST 12 L ALT 27 Alkaline Phosphatase 73 Total Protein 5.0 L Albumin 3.0 L Vital Signs - 24 hr 02/06/18 02/06/18 02/07/18 15:00 23:00 00:00 Temperature 99.9 F H 99.6 F 99.6 F Pulse Rate [ 78 85 Pulse Oximetery ] Respiratory 20 16 Rate Blood Pressure [Left Arm] Blood Pressure 154/77 136/75 [Right Arm] O2 Sat by Pulse 92 L 94 L Oximetry 02/07/18 02/07/18 06:14 08:00 Temperature 96.6 F L Pulse Rate [ 73 73 Pulse Oximetery ] Respiratory 20 20 Rate Blood Pressure 123/61 [Left Arm] Blood Pressure [Right Arm] O2 Sat by Pulse 96 Oximetry Objective - Vital Signs Vital signs: Vital Signs Temp 96.6 F L 02/07/18 06:14 Pulse 73 02/07/18 08:00 Resp 20 02/07/18 08:00 BP 123/61 02/07/18 06:14 Pulse Ox 96 02/07/18 06:14 Intake & Output 02/06/18 02/07/18 02/07/18 18:59 06:59 18:59 Intake Total 200 100 Balance 200 100 Intake: Oral 200 100 Other: Voiding Method Incontinent # Voids 3 1 # Bowel Movements 1 0 - Labs CBC & Chem 7: 02/07/18 07:57 02/07/18 07:57 Labs: Abnormal Lab Results - Last 24 Hours (Table) 02/06/18 02/06/18 02/06/18 Range/Units 11:38 17:15 20:40 RBC (4.30-5.90) m/uL Hgb (13.0-17.5) gm/dL Hct (39.0-53.0) % Plt Count (150-450) k/uL Chloride (98-107) mmol/L BUN (9-20) mg/dL Creatinine (0.66-1.25) mg/dL Glucose (74-99) mg/dL POC Glucose (mg/dL) 126 H 162 H 155 H (75-99) mg/dL AST (17-59) U/L Total Protein (6.3-8.2) g/dL Albumin (3.5-5.0) g/dL 02/07/18 02/07/18 02/07/18 Range/Units 07:08 07:57 07:57 RBC 3.82 L (4.30-5.90) m/uL Hgb 11.1 L (13.0-17.5) gm/dL Hct 34.8 L (39.0-53.0) % Plt Count 128 L (150-450) k/uL Chloride 111 H (98-107) mmol/L BUN 41 H (9-20) mg/dL Creatinine 1.90 H (0.66-1.25) mg/dL Glucose 123 H (74-99) mg/dL POC Glucose (mg/dL) 123 H (75-99) mg/dL AST 12 L (17-59) U/L Total Protein 5.0 L (6.3-8.2) g/dL Albumin 3.0 L (3.5-5.0) g/dL Microbiology - Last 24 Hours (Table) 02/05/18 13:55 Urine Culture - Preliminary Urine,Voided Gram Neg Bacilli
[2018-02-07 13:20] LABS: Glucose,Whole Blood 177 mg/dL (75-99)
[2018-02-07 17:13] LABS: Glucose,Whole Blood 125 mg/dL (75-99)
[2018-02-07] MEDS ORDERED: DIPHENOX-ATROP 2.5-0.025 MG 1 EACH TAB PO PRN (19:21)
[2018-02-07] MEDS: MEROPENEM 1 GM in SODIUM CHLORIDE 0.9% 100 ML IVPB SCH (20:18)
[2018-02-07] MEDS: ISOSORBIDE MONONITRATE ER 30 MG TAB.ER.24H PO SCH (20:21)
[2018-02-07] MEDS: MAGNESIUM OXIDE 400 MG TAB PO SCH (20:21)
[2018-02-07] MEDS: ASPIRIN 81 MG PO SCH (20:21)
[2018-02-07] MEDS: ATORVASTATIN 80 MG TAB PO SCH (20:21)
[2018-02-07] MEDS: DOXEPIN 25 MG CAP PO SCH (20:22)
[2018-02-07 20:57] LABS: Glucose,Whole Blood 159 mg/dL (75-99)
[2018-02-07] MEDS: ACETAMINOPHEN TAB 325 MG TAB PO SCH (22:42)
--- NOTE | 2018-02-07 22:55 | P.CONS ---
History of Present Illness - Reason for Consult Consult date: 02/07/18 - Chief Complaint fever and confusion - History of Present Illness 72 year old male was at home with his when he developed symptoms of fever, with chills and malaise. He told his the combine was stuck in the field next to the house. The patient's was concerned because the equipment is not used at this time of the year, and when she looked she could not see the machinery. The patient however states acute hearing the combine stuck in the field. Because of his history of sepsis from urinary system last year she became concerned and brought him to the primary care physician. There the patient had evidence of a fever which was noted at home and constantly he was directed to the emergency center. 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 The patient certainly feel a bit better. The fevers chills and malaise have improved a bit his appetite is better. Still does not feel at his baseline yet. He did have an ultrasound performed without evidence of hydronephrosis. The patient at this time is denying other acute new symptoms. Review of Systems 72-year-old male which is starting to feel better but had fever and chills with some flank pain superimposed on his chronic urinary incontinence. HEENT:Denies headache or acute visual change. Denies sinus or mouth discomforts. Denies neck stiffness or pain. Denies significant oral cavity pain. Denies difficulty on swallowing. Lungs: Denies significant shortness of breath, cough, sputum production, or hemoptysis. Cardiovascular: Denies significant shortness of breath, chest pain, chest wall pain, orthopnea, dyspnea on exertion, syncope Gastrointestinal: His appetite was poor with some nausea but no emesis. No diarrhea he's had no constipation hematemesis melena or hematochezia before admission Musculoskeletal: denies significant myalgias or arthralgias. No new joint swelling. Denies new back pain. Skin: Denies new rash or lesions. No new ulcers or wounds are related.. Neuro: He had a mild headache and is noted was having difficulty with confusion and was likely and auditory hallucination before he came in the hospital Psychiatric:Denies anxiety or depression. Endocrine: Had developed significant fatigue but weight has been stable Past Medical History Past Medical History: Coronary Artery Disease (CAD), CVA/TIA, Diabetes Mellitus , GERD/Reflux, Hyperlipidemia, Hypertension, Myocardial Infarction (CT), Osteoarthritis (OA), Prostate Disorder, Renal Disease, Sleep Apnea/CPAP/BIPAP, Thyroid Disorder Additional Past Medical History / Comment(s): hx. TIA's, last one November 2016, heart murmur, OCC SOB, kidney stones, leakage of urine, uses CPAP, decreased kidney function, uti's Last Myocardial Infarction Date:: 2010 History of Any Multi-Drug Resistant Organisms: Other MDRO Past Surgical History: Coronary Bypass/CABG, Heart Catheterization, Hernia Repair, Orthopedic Surgery, Prostate Surgery Additional Past Surgical History / Comment(s): vasectomy, CABG 2010 with 4 vessels, keke knee arthroscopy, rt hand surgery x 3, TURP 02/2017, cystoscopy and dilation of urethral stricture 07/08/17 Past Anesthesia/Blood Transfusion Reactions: No Reported Reaction Additional Psychological History / Comment(s): . The adult children are healthy. Lifelong nonsmoker. No alcohol use. 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 Was in the in the [employer] no significant international travel since then. Pet dog at home Smoking Status: Never smoker - Past Family History Mother Family Medical History: Congestive Heart Failure (CHF) Additional Family Medical History / Comment(s): at age 92 Father Family Medical History: CVA/TIA, Myocardial Infarction (CT) Medications and Allergies Home Medications and Allergies Comment(s): Current Medications Acetaminophen (Tylenol Tab) 650 mg PO Q6HR PRN PRN Reason: Mild Pain or Fever > 100.5 Acetaminophen (Tylenol Tab) 650 mg PO Q6HR PRN PRN Reason: Mild Pain or Fever > 100.5 Acetaminophen (Tylenol Tab) 1,300 mg PO [facility] Last Admin: 02/07/18 22:42 Dose: Not Given Allopurinol (Zyloprim) 100 mg PO [facility] Last Admin: 02/07/18 07:59 Dose: 100 mg Aspirin (Aspirin) 81 mg PO [facility] Last Admin: 02/07/18 20:21 Dose: 81 mg Atorvastatin Calcium (Lipitor) 80 mg PO [facility] Last Admin: 02/07/18 20:21 Dose: 80 mg Calcitriol (Rocaltrol) 0.25 mcg PO [facility] Last Admin: 02/07/18 07:58 Dose: 0.25 mcg Citalopram Hydrobromide (Celexa) 20 mg PO DAILY [facility] Last Admin: 02/07/18 07:57 Dose: 20 mg Clopidogrel Bisulfate (Plavix) 75 mg PO QAM [facility] Last Admin: 02/07/18 07:58 Dose: 75 mg Diphenoxylate HCl/Atropine (Lomotil) 1 each PO Q6HR PRN PRN Reason: Diarrhea Doxepin HCl (Sinequan) 25 mg PO [facility] Last Admin: 02/07/18 20:22 Dose: 25 mg Famotidine (Pepcid) 20 mg PO BID [facility] Last Admin: 02/07/18 20:21 Dose: 20 mg Furosemide (Lasix) 40 mg PO DAILY [facility] Last Admin: 02/07/18 07:57 Dose: 40 mg Hydrochlorothiazide ([facility]uril) [facility] [place] Last Admin: 02/07/18 07:59 Dose: 25 mg Sodium Chloride (Saline 0.9%) 1,000 mls @ 75 mls/hr IV .[id number] [facility] Last Admin: 02/07/18 07:59 Dose: 75 mls/hr Meropenem 1 gm/ Sodium (Chloride) 100 mls @ 100 mls/hr IVPB Q12HR [facility] Last Admin: 02/07/18 20:18 Dose: 100 mls/hr Insulin Aspart (Novolog) 0 unit SQ ACHS [facility] PRN Reason: Protocol Last Admin: 02/07/18 21:33 Dose: 2 unit Isosorbide Mononitrate (Imdur) 30 mg PO [facility] Last Admin: 02/07/18 20:21 Dose: 30 mg Levothyroxine Sodium (Synthroid) 137 mcg PO DAILY@0630 [facility] Last Admin: 02/07/18 06:29 Dose: 137 mcg Magnesium Oxide (Mag-Ox) 400 mg PO [facility] Last Admin: 02/07/18 20:21 Dose: 400 mg Metoprolol Tartrate (Lopressor) 75 mg PO BID [facility] Last Admin: 02/07/18 20:21 Dose: 75 mg Naloxone HCl (Narcan) 0.2 mg IV Q2M PRN PRN Reason: Opioid Reversal Naloxone HCl (Narcan) 0.2 mg IV Q2M PRN PRN Reason: Opioid Reversal Ondansetron HCl (Zofran) 4 mg IVP Q8HR PRN PRN Reason: Nausea And Vomiting Tamsulosin HCl (Flomax) 0.4 [facility] [place] Last Admin: 02/07/18 07:57 Dose: 0.4 mg Home Medications Medication Instructions Recorded Confirmed Type Allopurinol [Zyloprim] 100 mg PO QAM 11/28/15 02/05/18 History Aspirin 81 mg PO HS 11/28/15 02/05/18 History Atorvastatin [Lipitor] 80 mg PO HS 11/28/15 02/05/18 History Calcitriol 0.25 mcg PO QAM 11/28/15 02/05/18 History Clopidogrel Bisulfate [Plavix] 75 mg PO QAM 11/28/15 02/05/18 History Folic Acid 1 mg PO QAM 11/28/15 02/05/18 History Isosorbide Mononitrate [Isosorbide 30 mg PO HS 11/28/15 02/05/18 History Mononitrate ER] Levothyroxine Sodium [Synthroid] 137 mcg PO QAM 11/28/15 02/05/18 History Ergocalciferol (Vitamin D2) 50,000 unit PO Q14D 11/29/16 02/05/18 History [Vitamin D2] Insulin Glargine [Lantus] 25 unit SQ HS #1 vial 12/12/16 02/05/18 Rx hydrALAZINE HCL [Apresoline] 25 mg PO TID tab 07/15/17 02/05/18 Rx Acetaminophen [Tylenol Arthritis] 1,300 mg PO HS 02/05/18 02/05/18 History Citalopram Hydrobromide [CeleXA] 20 mg PO DAILY 02/05/18 02/05/18 History Doxepin [SINEquan] 25 mg PO HS 02/05/18 02/05/18 History Fish Oil/Dha/Epa [Fish Oil 1,200 1 cap PO HS 02/05/18 02/05/18 History mg Fish Oil] Hydrochlorothiazide [Hydrodiuril] 25 mg PO QAM 02/05/18 02/05/18 History INSULIN LISPRO (HumaLOG) [humaLOG] See Protocol SQ ACHS 02/05/18 02/05/18 History Iron 27mg 27 mg PO QAM 02/05/18 02/05/18 History Magnesium Oxide [Mag-Ox] 500 mg PO HS 02/05/18 02/05/18 History Metoprolol Tartrate [Lopressor] 75 mg PO BID 02/05/18 02/05/18 History Ranitidine HCl 150 mg PO BID 02/05/18 02/05/18 History Tamsulosin HCl [Flomax] 0.4 mg PO QAM 02/05/18 02/05/18 History glipiZIDE [Glucotrol] 5 mg PO AC-BID 02/05/18 02/05/18 History Allergies Allergy/AdvReac Type Severity Reaction Status Date / Time Penicillins Allergy Severe Anaphylaxis Verified 02/05/18 13:28 cephalexin monohydrate Allergy Rash/Hives Verified 02/05/18 13:28 [From Keflex] gemfibrozil [From Lopid] AdvReac Abdominal Verified 02/05/18 13:28 Pain Physical Exam Vitals: Vital Signs Temp Pulse Resp BP BP Pulse Ox 02/07/18 16:00 67 19 02/07/18 15:16 97 F L 67 19 158/84 98 02/07/18 08:00 73 20 02/07/18 06:14 96.6 F L 73 20 123/61 96 02/07/18 00:00 99.6 F 02/06/18 23:00 99.6 F 85 16 136/75 94 L Intake and Output 02/07/18 02/07/18 02/07/18 06:59 14:59 22:59 Intake Total 100 Balance 100 Intake: Oral 100 Other: Voiding Method Incontinent Incontinent # Voids 1 1 # Bowel Movements 0 72-year-old male presents to the emergency center feeling very poorly with fevers and chills. Was also having flank pain HEENT: Anicteric conjunctiva are pink and moist nasal mucosa grossly intact without significant lesions, there is no thrush. Neck: The neck is supple without significant lymphadenopathy or thyromegaly. Lungs: Good bilateral air entry without significant crackles or wheezing. There is no significant bronchial sounds. There is no egophony or dullness. Heart: Regular rate and rhythm with an audible S1-S2, no S3 no S4. There is no significant murmur click or rub, PMI was nondisplaced. Abdomen: Positive bowel sounds soft and nontender without palpable masses or organomegaly. There was no guarding or rebound. Did complain of flank pain but did not have flank tenderness on exam no bruising to the flanks are noted Extremities: The upper extremities have excellent pulses they are symmetric, no significant petechiae or telangiectasia. No splinter hemorrhages were noted. Lower extremities have trace pedal edema bilaterally. No ulcers are seen. Neuro: Awake alert oriented to person place and time. There are no acute new gross focal sensory motor deficits. The confusion before admission seems to have resolved Results CBC & Chem 7: 02/07/18 07:57 02/07/18 07:57 Labs: Abnormal Lab Results - Last 24 Hours (Table) 02/07/18 02/07/18 02/07/18 Range/Units 07:08 07:57 07:57 RBC 3.82 L (4.30-5.90) m/uL Hgb 11.1 L (13.0-17.5) gm/dL Hct 34.8 L (39.0-53.0) % Plt Count 128 L (150-450) k/uL Chloride 111 H (98-107) mmol/L BUN 41 H (9-20) mg/dL Creatinine 1.90 H (0.66-1.25) mg/dL Glucose 123 H (74-99) mg/dL POC Glucose (mg/dL) 123 H (75-99) mg/dL AST 12 L (17-59) U/L Total Protein 5.0 L (6.3-8.2) g/dL Albumin 3.0 L (3.5-5.0) g/dL 02/07/18 02/07/18 02/07/18 Range/Units 13:18 17:07 20:55 RBC (4.30-5.90) m/uL Hgb (13.0-17.5) gm/dL Hct (39.0-53.0) % Plt Count (150-450) k/uL Chloride (98-107) mmol/L BUN (9-20) mg/dL Creatinine (0.66-1.25) mg/dL Glucose (74-99) mg/dL POC Glucose (mg/dL) 177 H 125 H 159 H (75-99) mg/dL AST (17-59) U/L Total Protein (6.3-8.2) g/dL Albumin (3.5-5.0) g/dL Microbiology - Last 24 Hours (Table) 02/05/18 13:55 Urine Culture - Final Urine,Voided Pseudomonas aeruginosa Laboratory Results WBC 5.2 k/uL (3.8-10.6) 02/07/18 07:57 RBC 3.82 m/uL (4.30-5.90) L 02/07/18 07:57 Hgb 11.1 gm/dL (13.0-17.5) L 02/07/18 07:57 Hct 34.8 % (39.0-53.0) L 02/07/18 07:57 MCV 91.1 fL (80.0-100.0) 02/07/18 07:57 MCH 29.0 pg (25.0-35.0) 02/07/18 07:57 MCHC 31.8 g/dL (31.0-37.0) 02/07/18 07:57 RDW 14.4 % (11.5-15.5) 02/07/18 07:57 Plt Count 128 k/uL (150-450) L 02/07/18 07:57 Neutrophils % 70 % 02/07/18 07:57 Lymphocytes % 19 % 02/07/18 07:57 Monocytes % 6 % 02/07/18 07:57 Eosinophils % 4 % 02/07/18 07:57 Basophils % 0 % 02/07/18 07:57 Neutrophils # 3.6 k/uL (1.3-7.7) 02/07/18 07:57 Lymphocytes # 1.0 k/uL (1.0-4.8) 02/07/18 07:57 Monocytes # 0.3 k/uL (0-1.0) 02/07/18 07:57 Eosinophils # 0.2 k/uL (0-0.7) 02/07/18 07:57 Basophils # 0.0 k/uL (0-0.2) 02/07/18 07:57 Sodium 141 mmol/L (137-145) 02/07/18 07:57 Potassium 4.7 mmol/L (3.5-5.1) 02/07/18 07:57 Chloride 111 mmol/L (98-107) H 02/07/18 07:57 Carbon Dioxide 22 mmol/L (22-30) 02/07/18 07:57 Anion Gap 8 mmol/L 02/07/18 07:57 BUN 41 mg/dL (9-20) H 02/07/18 07:57 Creatinine 1.90 mg/dL (0.66-1.25) H 02/07/18 07:57 Est GFR (CKD-EPI)AfAm 40 (>60 ml/min/1.73 sqM) 02/07/18 07:57 Est GFR (CKD-EPI)NonAf 35 (>60 ml/min/1.73 sqM) 02/07/18 07:57 Glucose 123 mg/dL (74-99) H 02/07/18 07:57 POC Glucose (mg/dL) 159 mg/dL (75-99) H 02/07/18 20:55 POC Glu Derrick Boat Leverman ID Emma Stack 02/07/18 20:[address] Glu mg/dL 134 02/05/18 18:32 Hemoglobin A1c 6.3 % (4.0-6.0) H 02/05/18 18:32 Calcium 8.9 mg/dL (8.4-10.2) 02/07/18 07:57 Total Bilirubin 0.4 mg/dL (0.2-1.3) 02/07/18 07:57 AST 12 U/L (17-59) L 02/07/18 07:57 ALT 27 U/L (21-72) 02/07/18 07:57 Alkaline Phosphatase 73 U/L (38-126) 02/07/18 07:57 Total Creatine Kinase <20 U/L (55-170) L 02/06/18 07:04 CK-MB (CK-2) <0.2 ng/mL (0.0-2.4) 02/06/18 07:04 CK-MB (CK-2) Rel Index 02/06/18 07:04 Troponin I <0.012 ng/mL (0.000-0.034) 02/06/18 07:04 Total Protein 5.0 g/dL (6.3-8.2) L 02/07/18 07:57 Albumin 3.0 g/dL (3.5-5.0) L 02/07/18 07:57 Amylase 34 U/L (30-110) 02/05/18 13:30 Lipase 44 U/L (23-300) 02/05/18 13:30 Urine Color Light Yellow 02/05/18 13:55 Urine Appearance Cloudy (Clear) 02/05/18 13:55 Urine pH 6.0 (5.0-8.0) 02/05/18 13:55 Ur Specific [place] 1.009 (1.001-1.035) 02/05/18 13:55 Urine Protein 1+ (Negative) H 02/05/18 13:55 Urine Glucose (UA) Negative (Negative) 02/05/18 13:55 Urine Ketones Negative (Negative) 02/05/18 13:55 Urine Blood Trace (Negative) H 02/05/18 13:55 Urine Nitrite Negative (Negative) 02/05/18 13:55 Urine Bilirubin Negative (Negative) 02/05/18 13:55 Urine Urobilinogen <2.0 mg/dL (<2.0) 02/05/18 13:55 Ur Leukocyte Esterase Large (Negative) H 02/05/18 13:55 Urine RBC 2 /hpf (0-5) 02/05/18 13:55 Urine WBC >182 /hpf (0-5) H 02/05/18 13:55 Urine WBC Clumps Few /hpf (None) H 02/05/18 13:55 Ur Squamous Epith Cells <1 /hpf (0-4) 02/05/18 13:55 Urine Bacteria Rare /hpf (None) H 02/05/18 13:55 Hyaline Casts 1 /lpf (0-2) 02/05/18 13:55 Urine Mucus Rare /hpf (None) H 02/05/18 13:55 Microbiology 02/05/18 13:55 Urine,Voided Urine Culture - Final Pseudomonas aeruginosa Assessment and Plan (1) Urinary tract infection Current Visit: Yes Status: Acute Code(s): N39.0 - URINARY TRACT INFECTION, SITE NOT SPECIFIED SNOMED Code(s): 98038238 (2) Sepsis due to Pseudomonas aeruginosa Narrative/Plan: 72-year-old male presents to Hospital from his doctor's office with a 2 day history of not feeling well. He developed fever and chills but not as sick as he was last year when he developed septic shock from his significant urinary infection with urinary obstruction. He does have some urinary incontinence which is not new but developed some significant flank pain and consequently was concerned about a urinary infection. He was seen by his primary care physician and sent to hospital. There is some data that he had a pseudomonas aeruginosa urinary infection that was resistant to several agents and meropenem was begun. At this time with hydration and antibiotic therapy he started feeling considerably better. His mentation has gone back to baseline and his is no longer concerned about his mentation. This time we are awaiting final cultures to determine what our potential plan will be when he goes home. It is likely there will not be an oral option and he will need IV access and outpatient intravenous antibiotic therapy. The meropenem would be twice a day which will be very difficult to do in the outpatient setting. Hopefully we'll have the option for home treatment. He has no ALLERGIES. Marked improvement ultrasound failed to reveal evidence of any hydronephrosis or obstruction. His creatinine is near his baseline at 1.4 and is not having any of the acute changes at this time. Current Visit: Yes Status: Acute Code(s): A41.52 - SEPSIS DUE TO PSEUDOMONAS SNOMED Code(s): 716340059
[2018-02-08] MEDS: LEVOTHYROXINE 137 MCG TAB PO SCH (06:22)
[2018-02-08 07:23] LABS: Glucose,Whole Blood 132 mg/dL (75-99)
[2018-02-08] MEDS: INSULIN ASPART 100 UNIT/ML 1 ML 10 ML VIAL SQ SCH ×4 (07:42→21:02)
[2018-02-08] MEDS: FAMOTIDINE 20 MG TAB PO SCH ×2 (07:42→20:51)
[2018-02-08] MEDS: FUROSEMIDE 40 MG TAB PO SCH (07:43)
[2018-02-08] MEDS: CLOPIDOGREL 75 MG TAB PO SCH (07:43)
[2018-02-08] MEDS: TAMSULOSIN 0.4 MG CAP.ER.24H PO SCH (07:43)
[2018-02-08] MEDS: HYDROCHLOROTHIAZIDE 25 MG TAB PO SCH (07:43)
[2018-02-08] MEDS: CALCITRIOL 0.25 MCG CAP PO SCH (07:43)
[2018-02-08] MEDS: METOPROLOL TARTRATE 25 MG TAB PO SCH ×2 (07:43→20:51)
[2018-02-08] MEDS: MEROPENEM 1 GM in SODIUM CHLORIDE 0.9% 100 ML IVPB SCH ×2 (07:43→20:50)
[2018-02-08] MEDS: CITALOPRAM HYDROBROMIDE 20 MG TAB PO SCH (07:43)
[2018-02-08] MEDS: ALLOPURINOL 100 MG TAB PO SCH (07:43)
[2018-02-08 08:04] LABS: Calcium 8.9 mg/dL (8.4-10.2); Potassium 4.6 mmol/L (3.5-5.1); Total Bilirubin 0.4 mg/dL (0.2-1.3)
[2018-02-08 08:13] LABS: Basophils % (A) 0 %; Eosinophils # (A) 0.2 k/uL (0-0.7); Eosinophils % (A) 4 %; HCT 33.9 % (39.0-53.0); HGB 11.3 gm/dL (13.0-17.5); Lymphocytes % (A) 20 %; MCH 29.2 pg (25.0-35.0); MCHC 33.2 g/dL (31.0-37.0); MCV 87.8 fL (80.0-100.0); Mean Platelet Volume 7.7; Monocytes # (A) 0.3 k/uL (0-1.0); Monocytes % (A) 6 %; Neutrophils # (A) 3.5 k/uL (1.3-7.7); Neutrophils % (A) 68 %; Platelet Count 126 k/uL (150-450); RBC 3.86 m/uL (4.30-5.90); RDW 13.7 % (11.5-15.5); WBC 5.1 k/uL (3.8-10.6)
[2018-02-08 12:11] LABS: Glucose,Whole Blood 180 mg/dL (75-99)
--- NOTE | 2018-02-08 14:01 | P.PN ---
Subjective Progress Note Date: 02/08/18 Principal diagnosis: Patient feels okay today Does not appear to be confused Still weeks but feels better Assessment and plan UTI with confusion , around baseline continue IV antibiotics as per ID and recommend IV antibiotics at home due to the multiple resistant organism, Generalized weakness likely due to the current UTI Confusion likely due to the current UTI History of CVA no evidence of CVA at this time patient at baseline mentation Diabetes we'll put the patient on sliding scale insulin Patient feels okay today still weak Constitutional: No acute distress, Eyes: Anicteric sclerae, moist conjunctiva, no lid-lag PERRLA ENMT: NC/AT Oropharynx clear, no erythema, exudates Neck: Supple, FROM, no masses, or JVD No carotid bruits No thyromegaly Lungs: Clear to auscultation Clear to percussion Normal respiratory effort, no accessory muscle use Cardiovascular: Heart regular in rate and rhythm, No murmurs, gallops, or rubs No peripheral edema Abdominal: Soft Nontender, no guarding, Skin: Normal temperature, tone, texture, turgor No induration No subcutaneous nodules No rash, lesions No ulcers Extremities: No digital cyanosis No clubbing Pedal pulses intact and symmetrical Radial pulses intact and symmetrical Normal gait and station No calf tenderness Psychiatric:Alert and oriented to person, place and time Appropriate affect Intact judgement Neuro: Generalized weakness Vital Signs (72 hours) 02/05/18 02/05/18 02/05/18 15:41 17:10 17:30 Temperature 97.3 F L 97.7 F Pulse Rate 67 73 Pulse Rate [ 73 Pulse Oximetery ] Respiratory 18 20 18 Rate Blood Pressure 126/63 140/69 Blood Pressure 152/87 [Left Arm] Blood Pressure [Right Arm] O2 Sat by Pulse 98 95 97 Oximetry 02/05/18 02/06/18 02/06/18 23:00 05:25 15:00 Temperature 98.2 F 96.1 F L 99.9 F H Pulse Rate Pulse Rate [ 78 72 78 Pulse Oximetery ] Respiratory 18 14 20 Rate Blood Pressure Blood Pressure 119/60 [Left Arm] Blood Pressure 129/70 154/77 [Right Arm] O2 Sat by Pulse 95 96 92 L Oximetry 02/06/18 02/07/18 02/07/18 23:00 00:00 06:14 Temperature 99.6 F 99.6 F 96.6 F L Pulse Rate Pulse Rate [ 85 73 Pulse Oximetery ] Respiratory 16 20 Rate Blood Pressure Blood Pressure 123/61 [Left Arm] Blood Pressure 136/75 [Right Arm] O2 Sat by Pulse 94 L 96 Oximetry 02/07/18 02/07/18 02/07/18 08:00 15:16 16:00 Temperature 97 F L Pulse Rate Pulse Rate [ 73 67 67 Pulse Oximetery ] Respiratory 20 19 19 Rate Blood Pressure Blood Pressure [Left Arm] Blood Pressure 158/84 [Right Arm] O2 Sat by Pulse 98 Oximetry 02/07/18 02/08/18 22:30 06:10 Temperature 97.0 F L 97.0 F L Pulse Rate Pulse Rate [ 76 76 Pulse Oximetery ] Respiratory 16 16 Rate Blood Pressure Blood Pressure [Left Arm] Blood Pressure 134/69 142/75 [Right Arm] O2 Sat by Pulse 95 95 Oximetry Most recent lab results Calcium 8.9 mg/dL (8.4-10.2) 02/08/18 07:31 Objective - Vital Signs Vital signs: Vital Signs Temp 97.0 F L 02/08/18 06:10 Pulse 76 02/08/18 06:10 Resp 16 02/08/18 06:10 BP 142/75 02/08/18 06:10 Pulse Ox 95 02/08/18 06:10 Intake & Output 02/07/18 02/08/18 02/08/18 18:59 06:59 18:59 Other: Voiding Method Incontinent Incontinent # Voids 2 2 2 # Bowel Movements 1 # Emeses 0 - Labs CBC & Chem 7: 02/08/18 07:31 02/08/18 07:31 Labs: Abnormal Lab Results - Last 24 Hours (Table) 02/07/18 02/07/18 02/08/18 Range/Units 17:07 20:55 07:09 RBC (4.30-5.90) m/uL Hgb (13.0-17.5) gm/dL Hct (39.0-53.0) % Plt Count (150-450) k/uL Chloride (98-107) mmol/L BUN (9-20) mg/dL Creatinine (0.66-1.25) mg/dL Glucose (74-99) mg/dL POC Glucose (mg/dL) 125 H 159 H 132 H (75-99) mg/dL AST (17-59) U/L Total Protein (6.3-8.2) g/dL Albumin (3.5-5.0) g/dL 02/08/18 02/08/18 02/08/18 Range/Units 07:31 07:31 11:59 RBC 3.86 L (4.30-5.90) m/uL Hgb 11.3 L (13.0-17.5) gm/dL Hct 33.9 L (39.0-53.0) % Plt Count 126 L (150-450) k/uL Chloride 109 H (98-107) mmol/L BUN 38 H (9-20) mg/dL Creatinine 1.70 H (0.66-1.25) mg/dL Glucose 129 H (74-99) mg/dL POC Glucose (mg/dL) 180 H (75-99) mg/dL AST 16 L (17-59) U/L Total Protein 5.0 L (6.3-8.2) g/dL Albumin 3.0 L (3.5-5.0) g/dL Microbiology - Last 24 Hours (Table) 02/05/18 13:55 Urine Culture - Final Urine,Voided Pseudomonas aeruginosa
[2018-02-08] MEDS: SODIUM CHLORIDE 0.9% 1,000 ML IV SCH ×2 (14:23→20:55)
[2018-02-08 14:57] LABS: Basophils % (A) 0 %; Eosinophils # (A) 0.2 k/uL (0-0.7); Eosinophils % (A) 4 %; HCT 34.3 % (39.0-53.0); HGB 11.4 gm/dL (13.0-17.5); Lymphocytes % (A) 21 %; MCH 29.4 pg (25.0-35.0); MCHC 33.2 g/dL (31.0-37.0); MCV 88.6 fL (80.0-100.0); Mean Platelet Volume 7.5; Monocytes # (A) 0.3 k/uL (0-1.0); Monocytes % (A) 6 %; Neutrophils # (A) 3.1 k/uL (1.3-7.7); Neutrophils % (A) 68 %; Platelet Count 136 k/uL (150-450); RBC 3.87 m/uL (4.30-5.90); RDW 13.8 % (11.5-15.5); WBC 4.5 k/uL (3.8-10.6)
[2018-02-08 17:09] LABS: Glucose,Whole Blood 116 mg/dL (75-99)
[2018-02-08] MEDS: ACETAMINOPHEN TAB 325 MG TAB PO SCH ×2 (20:50→20:53)
[2018-02-08] MEDS: MAGNESIUM OXIDE 400 MG TAB PO SCH (20:51)
[2018-02-08] MEDS: ATORVASTATIN 80 MG TAB PO SCH (20:51)
[2018-02-08] MEDS: ASPIRIN 81 MG PO SCH (20:51)
[2018-02-08] MEDS: ISOSORBIDE MONONITRATE ER 30 MG TAB.ER.24H PO SCH (20:51)
[2018-02-08] MEDS: DOXEPIN 25 MG CAP PO SCH (20:51)
[2018-02-08 21:01] LABS: Glucose,Whole Blood 126 mg/dL (75-99)
[2018-02-09] MEDS: LEVOTHYROXINE 137 MCG TAB PO SCH (06:21)
[2018-02-09 06:54] LABS: Glucose,Whole Blood 139 mg/dL (75-99)
[2018-02-09] MEDS: INSULIN ASPART 100 UNIT/ML 1 ML 10 ML VIAL SQ SCH ×4 (07:56→21:46)
[2018-02-09] MEDS: MEROPENEM 1 GM in SODIUM CHLORIDE 0.9% 100 ML IVPB SCH ×2 (07:57→21:45)
[2018-02-09] MEDS: CALCITRIOL 0.25 MCG CAP PO SCH (07:57)
[2018-02-09] MEDS: FAMOTIDINE 20 MG TAB PO SCH (07:57)
[2018-02-09] MEDS: METOPROLOL TARTRATE 25 MG TAB PO SCH ×2 (07:58→21:45)
[2018-02-09] MEDS: ALLOPURINOL 100 MG TAB PO SCH (07:58)
[2018-02-09] MEDS: CITALOPRAM HYDROBROMIDE 20 MG TAB PO SCH (07:58)
[2018-02-09] MEDS: CLOPIDOGREL 75 MG TAB PO SCH (07:59)
[2018-02-09] MEDS: HYDROCHLOROTHIAZIDE 25 MG TAB PO SCH (07:59)
[2018-02-09] MEDS: TAMSULOSIN 0.4 MG CAP.ER.24H PO SCH (07:59)
[2018-02-09] MEDS: FUROSEMIDE 40 MG TAB PO SCH (07:59)
[2018-02-09 08:51] LABS: Basophils % (A) 0 %; Eosinophils # (A) 0.2 k/uL (0-0.7); Eosinophils % (A) 4 %; HCT 34.8 % (39.0-53.0); HGB 11.1 gm/dL (13.0-17.5); Lymphocytes # (A) 1.2 k/uL (1.0-4.8); Lymphocytes % (A) 23 %; MCH 28.4 pg (25.0-35.0); MCHC 31.9 g/dL (31.0-37.0); MCV 89.2 fL (80.0-100.0); Mean Platelet Volume 7.3; Monocytes # (A) 0.2 k/uL (0-1.0); Monocytes % (A) 5 %; Neutrophils # (A) 3.6 k/uL (1.3-7.7); Neutrophils % (A) 67 %; Platelet Count 120 k/uL (150-450); RDW 14.4 % (11.5-15.5); WBC 5.3 k/uL (3.8-10.6)
[2018-02-09 08:55] LABS: Albumin 3.3 g/dL (3.5-5.0); Calcium 8.8 mg/dL (8.4-10.2); Potassium 4.7 mmol/L (3.5-5.1); Total Bilirubin 0.4 mg/dL (0.2-1.3); Total Protein 5.3 g/dL (6.3-8.2)
--- NOTE | 2018-02-09 10:52 | P.PN ---
Subjective Progress Note Date: 02/09/18 Principal diagnosis: Patient feels better today no chest pain no shortness of breath States that the weakness is improving Appears that the confusion resolved and patient is around baseline mental status Assessment and plan UTI with confusion , confusion resolved Patient will have a PICC line today for preparation for IV antibiotics outpatient as recommended by her ID And awaiting final cultures for decision about the IV antibiotics outpatient Generalized weakness likely due to the current UTI Overall the condition of the patient is stable Also the patient can be discharged in a.m. after the PICC line has been inserted History of CVA no evidence of CVA at this time patient at baseline mentation Diabetes we'll put the patient on sliding scale insulin Patient feels okay today still weak Constitutional: No acute distress, Eyes: Anicteric sclerae, moist conjunctiva, no lid-lag PERRLA ENMT: NC/AT Oropharynx clear, no erythema, exudates Neck: Supple, FROM, no masses, or JVD No carotid bruits No thyromegaly Lungs: Clear to auscultation Clear to percussion Normal respiratory effort, no accessory muscle use Cardiovascular: Heart regular in rate and rhythm, No murmurs, gallops, or rubs No peripheral edema Abdominal: Soft Nontender, no guarding, Skin: Normal temperature, tone, texture, turgor No induration No subcutaneous nodules No rash, lesions No ulcers Extremities: No digital cyanosis No clubbing Pedal pulses intact and symmetrical Radial pulses intact and symmetrical Normal gait and station No calf tenderness Psychiatric:Alert and oriented to person, place and time Appropriate affect Intact judgement Neuro: Generalized weakness Laboratory Results - last 24 hr 02/08/18 02/08/18 02/08/18 11:59 14:39 17:00 WBC 4.5 RBC 3.87 L Hgb 11.4 L Hct 34.3 L MCV 88.6 MCH 29.4 MCHC 33.2 RDW 13.8 Plt Count 136 L Neutrophils % 68 Lymphocytes % 21 Monocytes % 6 Eosinophils % 4 Basophils % 0 Neutrophils # 3.1 Lymphocytes # 1.0 Monocytes # 0.3 Eosinophils # 0.2 Basophils # 0.0 Sodium Potassium Chloride Carbon Dioxide Anion Gap BUN Creatinine Est GFR (CKD-EPI)AfAm Est GFR (CKD-EPI)NonAf Glucose POC Glucose (mg/dL) 180 H 116 H POC Glu Machine Assistant ID Blue, Courtney Blue, Courtney Calcium Total Bilirubin AST ALT Alkaline Phosphatase Total Protein Albumin 02/08/18 02/09/18 02/09/18 20:59 06:50 08:12 WBC 5.3 RBC 3.90 L Hgb 11.1 L Hct 34.8 L MCV 89.2 MCH 28.4 MCHC 31.9 RDW 14.4 Plt Count 120 L Neutrophils % 67 Lymphocytes % 23 Monocytes % 5 Eosinophils % 4 Basophils % 0 Neutrophils # 3.6 Lymphocytes # 1.2 Monocytes # 0.2 Eosinophils # 0.2 Basophils # 0.0 Sodium Potassium Chloride Carbon Dioxide Anion Gap BUN Creatinine Est GFR (CKD-EPI)AfAm Est GFR (CKD-EPI)NonAf Glucose POC Glucose (mg/dL) 126 H 139 H POC Glu Machine Assistant ID Sarah Walker [place] Calcium Total Bilirubin AST ALT Alkaline Phosphatase Total Protein Albumin 02/09/18 08:12 WBC RBC Hgb Hct MCV MCH MCHC RDW Plt Count Neutrophils % Lymphocytes % Monocytes % Eosinophils % Basophils % Neutrophils # Lymphocytes # Monocytes # Eosinophils # Basophils # Sodium 142 Potassium 4.7 Chloride 110 H Carbon Dioxide 23 Anion Gap 9 BUN 38 H Creatinine 1.64 H Est GFR (CKD-EPI)AfAm 48 Est GFR (CKD-EPI)NonAf 42 Glucose 136 H POC Glucose (mg/dL) POC Glu Machine Assistant ID Calcium 8.8 Total Bilirubin 0.4 AST 26 ALT 35 Alkaline Phosphatase 89 Total Protein 5.3 L Albumin 3.3 L Vital Signs 02/05/18 02/05/18 02/05/18 13:14 15:41 17:10 Temperature 96.9 F L 97.3 F L Pulse Rate 60 67 73 Pulse Rate [ Pulse Oximetery ] Respiratory 20 18 20 Rate Blood Pressure 151/85 126/63 140/69 Blood Pressure [Left Arm] Blood Pressure [Right Arm] O2 Sat by Pulse 99 98 95 Oximetry 02/05/18 02/05/18 02/06/18 17:30 23:00 05:25 Temperature 97.7 F 98.2 F 96.1 F L Pulse Rate Pulse Rate [ 73 78 72 Pulse Oximetery ] Respiratory 18 18 14 Rate Blood Pressure Blood Pressure 152/87 119/60 [Left Arm] Blood Pressure 129/70 [Right Arm] O2 Sat by Pulse 97 95 96 Oximetry 02/06/18 02/06/18 02/07/18 15:00 23:00 00:00 Temperature 99.9 F H 99.6 F 99.6 F Pulse Rate Pulse Rate [ 78 85 Pulse Oximetery ] Respiratory 20 16 Rate Blood Pressure Blood Pressure [Left Arm] Blood Pressure 154/77 136/75 [Right Arm] O2 Sat by Pulse 92 L 94 L Oximetry 02/07/18 02/07/18 02/07/18 06:14 08:00 15:16 Temperature 96.6 F L 97 F L Pulse Rate Pulse Rate [ 73 73 67 Pulse Oximetery ] Respiratory 20 20 19 Rate Blood Pressure Blood Pressure 123/61 [Left Arm] Blood Pressure 158/84 [Right Arm] O2 Sat by Pulse 96 98 Oximetry 02/07/18 02/07/18 02/08/18 16:00 22:30 06:10 Temperature 97.0 F L 97.0 F L Pulse Rate Pulse Rate [ 67 76 76 Pulse Oximetery ] Respiratory 19 16 16 Rate Blood Pressure Blood Pressure [Left Arm] Blood Pressure 134/69 142/75 [Right Arm] O2 Sat by Pulse 95 95 Oximetry 02/08/18 02/08/18 02/09/18 14:40 23:00 00:00 Temperature 96.8 F L 98.3 F Pulse Rate Pulse Rate [ 63 71 63 Pulse Oximetery ] Respiratory 22 16 Rate Blood Pressure Blood Pressure 151/76 [Left Arm] Blood Pressure 139/65 [Right Arm] O2 Sat by Pulse 96 94 L Oximetry 02/09/18 06:06 Temperature 98.4 F Pulse Rate Pulse Rate [ 76 Pulse Oximetery ] Respiratory 12 Rate Blood Pressure Blood Pressure [Left Arm] Blood Pressure 132/68 [Right Arm] O2 Sat by Pulse 95 Oximetry Objective - Vital Signs Vital signs: Vital Signs Temp 98.4 F 02/09/18 06:06 Pulse 76 02/09/18 06:06 Resp 12 02/09/18 06:06 BP 132/68 02/09/18 06:06 Pulse Ox 95 02/09/18 06:06 Intake & Output 02/08/18 02/09/18 02/09/18 18:59 06:59 18:59 Intake Total 700 100 Output Total 300 Balance 700 -300 100 Intake: Intake, IV Titration 700 100 Amount Meropenem 1 gm In Sodium 100 100 Chloride 0.9% 100 ml @ 100 mls/hr IVPB Q12HR COUNT INCLUDES THE [facility] Rx#:[id number] Sodium Chloride 0.9% 1, 600 000 ml @ 75 mls/hr IV . [id number] COUNT INCLUDES THE [facility] Rx#:[id number] Output: Urine 300 Other: Voiding Method Incontinent # Voids 1 1 # Bowel Movements 1 1 - Labs CBC & Chem 7: 02/09/18 08:12 02/09/18 08:12 Labs: Abnormal Lab Results - Last 24 Hours (Table) 02/08/18 02/08/18 02/08/18 Range/Units 11:59 14:39 17:00 RBC 3.87 L (4.30-5.90) m/uL Hgb 11.4 L (13.0-17.5) gm/dL Hct 34.3 L (39.0-53.0) % Plt Count 136 L (150-450) k/uL Chloride (98-107) mmol/L BUN (9-20) mg/dL Creatinine (0.66-1.25) mg/dL Glucose (74-99) mg/dL POC Glucose (mg/dL) 180 H 116 H (75-99) mg/dL Total Protein (6.3-8.2) g/dL Albumin (3.5-5.0) g/dL 02/08/18 02/09/18 02/09/18 Range/Units 20:59 06:50 08:12 RBC 3.90 L (4.30-5.90) m/uL Hgb 11.1 L (13.0-17.5) gm/dL Hct 34.8 L (39.0-53.0) % Plt Count 120 L (150-450) k/uL Chloride (98-107) mmol/L BUN (9-20) mg/dL Creatinine (0.66-1.25) mg/dL Glucose (74-99) mg/dL POC Glucose (mg/dL) 126 H 139 H (75-99) mg/dL Total Protein (6.3-8.2) g/dL Albumin (3.5-5.0) g/dL 02/09/18 Range/Units 08:12 RBC (4.30-5.90) m/uL Hgb (13.0-17.5) gm/dL Hct (39.0-53.0) % Plt Count (150-450) k/uL Chloride 110 H (98-107) mmol/L BUN 38 H (9-20) mg/dL Creatinine 1.64 H (0.66-1.25) mg/dL Glucose 136 H (74-99) mg/dL POC Glucose (mg/dL) (75-99) mg/dL Total Protein 5.3 L (6.3-8.2) g/dL Albumin 3.3 L (3.5-5.0) g/dL Microbiology - Last 24 Hours (Table) 02/05/18 13:55 Urine Culture - Final Urine,Voided Pseudomonas aeruginosa
--- NOTE | 2018-02-09 11:18 | CDI ---
Last Revision, July 2017 Documentation Clarification Form Date: 02/09/18 1114 From: Claire Rivas RN, CCDS Admit Date: 02/08/2018 5:59:00 PM Patient Name: Junaid Ruiz Visit Number: [id number] ATTENTION: The Clinical Documentation Specialists (CDI) and [facility] Coding Staff appreciate your assistance in clarifying documentation. Please respond to the clarification below the line at the bottom and electronically sign. The CDI & [facility] Coding staff will review the response and follow-up if needed. Please note: Queries are made part of the Legal Health Record. If you have any questions, please contact the author of this message via ITS. Dr. Bella Rubi Altered mental status was documented in the H&P and Progress notes and requires further specificity. Patient history/risk factors: UTI with sepsis Hx, Multiple allergies MDRO, renal disease, TIA, SILVANA Clinical Indicators: 02/05 H&P: "UTI with symptoms of confusion worrisome about sepsis we will start the patient on Levaquin and Merrem." 02/06 Attending: "Less confused today." Labs: Hgb 12.2/10.7/11.1/, BUN 44/42/41/38, Creatinine 1.9/1.85/1.9/1.7/1.64 AXR:- CT: Not done Infection: UTI Treatment: Celexa 20 mg Po QD IV Meropenem 1 Gm IVPB Q 12 hrs IVF In your professional opinion, please clarify the etiology of the altered mental status, if known. Encephalopathy (specify Type- Toxic, Metabolic and Underlying Medical Illness) Delirium (specify cause): Dementia (if know, specify Type and if with/without Behavioral Disturbance) Other condition (please specify) Unable to determine Please continue to document in your progress notes and discharge summary in order to capture severity of illness and risk of mortality. Include clinical findings that support your diagnosis. MTDD
--- NOTE | 2018-02-09 11:32 | CDI ---
Last Revision, July 2017 Documentation Clarification Form Date: 02/09/18 1130 From: Claire Rivas RN, CCDS Admit Date: 02/08/2018 5:59:00 PM Patient Name: Junaid Ruiz Visit Number: [id number] ATTENTION: The Clinical Documentation Specialists (CDI) and [facility] Coding Staff appreciate your assistance in clarifying documentation. Please respond to the clarification below the line at the bottom and electronically sign. The CDI & [facility] Coding staff will review the response and follow-up if needed. Please note: Queries are made part of the Legal Health Record. If you have any questions, please contact the author of this message via ITS. Dr. Bella Rubi Renal disease and renal insufficiency have been documented in the medical record and require further specificity. History/Risk Factors: CAD, Kidney stones, MDRO, hx of UTI w sepsis d/t pseudomonas, HTN, GA, prostate disorder, renal disease 07/15/17 Patients Baseline BUN: 50 CR: 2.06 GFR: 32 Clinical Indicators: Patients Current BUN: 44/42/41/38 CR: 1.9/1.85/1.9/1.7/1.64 GFR: 35/36/35/40/42 EC/H&P/ Consult PMH: "decreased kidney function, Renal Disease" 02/05 ED Note: "stage III renal insufficiency." Treatment: Consults: IVF @ 75 cc/hr Lasix 40 mg PO QD, Hydroduiril 25 mg PO Q AM In order to capture the severity of condition, please clarify if the condition signifies: Acute renal failure, Please specify etiology (if known): Cortical Necrosis Medullary Necrosis Tubular Necrosis Acute kidney injury Acute on chronic renal failure CKD Stage 1 GFR >90 CKD Stage 2 GFR 60-89 CKD Stage 3 GFR 30-59 CKD Stage 4 GFR 15-29 CKD Stage 5 GFR <15 Chronic renal failure/Chronic Kidney disease (CKD) please stage if known CKD Stage 1 GFR >90 CKD Stage 2 GFR 60-89 CKD Stage 3 GFR 30-59 CKD Stage 4 GFR 15-29 CKD Stage 5 GFR <15 ESRD Other, please specify Unable to determine Please continue to document in your progress notes and discharge summary in order to capture severity of illness and risk of mortality. Include clinical findings that support your diagnosis. MTDD
--- NOTE | 2018-02-09 11:46 | P.PN ---
Progress Note - Text Progress Note Date: 02/09/18 CkD likely stage III Metabolic encephalopathy as the cause of the confusion
[2018-02-09 11:59] LABS: Glucose,Whole Blood 164 mg/dL (75-99)
[2018-02-09] MEDS: SODIUM CHLORIDE 0.9% 1,000 ML IV SCH (12:01)
[2018-02-09] MEDS ORDERED: LIDOCAINE 2% INJ 20 MG/ML SQ ONE (14:27)
--- NOTE | 2018-02-09 14:46 | IR ---
PICC LINE PLACEMENT: HISTORY: Infection requiring long-term antibiotic therapy PROCEDURE: Ultrasound and fluoroscopic guidance of PICC line placement. COMPLICATIONS: None ANESTHESIA: 1. 1% Lidocaine locally. FINDINGS/TECHNIQUE: The procedure was explained to the patient. The risks, complications, benefits and alternatives were discussed and any questions were answered. Informed consent was obtained. The patient was placed supine on the fluoroscopic table and prepped and draped in the usual sterile fas ion. Utilizing a 21 gauge needle and sonographic and fluoroscopic guidance, access in the vein was achieved and there is placement of a 0.018 guidewire. The vein is patent. A 4-F sheath was placed o kishore the guidewire. The guidewire and dilator were removed and a 4-F. PICC line was placed through th e sheath with the tip at the level of the SVC. The sheath was removed, the catheter was flushed and sutured into position. The patient was stable throughout the procedure and remained stable upon disc harge from the Department of Radiology. The vein puncture was patent under ultrasound. A adorno scale image was obtained to document patency of the vein punctured. All elements of the maximal barrier technique were utilized. FLUOROSCOPY TIME: 0.2 minute, one image submitted. IMPRESSION: Successful PICC line placement under ultrasound and fluoroscopic guidance.
[2018-02-09 17:20] LABS: Glucose,Whole Blood 157 mg/dL (75-99)
--- NOTE | 2018-02-09 20:27 | P.PN ---
Subjective Progress Note Date: 02/09/18 2 year old male was at home with his when he developed symptoms of fever, with chills and malaise. He told his the combine was stuck in the field next to the house. The patient's was concerned because the equipment is not used at this time of the year, and when she looked she could not see the machinery. The patient however states acute hearing the combine stuck in the field. Because of his history of sepsis from urinary system last year she became concerned and brought him to the primary care physician. There the patient had evidence of a fever which was noted at home and constantly he was directed to the emergency center. 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 The patient certainly feel a bit better. The fevers chills and malaise have improved a bit his appetite is better. Still does not feel at his baseline yet. He did have an ultrasound performed without evidence of hydronephrosis. The patient at this time is denying other acute new symptoms. Patient is feeling better today. Is responding well to current antibiotic therapy. Patient is aware that there are no oral options but is doing well with the current carbapenem. Objective - Vital Signs Vital signs: Vital Signs Temp 97.7 F 02/09/18 14:48 Pulse 66 02/09/18 14:48 Resp 18 02/09/18 14:48 BP 137/72 02/09/18 14:48 Pulse Ox 94 L 02/09/18 14:48 Intake & Output 02/09/18 02/09/18 02/10/18 06:59 18:59 06:59 Intake Total 100 Output Total 300 Balance -300 100 Weight 117.934 kg Intake: Intake, IV Titration 100 Amount Meropenem 1 gm In Sodium 100 Chloride 0.9% 100 ml @ 100 mls/hr IVPB Q12HR [facility] Rx#:[id number] Output: Urine 300 Other: Voiding Method Incontinent Incontinent # Voids 1 2 # Bowel Movements 1 - Exam 72 year old male was at home with his when he developed symptoms of fever, with chills and malaise. He told his the combine was stuck in the field next to the house. The patient's was concerned because the equipment is not used at this time of the year, and when she looked she could not see the machinery. The patient however states acute hearing the combine stuck in the field. Because of his history of sepsis from urinary system last year she became concerned and brought him to the primary care physician. There the patient had evidence of a fever which was noted at home and constantly he was directed to the emergency center. 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 The patient certainly feel a bit better. The fevers chills and malaise have improved a bit his appetite is better. Still does not feel at his baseline yet. He did have an ultrasound performed without evidence of hydronephrosis. The patient at this time is denying other acute new symptoms. 02/09/2018 reveals the patient to have further improvement of his status. His energy levels improved. He is no longer confused. He is tolerating the meropenem well. And likely will be heading off to rehab to finish his course of intravenous antibiotic therapy, apparently he has no home oxygen for this. He'll phone the office after his release from rehab. The PICC line is in place should be left in place until follow-up cultures are proven negative. - Labs CBC & Chem 7: 02/09/18 08:12 02/09/18 08:12 Labs: Abnormal Lab Results - Last 24 Hours (Table) 02/08/18 02/09/18 02/09/18 Range/Units 20:59 06:50 08:12 RBC 3.90 L (4.30-5.90) m/uL Hgb 11.1 L (13.0-17.5) gm/dL Hct 34.8 L (39.0-53.0) % Plt Count 120 L (150-450) k/uL Chloride (98-107) mmol/L BUN (9-20) mg/dL Creatinine (0.66-1.25) mg/dL Glucose (74-99) mg/dL POC Glucose (mg/dL) 126 H 139 H (75-99) mg/dL Total Protein (6.3-8.2) g/dL Albumin (3.5-5.0) g/dL 02/09/18 02/09/18 02/09/18 Range/Units 08:12 11:57 17:09 RBC (4.30-5.90) m/uL Hgb (13.0-17.5) gm/dL Hct (39.0-53.0) % Plt Count (150-450) k/uL Chloride 110 H (98-107) mmol/L BUN 38 H (9-20) mg/dL Creatinine 1.64 H (0.66-1.25) mg/dL Glucose 136 H (74-99) mg/dL POC Glucose (mg/dL) 164 H 157 H (75-99) mg/dL Total Protein 5.3 L (6.3-8.2) g/dL Albumin 3.3 L (3.5-5.0) g/dL Assessment and Plan (1) Urinary tract infection Current Visit: Yes Status: Acute Code(s): N39.0 - URINARY TRACT INFECTION, SITE NOT SPECIFIED SNOMED Code(s): 71002027 (2) Sepsis due to Pseudomonas aeruginosa Current Visit: Yes Status: Acute Code(s): A41.52 - SEPSIS DUE TO PSEUDOMONAS SNOMED Code(s): 255681416
[2018-02-09 20:39] LABS: Glucose,Whole Blood 162 mg/dL (75-99)
[2018-02-09] MEDS: ISOSORBIDE MONONITRATE ER 30 MG TAB.ER.24H PO SCH (21:46)
[2018-02-09] MEDS: ACETAMINOPHEN TAB 325 MG TAB PO SCH (21:46)
[2018-02-09] MEDS: ATORVASTATIN 80 MG TAB PO SCH (21:46)
[2018-02-09] MEDS: ASPIRIN 81 MG PO SCH (21:46)
[2018-02-09] MEDS: MAGNESIUM OXIDE 400 MG TAB PO SCH (21:46)
[2018-02-09] MEDS: DOXEPIN 25 MG CAP PO SCH (21:46)
[2018-02-09 23:37] VITALS: RESP 16
[2018-02-10] MEDS: LEVOTHYROXINE 137 MCG TAB PO SCH (06:31)
[2018-02-10] MEDS: SODIUM CHLORIDE 0.9% 1,000 ML IV SCH (06:31)
[2018-02-10 07:39] LABS: Glucose,Whole Blood 151 mg/dL (75-99)
[2018-02-10] MEDS: INSULIN ASPART 100 UNIT/ML 1 ML 10 ML VIAL SQ SCH ×4 (07:44→21:50)
[2018-02-10] MEDS: MEROPENEM 1 GM in SODIUM CHLORIDE 0.9% 100 ML IVPB SCH ×2 (07:45→21:50)
[2018-02-10] MEDS: TAMSULOSIN 0.4 MG CAP.ER.24H PO SCH (07:45)
[2018-02-10] MEDS: METOPROLOL TARTRATE 25 MG TAB PO SCH ×2 (07:46→21:50)
[2018-02-10] MEDS: FAMOTIDINE 20 MG TAB PO SCH (07:46)
[2018-02-10] MEDS: ISOSORBIDE MONONITRATE ER 30 MG TAB.ER.24H PO SCH (07:46)
[2018-02-10] MEDS: CALCITRIOL 0.25 MCG CAP PO SCH (07:46)
[2018-02-10] MEDS: ALLOPURINOL 100 MG TAB PO SCH (07:47)
[2018-02-10] MEDS: HYDROCHLOROTHIAZIDE 25 MG TAB PO SCH (07:47)
[2018-02-10] MEDS: CLOPIDOGREL 75 MG TAB PO SCH (07:47)
[2018-02-10] MEDS: FUROSEMIDE 40 MG TAB PO SCH (07:47)
[2018-02-10] MEDS: CITALOPRAM HYDROBROMIDE 20 MG TAB PO SCH (07:47)
[2018-02-10 10:27] LABS: Basophils % (A) 0 %; Eosinophils # (A) 0.2 k/uL (0-0.7); Eosinophils % (A) 4 %; HCT 34.6 % (39.0-53.0); HGB 11.6 gm/dL (13.0-17.5); Lymphocytes # (A) 1.1 k/uL (1.0-4.8); Lymphocytes % (A) 21 %; MCH 29.4 pg (25.0-35.0); MCHC 33.5 g/dL (31.0-37.0); MCV 87.8 fL (80.0-100.0); Mean Platelet Volume 7.7; Monocytes # (A) 0.2 k/uL (0-1.0); Monocytes % (A) 4 %; Neutrophils # (A) 3.6 k/uL (1.3-7.7); Neutrophils % (A) 71 %; Platelet Count 118 k/uL (150-450); RBC 3.94 m/uL (4.30-5.90); RDW 13.7 % (11.5-15.5); WBC 5.1 k/uL (3.8-10.6)
--- NOTE | 2018-02-10 11:23 | P.DS ---
Providers Date of admission: 02/08/18 17:59 Expected date of discharge: 02/10/18 Attending physician: Bella Rubi MD Consults: 02/05/18 15:41 Consult Physician Stat Consulting Provider: Janusz Coon Consult Reason/Comments: Urinary tract infection, recurrent Do you want consulting provider notified?: Yes Primary care physician: Bulmaro Graham - Discharge Diagnosis(es) (1) Sepsis due to Pseudomonas aeruginosa Current Visit: Yes Status: Acute (2) Pseudomonas urinary tract infection Current Visit: Yes Status: Acute (3) Metabolic encephalopathy Current Visit: Yes Status: Acute (4) Type 2 diabetes mellitus with hyperglycemia Current Visit: Yes Status: Acute Hospital Course: The patient is a 72-year-old male that is admitted with confusion found to be secondary to metabolic encephalopathy secondary to a urinary tract infection, the patient had been started on empiric IV antibiotics with Rocephin and IV fluids, the patient had no leukocytosis and was afebrile but his urine culture did grow pseudomonas with multidrug resistance to fluoroquinolones and cephalosporins, ID Dr. Coon is consulted and recommended continuing patient on meropenem. With treatment the patient's encephalopathy cleared and his generalized weakness improved. The patient had a PICC line placed for IV access as he was going to need ongoing a mammogram for the next 7 days after discharge, he was subsequently discharged to [facility] for ongoing IV antibiotics and physical therapy. The patient was recommended to follow-up with his primary care physician Dr. Velazquez in one to 2 days. This discharge process took approximately 35 minutes. Constitutional: No acute distress, conversant, pleasant Eyes: Anicteric sclerae, moist conjunctiva, no lid-lag, PERRLA ENMT: NC/AT,Oropharynx clear, no erythema, exudates Neck:Supple, FROM, no masses, or JVD, No carotid bruits; No thyromegaly Lungs: Clear to auscultation, Clear to percussion, Normal respiratory effort, no accessory muscle use Cardiovascular: Heart regular in rate and rhythm, No murmurs, gallops, or rubs no peripheral edema Abdominal: Soft Nontender, nom distended, no guarding, no rebound or rigidity, Normoactive bowel sounds No hepatomegaly, No splenomegaly, No palpable mass No abdominal wall hernia noted Skin: Normal temperature, tone, texture, turgor, No induration No subcutaneous nodules, No rash, lesions, No ulcers Extremities:No digital cyanosis No clubbing, Pedal pulses intact and symmetrical Radial pulses intact and symmetrical Normal gait and station, No calf tenderness Psychiatric: Alert and oriented to person, place and time, Appropriate affect Intact judgement Patient Condition at Discharge: Good Plan - Discharge Summary Discharge Rx Participant: No New Discharge Prescriptions: New Meropenem [Merrem] 1 gm IVPB Q8H #20 vial Meropenem [Merrem] 1 gm IVPB Q12HR vial Continue Folic Acid 1 mg PO QAM Clopidogrel Bisulfate [Plavix] 75 mg PO QAM Allopurinol [Zyloprim] 100 mg PO QAM Isosorbide Mononitrate [Isosorbide Mononitrate ER] 30 mg PO HS Atorvastatin [Lipitor] 80 mg PO HS Levothyroxine Sodium [Synthroid] 137 mcg PO QAM Calcitriol 0.25 mcg PO QAM Aspirin 81 mg PO HS Ergocalciferol (Vitamin D2) [Vitamin D2] 50,000 unit PO Q14D Insulin Glargine [Lantus] 25 unit SQ HS #1 vial hydrALAZINE HCL [Apresoline] 25 mg PO TID tab INSULIN LISPRO (HumaLOG) [humaLOG] See Protocol SQ ACHS Hydrochlorothiazide [Hydrodiuril] 25 mg PO QAM Iron 27mg 27 mg PO QAM Acetaminophen [Tylenol Arthritis] 1,300 mg PO HS Magnesium Oxide [Mag-Ox] 500 mg PO HS Fish Oil/Dha/Epa [Fish Oil 1,200 mg Fish Oil] 1 cap PO HS Metoprolol Tartrate [Lopressor] 75 mg PO BID glipiZIDE [Glucotrol] 5 mg PO AC-BID Ranitidine HCl 150 mg PO BID Citalopram Hydrobromide [CeleXA] 20 mg PO DAILY Doxepin [SINEquan] 25 mg PO HS Tamsulosin HCl [Flomax] 0.4 mg PO QAM Discharge Medication List Allopurinol [Zyloprim] 100 mg PO QAM 11/28/15 [History] Aspirin 81 mg PO HS 11/28/15 [History] Atorvastatin [Lipitor] 80 mg PO HS 11/28/15 [History] Calcitriol 0.25 mcg PO QAM 11/28/15 [History] Clopidogrel Bisulfate [Plavix] 75 mg PO QAM 11/28/15 [History] Folic Acid 1 mg PO QAM 11/28/15 [History] Isosorbide Mononitrate [Isosorbide Mononitrate ER] 30 mg PO HS 11/28/15 [History ] Levothyroxine Sodium [Synthroid] 137 mcg PO QAM 11/28/15 [History] Ergocalciferol (Vitamin D2) [Vitamin D2] 50,000 unit PO Q14D 11/29/16 [History] Insulin Glargine [Lantus] 25 unit SQ HS #1 vial 12/12/16 [Rx] hydrALAZINE HCL [Apresoline] 25 mg PO TID tab 07/15/17 [Rx] Acetaminophen [Tylenol Arthritis] 1,300 mg PO HS 02/05/18 [History] Citalopram Hydrobromide [CeleXA] 20 mg PO DAILY 02/05/18 [History] Doxepin [SINEquan] 25 mg PO HS 02/05/18 [History] Fish Oil/Dha/Epa [Fish Oil 1,200 mg Fish Oil] 1 cap PO HS 02/05/18 [History] Hydrochlorothiazide [Hydrodiuril] 25 mg PO QAM 02/05/18 [History] INSULIN LISPRO (HumaLOG) [humaLOG] See Protocol SQ ACHS 02/05/18 [History] Iron 27mg 27 mg PO QAM 02/05/18 [History] Magnesium Oxide [Mag-Ox] 500 mg PO HS 02/05/18 [History] Metoprolol Tartrate [Lopressor] 75 mg PO BID 02/05/18 [History] Ranitidine HCl 150 mg PO BID 02/05/18 [History] Tamsulosin HCl [Flomax] 0.4 mg PO QAM 02/05/18 [History] glipiZIDE [Glucotrol] 5 mg PO AC-BID 02/05/18 [History] Meropenem [Merrem] 1 gm IVPB Q8H #20 vial 02/08/18 [Rx] Meropenem [Merrem] 1 gm IVPB Q12HR vial 02/10/18 [Rx] Follow up Appointment(s)/Referral(s): Bulmaro Graham DO [Primary Care Provider] - 1-2 days Ambulatory/Diagnostic Orders: Basic Metabolic Panel [LAB.AMB] Location: Determined By Patient Complete Blood Count w/diff [LAB.AMB] Location: Determined By Patient
[2018-02-10 11:43] LABS: Glucose,Whole Blood 164 mg/dL (75-99)
[2018-02-10 11:45] LABS: Albumin 3.1 g/dL (3.5-5.0); Calcium 8.9 mg/dL (8.4-10.2); Potassium 4.8 mmol/L (3.5-5.1); Total Bilirubin 0.3 mg/dL (0.2-1.3); Total Protein 4.9 g/dL (6.3-8.2)
[2018-02-10 17:07] LABS: Glucose,Whole Blood 192 mg/dL (75-99)
[2018-02-10 20:59] LABS: Glucose,Whole Blood 179 mg/dL (75-99)
[2018-02-10] MEDS: DOXEPIN 25 MG CAP PO SCH (21:49)
[2018-02-10] MEDS: ACETAMINOPHEN TAB 325 MG TAB PO SCH (21:49)
[2018-02-10] MEDS: MAGNESIUM OXIDE 400 MG TAB PO SCH (21:49)
[2018-02-10] MEDS: ASPIRIN 81 MG PO SCH (21:49)
[2018-02-10] MEDS: ATORVASTATIN 80 MG TAB PO SCH (21:50)
--- NOTE | 2018-02-10 22:17 | P.PN ---
Subjective Progress Note Date: 02/10/18 72 year old male was at home with his when he developed symptoms of fever, with chills and malaise. He told his the combine was stuck in the field next to the house. The patient's was concerned because the equipment is not used at this time of the year, and when she looked she could not see the machinery. The patient however states acute hearing the combine stuck in the field. Because of his history of sepsis from urinary system last year she became concerned and brought him to the primary care physician. There the patient had evidence of a fever which was noted at home and constantly he was directed to the emergency center. 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 The patient certainly feel a bit better. The fevers chills and malaise have improved a bit his appetite is better. Still does not feel at his baseline yet. He did have an ultrasound performed without evidence of hydronephrosis. The patient at this time is denying other acute new symptoms. Patient is feeling better today. Is responding well to current antibiotic therapy. Patient is aware that there are no oral options but is doing well with the current carbapenem. 02/10/2018 patient is definitely feeling better. He is awaiting insurance approval to be able to complete his course of therapy at the [facility] for his Pseudomonas urinary tract infection that he has carbapenem susceptible only. Objective - Vital Signs Vital signs: Vital Signs Temp 97.8 F 02/10/18 15:00 Pulse 78 02/10/18 15:00 Resp 16 02/10/18 15:00 BP 128/68 02/10/18 15:00 Pulse Ox 95 02/10/18 15:00 Intake & Output 02/10/18 02/10/18 02/11/18 06:59 18:59 06:59 Intake Total 1200 Output Total 300 Balance 900 Weight 117.934 kg Intake: Oral 1200 Output: Urine 300 Other: Voiding Method Toilet Toilet # Voids 1 1 1 - Exam 72 year old male was at home with his when he developed symptoms of fever, with chills and malaise. He told his the combine was stuck in the field next to the house. The patient's was concerned because the equipment is not used at this time of the year, and when she looked she could not see the machinery. The patient however states acute hearing the combine stuck in the field. Because of his history of sepsis from urinary system last year she became concerned and brought him to the primary care physician. There the patient had evidence of a fever which was noted at home and constantly he was directed to the emergency center. 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 The patient certainly feel a bit better. The fevers chills and malaise have improved a bit his appetite is better. Still does not feel at his baseline yet. He did have an ultrasound performed without evidence of hydronephrosis. The patient at this time is denying other acute new symptoms. 02/09/2018 reveals the patient to have further improvement of his status. His energy levels improved. He is no longer confused. He is tolerating the meropenem well. And likely will be heading off to rehab to finish his course of intravenous antibiotic therapy, apparently he has no home oxygen for this. He'll phone the office after his release from rehab. The PICC line is in place should be left in place until follow-up cultures are proven negative. 02/10/2018 patient is improved. Overall no new complaints. Tolerating antibiotic therapy well. No fevers or chills and fortunately has had marked improvement. He understands that he'll need to have follow-up in the outpatient setting with the antibiotics are complete. 4 days after his last dose urinalysis and culture should be performed and then follow up with those results to determine her next option will be. - Labs CBC & Chem 7: 02/10/18 09:20 02/10/18 09:20 Labs: Abnormal Lab Results - Last 24 Hours (Table) 02/10/18 02/10/18 02/10/18 Range/Units 07:21 09:20 09:20 RBC 3.94 L (4.30-5.90) m/uL Hgb 11.6 L (13.0-17.5) gm/dL Hct 34.6 L (39.0-53.0) % Plt Count 118 L (150-450) k/uL Chloride 109 H (98-107) mmol/L BUN 39 H (9-20) mg/dL Creatinine 1.50 H (0.66-1.25) mg/dL Glucose 179 H (74-99) mg/dL POC Glucose (mg/dL) 151 H (75-99) mg/dL Total Protein 4.9 L (6.3-8.2) g/dL Albumin 3.1 L (3.5-5.0) g/dL 02/10/18 02/10/18 02/10/18 Range/Units 11:41 16:45 20:57 RBC (4.30-5.90) m/uL Hgb (13.0-17.5) gm/dL Hct (39.0-53.0) % Plt Count (150-450) k/uL Chloride (98-107) mmol/L BUN (9-20) mg/dL Creatinine (0.66-1.25) mg/dL Glucose (74-99) mg/dL POC Glucose (mg/dL) 164 H 192 H 179 H (75-99) mg/dL Total Protein (6.3-8.2) g/dL Albumin (3.5-5.0) g/dL Assessment and Plan (1) Urinary tract infection Current Visit: Yes Status: Acute Code(s): N39.0 - URINARY TRACT INFECTION, SITE NOT SPECIFIED SNOMED Code(s): 30666422 (2) Sepsis due to Pseudomonas aeruginosa Current Visit: Yes Status: Acute Code(s): A41.52 - SEPSIS DUE TO PSEUDOMONAS SNOMED Code(s): 293223356
[2018-02-11] MEDS: LEVOTHYROXINE 137 MCG TAB PO SCH (06:25)
[2018-02-11 07:33] LABS: Glucose,Whole Blood 148 mg/dL (75-99)
[2018-02-11] MEDS: CITALOPRAM HYDROBROMIDE 20 MG TAB PO SCH (08:07)
[2018-02-11] MEDS: INSULIN ASPART 100 UNIT/ML 1 ML 10 ML VIAL SQ SCH ×2 (08:07→12:06)
[2018-02-11] MEDS: HYDROCHLOROTHIAZIDE 25 MG TAB PO SCH (08:07)
[2018-02-11] MEDS: ALLOPURINOL 100 MG TAB PO SCH (08:07)
[2018-02-11] MEDS: TAMSULOSIN 0.4 MG CAP.ER.24H PO SCH (08:07)
[2018-02-11] MEDS: CALCITRIOL 0.25 MCG CAP PO SCH (08:07)
[2018-02-11] MEDS: METOPROLOL TARTRATE 25 MG TAB PO SCH (08:07)
[2018-02-11] MEDS: MEROPENEM 1 GM in SODIUM CHLORIDE 0.9% 100 ML IVPB SCH (08:07)
[2018-02-11] MEDS: FAMOTIDINE 20 MG TAB PO SCH (08:07)
[2018-02-11] MEDS: CLOPIDOGREL 75 MG TAB PO SCH (08:07)
[2018-02-11] MEDS: FUROSEMIDE 40 MG TAB PO SCH (08:07)
[2018-02-11 08:18] VITALS: BP 134/79; PULSE 68; TEMP 97.7
[2018-02-11 09:18] LABS: Basophils % (A) 0 %; Eosinophils # (A) 0.3 k/uL (0-0.7); Eosinophils % (A) 4 %; HCT 39.3 % (39.0-53.0); HGB 12.8 gm/dL (13.0-17.5); Lymphocytes # (A) 1.6 k/uL (1.0-4.8); Lymphocytes % (A) 24 %; MCH 28.6 pg (25.0-35.0); MCHC 32.7 g/dL (31.0-37.0); MCV 87.6 fL (80.0-100.0); Mean Platelet Volume 7.5; Monocytes # (A) 0.4 k/uL (0-1.0); Monocytes % (A) 5 %; Neutrophils # (A) 4.5 k/uL (1.3-7.7); Neutrophils % (A) 66 %; Platelet Count 162 k/uL (150-450); RBC 4.49 m/uL (4.30-5.90); RDW 13.6 % (11.5-15.5); WBC 6.8 k/uL (3.8-10.6)
[2018-02-11 09:19] LABS: Albumin 3.7 g/dL (3.5-5.0); Calcium 9.4 mg/dL (8.4-10.2); Potassium 5.1 mmol/L (3.5-5.1); Total Bilirubin 0.4 mg/dL (0.2-1.3); Total Protein 5.9 g/dL (6.3-8.2)
--- NOTE | 2018-02-11 10:36 | P.PN ---
Subjective Progress Note Date: 02/10/18 Patient feeling good wanting to be discharged to [facility], denies any fevers chills or night sweats. Patient afebrile overnight. No acute events Objective - Vital Signs Vital signs: Vital Signs Temp 97.7 F 02/11/18 07:12 Pulse 68 02/11/18 07:12 Resp 16 02/11/18 07:12 BP 134/79 02/11/18 07:12 Pulse Ox 95 02/11/18 07:12 Intake & Output 02/10/18 02/11/18 02/11/18 18:59 06:59 18:59 Intake Total 1200 Output Total 300 Balance 900 Weight 117.934 kg 117.934 kg Intake: Oral 1200 Output: Urine 300 Other: Voiding Method Toilet Toilet # Voids 1 1 - Exam Constitutional: No acute distress, conversant, pleasant Eyes: Anicteric sclerae, moist conjunctiva, no lid-lag, PERRLA ENMT: NC/AT,Oropharynx clear, no erythema, exudates Neck:Supple, FROM, no masses, or JVD, No carotid bruits; No thyromegaly Lungs: Clear to auscultation, Clear to percussion, Normal respiratory effort, no accessory muscle use Cardiovascular: Heart regular in rate and rhythm, No murmurs, gallops, or rubs no peripheral edema Abdominal: Soft Nontender, nom distended, no guarding, no rebound or rigidity, Normoactive bowel sounds No hepatomegaly, No splenomegaly, No palpable mass No abdominal wall hernia noted Skin: Normal temperature, tone, texture, turgor, No induration No subcutaneous nodules, No rash, lesions, No ulcers Extremities:No digital cyanosis No clubbing, Pedal pulses intact and symmetrical Radial pulses intact and symmetrical Normal gait and station, No calf tenderness Psychiatric: Alert and oriented to person, place and time, Appropriate affect Intact judgement Neuro: Muscles Strength 5/5 in all 4 extremities, Sensation to light touch grossly present throughout, Cranial nerves II-XII grossly intact. No focal sensory deficits - Labs CBC & Chem 7: 02/11/18 08:35 02/11/18 08:35 Labs: Abnormal Lab Results - Last 24 Hours (Table) 02/10/18 02/10/18 02/10/18 Range/Units 09:20 11:41 16:45 Hgb (13.0-17.5) gm/dL Chloride 109 H (98-107) mmol/L Carbon Dioxide (22-30) mmol/L BUN 39 H (9-20) mg/dL Creatinine 1.50 H (0.66-1.25) mg/dL Glucose 179 H (74-99) mg/dL POC Glucose (mg/dL) 164 H 192 H (75-99) mg/dL Total Protein 4.9 L (6.3-8.2) g/dL Albumin 3.1 L (3.5-5.0) g/dL 02/10/18 02/11/18 02/11/18 Range/Units 20:57 07:10 08:35 Hgb 12.8 L (13.0-17.5) gm/dL Chloride (98-107) mmol/L Carbon Dioxide (22-30) mmol/L BUN (9-20) mg/dL Creatinine (0.66-1.25) mg/dL Glucose (74-99) mg/dL POC Glucose (mg/dL) 179 H 148 H (75-99) mg/dL Total Protein (6.3-8.2) g/dL Albumin (3.5-5.0) g/dL 02/11/18 Range/Units 08:35 Hgb (13.0-17.5) gm/dL Chloride 108 H (98-107) mmol/L Carbon Dioxide 21 L (22-30) mmol/L BUN 41 H (9-20) mg/dL Creatinine 1.50 H (0.66-1.25) mg/dL Glucose 174 H (74-99) mg/dL POC Glucose (mg/dL) (75-99) mg/dL Total Protein 5.9 L (6.3-8.2) g/dL Albumin (3.5-5.0) g/dL Assessment and Plan (1) Sepsis due to Pseudomonas aeruginosa Narrative/Plan: * Patient afebrile leukocytosis resolved * Secondary to multidrug resistant organism Pseudomonas, appreciate ID Dr. Coon recommendations * Continue with Merrem Current Visit: Yes Status: Acute Code(s): A41.52 - SEPSIS DUE TO PSEUDOMONAS SNOMED Code(s): 257130168 (2) Pseudomonas urinary tract infection Narrative/Plan: * MDRO resistant to fluoroquinolones and cephalosporins * Continue with Merrem Current Visit: Yes Status: Acute Code(s): N39.0 - URINARY TRACT INFECTION, SITE NOT SPECIFIED; B96.5 - PSEUDOMONAS ([place]I) [facility] SNOMED Code(s): 381784154 (3) Metabolic encephalopathy Narrative/Plan: * Secondary to UTI and sepsis now resolved Current Visit: Yes Status: Resolved Code(s): G93.41 - METABOLIC ENCEPHALOPATHY SNOMED Code(s): 45755245 (4) Type 2 diabetes mellitus with hyperglycemia Narrative/Plan: * Blood sugars elevated continue with correctional scale insulin Current Visit: Yes Status: Acute Code(s): E11.65 - TYPE 2 DIABETES MELLITUS WITH HYPERGLYCEMIA SNOMED Code(s): 889117789924781 Plan: Patient approaching discharge goals can be discharged today has PICC line placed yesterday we'll need 7 days more of IV Merrem
[2018-02-11 12:00] LABS: Glucose,Whole Blood 233 mg/dL (75-99)
== END 2018-02-11 13:22 | DRG 871 ==
LOC: EC 13:02 → 4MS4W 15:41 → OBSVTOIN 02-08 17:59
PROVIDERS: ADMIT Internal Medicine; ATTEND Internal Medicine
PROC: 02HV33Z Insertion of Infusion Device into Superior Vena Cava, Percutaneous Approach (ICD-10-PCS; principal; 2018-02-09 13:50)
DX: A41.52 Sepsis due to Pseudomonas (principal); G93.41 Metabolic encephalopathy; N39.0 Urinary tract infection, site not specified; D69.6 Thrombocytopenia, unspecified; E11.22 Type 2 diabetes mellitus with diabetic chronic kidney disease; E11.65 Type 2 diabetes mellitus with hyperglycemia; N18.3 Chronic kidney disease, stage 3 (moderate); R32 Unspecified urinary incontinence; I12.9 Hypertensive chronic kidney disease with stage 1 through stage 4 chronic kidney disease, or unspecified chronic kidney disease; E03.9 Hypothyroidism, unspecified; I25.10 Atherosclerotic heart disease of native coronary artery without angina pectoris; K21.9 Gastro-esophageal reflux disease without esophagitis; E78.5 Hyperlipidemia, unspecified; I25.2 Old myocardial infarction; M19.91 Primary osteoarthritis, unspecified site; N42.9 Disorder of prostate, unspecified; G47.30 Sleep apnea, unspecified; Z79.82 Long term (current) use of aspirin; Z79.02 Long term (current) use of antithrombotics/antiplatelets; Z79.890 Hormone replacement therapy; Z79.4 Long term (current) use of insulin; Z79.899 Other long term (current) drug therapy; Z86.73 Personal history of transient ischemic attack (TIA), and cerebral infarction without residual deficits; Z95.1 Presence of aortocoronary bypass graft; Z87.440 Personal history of urinary (tract) infections; Z16.23 Resistance to quinolones and fluoroquinolones; Z16.24 Resistance to multiple antibiotics; Z98.52 Vasectomy status; Z90.79 Acquired absence of other genital organ(s); Z87.442 Personal history of urinary calculi; Z88.1 Allergy status to other antibiotic agents; Z88.0 Allergy status to penicillin; Z88.8 Allergy status to other drugs, medicaments and biological substances; Z82.49 Family history of ischemic heart disease and other diseases of the circulatory system; Z82.3 Family history of stroke
CPT/HCPCS: 36415; 36569; 74019; 76937; 77001; 80053; 81001; 82150; 82550; 82553; 83036; 83690; 84484; 85025; 87077; 87086; 87186; 96361; 96365; 99285

== ENCOUNTER → 2018-02-24 | Outpatient (CLI) | payer MEDICARE, BC ==
[2018-02-24 11:59] LABS: Basophils # (A) 0.1 k/uL (0-0.2); Basophils % (A) 1 %; Eosinophils # (A) 0.3 k/uL (0-0.7); Eosinophils % (A) 5 %; HCT 38.4 % (39.0-53.0); HGB 12.6 gm/dL (13.0-17.5); Lymphocytes # (A) 1.5 k/uL (1.0-4.8); Lymphocytes % (A) 26 %; MCH 29.1 pg (25.0-35.0); MCHC 32.8 g/dL (31.0-37.0); MCV 88.8 fL (80.0-100.0); Mean Platelet Volume 7.8; Monocytes # (A) 0.3 k/uL (0-1.0); Monocytes % (A) 5 %; Neutrophils # (A) 3.6 k/uL (1.3-7.7); Neutrophils % (A) 62 %; Platelet Count 168 k/uL (150-450); RBC 4.33 m/uL (4.30-5.90); RDW 13.8 % (11.5-15.5); WBC 5.8 k/uL (3.8-10.6)
[2018-02-24 12:09] LABS: Calcium 9.5 mg/dL (8.4-10.2); Magnesium 1.6 mg/dL (1.6-2.3); Phosphorus 3.9 mg/dL (2.5-4.5); Potassium 5.7 mmol/L (3.5-5.1); Uric Acid 5.7 mg/dL (3.5-8.5)
[2018-02-24 12:26] LABS: Appearance,Urine Cloudy (Clear); Bilirubin,Urine Negative (Negative); Blood,Urine Negative (Negative); Color,Urine Yellow; Glucose,Urine (UA) Negative (Negative); Ketones,Urine Negative (Negative); Leukocyte Esterase,Urine Small (Negative); Nitrite,Urine Negative (Negative); Protein,Urine 2+ (Negative); RBC,Urine 3 /hpf (0-5); Squamous Epithelial Cell,Urine <1 /hpf (0-4); Urobilinogen,Urine <2.0 mg/dL (<2.0); WBC,Urine 8 /hpf (0-5)
[2018-02-24 17:20] LABS: Iron Saturation 26.17 (15.00-50.00); Vitamin D 25 Hydroxy 58.7 ng/mL (30.0-100.0)
[2018-02-24 17:29] LABS: Parathyroid Hormone Intact 87.6 pg/mL (14.0-72.0)
[2018-02-24 20:43] LABS: Hemoglobin A1C 6.4 % (4.0-6.0)
== END | disposition home or self-care (01) ==
LOC: LABWHC1 11:05
PROVIDERS: ATTEND Nurse Practitioner Family
DX: E11.21 Type 2 diabetes mellitus with diabetic nephropathy (principal); E11.22 Type 2 diabetes mellitus with diabetic chronic kidney disease; N18.3 Chronic kidney disease, stage 3 (moderate); N25.81 Secondary hyperparathyroidism of renal origin; E55.9 Vitamin D deficiency, unspecified; D50.9 Iron deficiency anemia, unspecified; M10.9 Gout, unspecified; D64.9 Anemia, unspecified; N39.0 Urinary tract infection, site not specified
CPT/HCPCS: 36415; 80048; 81001; 82306; 82728; 83036; 83540; 83550; 83735; 83970; 84100; 84550; 85025

== ENCOUNTER → 2018-05-22 | Outpatient (CLI) | payer MEDICARE, BC ==
[2018-05-22 12:06] LABS: Basophils % (A) 1 %; Eosinophils # (A) 0.2 k/uL (0-0.7); Eosinophils % (A) 3 %; HCT 36.3 % (39.0-53.0); HGB 11.5 gm/dL (13.0-17.5); Lymphocytes # (A) 1.4 k/uL (1.0-4.8); Lymphocytes % (A) 21 %; MCH 28.8 pg (25.0-35.0); MCHC 31.7 g/dL (31.0-37.0); MCV 90.8 fL (80.0-100.0); Mean Platelet Volume 7.7; Monocytes # (A) 0.3 k/uL (0-1.0); Monocytes % (A) 5 %; Neutrophils % (A) 71 %; Platelet Count 137 k/uL (150-450); RDW 14.7 % (11.5-15.5)
[2018-05-22 12:28] LABS: Albumin 3.5 g/dL (3.5-5.0); Calcium 9.4 mg/dL (8.4-10.2); Potassium 5.4 mmol/L (3.5-5.1); Total Bilirubin 0.5 mg/dL (0.2-1.3); Total Protein 5.8 g/dL (6.3-8.2)
== END | disposition home or self-care (01) ==
LOC: LABPAT 10:52
PROVIDERS: ATTEND Urology
DX: Z01.812 Encounter for preprocedural laboratory examination (principal); I10 Essential (primary) hypertension; N35.9 Urethral stricture, unspecified
CPT/HCPCS: 80053; 85025

== ENCOUNTER 2018-05-28 07:19 | Day surgery (SDC) | payer MEDICARE, BC ==
[2018-05-27 09:08] VITALS: BMI 37.3
--- NOTE | 2018-05-28 06:20 | P.GSHP ---
History of Present Illness H&P Date: 05/25/18 Chief Complaint: Urethral Stricture, Recurrent Pseudomonas UTI The patient is a 72-year-old white male who underwent a TURP in February 2017. He developed a urethral stricture in June 2017, requiring dilation. Bladder emptying is improved, but he continues to experience recurrent Pseudomonas UTIs requiring IV antibiotics. He now comes for cystoscopy, direct visual internal urethrotomy (DVIU), and possible resection of any residual prostate tissue which may be contributing to the recurrent UTIs. - Constitutional Constitutional: Denies chills, Denies fever - Genitourinary (Male) Genitourinary: Reports hematuria Past Medical History Past Medical History: Coronary Artery Disease (CAD), CVA/TIA, Diabetes Mellitus , GERD/Reflux, Hyperlipidemia, Hypertension, Myocardial Infarction ([place]), Osteoarthritis (OA), Prostate Disorder, Renal Disease, Sleep Apnea/CPAP/BIPAP, Thyroid Disorder Additional Past Medical History / Comment(s): hx. TIA's, last one November 2016, heart murmur, OCC SOB, kidney stones, leakage of urine, uses CPAP, decreased kidney function, uti's Last Myocardial Infarction Date:: 2010 History of Any Multi-Drug Resistant Organisms: Other MDRO Past Surgical History: Coronary Bypass/CABG, Heart Catheterization, Hernia Repair, Orthopedic Surgery, Prostate Surgery Additional Past Surgical History / Comment(s): vasectomy, CABG 2010 with 4 vessels, keke knee arthroscopy, rt hand surgery x 3, TURP 02/2017, cystoscopy and dilation of urethral stricture 07/08/17 Past Anesthesia/Blood Transfusion Reactions: No Reported Reaction Additional Psychological History / Comment(s): , lives with and daughter, has cpap and cane /walker if needed. The adult children are healthy. Lifelong nonsmoker. No alcohol use. 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 Was in the in the [employer] no significant trouble since then. Pet dog at home - Past Family History Mother Family Medical History: Congestive Heart Failure (CHF) Additional Family Medical History / Comment(s): at age 92 Father Family Medical History: CVA/TIA, Myocardial Infarction ([place]) Medications and Allergies Home Medications Medication Instructions Recorded Confirmed Type Allopurinol [Zyloprim] 100 mg PO QAM 11/28/15 05/27/18 History Aspirin 81 mg PO HS 11/28/15 05/27/18 History Atorvastatin [Lipitor] 80 mg PO HS 11/28/15 05/27/18 History Calcitriol 0.25 mcg PO QAM 11/28/15 05/27/18 History Clopidogrel Bisulfate [Plavix] 75 mg PO QAM 11/28/15 05/27/18 History Folic Acid 1 mg PO QAM 11/28/15 05/27/18 History Isosorbide Mononitrate [Isosorbide 30 mg PO HS 11/28/15 05/27/18 History Mononitrate ER] Levothyroxine Sodium [Synthroid] 137 mcg PO QAM 11/28/15 05/27/18 History Ergocalciferol (Vitamin D2) 50,000 unit PO Q14D 11/29/16 05/27/18 History [Vitamin D2] Insulin Glargine [Lantus] 25 unit SQ HS #1 vial 12/12/16 05/27/18 Rx hydrALAZINE HCL [Apresoline] 25 mg PO TID tab 07/15/17 05/27/18 Rx Acetaminophen [Tylenol Arthritis] 1,300 mg PO HS 02/05/18 05/27/18 History Citalopram Hydrobromide [CeleXA] 20 mg PO DAILY 02/05/18 05/27/18 History Doxepin [SINEquan] 25 mg PO HS 02/05/18 05/27/18 History Fish Oil/Dha/Epa [Fish Oil 1,200 1 cap PO HS 02/05/18 05/27/18 History mg Fish Oil] Hydrochlorothiazide [Hydrodiuril] 25 mg PO QAM 02/05/18 05/27/18 History INSULIN LISPRO (HumaLOG) [humaLOG] See Protocol SQ ACHS 02/05/18 05/27/18 History Iron 27mg 27 mg PO QAM 02/05/18 05/27/18 History Magnesium Oxide [Mag-Ox] 500 mg PO HS 02/05/18 05/27/18 History Metoprolol Tartrate [Lopressor] 75 mg PO BID 02/05/18 05/27/18 History Ranitidine HCl 150 mg PO BID 02/05/18 05/27/18 History Tamsulosin HCl [Flomax] 0.4 mg PO QAM 02/05/18 05/27/18 History glipiZIDE [Glucotrol] 5 mg PO AC-BID 02/05/18 05/27/18 History Allergies Allergy/AdvReac Type Severity Reaction Status Date / Time Penicillins Allergy Severe Anaphylaxis Verified 05/27/18 09:16 cephalexin monohydrate Allergy Rash/Hives Verified 05/27/18 09:16 [From Keflex] gemfibrozil [From Lopid] AdvReac Abdominal Verified 05/27/18 09:16 Pain Surgical - Exam - General well developed, well nourished, no distress - Respiratory normal respiratory effort - Genitourinary normal penis with no external lesions, testicles non-tender - Psychiatric oriented to time, oriented to person, oriented to place, speech is normal, memory intact Assessment and Plan (1) Urethral stricture Status: Acute Code(s): SUC9537 - SNOMED Code(s): 09557785 Plan: Cystoscopy, direct visual internal urethrotomy, possible limited TURP. The patient is currently receiving IV antibiotics, and the purpose of this procedure is to reduce the risk of future recurrent UTIs.
[~2018-05-28 07:19] MED LIST changes: +HYDROmorphone 0.5 MG/0.5 ML SYRINGE IVP PRN; +MIDAZOLAM 2 MG/2 ML VIAL IV PRN
[2018-05-28 08:23] LABS: Glucose,Whole Blood 133 mg/dL (75-99)
[2018-05-28] MEDS ORDERED: LIDOCAINE 1% INJ 10MG/ML (20 ML MDV) ONE (08:48)
[2018-05-28] MEDS ORDERED: ePHEDrine SULFATE/0.9% NACL/PF 50 MG/5 ML SYRINGE IV ONE (08:48)
[2018-05-28] MEDS ORDERED: ROCURONIUM BROMIDE 10 MG/ML 10 ML VIAL IV ONE (08:48)
[2018-05-28] MEDS ORDERED: fentaNYL (PF) 50 MCG/ML 2 ML AMP ONE (08:48)
[2018-05-28] MEDS ORDERED: MIDAZOLAM 2 MG/2 ML VIAL ONE (08:48)
[2018-05-28] MEDS ORDERED: PROPOFOL 10 MG/ML 20 ML VIAL IV ONE (08:48)
[2018-05-28] MEDS ORDERED: GLYCOPYRROLATE 0.2 MG/ML 2 ML VIAL ONE (08:48)
[2018-05-28] MEDS ORDERED: NEOSTIGMINE 1 MG/ML 10 ML VIAL ONE (08:48)
--- NOTE | 2018-05-28 09:24 | P.OP ---
Date of Procedure: 05/28/18 Preoperative Diagnosis: Recurrent UTI, Urethral Stricture Postoperative Diagnosis: Recurrent UTI Procedure(s) Performed: Cystoscopy Anesthesia: CHRISTEN Surgeon: Alli Delgado Estimated Blood Loss (ml): 0 IV fluids (ml): 250 Indications for Procedure: The patient is a 72-year-old white male who underwent a TURP in February 2017. He developed a urethral stricture in June 2017, requiring dilation. Bladder emptying is improved, but he continues to experience recurrent Pseudomonas UTIs requiring IV antibiotics. He now comes for cystoscopy, direct visual internal urethrotomy (DVIU), and possible resection of any residual prostate tissue which may be contributing to the recurrent UTIs. Operative Findings: No evidence of urethral stricture. Well resected prostatic fossa. Description of Procedure: The patient was taken to the operating room and placed in the dorsolithotomy position, with legs supported in Rico stirrups. The external genitalia was prepped and draped sterilely. The 30 lens was used to introduce the 19-Divehi Stortz cystoscopic sheath through the urethra and into the bladder under direct vision. There were no urethral strictures. The prostatic fossa was open and well resected. The external urinary sphincter appeared intact. Upon entering the bladder, the urine within the bladder was cloudy. The bladder was irrigated numerous times until it was completely clear. The bladder was then inspected. Both ureteral orifices were of normal anatomic location and configuration, and clear urine effluxed from both. No tumors or foreign bodies were seen. There were no diverticuli, or other abnormalities which would account for the inability to eradicate the Pseudomonas UTI. The bladder was emptied and the cystoscope removed. The patient tolerated the procedure well was taken to the recovery room in stable condition.
[2018-05-28 09:51] LABS: Glucose,Whole Blood 138 mg/dL (75-99)
[2018-05-28 09:54] VITALS: RESP 16; TEMP 96.8
[2018-05-28 10:47] VITALS: BP 138/84; PULSE 62
== END 2018-05-28 11:07 | disposition home or self-care (01) ==
LOC: OR 07:19
PROVIDERS: ATTEND Urology
DX: N35.919 Unspecified urethral stricture, male, unspecified site (principal); N39.0 Urinary tract infection, site not specified; B96.5 Pseudomonas (aeruginosa) (mallei) (pseudomallei) as the cause of diseases classified elsewhere; I25.10 Atherosclerotic heart disease of native coronary artery without angina pectoris; I12.9 Hypertensive chronic kidney disease with stage 1 through stage 4 chronic kidney disease, or unspecified chronic kidney disease; E11.22 Type 2 diabetes mellitus with diabetic chronic kidney disease; N18.9 Chronic kidney disease, unspecified; K21.9 Gastro-esophageal reflux disease without esophagitis; E78.5 Hyperlipidemia, unspecified; I25.2 Old myocardial infarction; M19.90 Unspecified osteoarthritis, unspecified site; N42.9 Disorder of prostate, unspecified; G47.30 Sleep apnea, unspecified; Z99.89 Dependence on other enabling machines and devices; E07.9 Disorder of thyroid, unspecified; Z95.1 Presence of aortocoronary bypass graft; Z95.5 Presence of coronary angioplasty implant and graft; Z79.02 Long term (current) use of antithrombotics/antiplatelets; Z79.82 Long term (current) use of aspirin; Z79.890 Hormone replacement therapy; Z79.4 Long term (current) use of insulin; Z79.899 Other long term (current) drug therapy; Z88.1 Allergy status to other antibiotic agents; Z88.0 Allergy status to penicillin; Z88.8 Allergy status to other drugs, medicaments and biological substances; Z86.73 Personal history of transient ischemic attack (TIA), and cerebral infarction without residual deficits
CPT/HCPCS: 52000; J2250; J2710; J2001; J3010; J2704

== ENCOUNTER 2018-07-21 14:52 | Emergency (ER) | payer MEDICARE, BC ==
[2018-07-21 15:34] VITALS: RESP 18
--- NOTE | 2018-07-21 19:34 | ED ---
General Adult HPI - General Chief complaint: Upper Respiratory Infection Stated complaint: coughing, chest congestion Time Seen by Provider: 07/21/18 18:14 Source: patient, family, RN notes reviewed Mode of arrival: ambulatory Limitations: no limitations - History of Present Illness Initial comments: Patient is a pleasant 72-year-old male presenting to the emergency Department with cough and congestion. Cough is been nonproductive. Patient does admit to feeling congested. No difficulty in breathing. Patient also complains of sinus congestion with minimal clear drainage. states patient has been slightly more confused than normal which she does get at times with infections and has previously had especially with urinary tract infections several times. - Related Data Home Medications Medication Instructions Recorded Confirmed Allopurinol [Zyloprim] 100 mg PO QAM 11/28/15 07/21/18 Aspirin 81 mg PO HS 11/28/15 07/21/18 Atorvastatin [Lipitor] 80 mg PO HS 11/28/15 07/21/18 Calcitriol 0.25 mcg PO QAM 11/28/15 07/21/18 Clopidogrel Bisulfate [Plavix] 75 mg PO QAM 11/28/15 07/21/18 Folic Acid 1 mg PO QAM 11/28/15 07/21/18 Isosorbide Mononitrate [Isosorbide 30 mg PO HS 11/28/15 07/21/18 Mononitrate ER] Levothyroxine Sodium [Synthroid] 137 mcg PO QAM 11/28/15 07/21/18 Ergocalciferol (Vitamin D2) 50,000 unit PO Q30D 11/29/16 07/21/18 [Vitamin D2] Acetaminophen [Tylenol Arthritis] 1,300 mg PO HS 02/05/18 07/21/18 Citalopram Hydrobromide [CeleXA] 20 mg PO DAILY 02/05/18 07/21/18 Doxepin [SINEquan] 25 mg PO HS 02/05/18 07/21/18 Fish Oil/Dha/Epa [Fish Oil 1,200 1 cap PO HS 02/05/18 07/21/18 mg Fish Oil] Hydrochlorothiazide [Hydrodiuril] 25 mg PO QAM 02/05/18 07/21/18 INSULIN LISPRO (HumaLOG) [humaLOG] See Protocol SQ ACHS 02/05/18 07/21/18 Iron 27mg 27 mg PO QAM 02/05/18 07/21/18 Magnesium Oxide [Mag-Ox] 500 mg PO HS 02/05/18 07/21/18 Metoprolol Tartrate [Lopressor] 75 mg PO BID 02/05/18 07/21/18 Ranitidine HCl 150 mg PO BID 02/05/18 07/21/18 Tamsulosin HCl [Flomax] 0.4 mg PO QAM 02/05/18 07/21/18 glipiZIDE [Glucotrol] 5 mg PO AC-BID 02/05/18 07/21/18 Sodium Polystyrene Sulfonate 15 gm PO MO 05/28/18 07/21/18 [Kayexalate] Insulin Glargine [Lantus] 20 unit SQ HS 07/21/18 07/21/18 Previous Rx's Medication Instructions Recorded Sulfamethox-Tmp 800-160Mg [Bactrim 1 each PO Q12HR #20 tab 07/21/18 DS 800-160 mg] Allergies Allergy/AdvReac Type Severity Reaction Status Date / Time Penicillins Allergy Severe Anaphylaxis Verified 07/21/18 18:34 cephalexin monohydrate Allergy Rash/Hives Verified 07/21/18 18:34 [From Keflex] gemfibrozil [From Lopid] AdvReac Abdominal Verified 07/21/18 18:34 Pain Review of Systems ROS Statement: Those systems with pertinent positive or pertinent negative responses have been documented in the HPI. ROS Other: All systems not noted in ROS Statement are negative. Constitutional: Denies: fever Eyes: Denies: eye pain ENT: Reports: congestion. Denies: ear pain Respiratory: Reports: cough. Denies: dyspnea Cardiovascular: Denies: chest pain Endocrine: Denies: fatigue Gastrointestinal: Denies: abdominal pain Genitourinary: Denies: dysuria Musculoskeletal: Denies: back pain Skin: Denies: rash Neurological: Reports: confusion. Denies: weakness Past Medical History Past Medical History: Coronary Artery Disease (CAD), CVA/TIA, Diabetes Mellitus , GERD/Reflux, Hyperlipidemia, Hypertension, Myocardial Infarction ([place]), Osteoarthritis (OA), Prostate Disorder, Renal Disease, Sleep Apnea/CPAP/BIPAP, Thyroid Disorder Additional Past Medical History / Comment(s): hx. TIA's, last one November 2016, heart murmur, OCC SOB, kidney stones, leakage of urine, uses CPAP, decreased kidney function, uti's Last Myocardial Infarction Date:: 2010 History of Any Multi-Drug Resistant Organisms: Other MDRO Past Surgical History: Coronary Bypass/CABG, Heart Catheterization, Hernia Repair, Orthopedic Surgery, Prostate Surgery Additional Past Surgical History / Comment(s): vasectomy, CABG 2010 with 4 vessels, keke knee arthroscopy, rt hand surgery x 3, TURP 02/2017, cystoscopy and dilation of urethral stricture 07/08/17 Past Anesthesia/Blood Transfusion Reactions: No Reported Reaction Past Psychological History: No Psychological Hx Reported Smoking Status: Never smoker Past Alcohol Use History: Occasional - Past Family History Mother Family Medical History: Congestive Heart Failure (CHF) Additional Family Medical History / Comment(s): at age 92 Father Family Medical History: CVA/TIA, Myocardial Infarction ([place]) General Exam Limitations: no limitations General appearance: alert, in no apparent distress Head exam: Present: atraumatic Eye exam: Present: normal appearance, PERRL, EOMI ENT exam: Present: normal oropharynx Neck exam: Present: normal inspection Respiratory exam: Present: normal lung sounds bilaterally. Absent: chest wall tenderness Cardiovascular Exam: Present: regular rate, normal rhythm GI/Abdominal exam: Present: soft. Absent: tenderness Extremities exam: Present: normal inspection. Absent: pedal edema, calf tenderness Neurological exam: Present: alert, oriented X3, CN II-XII intact. Absent: motor sensory deficit Expanded Neurological exam: Present: protecting the airway Patient oriented to: Present: person, place, time Motor strength exam: RUE: 5, LUE: 5, RLE: 5, LLE: 5 Eye Response: (4) open spontaneously Motor Response: (6) obeys commands Verbal Response: (5) oriented Psychiatric exam: Present: normal affect, normal mood Skin exam: Present: normal color Course Vital Signs 07/21/18 15:29 Temperature 98.4 F Pulse Rate 84 Respiratory 18 Rate Blood Pressure 131/86 O2 Sat by Pulse 95 Oximetry Medical Decision Making - Medical Decision Making Patient reevaluated and resting comfortably in bed. Patient and family updated. They're both comfortable with discharge home and did not feel further evaluation as needed. - Lab Data Lab Results 07/21/18 Range/Units 19:34 Urine Color Light Yellow Urine Appearance Cloudy (Clear) Urine pH 6.5 (5.0-8.0) Ur Specific Falcon 1.010 (1.001-1.035) Urine Protein 1+ H (Negative) Urine Glucose (UA) Negative (Negative) Urine Ketones Negative (Negative) Urine Blood Trace H (Negative) Urine Nitrite Positive (Negative) Urine Bilirubin Negative (Negative) Urine Urobilinogen <2.0 (<2.0) mg/dL Ur Leukocyte Esterase Large H (Negative) Urine RBC 5 (0-5) /hpf Urine WBC >182 H (0-5) /hpf Urine WBC Clumps Many H (None) /hpf Urine Mucus Rare H (None) /hpf - Radiology Data Interpreted by me: Chest x-ray shows no acute process Disposition Clinical Impression: Urinary tract infection, Bronchitis Disposition: HOME SELF-CARE Condition: Stable Instructions: Urinary Tract Infection in Men (ED), Acute Bronchitis (ED) Additional Instructions: Please follow-up to primary care physician in the next day or 2 for recheck. Return for change in mental status, difficulty breathing, uncontrolled fevers, worsening or changing symptoms or other concerns. Prescriptions: Sulfamethox-Tmp 800-160Mg [Bactrim DS 800-160 mg] 1 each PO Q12HR #20 tab Is patient prescribed a controlled substance at d/c from ED?: No Referrals: Bulmaro Graham DO [Primary Care Provider] - 1-2 days Time of Disposition: 20:46
[2018-07-21 20:07] LABS: Appearance,Urine Cloudy (Clear); Bilirubin,Urine Negative (Negative); Blood,Urine Trace (Negative); Color,Urine Light Yellow; Glucose,Urine (UA) Negative (Negative); Ketones,Urine Negative (Negative); Leukocyte Esterase,Urine Large (Negative); Mucus,Urine Rare /hpf; Nitrite,Urine Positive (Negative); PH, Urine 6.5 (5.0-8.0); Protein,Urine 1+ (Negative); RBC,Urine 5 /hpf (0-5); Urobilinogen,Urine <2.0 mg/dL (<2.0); WBC,Urine >182 /hpf (0-5)
[2018-07-21] MEDS ORDERED: SULFAMETHOX-TMP 800-160MG 1 EACH TAB PO STA (20:45)
[2018-07-21 20:59] VITALS: BP 133/81; PULSE 73; TEMP 97.5
--- NOTE | 2018-07-21 22:28 | XR ---
EXAMINATION TYPE: XR chest 2V DATE OF EXAM: 07/21/2018 COMPARISON: 07/15/2017 HISTORY: Cough TECHNIQUE: Frontal and lateral views of the chest are obtained. FINDINGS: There is no heart failure nor confluent pneumonic infiltrate. Thoracic aorta is atheromato us. There is no pleural effusion. There are sternal wires. IMPRESSION: No definite active cardiopulmonary disease. There is clearing of the mild patchy atelect asis compared to old exam.
== END 2018-07-21 21:07 | disposition home or self-care (01) ==
LOC: EC 14:52
DX: N39.0 Urinary tract infection, site not specified (principal); J40 Bronchitis, not specified as acute or chronic; R41.0 Disorientation, unspecified; I25.10 Atherosclerotic heart disease of native coronary artery without angina pectoris; E11.9 Type 2 diabetes mellitus without complications; K21.9 Gastro-esophageal reflux disease without esophagitis; E78.5 Hyperlipidemia, unspecified; I10 Essential (primary) hypertension; I25.2 Old myocardial infarction; M19.90 Unspecified osteoarthritis, unspecified site; E07.9 Disorder of thyroid, unspecified; N42.9 Disorder of prostate, unspecified; G47.30 Sleep apnea, unspecified; Z99.89 Dependence on other enabling machines and devices; Z86.73 Personal history of transient ischemic attack (TIA), and cerebral infarction without residual deficits; Z79.82 Long term (current) use of aspirin; Z79.01 Long term (current) use of anticoagulants; Z79.4 Long term (current) use of insulin; Z79.899 Other long term (current) drug therapy; Z88.0 Allergy status to penicillin; Z88.1 Allergy status to other antibiotic agents; Z88.8 Allergy status to other drugs, medicaments and biological substances; Z95.1 Presence of aortocoronary bypass graft; Z95.818 Presence of other cardiac implants and grafts; Z98.890 Other specified postprocedural states
CPT/HCPCS: 71046; 81001; 87086; 99283

== ENCOUNTER → 2018-09-16 | Outpatient (CLI) | payer MEDICARE, BC ==
--- NOTE | 2018-09-16 13:49 | US ---
EXAMINATION TYPE: US kidneys/renal and bladder DATE OF EXAM: 09/16/2018 COMPARISON: CLINICAL HISTORY: N18.3 Chronic kidney disease stage 3. CKD, no pain EXAM MEASUREMENTS: Right Kidney: 12.9 x 5.2 x 6.6 cm Left Kidney: 9.4 x 4.2 x 4.4 cm Very limited exam due to patient body habitus. Right Kidney: Cortical thinning. Lobular in appearance. Difficult to visualize. Anechoic lesion se en in renal sinus- 1.3 x 1.2 x 1.1 cm Left Kidney: Cortical thinning. Lobular in appearance. Difficult to visualize. Bladder: distended Bilateral Jets seen There is no evidence for hydronephrosis at this point in time. No nephrolithiasis is seen. No solid masses are identified. The urinary bladder is anechoic. Bilateral ureteral jets are seen. IMPRESSION: Simple appearing cyst right kidney. Otherwise study. Cortical thinning noted.
== END | disposition home or self-care (01) ==
LOC: RADUSWWP 12:43
PROVIDERS: ATTEND Internal Medicine Nephrology
DX: N28.1 Cyst of kidney, acquired (principal); N18.3 Chronic kidney disease, stage 3 (moderate)
CPT/HCPCS: 76770

== ENCOUNTER 2018-11-06 19:44 | Emergency (ER) | payer MEDICARE, BC ==
[2018-11-06] MEDS ORDERED: IPRATROPIUM-ALBUTEROL 3 ML NEB INHALATION STA (20:07)
--- NOTE | 2018-11-06 20:56 | ED ---
URI HPI - General Chief Complaint: Upper Respiratory Infection Stated Complaint: Diff Breathing, cough Time Seen by Provider: 11/06/18 19:51 Source: patient, RN notes reviewed Mode of arrival: ambulatory Limitations: no limitations - History of Present Illness Initial Comments: 73-year-old male presents emergency Department chief complaint of fever cough congestion. Patient states that he just does not feel well. Patient states she's been achy, vomiting congestion. Denies any history of lung disease. Patient states that he gets coughing so hard that he feels short of breath. Denies any chest pain. Patient denies any nausea vomiting diarrhea constipation no sick contacts. Patient's concerned that he may have influenza. Patient has not been taking any [id number] cough and cold medications. - Related Data Home Medications Medication Instructions Recorded Confirmed Allopurinol [Zyloprim] 100 mg PO QAM 11/28/15 11/06/18 Aspirin 81 mg PO HS 11/28/15 11/06/18 Atorvastatin [Lipitor] 80 mg PO HS 11/28/15 11/06/18 Calcitriol 0.25 mcg PO QAM 11/28/15 11/06/18 Clopidogrel Bisulfate [Plavix] 75 mg PO QAM 11/28/15 11/06/18 Folic Acid 1 mg PO QAM 11/28/15 11/06/18 Isosorbide Mononitrate [Isosorbide 30 mg PO HS 11/28/15 11/06/18 Mononitrate ER] Levothyroxine Sodium [Synthroid] 137 mcg PO QAM 11/28/15 11/06/18 Ergocalciferol (Vitamin D2) 50,000 unit PO Q30D 11/29/16 11/06/18 [Vitamin D2] Acetaminophen [Tylenol Arthritis] 1,300 mg PO HS 02/05/18 11/06/18 Citalopram Hydrobromide [CeleXA] 20 mg PO DAILY 02/05/18 11/06/18 Doxepin [SINEquan] 25 mg PO HS 02/05/18 11/06/18 Fish Oil/Dha/Epa [Fish Oil 1,200 1 cap PO HS 02/05/18 11/06/18 mg Fish Oil] Hydrochlorothiazide [Hydrodiuril] 25 mg PO QAM 02/05/18 11/06/18 INSULIN LISPRO (HumaLOG) [humaLOG] See Protocol SQ ACHS 02/05/18 11/06/18 Iron 27mg 27 mg PO QAM 02/05/18 11/06/18 Metoprolol Tartrate [Lopressor] 75 mg PO BID 02/05/18 11/06/18 Ranitidine HCl 150 mg PO BID 02/05/18 11/06/18 Tamsulosin HCl [Flomax] 0.4 mg PO QAM 02/05/18 11/06/18 glipiZIDE [Glucotrol] 5 mg PO AC-BID 02/05/18 11/06/18 Sodium Polystyrene Sulfonate 15 gm PO MO 05/28/18 11/06/18 [Kayexalate] Insulin Glargine [Lantus] 20 unit SQ HS 07/21/18 11/06/18 Magnesium Oxide [Hernandez] 500 mg PO HS 11/06/18 11/06/18 Allergies Allergy/AdvReac Type Severity Reaction Status Date / Time Penicillins Allergy Severe Anaphylaxis Verified 11/06/18 20:46 cephalexin monohydrate Allergy Rash/Hives Verified 11/06/18 20:46 [From Keflex] gemfibrozil [From Lopid] AdvReac Abdominal Verified 11/06/18 20:46 Pain Review of Systems ROS Statement: Those systems with pertinent positive or pertinent negative responses have been documented in the HPI. ROS Other: All systems not noted in ROS Statement are negative. Past Medical History Past Medical History: Coronary Artery Disease (CAD), CVA/TIA, Diabetes Mellitus, GERD/Reflux, Hyperlipidemia, Hypertension, Myocardial Infarction ([place]), Osteoarthritis (OA), Prostate Disorder, Renal Disease, Sleep Apnea/CPAP/BIPAP, Thyroid Disorder Additional Past Medical History / Comment(s): hx. TIA's, last one November 2016, heart murmur, OCC SOB, kidney stones, leakage of urine, uses CPAP, decreased kidney function, uti's Last Myocardial Infarction Date:: 2010 History of Any Multi-Drug Resistant Organisms: Other MDRO Past Surgical History: Coronary Bypass/CABG, Heart Catheterization, Hernia Repair, Orthopedic Surgery, Prostate Surgery Additional Past Surgical History / Comment(s): vasectomy, CABG 2010 with 4 vessels, keke knee arthroscopy, rt hand surgery x 3, TURP 02/2017, cystoscopy and dilation of urethral stricture 11/14/17 Past Anesthesia/Blood Transfusion Reactions: No Reported Reaction Past Psychological History: No Psychological Hx Reported Smoking Status: Never smoker Past Alcohol Use History: Occasional Past Drug Use History: None Reported - Past Family History Mother Family Medical History: Congestive Heart Failure (CHF) Additional Family Medical History / Comment(s): at age 92 Father Family Medical History: CVA/TIA, Myocardial Infarction ([place]) General Exam Limitations: no limitations General appearance: alert, in no apparent distress Head exam: Present: atraumatic, normocephalic, normal inspection Eye exam: Present: normal appearance, PERRL, EOMI. Absent: scleral icterus, conjunctival injection, periorbital swelling ENT exam: Present: normal exam, normal oropharynx, mucous membranes moist Neck exam: Present: normal inspection, full ROM. Absent: tenderness, meningismu s, lymphadenopathy Respiratory exam: Present: wheezes (Mild diffuse). Absent: normal lung sounds bilaterally, respiratory distress, rales, rhonchi, stridor Cardiovascular Exam: Present: regular rate, normal rhythm, normal heart sounds. Absent: systolic murmur, diastolic murmur, rubs, gallop, clicks Neurological exam: Present: alert, oriented X3 Skin exam: Present: warm, dry, intact, normal color. Absent: rash Course Vital Signs 11/06/18 11/06/18 11/06/18 19:46 20:07 20:16 Temperature 99.1 F Pulse Rate 94 88 Respiratory 18 24 Rate Blood Pressure 160/81 O2 Sat by Pulse 96 Oximetry 11/06/18 20:26 Temperature Pulse Rate 88 Respiratory Rate Blood Pressure O2 Sat by Pulse Oximetry Medical Decision Making - Medical Decision Making 73-year-old male presents emergency Department with chief complaint of cough cold like symptoms. Chest x-ray unremarkable. Patient's influenza positive. Patient did have mild wheezing was given a single dose of steroids with IV insulin as he is a diabetic. Patient states he can correct his blood sugar at home. Patient will follow-up with PCP as scheduled appointment tomorrow and return for any worsening symptoms. - Lab Data Result diagrams: 11/06/18 20:35 11/06/18 20:35 Lab Results 11/06/18 11/06/18 11/06/18 Range/Units 20:35 20:35 20:35 WBC 4.9 (3.8-10.6) k/uL RBC 4.33 (4.30-5.90) m/uL Hgb 12.8 L (13.0-17.5) gm/dL Hct 39.8 (39.0-53.0) % MCV 91.8 (80.0-100.0) fL MCH 29.5 (25.0-35.0) pg MCHC 32.2 (31.0-37.0) g/dL RDW 14.3 (11.5-15.5) % Plt Count 118 L (150-450) k/uL Neutrophils % 65 % Lymphocytes % 19 % Monocytes % 7 % Eosinophils % 6 % Basophils % 1 % Neutrophils # 3.2 (1.3-7.7) k/uL Lymphocytes # 0.9 L (1.0-4.8) k/uL Monocytes # 0.3 (0-1.0) k/uL Eosinophils # 0.3 (0-0.7) k/uL Basophils # 0.0 (0-0.2) k/uL Sodium 139 (137-145) mmol/L Potassium 5.1 (3.5-5.1) mmol/L Chloride 107 (98-107) mmol/L Carbon Dioxide 22 (22-30) mmol/L Anion Gap 10 mmol/L BUN 49 H (9-20) mg/dL Creatinine 2.23 H (0.66-1.25) mg/dL Est GFR (CKD-EPI)AfAm 33 (>60 ml/min/1.73 sqM) Est GFR (CKD-EPI)NonAf 28 (>60 ml/min/1.73 sqM) Glucose 215 H (74-99) mg/dL Plasma Lactic Acid Meek (0.7-2.0) mmol/L Calcium 9.2 (8.4-10.2) mg/dL Magnesium 1.7 (1.6-2.3) mg/dL Total Bilirubin 0.5 (0.2-1.3) mg/dL AST 46 (17-59) U/L ALT 40 (21-72) U/L Alkaline Phosphatase 125 (38-126) U/L Troponin I (0.000-0.034) ng/mL NT-Pro-B Natriuret Pep 1310 pg/mL Total Protein 5.9 L (6.3-8.2) g/dL Albumin 3.6 (3.5-5.0) g/dL Influenza Type A RNA (Not Detectd) Influenza Type B (PCR) (Not Detectd) 11/06/18 11/06/18 11/06/18 Range/Units 20:35 20:35 20:35 WBC (3.8-10.6) k/uL RBC (4.30-5.90) m/uL Hgb (13.0-17.5) gm/dL Hct (39.0-53.0) % MCV (80.0-100.0) fL MCH (25.0-35.0) pg MCHC (31.0-37.0) g/dL RDW (11.5-15.5) % Plt Count (150-450) k/uL Neutrophils % % Lymphocytes % % Monocytes % % Eosinophils % % Basophils % % Neutrophils # (1.3-7.7) k/uL Lymphocytes # (1.0-4.8) k/uL Monocytes # (0-1.0) k/uL Eosinophils # (0-0.7) k/uL Basophils # (0-0.2) k/uL Sodium (137-145) mmol/L Potassium (3.5-5.1) mmol/L Chloride (98-107) mmol/L Carbon Dioxide (22-30) mmol/L Anion Gap mmol/L BUN (9-20) mg/dL Creatinine (0.66-1.25) mg/dL Est GFR (CKD-EPI)AfAm (>60 ml/min/1.73 sqM) Est GFR (CKD-EPI)NonAf (>60 ml/min/1.73 sqM) Glucose (74-99) mg/dL Plasma Lactic Acid Meek 1.5 (0.7-2.0) mmol/L Calcium (8.4-10.2) mg/dL Magnesium (1.6-2.3) mg/dL Total Bilirubin (0.2-1.3) mg/dL AST (17-59) U/L ALT (21-72) U/L Alkaline Phosphatase (38-126) U/L Troponin I <0.012 (0.000-0.034) ng/mL NT-Pro-B Natriuret Pep pg/mL Total Protein (6.3-8.2) g/dL Albumin (3.5-5.0) g/dL Influenza Type A RNA Detected H (Not Detectd) Influenza Type B (PCR) Not Detected (Not Detectd) - EKG Data EKG Comments: EKG performed at 20:44 normal sinus rhythm with rate of 90 [place] interval 198 QRS 98 QT status QTC 368/450 Disposition Clinical Impression: Influenza Disposition: HOME SELF-CARE Condition: Stable Instructions (If sedation given, give patient instructions): Influenza (ED) Additional Instructions: Please return to the Emergency Department if symptoms worsen or any other concerns. Is patient prescribed a controlled substance at d/c from ED?: No Referrals: Bulmaro Graham DO [Primary Care Provider] - 1-2 days Time of Disposition: 22:31
--- NOTE | 2018-11-06 21:09 | XR ---
EXAMINATION TYPE: XR chest 2V DATE OF EXAM: 11/06/2018 COMPARISON: 07/21/2018 HISTORY: Cough. Difficulty breathing TECHNIQUE: Frontal and lateral views of the chest are obtained. FINDINGS: There is no heart failure nor confluent pneumonic infiltrate. There is slight coarsening o f the lung markings. Thoracic aorta is atheromatous. There are sternal wires. IMPRESSION: No active cardiopulmonary disease. Mild pulmonary fibrosis. No change.
[2018-11-06 21:39] LABS: Basophils % (A) 1 %; Eosinophils # (A) 0.3 k/uL (0-0.7); Eosinophils % (A) 6 %; HCT 39.8 % (39.0-53.0); HGB 12.8 gm/dL (13.0-17.5); Lymphocytes # (A) 0.9 k/uL (1.0-4.8); Lymphocytes % (A) 19 %; MCH 29.5 pg (25.0-35.0); MCHC 32.2 g/dL (31.0-37.0); MCV 91.8 fL (80.0-100.0); Mean Platelet Volume 7.5; Monocytes # (A) 0.3 k/uL (0-1.0); Monocytes % (A) 7 %; Neutrophils # (A) 3.2 k/uL (1.3-7.7); Neutrophils % (A) 65 %; Platelet Count 118 k/uL (150-450); RBC 4.33 m/uL (4.30-5.90); RDW 14.3 % (11.5-15.5); WBC 4.9 k/uL (3.8-10.6)
[2018-11-06 21:50] LABS: Albumin 3.6 g/dL (3.5-5.0); Calcium 9.2 mg/dL (8.4-10.2); Magnesium 1.7 mg/dL (1.6-2.3); Potassium 5.1 mmol/L (3.5-5.1); Total Bilirubin 0.5 mg/dL (0.2-1.3); Total Protein 5.9 g/dL (6.3-8.2)
[2018-11-06] MEDS ORDERED: INSULIN ASPART (NovoLOG) 100 UNIT/ML VIAL SQ ONE (22:29)
[2018-11-06] MEDS ORDERED: methylPREDNISolone SOD SUCCI 125 MG/2 ML VIAL IV STA (22:30)
[2018-11-06 22:53] VITALS: BP 145/89; PULSE 89; RESP 20; TEMP 98.7
== END 2018-11-06 22:50 | disposition home or self-care (01) ==
LOC: EC 19:44
DX: J11.1 Influenza due to unidentified influenza virus with other respiratory manifestations (principal); E11.9 Type 2 diabetes mellitus without complications; I25.10 Atherosclerotic heart disease of native coronary artery without angina pectoris; E78.5 Hyperlipidemia, unspecified; K21.9 Gastro-esophageal reflux disease without esophagitis; I10 Essential (primary) hypertension; I25.2 Old myocardial infarction; G47.30 Sleep apnea, unspecified; E07.9 Disorder of thyroid, unspecified; Z79.890 Hormone replacement therapy; Z79.4 Long term (current) use of insulin; Z79.82 Long term (current) use of aspirin; Z79.02 Long term (current) use of antithrombotics/antiplatelets; Z79.899 Other long term (current) drug therapy; Z88.0 Allergy status to penicillin; Z88.1 Allergy status to other antibiotic agents; Z88.8 Allergy status to other drugs, medicaments and biological substances; Z95.1 Presence of aortocoronary bypass graft; Z86.73 Personal history of transient ischemic attack (TIA), and cerebral infarction without residual deficits
CPT/HCPCS: 36415; 94640; 93005; 83880; 80053; 83605; 83735; 84484; 85025; 87040; 87502; 71046; 99284; 96374; J2930; 87077; 87186

== ENCOUNTER 2018-12-16 16:21 | Emergency (ER) | payer MEDICARE, BC ==
[2018-12-16 16:34] VITALS: TEMP 97.9
[2018-12-16 18:07] LABS: Basophils % (A) 0 %; Eosinophils # (A) 0.2 k/uL (0-0.7); Eosinophils % (A) 2 %; HCT 35.6 % (39.0-53.0); HGB 11.7 gm/dL (13.0-17.5); Lymphocytes % (A) 12 %; MCHC 32.8 g/dL (31.0-37.0); MCV 91.5 fL (80.0-100.0); Mean Platelet Volume 8.1; Monocytes # (A) 0.3 k/uL (0-1.0); Monocytes % (A) 3 %; Neutrophils # (A) 6.4 k/uL (1.3-7.7); Neutrophils % (A) 80 %; Platelet Count 136 k/uL (150-450); RBC 3.89 m/uL (4.30-5.90)
--- NOTE | 2018-12-16 18:11 | CT ---
EXAMINATION TYPE: CT brain tanya sprague DATE OF EXAM: 12/16/2018 COMPARISON: 05/02/2017 HISTORY: Fall with blow to back of head. Laceration at site CT DLP: 1342 mGycm Automated exposure control for dose reduction was used. TECHNIQUE: CT scan of the head and cervical spine are performed without contrast. FINDINGS: There is cerebral cortical atrophy. There is no mass effect nor midline shift. There is n o sign of intracranial hemorrhage. There is 3 cm old occipital infarct on the left side. There is a 2 x 1 cm lacunar infarct right anterior internal capsule. There is 1 cm lacunar infarct anterior left internal capsule. The calvarium is intact. There is a midline occipital scalp hematoma that measures 9 mm in thickness. Cervical vertebra have normal alignment. Disc spaces are fairly normal. Posterior elements are intact . Skull base is intact. Facet joints are intact. IMPRESSION: Occipital scalp hematoma. Multiple old infarcts. No acute intracranial abnormality. Brain unchanged c ompared to old exam. Negative CT scan of the cervical spine. No fracture.
[2018-12-16 18:17] LABS: Albumin 3.8 g/dL (3.5-5.0); Calcium 9.3 mg/dL (8.4-10.2); Magnesium 1.7 mg/dL (1.6-2.3); Potassium 5.4 mmol/L (3.5-5.1); Total Bilirubin 0.5 mg/dL (0.2-1.3); Total Protein 6.1 g/dL (6.3-8.2)
--- NOTE | 2018-12-16 18:25 | XR ---
EXAMINATION TYPE: XR chest 2V DATE OF EXAM: 12/16/2018 COMPARISON: 11/06/2018 HISTORY: Cough TECHNIQUE: Frontal and lateral views of the chest are obtained. FINDINGS: There is no heart failure nor confluent pneumonic infiltrate. Costophrenic angles are leanna r. Thoracic aorta is atheromatous. There are sternal wires. IMPRESSION: No active cardiopulmonary disease. No change.
[2018-12-16 18:56] LABS: Creatine Kinase MB 1.1 ng/mL (0.0-2.4)
--- NOTE | 2018-12-16 20:14 | ED ---
Fall HPI - General Chief Complaint: Fall Stated Complaint: fall, head injury Time Seen by Provider: 12/16/18 17:00 Source: patient, family, EMS, RN notes reviewed Mode of arrival: EMS - History of Present Illness Initial Comments: This is a 73-year-old male who apparently prior to admission was playing on a chain when he fell backwards striking his head on cement driveway. Per reports she was knocked unconscious for about 2 minutes he did awake he was awake alert oriented 4 with a [place] Coma Scale of 15 upon awaking. No focal deficits. His localized pain but no other complaints at this time is transferred for evaluation. Tetanus shots are believed to be up-to-date MD Complaint: fall - Related Data Home Medications Medication Instructions Recorded Confirmed Allopurinol [Zyloprim] 100 mg PO QAM 11/28/15 12/16/18 Aspirin 81 mg PO HS 11/28/15 12/16/18 Atorvastatin [Lipitor] 80 mg PO HS 11/28/15 12/16/18 Calcitriol 0.25 mcg PO QAM 11/28/15 12/16/18 Clopidogrel Bisulfate [Plavix] 75 mg PO QAM 11/28/15 12/16/18 Folic Acid 1 mg PO QAM 11/28/15 12/16/18 Isosorbide Mononitrate [Isosorbide 30 mg PO HS 11/28/15 12/16/18 Mononitrate ER] Levothyroxine Sodium [Synthroid] 137 mcg PO QAM 11/28/15 12/16/18 Ergocalciferol (Vitamin D2) 50,000 unit PO Q30D 11/29/16 12/16/18 [Vitamin D2] Acetaminophen [Tylenol Arthritis] 1,300 mg PO HS 02/05/18 12/16/18 Citalopram Hydrobromide [CeleXA] 20 mg PO DAILY 02/05/18 12/16/18 Doxepin [SINEquan] 25 mg PO HS 02/05/18 12/16/18 Fish Oil/Dha/Epa [Fish Oil 1,200 1 cap PO HS 02/05/18 12/16/18 mg Fish Oil] Hydrochlorothiazide [Hydrodiuril] 25 mg PO QAM 02/05/18 12/16/18 INSULIN LISPRO (HumaLOG) [humaLOG] See Protocol SQ ACHS 02/05/18 12/16/18 Iron 27mg 27 mg PO QAM 02/05/18 12/16/18 Metoprolol Tartrate [Lopressor] 75 mg PO BID 02/05/18 12/16/18 Ranitidine HCl 150 mg PO BID 02/05/18 12/16/18 Tamsulosin HCl [Flomax] 0.4 mg PO QAM 02/05/18 12/16/18 glipiZIDE [Glucotrol] 5 mg PO AC-BID 02/05/18 12/16/18 Sodium Polystyrene Sulfonate 15 gm PO MOTUWETH 05/28/18 12/16/18 [Kayexalate] Insulin Glargine [Lantus] 20 unit SQ HS 07/21/18 12/16/18 Magnesium Oxide [Hernandez] 500 mg PO HS 11/06/18 12/16/18 Allergies Allergy/AdvReac Type Severity Reaction Status Date / Time Penicillins Allergy Severe Anaphylaxis Verified 12/16/18 16:57 cephalexin monohydrate Allergy Rash/Hives Verified 12/16/18 16:57 [From Keflex] gemfibrozil [From Lopid] AdvReac Abdominal Verified 12/16/18 16:57 Pain Review of Systems ROS Statement: Those systems with pertinent positive or pertinent negative responses have been documented in the HPI. ROS Other: All systems not noted in ROS Statement are negative. Past Medical History Past Medical History: Coronary Artery Disease (CAD), CVA/TIA, Diabetes Mellitus, GERD/Reflux, Hyperlipidemia, Hypertension, Myocardial Infarction ([place]), Osteoarthritis (OA), Prostate Disorder, Renal Disease, Sleep Apnea/CPAP/BIPAP, Thyroid Disorder Additional Past Medical History / Comment(s): hx. TIA's, last one November 2016, heart murmur, OCC SOB, kidney stones, leakage of urine, uses CPAP, decreased kidney function, uti's Last Myocardial Infarction Date:: 2010 History of Any Multi-Drug Resistant Organisms: Other MDRO Past Surgical History: Coronary Bypass/CABG, Heart Catheterization, Hernia Repair, Orthopedic Surgery, Prostate Surgery Additional Past Surgical History / Comment(s): vasectomy, CABG 2010 with 4 ves sels, keke knee arthroscopy, rt hand surgery x 3, TURP 02/2017, cystoscopy and dilation of urethral stricture 07/08/17 Past Anesthesia/Blood Transfusion Reactions: No Reported Reaction Past Psychological History: No Psychological Hx Reported Smoking Status: Never smoker Past Alcohol Use History: Occasional Past Drug Use History: None Reported - Past Family History Mother Family Medical History: Congestive Heart Failure (CHF) Additional Family Medical History / Comment(s): at age 92 Father Family Medical History: CVA/TIA, Myocardial Infarction ([place]) General Exam - General Exam Comments Initial Comments: This is a well-developed well-nourished awake alert oriented 3 male [place] Coma Scale of 15 Limitations: no limitations General appearance: alert, in no apparent distress Head exam: Present: normocephalic, normal inspection, other (Abrasion and very small laceration seen to the occipital scalp no active bleeding no step-off no crepitation no foreign body seen.) Eye exam: Present: normal appearance, PERRL, EOMI. Absent: scleral icterus, conjunctival injection, periorbital swelling ENT exam: Present: normal exam, mucous membranes moist Neck exam: Present: normal inspection, other (Patient did have a towel wrapped around his neck for support done by paramedics.). Absent: tenderness, meningismus, lymphadenopathy Respiratory exam: Present: normal lung sounds bilaterally. Absent: respiratory distress, wheezes, rales, rhonchi, stridor Cardiovascular Exam: Present: regular rate, normal rhythm, normal heart sounds. Absent: systolic murmur, diastolic murmur, rubs, gallop, clicks GI/Abdominal exam: Present: soft, normal bowel sounds. Absent: distended, tenderness, guarding, rebound, rigid Extremities exam: Present: normal inspection, full ROM, normal capillary refill. Absent: tenderness, pedal edema, joint swelling, calf tenderness Back exam: Present: normal inspection Neurological exam: Present: alert, oriented X3, CN II-XII intact Psychiatric exam: Present: normal affect, normal mood Skin exam: Present: warm, dry, intact, normal color. Absent: rash Course Vital Signs 12/16/18 16:29 Temperature 97.9 F Pulse Rate 78 Respiratory 19 Rate Blood Pressure 146/74 O2 Sat by Pulse 96 Oximetry - Reevaluation(s) Reevaluation #1: 12/16/18 20:11 Several reevaluation patient revealed him to be awake alert with no distress no new complaints. Reevaluation #2: 12/16/18 20:13 After clearance of the C-spine and did remove the immobilizer that was present Medical Decision Making - Medical Decision Making I did have a discussion with patient family members patient would like to be discharged home we did discuss potential late sequelae from a head injury such as this especially in light of blood thinners he will be discharged is follow-up with her doctor return when necessary - Lab Data Result diagrams: 12/16/18 17:55 12/16/18 17:55 Lab Results 12/16/18 12/16/18 12/16/18 Range/Units 17:55 17:55 17:55 WBC 8.0 (3.8-10.6) k/uL RBC 3.89 L (4.30-5.90) m/uL Hgb 11.7 L (13.0-17.5) gm/dL Hct 35.6 L (39.0-53.0) % MCV 91.5 (80.0-100.0) fL MCH 30.0 (25.0-35.0) pg MCHC 32.8 (31.0-37.0) g/dL RDW 15.0 (11.5-15.5) % Plt Count 136 L (150-450) k/uL Neutrophils % 80 % Lymphocytes % 12 % Monocytes % 3 % Eosinophils % 2 % Basophils % 0 % Neutrophils # 6.4 (1.3-7.7) k/uL Lymphocytes # 1.0 (1.0-4.8) k/uL Monocytes # 0.3 (0-1.0) k/uL Eosinophils # 0.2 (0-0.7) k/uL Basophils # 0.0 (0-0.2) k/uL Sodium 140 (137-145) mmol/L Potassium 5.4 H (3.5-5.1) mmol/L Chloride 112 H (98-107) mmol/L Carbon Dioxide 17 L (22-30) mmol/L Anion Gap 11 mmol/L BUN 56 H (9-20) mg/dL Creatinine 2.44 H (0.66-1.25) mg/dL Est GFR (CKD-EPI)AfAm 29 (>60 ml/min/1.73 sqM) Est GFR (CKD-EPI)NonAf 25 (>60 ml/min/1.73 sqM) Glucose 133 H (74-99) mg/dL Calcium 9.3 (8.4-10.2) mg/dL Magnesium 1.7 (1.6-2.3) mg/dL Total Bilirubin 0.5 (0.2-1.3) mg/dL AST 16 L (17-59) U/L ALT 27 (21-72) U/L Alkaline Phosphatase 86 (38-126) U/L Total Creatine Kinase 37 L (55-170) U/L CK-MB (CK-2) 1.1 (0.0-2.4) ng/mL CK-MB (CK-2) Rel Index 3.0 Total Protein 6.1 L (6.3-8.2) g/dL Albumin 3.8 (3.5-5.0) g/dL - Radiology Data Radiology results: report reviewed (I did review the imaging and reports no acute findings.), image reviewed Disposition Clinical Impression: Fall, Concussion, Scalp abrasion Disposition: HOME SELF-CARE Condition: Good Instructions (If sedation given, give patient instructions): Fall Prevention for Older Adults (ED), Abrasion (ED), Concussion (ED) Additional Instructions: Tylenol for pain Is patient prescribed a controlled substance at d/c from ED?: No Referrals: Bulmaro Graham, [Primary Care Provider] - 1-2 days
[2018-12-16 20:23] VITALS: BP 145/79; PULSE 84; RESP 16
== END 2018-12-16 20:22 | disposition home or self-care (01) ==
LOC: EC 16:21
DX: S06.0X0A Concussion without loss of consciousness, initial encounter (principal); S01.01XA Laceration without foreign body of scalp, initial encounter; I25.10 Atherosclerotic heart disease of native coronary artery without angina pectoris; E11.9 Type 2 diabetes mellitus without complications; K21.9 Gastro-esophageal reflux disease without esophagitis; E78.5 Hyperlipidemia, unspecified; E07.9 Disorder of thyroid, unspecified; I10 Essential (primary) hypertension; I25.2 Old myocardial infarction; M19.90 Unspecified osteoarthritis, unspecified site; G47.30 Sleep apnea, unspecified; Z99.89 Dependence on other enabling machines and devices; N42.9 Disorder of prostate, unspecified; Z86.73 Personal history of transient ischemic attack (TIA), and cerebral infarction without residual deficits; Z79.01 Long term (current) use of anticoagulants; Z79.82 Long term (current) use of aspirin; Z79.890 Hormone replacement therapy; Z79.4 Long term (current) use of insulin; Z79.899 Other long term (current) drug therapy; Z88.0 Allergy status to penicillin; Z88.1 Allergy status to other antibiotic agents; Z88.8 Allergy status to other drugs, medicaments and biological substances; Z95.1 Presence of aortocoronary bypass graft; Z95.818 Presence of other cardiac implants and grafts; W19.XXXA Unspecified fall, initial encounter; W22.8XXA Striking against or struck by other objects, initial encounter
CPT/HCPCS: 36415; 70450; 71046; 72125; 80053; 82550; 82553; 83735; 85025; 93005; 99284

== ENCOUNTER → 2019-02-15 | Outpatient (CLI) | payer BC, MEDICARE ==
[2019-02-15 19:02] LABS: Hemoglobin A1C 6.6 % (4.0-6.0)
[2019-02-15 19:38] LABS: African American GFR (CKD) 45.7 (60.0-200.0); Albumin/Globulin Ratio 2.5 (1.60-3.17); Anion Gap 6.8 mmol/L (4.00-12.00); BUN/Creat Ratio 21.18 Ratio (12.00-20.00); Calcium 9.4 mg/dL (8.7-10.3); Carbon Dioxide 25.2 mmol/L (21.6-31.8); Globulin 1.6 g/dL (1.6-3.3); LDL Cholesterol,Calculated 53.4 mg/dL (0.0-131.0); Potassium 5.4 mmol/L (3.5-5.5); Total Bilirubin 0.4 mg/dL (0.2-1.2); Total Protein 5.6 g/dL (6.2-8.2); VLDL Calculation 35.6 mg/dL (5.00-40.00)
== END | disposition home or self-care (01) ==
LOC: LABWHC1 11:40
PROVIDERS: ATTEND Internal Medicine Endocrinology, Diabetes & Metabolism
DX: E11.65 Type 2 diabetes mellitus with hyperglycemia (principal)
CPT/HCPCS: 36415; 80053; 80061; 82043; 82570; 83036; 84443

== ENCOUNTER → 2019-05-26 | Outpatient (CLI) | payer MEDICARE, BC ==
[2019-05-26 14:35] LABS: Basophils % (A) 1 %; Eosinophils # (A) 0.1 k/uL (0-0.7); Eosinophils % (A) 1 %; HCT 38.9 % (39.0-53.0); HGB 12.3 gm/dL (13.0-17.5); Lymphocytes # (A) 1.2 k/uL (1.0-4.8); Lymphocytes % (A) 17 %; MCH 29.4 pg (25.0-35.0); MCHC 31.6 g/dL (31.0-37.0); MCV 92.9 fL (80.0-100.0); Mean Platelet Volume 7.6; Monocytes # (A) 0.3 k/uL (0-1.0); Monocytes % (A) 4 %; Neutrophils # (A) 5.1 k/uL (1.3-7.7); Neutrophils % (A) 75 %; Platelet Count 143 k/uL (150-450); RBC 4.19 m/uL (4.30-5.90); RDW 14.1 % (11.5-15.5); WBC 6.8 k/uL (3.8-10.6)
[2019-05-26 14:44] LABS: Appearance,Urine Turbid (Clear); Bacteria,Urine Few /hpf; Bilirubin,Urine Negative (Negative); Blood,Urine Small (Negative); Color,Urine Yellow; Glucose,Urine (UA) Negative (Negative); Ketones,Urine Negative (Negative); Leukocyte Esterase,Urine Large (Negative); Mucus,Urine Rare /hpf; Nitrite,Urine Negative (Negative); Protein,Urine 1+ (Negative); RBC,Urine 6 /hpf (0-5); Specific Gravity,Urine 1.015 (1.001-1.035); Urobilinogen,Urine <2.0 mg/dL (<2.0); WBC,Urine >182 /hpf (0-5)
[2019-05-26 18:38] LABS: Iron Saturation 39.85 (15.00-50.00)
[2019-05-26 18:45] LABS: Vitamin D 25 Hydroxy 59.6 ng/mL (30.0-100.0)
[2019-05-26 18:51] LABS: African American GFR (CKD) 42.6 (60.0-200.0); Albumin 4.3 g/dL (3.80-4.90); BUN/Creat Ratio 29.44 Ratio (12.00-20.00); Calcium 9.2 mg/dL (8.7-10.3); Magnesium 1.7 mg/dL (1.5-2.4); Phosphorus 3.5 mg/dL (2.4-5.1); Potassium 5.2 mmol/L (3.5-5.5); Uric Acid 6.2 mg/dL (3.7-8.7)
[2019-05-26 19:00] LABS: T4, Free (Free Thyroxine) 1.3 ng/dL (0.80-1.80)
[2019-05-26 20:06] LABS: Creatinine,Urine Random 72.2 mg/dL
[2019-05-26 20:48] LABS: Total Protein,Urine Random 76.1 mg/dL (0.0-13.5)
[2019-05-26 22:28] LABS: Ferritin 291.8 ng/mL (22.0-322.0)
== END | disposition home or self-care (01) ==
LOC: LABWHC1 13:05
PROVIDERS: ATTEND Internal Medicine Endocrinology, Diabetes & Metabolism
DX: E03.8 Other specified hypothyroidism (principal); N18.3 Chronic kidney disease, stage 3 (moderate); E55.9 Vitamin D deficiency, unspecified; D63.1 Anemia in chronic kidney disease; M10.9 Gout, unspecified; R80.9 Proteinuria, unspecified
CPT/HCPCS: 36415; 80048; 81001; 82040; 82306; 82570; 82728; 83540; 83550; 83735; 83970; 84100; 84156; 84439; 84443; 84550; 85025

== ENCOUNTER → 2019-06-21 | Outpatient (CLI) | payer MEDICARE, BC ==
--- NOTE | 2019-06-21 09:37 | US ---
EXAMINATION TYPE: US kidneys/renal and bladder DATE OF EXAM: 06/21/2019 COMPARISON: US 09/16/2018 CLINICAL HISTORY: N18.3 Chronic kidney disease, stage 3 (moderate). EXAM MEASUREMENTS: Right Kidney: 10.5 x 4.2 x.4.4 cm Left Kidney: 11.1 x 5.8 x 5.1 cm Right Kidney: lobular, heterogeneous, with cortical thinning limited in assessment. Left Kidney: Indeterminate hypoechoic nodule measuring 1.1cm, lobular, heterogeneous, with cortical t hinning limited in assessment. Bladder: wnl No definite hydronephrosis or nephrolithiasis. IMPRESSION: Lobulation of the renal cortex can be associated with chronic medical renal disease. Correlate clinic ally. There is reduced visualization of the kidneys bilaterally which limits assessment. This may bee n the basis of chronic medical renal disease. Indeterminate hypoechoic nodule measuring 1.1 cm. Left kidney could be correlated with CT scan.
== END | disposition home or self-care (01) ==
LOC: RADUSWWP 08:34
PROVIDERS: ATTEND Internal Medicine Nephrology
DX: N18.3 Chronic kidney disease, stage 3 (moderate) (principal)
CPT/HCPCS: 76770

== ENCOUNTER → 2019-09-24 | Outpatient (CLI) | payer MEDICARE, BC ==
[2019-09-24 17:31] LABS: African American GFR (CKD) 27.1 (60.0-200.0); Albumin/Globulin Ratio 2.67 (1.60-3.17); BUN/Creat Ratio 27.31 Ratio (12.00-20.00); Calcium 9.1 mg/dL (8.7-10.3); Chol/HDL Ratio 4.54; Globulin 1.5 g/dL (1.6-3.3); LDL Cholesterol,Calculated 44.4 mg/dL (0.0-131.0); Non-African American GFR(CKD) 23.4 (60.0-200.0); Potassium 4.4 mmol/L (3.5-5.5); Total Bilirubin 0.2 mg/dL (0.2-1.2); Total Protein 5.5 g/dL (6.2-8.2); VLDL Calculation 40.6 mg/dL (5.00-40.00)
[2019-09-24 18:45] LABS: Hemoglobin A1C 6.8 % (4.0-6.0)
== END | disposition home or self-care (01) ==
LOC: LABWHC1 09:00
PROVIDERS: ATTEND Internal Medicine Endocrinology, Diabetes & Metabolism
DX: E11.65 Type 2 diabetes mellitus with hyperglycemia (principal)
CPT/HCPCS: 36415; 80053; 80061; 83036; 84443

== ENCOUNTER → 2019-09-27 | Outpatient (CLI) | payer MEDICARE, BC ==
[2019-09-27 15:59] LABS: Basophils # (A) 0.1 k/uL (0-0.2); Basophils % (A) 1 %; Eosinophils # (A) 0.2 k/uL (0-0.7); Eosinophils % (A) 3 %; HCT 40.4 % (39.0-53.0); HGB 12.9 gm/dL (13.0-17.5); Lymphocytes # (A) 1.8 k/uL (1.0-4.8); Lymphocytes % (A) 22 %; MCH 29.8 pg (25.0-35.0); MCHC 31.9 g/dL (31.0-37.0); MCV 93.4 fL (80.0-100.0); Mean Platelet Volume 8.6; Monocytes # (A) 0.3 k/uL (0-1.0); Monocytes % (A) 4 %; Neutrophils # (A) 5.5 k/uL (1.3-7.7); Neutrophils % (A) 69 %; Platelet Count 176 k/uL (150-450); RBC 4.33 m/uL (4.30-5.90); RDW 13.2 % (11.5-15.5)
[2019-09-27 16:01] LABS: Appearance,Urine Clear (Clear); Bilirubin,Urine Negative (Negative); Blood,Urine Small (Negative); Color,Urine Light Yellow; Glucose,Urine (UA) Negative (Negative); Ketones,Urine Negative (Negative); Leukocyte Esterase,Urine Moderate (Negative); Mucus,Urine Rare /hpf; Nitrite,Urine Negative (Negative); Protein,Urine Trace (Negative); RBC,Urine 26 /hpf (0-5); Specific Gravity,Urine 1.012 (1.001-1.035); Urobilinogen,Urine <2.0 mg/dL (<2.0); WBC,Urine 56 /hpf (0-5)
[2019-09-27 17:58] LABS: Protein/Creatinine Ratio,Urine 0.6
[2019-09-27 23:16] LABS: % Iron Saturation 50.88 (15.00-50.00); African American GFR (CKD) 28.5 (60.0-200.0); Albumin 4.3 g/dL (3.80-4.90); BUN/Creat Ratio 25.6 Ratio (12.00-20.00); Calcium 9.4 mg/dL (8.7-10.3); Non-African American GFR(CKD) 24.6 (60.0-200.0); Phosphorus 4.2 mg/dL (2.4-5.1); Uric Acid 6.3 mg/dL (3.7-8.7)
[2019-09-27 23:44] LABS: Ferritin 539.2 ng/mL (22.0-322.0)
== END | disposition home or self-care (01) ==
LOC: LABWHC1 14:42
PROVIDERS: ATTEND Nurse Practitioner Family
DX: D64.9 Anemia, unspecified (principal); N25.81 Secondary hyperparathyroidism of renal origin; N39.0 Urinary tract infection, site not specified; E55.9 Vitamin D deficiency, unspecified; M10.9 Gout, unspecified; N18.3 Chronic kidney disease, stage 3 (moderate); R80.9 Proteinuria, unspecified
CPT/HCPCS: 36415; 80048; 81001; 82040; 82306; 82570; 82728; 83540; 83550; 83735; 83970; 84100; 84156; 84550; 85025; 87086

== ENCOUNTER → 2020-01-25 | Outpatient (CLI) | payer MEDICARE, BC ==
[2020-01-25 12:19] LABS: Appearance,Urine Cloudy (Clear); Bacteria,Urine Occasional /hpf; Bilirubin,Urine Negative (Negative); Blood,Urine Trace (Negative); Color,Urine Light Yellow; Glucose,Urine (UA) Negative (Negative); Hyaline Casts,Urine 4 /lpf (0-2); Ketones,Urine Negative (Negative); Leukocyte Esterase,Urine Large (Negative); Mucus,Urine Rare /hpf; Nitrite,Urine Positive (Negative); PH, Urine 5.5 (5.0-8.0); Protein,Urine 1+ (Negative); RBC,Urine 3 /hpf (0-5); Specific Gravity,Urine 1.015 (1.001-1.035); Urobilinogen,Urine <2.0 mg/dL (<2.0); WBC,Urine >182 /hpf (0-5)
[2020-01-25 12:22] LABS: Basophils % (A) 0 %; Eosinophils # (A) 0.3 k/uL (0-0.7); Eosinophils % (A) 4 %; HCT 38.2 % (39.0-53.0); HGB 12.4 gm/dL (13.0-17.5); Lymphocytes # (A) 1.4 k/uL (1.0-4.8); Lymphocytes % (A) 21 %; MCH 30.7 pg (25.0-35.0); MCHC 32.4 g/dL (31.0-37.0); MCV 94.8 fL (80.0-100.0); Mean Platelet Volume 8.8; Monocytes # (A) 0.3 k/uL (0-1.0); Monocytes % (A) 5 %; Neutrophils # (A) 4.5 k/uL (1.3-7.7); Neutrophils % (A) 69 %; Platelet Count 161 k/uL (150-450); RBC 4.03 m/uL (4.30-5.90); RDW 13.9 % (11.5-15.5); WBC 6.5 k/uL (3.8-10.6)
[2020-01-25 12:35] LABS: Albumin 3.6 g/dL (3.5-5.0); Calcium 8.8 mg/dL (8.4-10.2); Magnesium 1.7 mg/dL (1.6-2.3); Phosphorus 3.3 mg/dL (2.5-4.5); Uric Acid 6.2 mg/dL (3.5-8.5)
--- NOTE | 2020-01-25 12:55 | US ---
EXAMINATION TYPE: US kidneys/renal and bladder DATE OF EXAM: 01/25/2020 COMPARISON: US 06/21/2019 and 09/16/2018 CLINICAL HISTORY: N18.8 Chronic kidney disease Stage III. Difficult and limited exam EXAM MEASUREMENTS: Right Kidney: 13.1 x 5.9x 6.4 cm Left Kidney: 11.2 x 5.2 x 4.2 cm Suboptimal visualization the kidneys as the ammonia box tender notes a difficult and limited exam. Right Kidney: No hydronephrosis. Very nodular contour. Loss of corticomedullary differentiation. Hypo echoic, possible cystic lesion visualized measuring 1.9 x 1.7 x 1.7 cm. This is increased in size fro m the prior where this measured 1.3 x 1.2 x 1.1 cm. Cortical renal thinning noted. Left Kidney: No hydronephrosis. Very nodular contour. Loss of corticomedullary differentiation. Prob able cystic lesion noted laterally measuring 0.8 cm. Cortical renal thinning noted. Bladder: wnl Bilateral Jets seen: yes IMPRESSION: Suboptimal visualization of the kidneys with sequela of chronic medical renal disease yon ntified is loss of cortical medullary junction and cortical renal thinning with nodular contour bilat erally. Bilateral probable renal cysts however the left lesion was not seen on prior examinations and the right lesion has increased in size from the prior exam. MRI renal mass protocol is recommended f or further evaluation.
[2020-01-25 14:54] LABS: Protein/Creatinine Ratio,Urine 0.453
[2020-01-25 19:50] LABS: % Iron Saturation 29.52 (15.00-50.00)
[2020-01-25 20:02] LABS: Ferritin 438.9 ng/mL (22.0-322.0)
== END | disposition home or self-care (01) ==
LOC: RADUSWWP 10:41
PROVIDERS: ATTEND Internal Medicine Nephrology
DX: N28.89 Other specified disorders of kidney and ureter (principal); N18.3 Chronic kidney disease, stage 3 (moderate)
CPT/HCPCS: 76770; 80048; 81001; 82040; 82306; 82570; 82728; 83540; 83550; 83735; 83970; 84100; 84156; 84550; 85025

== ENCOUNTER → 2020-05-23 | Outpatient (CLI) | payer MEDICARE, BC ==
[2020-05-23 09:15] LABS: Basophils % (A) 1 %; Eosinophils # (A) 0.2 k/uL (0-0.7); Eosinophils % (A) 3 %; HGB 12.3 gm/dL (13.0-17.5); Lymphocytes # (A) 1.4 k/uL (1.0-4.8); Lymphocytes % (A) 21 %; MCHC 31.6 g/dL (31.0-37.0); MCV 91.7 fL (80.0-100.0); Mean Platelet Volume 8.4; Monocytes # (A) 0.3 k/uL (0-1.0); Monocytes % (A) 5 %; Neutrophils # (A) 4.8 k/uL (1.3-7.7); Neutrophils % (A) 70 %; Platelet Count 149 k/uL (150-450); RBC 4.25 m/uL (4.30-5.90); RDW 13.8 % (11.5-15.5); WBC 6.8 k/uL (3.8-10.6)
[2020-05-23 10:37] LABS: Appearance,Urine Cloudy (Clear); Bilirubin,Urine Negative (Negative); Blood,Urine Small (Negative); Color,Urine Light Yellow; Glucose,Urine (UA) Negative (Negative); Ketones,Urine Negative (Negative); Leukocyte Esterase,Urine Large (Negative); Nitrite,Urine Positive (Negative); Protein,Urine 1+ (Negative); RBC,Urine 5 /hpf (0-5); Specific Gravity,Urine 1.013 (1.001-1.035); Squamous Epithelial Cell,Urine <1 /hpf (0-4); Urobilinogen,Urine <2.0 mg/dL (<2.0); WBC,Urine >182 /hpf (0-5)
[2020-05-23 11:43] LABS: Creatinine,Urine Random 65.6 mg/dL; Protein/Creatinine Ratio,Urine 0.686
[2020-05-23 17:33] LABS: African American GFR (CKD) 42.3 (60.0-200.0); Anion Gap 8.8 mmol/L (4.00-12.00); BUN/Creat Ratio 29.44 Ratio (12.00-20.00); Calcium 8.8 mg/dL (8.7-10.3); Carbon Dioxide 19.2 mmol/L (21.6-31.8); Magnesium 1.3 mg/dL (1.5-2.4); Non-African American GFR(CKD) 36.5 (60.0-200.0); Phosphorus 4.1 mg/dL (2.4-5.1); Potassium 5.1 mmol/L (3.5-5.5)
[2020-05-23 17:55] LABS: Ferritin 331.6 ng/mL (22.0-322.0)
== END | disposition home or self-care (01) ==
LOC: LABWHC1 08:40
PROVIDERS: ATTEND Nurse Practitioner Family
DX: E55.9 Vitamin D deficiency, unspecified (principal); N39.0 Urinary tract infection, site not specified; D63.1 Anemia in chronic kidney disease; N18.3 Chronic kidney disease, stage 3 (moderate); M10.9 Gout, unspecified; R80.9 Proteinuria, unspecified
CPT/HCPCS: 36415; 80048; 81001; 82040; 82306; 82570; 82728; 83540; 83550; 83735; 83970; 84100; 84156; 84550; 85025

== ENCOUNTER → 2020-10-02 | Outpatient (CLI) | payer MEDICARE, BC ==
[2020-10-02 13:18] LABS: Appearance,Urine Turbid (Clear); Bacteria,Urine Occasional /hpf; Bilirubin,Urine Negative (Negative); Blood,Urine Small (Negative); Color,Urine Light Yellow; Glucose,Urine (UA) Negative (Negative); Ketones,Urine Negative (Negative); Leukocyte Esterase,Urine Large (Negative); Mucus,Urine Rare /hpf; Nitrite,Urine Positive (Negative); Protein,Urine 1+ (Negative); RBC,Urine 13 /hpf (0-5); Specific Gravity,Urine 1.015 (1.001-1.035); Squamous Epithelial Cell,Urine <1 /hpf (0-4); Urobilinogen,Urine <2.0 mg/dL (<2.0); WBC,Urine >182 /hpf (0-5)
[2020-10-02 13:37] LABS: Creatinine,Urine Random 81.4 mg/dL; Protein/Creatinine Ratio,Urine 0.848
[2020-10-02 19:48] LABS: Basophils # (A) 0.03 X 10*3/uL (0.00-0.10); Basophils % (A) 0.5 %; Eosinophils # (A) 0.18 X 10*3/uL (0.04-0.35); Eosinophils % (A) 2.9 %; HCT 36.2 % (39.6-50.0); HGB 11.5 g/dL (13.0-17.0); Lymphocytes # (A) 1.36 X 10*3/uL (0.90-5.00); Lymphocytes % (A) 21.8 %; MCH 29.4 pg (27.0-32.0); MCHC 31.8 g/dL (32.0-37.0); MCV 92.6 fL (80.0-97.0); Mean Platelet Volume 11.4 fL (9.5-12.2); Monocytes # (A) 0.34 X 10*3/uL (0.20-1.00); Monocytes % (A) 5.4 %; Neutrophils # (A) 4.31 X 10*3/uL (1.80-7.70); Neutrophils % (A) 69.1 %; Platelet Count 167 X 10*3/uL (140-440); RBC 3.91 X 10*6/uL (4.40-5.60); RDW 14.3 % (11.5-14.5); WBC 6.24 X 10*3/uL (4.50-10.00)
[2020-10-02 21:41] LABS: % Iron Saturation 19.01 (15.00-50.00); African American GFR (CKD) 39.4 (60.0-200.0); Albumin 4.4 g/dL (3.80-4.90); Anion Gap 8.5 mmol/L (4.00-12.00); BUN/Creat Ratio 25.26 Ratio (12.00-20.00); Calcium 9.4 mg/dL (8.7-10.3); Carbon Dioxide 24.5 mmol/L (21.6-31.8); Magnesium 1.6 mg/dL (1.5-2.4); Phosphorus 4.4 mg/dL (2.4-5.1); Potassium 4.9 mmol/L (3.5-5.5); Uric Acid 6.5 mg/dL (3.7-8.7)
[2020-10-02 21:50] LABS: Ferritin 210.7 ng/mL (22.0-322.0)
== END | disposition home or self-care (01) ==
LOC: LABWHC1 11:10
PROVIDERS: ATTEND Internal Medicine Nephrology
DX: N25.81 Secondary hyperparathyroidism of renal origin (principal); N39.0 Urinary tract infection, site not specified; E55.9 Vitamin D deficiency, unspecified; R80.9 Proteinuria, unspecified; M10.9 Gout, unspecified; N18.32 Chronic kidney disease, stage 3b; D63.1 Anemia in chronic kidney disease; E87.5 Hyperkalemia
CPT/HCPCS: 36415; 80048; 81001; 82040; 82306; 82570; 82728; 83540; 83550; 83735; 83970; 84100; 84156; 84550; 85025; 87086

== ENCOUNTER → 2021-01-31 | Outpatient (CLI) | payer MEDICARE, BC ==
[2021-01-31 17:03] LABS: African American GFR (CKD) 39.4 (60.0-200.0); Albumin 4.2 g/dL (3.80-4.90); Albumin/Globulin Ratio 2.33 (1.60-3.17); Anion Gap 5.8 mmol/L (4.00-12.00); BUN/Creat Ratio 25.79 Ratio (12.00-20.00); Calcium 9.9 mg/dL (8.7-10.3); Carbon Dioxide 21.2 mmol/L (21.6-31.8); Chol/HDL Ratio 3.65; Globulin 1.8 g/dL (1.6-3.3); LDL Cholesterol,Calculated 58.4 mg/dL (0.0-131.0); Potassium 5.7 mmol/L (3.5-5.5); Total Bilirubin 0.6 mg/dL (0.2-1.2); VLDL Calculation 23.6 mg/dL (5.00-40.00)
[2021-01-31 19:43] LABS: Hemoglobin A1C 6.4 % (4.0-6.0)
[2021-02-01 04:23] LABS: Urine Creatinine 78.4 mg/dL
== END | disposition home or self-care (01) ==
LOC: LABWHC1 10:05
PROVIDERS: ATTEND Internal Medicine Endocrinology, Diabetes & Metabolism
DX: E11.65 Type 2 diabetes mellitus with hyperglycemia (principal)
CPT/HCPCS: 36415; 80053; 80061; 82043; 82570; 83036; 84443

== ENCOUNTER → 2021-05-03 | Outpatient (CLI) | payer MEDICARE, BC ==
[2021-05-03 19:57] LABS: Hemoglobin A1C 6.5 % (4.0-6.0)
[2021-05-03 22:09] LABS: Urine Creatinine 73.6 mg/dL
[2021-05-04 01:41] LABS: African American GFR (CKD) 31.3 (60.0-200.0); Albumin 4.4 g/dL (3.80-4.90); Albumin/Globulin Ratio 2.44 (1.60-3.17); Anion Gap 11.1 mmol/L (4.00-12.00); BUN/Creat Ratio 23.48 Ratio (12.00-20.00); Calcium 9.4 mg/dL (8.7-10.3); Carbon Dioxide 21.9 mmol/L (21.6-31.8); Chol/HDL Ratio 4.26; Globulin 1.8 g/dL (1.6-3.3); LDL Cholesterol,Calculated 47.2 mg/dL (0.0-131.0); Total Bilirubin 0.4 mg/dL (0.3-1.2); Total Protein 6.2 g/dL (6.2-8.2); VLDL Calculation 40.8 mg/dL (5.00-40.00)
== END | disposition home or self-care (01) ==
LOC: LABWHC1 08:31
PROVIDERS: ATTEND Internal Medicine Endocrinology, Diabetes & Metabolism
DX: E11.22 Type 2 diabetes mellitus with diabetic chronic kidney disease (principal); N18.30 Chronic kidney disease, stage 3 unspecified; E03.8 Other specified hypothyroidism; E11.65 Type 2 diabetes mellitus with hyperglycemia; Z79.4 Long term (current) use of insulin
CPT/HCPCS: 36415; 80053; 80061; 82043; 82570; 83036; 84443

== ENCOUNTER → 2021-09-13 | Outpatient (CLI) | payer MEDICARE, BC ==
[2021-09-13 15:20] LABS: ALT 10 U/L (10-49); AST 12 U/L (14-35); African American GFR (CKD) 30.1 (60.0-200.0); Albumin 3.9 g/dL (3.8-4.9); Albumin/Globulin Ratio 1.67 (1.60-3.17); Alkaline Phosphatase 85 U/L (41-126); BUN/Creat Ratio 20.72 Ratio (12.00-20.00); Blood Urea Nitrogen 49.1 mg/dL (9.0-27.0); Calcium 9.2 mg/dL (8.7-10.3); Carbon Dioxide 22.6 mmol/L (20.0-27.5); Chloride 105 mmol/L (96-109); Chol/HDL Ratio 2.86 Ratio; Globulin 2.3 g/dL (1.6-3.3); Glucose 90 mg/dL (70-110); LDL Cholesterol,Calculated 46.3 mg/dL (0.0-131.0); Potassium 5.1 mmol/L (3.5-5.5); Sodium 140 mmol/L (135-145); Total Protein 6.2 g/dL (6.2-8.2)
[2021-09-13 21:18] LABS: Urine Creatinine 79.5 mg/dL (39.0-259.0)
== END | disposition home or self-care (01) ==
LOC: LABWHC1 09:56
PROVIDERS: ATTEND Internal Medicine Endocrinology, Diabetes & Metabolism
DX: E11.65 Type 2 diabetes mellitus with hyperglycemia (principal)
CPT/HCPCS: 36415; 80053; 80061; 82043; 82570; 83036; 84443

== ENCOUNTER → 2021-09-28 | Outpatient (CLI) | payer MEDICARE, BC | END | disposition home or self-care (01) | LOC: LABWHC1 09:50 | PROVIDERS: ATTEND Internal Medicine Nephrology | DX: E87.5 Hyperkalemia (principal) | CPT/HCPCS: 36415; 84132 ==

== ENCOUNTER 2022-06-17 11:52 | Inpatient (IN) | payer MEDICARE, BC ==
[2022-06-17 13:04] LABS: Basophils % (A) 0 %; Eosinophils # (A) 0.1 k/uL (0-0.7); Eosinophils % (A) 1 %; HCT 35.1 % (39.0-53.0); HGB 11.9 gm/dL (13.0-17.5); Lymphocytes # (A) 0.7 k/uL (1.0-4.8); Lymphocytes % (A) 9 %; MCH 31.2 pg (25.0-35.0); MCHC 33.8 g/dL (31.0-37.0); MCV 92.2 fL (80.0-100.0); Mean Platelet Volume 9.3; Monocytes # (A) 0.4 k/uL (0-1.0); Monocytes % (A) 4 %; Neutrophils # (A) 7.2 k/uL (1.3-7.7); Neutrophils % (A) 85 %; Platelet Count 128 k/uL (150-450); RBC 3.81 m/uL (4.30-5.90); RDW 13.3 % (11.5-15.5); WBC 8.4 k/uL (3.8-10.6)
[2022-06-17 13:16] LABS: Albumin 3.8 g/dL (3.5-5.0); Calcium 8.7 mg/dL (8.4-10.2); Potassium 4.8 mmol/L (3.5-5.1); Total Protein 5.8 g/dL (6.3-8.2)
[2022-06-17 13:20] LABS: INR 0.9 (<1.2); Partial Thromboplastin Time 25.5 sec (22.0-30.0); Prothrombin Time 10.3 sec (9.0-12.0)
[2022-06-17 16:03] LABS: Appearance,Urine Turbid (Clear); Bacteria,Urine Many /hpf; Bilirubin,Urine Negative (Negative); Blood,Urine Large (Negative); Color,Urine Light Yellow; Glucose,Urine (UA) Negative (Negative); Ketones,Urine Negative (Negative); Leukocyte Esterase,Urine Large (Negative); Mucus,Urine Rare /hpf; Nitrite,Urine Negative (Negative); Protein,Urine 1+ (Negative); RBC,Urine 39 /hpf (0-5); Specific Gravity,Urine 1.014 (1.001-1.035); Urobilinogen,Urine <2.0 mg/dL (<2.0); WBC,Urine >182 /hpf (0-5)
[2022-06-17] MEDS ORDERED: NALOXONE 0.4 MG/ML 1 ML VIAL IV PRN (16:15)
[2022-06-17] MEDS ORDERED: ACETAMINOPHEN TAB 325 MG TAB PO PRN (16:15)
[2022-06-17] MEDS ORDERED: AZTREONAM 2 GM in SODIUM CHLORIDE 0.9% 100 ML IVPB STA (16:18)
--- NOTE | 2022-06-17 16:18 | ED ---
General Adult HPI - General Chief complaint: Weakness Stated complaint: Sepsis Time Seen by Provider: 06/17/22 15:27 Source: patient, RN notes reviewed, old records reviewed Mode of arrival: ambulatory Limitations: no limitations - History of Present Illness Initial comments: 76-year-old male presenting with confusion, chills. Patient has history of ur inary tract infection causing sepsis, family states that his symptoms are identical to this issue in the past. Patient denies chest pain or abdominal pain. He's had some flank discomfort and was scheduled for outpatient ultrasound of his kidneys. No recorded fever but he has had chills. Poor cornelius etite. - Related Data Home Medications Medication Instructions Recorded Confirmed Aspirin 81 mg PO HS 11/28/15 12/16/18 Atorvastatin [Lipitor] 80 mg PO HS 11/28/15 12/16/18 Clopidogrel Bisulfate [Plavix] 75 mg PO QAM 11/28/15 12/16/18 Folic Acid 1 mg PO QAM 11/28/15 12/16/18 Isosorbide Mononitrate [Isosorbide 30 mg PO 11/28/15 12/16/18 Mononitrate ER] Levothyroxine Sodium [Synthroid] 137 mcg PO QAM 11/28/15 12/16/18 allopurinoL [Zyloprim] 100 mg PO QAM 11/28/15 12/16/18 calcitrioL [Calcitriol] 0.25 mcg PO QAM 11/28/15 12/16/18 Ergocalciferol (Vitamin D2) 50,000 unit PO Q30D 11/29/16 12/16/18 [Vitamin D2] Acetaminophen [Tylenol Arthritis] 1,300 mg PO HS 02/05/18 12/16/18 Citalopram Hydrobromide [CeleXA] 20 mg PO DAILY 02/05/18 12/16/18 Doxepin [SINEquan] 25 mg PO HS 02/05/18 12/16/18 Fish Oil/Dha/Epa [Fish Oil 1,200 1 cap PO HS 02/05/18 12/16/18 mg Fish Oil] INSULIN LISPRO (HumaLOG) [humaLOG] See Protocol SQ ACHS 02/05/18 12/16/18 Iron 27mg 27 mg PO QAM 02/05/18 12/16/18 Metoprolol Tartrate [Lopressor] 75 mg PO BID 02/05/18 12/16/18 Tamsulosin HCl [Flomax] 0.4 mg PO QAM 02/05/18 12/16/18 glipiZIDE [Glucotrol] 5 mg PO AC-BID 02/05/18 12/16/18 hydroCHLOROthiazide [Hydrodiuril] 25 mg PO QAM 02/05/18 12/16/18 raNITIdine HCL [Zantac] 150 mg PO BID 02/05/18 12/16/18 Sodium Polystyrene Sulfonate 15 gm PO MOTUWETH 05/28/18 12/16/18 [Kayexalate] Insulin Glargine [Lantus Vial] 20 unit SQ HS 07/21/18 12/16/18 Magnesium Oxide [Hernandez] 500 mg PO HS 11/06/18 12/16/18 Allergies Allergy/AdvReac Type Severity Reaction Status Date / Time Penicillins Allergy Severe Anaphylaxis Verified 06/17/22 12:39 cephalexin monohydrate Allergy Rash/Hives Verified 06/17/22 12:39 [From Keflex] gemfibrozil [From Lopid] AdvReac Abdominal Verified 06/17/22 12:39 Pain Review of Systems ROS Statement: Those systems with pertinent positive or pertinent negative responses have been documented in the HPI. ROS Other: All systems not noted in ROS Statement are negative. Past Medical History Past Medical History: Coronary Artery Disease (CAD), CVA/TIA, Diabetes Mellitus, GERD/Reflux, Hyperlipidemia, Hypertension, Myocardial Infarction ([place]), Oste oarthritis (OA), Prostate Disorder, Renal Disease, Sleep Apnea/CPAP/BIPAP, Thyroid Disorder Additional Past Medical History / Comment(s): hx. TIA's, last one November 2016, heart murmur, OCC SOB, kidney stones, leakage of urine, uses CPAP, decreased kidney function, uti's Last Myocardial Infarction Date:: 2010 History of Any Multi-Drug Resistant Organisms: Other MDRO Past Surgical History: Coronary Bypass/CABG, Heart Catheterization, Hernia Repair, Orthopedic Surgery, Prostate Surgery Additional Past Surgical History / Comment(s): vasectomy, CABG 2010 with 4 vessels, keke knee arthroscopy, rt hand surgery x 3, TURP 02/2017, cystoscopy and dilation of urethral stricture 07/08/17 Past Anesthesia/Blood Transfusion Reactions: No Reported Reaction Past Psychological History: No Psychological Hx Reported Smoking Status: Never smoker Past Alcohol Use History: Occasional Past Drug Use History: None Reported - Past Family History Mother Family Medical History: Congestive Heart Failure (CHF) Additional Family Medical History / Comment(s): at age 92 Father Family Medical History: CVA/TIA, Myocardial Infarction ([place]) General Exam Limitations: no limitations General appearance: alert, in no apparent distress Head exam: Present: atraumatic, normocephalic Eye exam: Present: normal appearance, PERRL ENT exam: Present: normal exam Neck exam: Present: normal inspection. Absent: tenderness, meningismus Respiratory exam: Present: normal lung sounds bilaterally. Absent: respiratory distress, wheezes Cardiovascular Exam: Present: regular rate, normal rhythm GI/Abdominal exam: Present: soft. Absent: distended, tenderness Neurological exam: Present: alert. Absent: motor sensory deficit Skin exam: Present: warm, dry, intact. Absent: cyanosis, diaphoretic Course Vital Signs 06/17/22 06/17/22 12:37 15:44 Temperature 98.1 F Pulse Rate 83 78 Respiratory 20 16 Rate Blood Pressure 135/63 137/83 O2 Sat by Pulse 98 96 Oximetry EKG Findings - EKG Comments: EKG Findings:: EKG: Chest rhythm with first-degree AV block, rate of 77, WA interval 212, QRS duration 109, QTC 4:[address] segment elevation. Medical Decision Making - Medical Decision Making 76-year-old male history of UTI sepsis presenting with confusion, chills. Patient does have signs of urinary tract infection on urinalysis. He has normal white blood cell count, stable chronic anemia, stable chronic kidney function, lactic acid. He does not appear septic at this time but review of previous urine cultures does reveal pseudomonas of anaphylactic reaction to penicillins. The patient will be admitted with infectious disease on consult. I did discuss case with Dr. Keating at this time we agreed on treatment with aztreonam, pending culture results. - Lab Data Result diagrams: 06/17/22 12:42 06/17/22 12:42 Lab Results 06/17/22 06/17/22 06/17/22 Range/Units 12:42 12:42 12:42 WBC 8.4 (3.8-10.6) k/uL RBC 3.81 L (4.30-5.90) m/uL Hgb 11.9 L (13.0-17.5) gm/dL Hct 35.1 L (39.0-53.0) % MCV 92.2 (80.0-100.0) fL MCH 31.2 (25.0-35.0) pg MCHC 33.8 (31.0-37.0) g/dL RDW 13.3 (11.5-15.5) % Plt Count 128 L (150-450) k/uL MPV 9.3 Neutrophils % 85 % Lymphocytes % 9 % Monocytes % 4 % Eosinophils % 1 % Basophils % 0 % Neutrophils # 7.2 (1.3-7.7) k/uL Lymphocytes # 0.7 L (1.0-4.8) k/uL Monocytes # 0.4 (0-1.0) k/uL Eosinophils # 0.1 (0-0.7) k/uL Basophils # 0.0 (0-0.2) k/uL PT 10.3 (9.0-12.0) sec INR 0.9 (<1.2) APTT 25.5 (22.0-30.0) sec Sodium 137 (137-145) mmol/L Potassium 4.8 (3.5-5.1) mmol/L Chloride 102 (98-107) mmol/L Carbon Dioxide 23 (22-30) mmol/L Anion Gap 12 mmol/L BUN 67 H (9-20) mg/dL Creatinine 2.52 H (0.66-1.25) mg/dL Est GFR (CKD-EPI)AfAm 28 (>60 ml/min/1.73 sqM) Est GFR (CKD-EPI)NonAf 24 (>60 ml/min/1.73 sqM) Glucose 211 H (74-99) mg/dL Plasma Lactic Acid Meek (0.7-2.0) mmol/L Calcium 8.7 (8.4-10.2) mg/dL Total Bilirubin 1.0 (0.2-1.3) mg/dL AST 19 (17-59) U/L ALT 18 (4-49) U/L Alkaline Phosphatase 83 (38-126) U/L Troponin I (0.000-0.034) ng/mL Total Protein 5.8 L (6.3-8.2) g/dL Albumin 3.8 (3.5-5.0) g/dL Urine Color Urine Appearance (Clear) Urine pH (5.0-8.0) Ur Specific [place] (1.001-1.035) Urine Protein (Negative) Urine Glucose (UA) (Negative) Urine Ketones (Negative) Urine Blood (Negative) Urine Nitrite (Negative) Urine Bilirubin (Negative) Urine Urobilinogen (<2.0) mg/dL Ur Leukocyte Esterase (Negative) Urine RBC (0-5) /hpf Urine WBC (0-5) /hpf Urine WBC Clumps (None) /hpf Urine Bacteria (None) /hpf Urine Mucus (None) /hpf 06/17/22 06/17/22 06/17/22 Range/Units 12:42 15:49 15:57 WBC (3.8-10.6) k/uL RBC (4.30-5.90) m/uL Hgb (13.0-17.5) gm/dL Hct (39.0-53.0) % MCV (80.0-100.0) fL MCH (25.0-35.0) pg MCHC (31.0-37.0) g/dL RDW (11.5-15.5) % Plt Count (150-450) k/uL MPV Neutrophils % % Lymphocytes % % Monocytes % % Eosinophils % % Basophils % % Neutrophils # (1.3-7.7) k/uL Lymphocytes # (1.0-4.8) k/uL Monocytes # (0-1.0) k/uL Eosinophils # (0-0.7) k/uL Basophils # (0-0.2) k/uL PT (9.0-12.0) sec INR (<1.2) APTT (22.0-30.0) sec Sodium (137-145) mmol/L Potassium (3.5-5.1) mmol/L Chloride (98-107) mmol/L Carbon Dioxide (22-30) mmol/L Anion Gap mmol/L BUN (9-20) mg/dL Creatinine (0.66-1.25) mg/dL Est GFR (CKD-EPI)AfAm (>60 ml/min/1.73 sqM) Est GFR (CKD-EPI)NonAf (>60 ml/min/1.73 sqM) Glucose (74-99) mg/dL Plasma Lactic Acid [place]ek 1.8 (0.7-2.0) mmol/L Calcium (8.4-10.2) mg/dL Total Bilirubin (0.2-1.3) mg/dL AST (17-59) U/L ALT (4-49) U/L Alkaline Phosphatase (38-126) U/L Troponin I <0.012 (0.000-0.034) ng/mL Total Protein (6.3-8.2) g/dL Albumin (3.5-5.0) g/dL Urine Color Light Yellow Urine Appearance Turbid (Clear) Urine pH 6.0 (5.0-8.0) Ur Specific [place] 1.014 (1.001-1.035) Urine Protein 1+ H (Negative) Urine Glucose (UA) Negative (Negative) Urine Ketones Negative (Negative) Urine Blood Large H (Negative) Urine Nitrite Negative (Negative) Urine Bilirubin Negative (Negative) Urine Urobilinogen <2.0 (<2.0) mg/dL Ur Leukocyte Esterase Large H (Negative) Urine RBC 39 H (0-5) /hpf Urine WBC >182 H (0-5) /hpf Urine WBC Clumps Many H (None) /hpf Urine Bacteria Many H (None) /hpf Urine Mucus Rare H (None) /hpf Disposition Clinical Impression: Altered mental status, Urinary tract infection, Chronic kidney disease Disposition: ADMITTED IP TO THIS [facility] Condition: Stable Is patient prescribed a controlled substance at d/c from ED?: No Referrals: Bulmaro Graham DO [Primary Care Provider] - 1-2 days Time of Disposition: 16:23
--- NOTE | 2022-06-17 16:52 | P.HPIM ---
History of Present Illness 76-year-old pleasant male was brought in by daughter because of a worsening generalized weakness and confusion which has been going on for 3-4 days much worse last night. Patient is alert and oriented 3 when I valid the patient. Kassandra bauman had similar symptoms in the past and had urinary tract infection. Patient urine analysis significantly abnormal. Patient urine analysis showed large leukocyte esterase and nitrates were negative showed WBC clumps, rather than 182 WBC and bacteria. Patient does have some question will symptoms of dysuria patient does have history of urinary retention benign prostatic hypertrophy. Patient denied any symptoms of cough. Patient doesn't have any fever here. Chest x-ray did not show any significant abnormality. Patient's home medications need to be verified and patient had history of Pseudomonas in the urine this was in month of August since is more than 6 months I'll continue with Azetreonam for now REVIEW OF SYSTEMS: CONSTITUTIONAL: No fever, no malaise, no fatigue. HEENT: No recent visual problems or hearing problems. Denied any sore throat. CARDIOVASCULAR: No chest pain, orthopnea, PND, no palpitations, no syncope. PULMONARY: No shortness of breath, no cough, no hemoptysis. GASTROINTESTINAL: No diarrhea, no nausea, no vomiting, no abdominal pain. NEUROLOGICAL: No headaches, no weakness, no numbness. HEMATOLOGICAL: Denies any bleeding or petechiae. GENITOURINARY: As mentioned in HPI MUSCULOSKELETAL/RHEUMATOLOGICAL: Denies any joint pain, swelling, or any muscle pain. ENDOCRINE: Denies any polyuria or polydipsia. The rest of the 14-point review of systems is negative. PHYSICAL EXAMINATION: GENERAL: The patient is alert and oriented x3, not in any acute distress. Well developed, well nourished. HEENT: Pupils are round and equally reacting to light. EOMI. No scleral icterus. No conjunctival pallor. Normocephalic, atraumatic. No pharyngeal erythema. No thyromegaly. CARDIOVASCULAR: S1 and S2 present. No murmurs, rubs, or gallops. PULMONARY: Chest is clear to auscultation, no wheezing or crackles. ABDOMEN: Soft, nontender, nondistended, normoactive bowel sounds. No palpable organomegaly. MUSCULOSKELETAL: No joint swelling or deformity. EXTREMITIES: No cyanosis, clubbing, or pedal edema. NEUROLOGICAL: Gross neurological examination did not reveal any focal deficits. SKIN: No rashes. Assessment and plan -Altered mental status, possibly toxic encephalopathy possibly of urinary tract infection, patient will be continued on azetreonam patient has multiple ALLERGIES. Once medications were identified we'll also review the medications that can cause encephalopathy -Coronary artery disease next and-type 2 diabetes mellitus Epigastric is within reflux disease next and-hyperlipidemia -Hypertension -Chronic kidney disease stage IV -Sleep apnea -The history of diabetic nephropathy -Hypothyroidism For above-mentioned chronic medical problems patient will be resumed on appropriate home medications. DVT prophylaxis subcutaneous heparin Past Medical History Past Medical History: Coronary Artery Disease (CAD), CVA/TIA, Diabetes Mellitus, GERD/Reflux, Hyperlipidemia, Hypertension, Myocardial Infarction ([place]), Osteoarthritis (OA), Prostate Disorder, Renal Disease, Sleep Apnea/CPAP/BIPAP, Thyroid Disorder Additional Past Medical History / Comment(s): hx. TIA's, last one November 2016, heart murmur, OCC SOB, kidney stones, leakage of urine, uses CPAP, decreased ki dney function, uti's Last Myocardial Infarction Date:: 2010 History of Any Multi-Drug Resistant Organisms: Other MDRO Past Surgical History: Coronary Bypass/CABG, Heart Catheterization, Hernia Repair, Orthopedic Surgery, Prostate Surgery Additional Past Surgical History / Comment(s): vasectomy, CABG 2010 with 4 vessels, keke knee arthroscopy, rt hand surgery x 3, TURP 02/2017, cystoscopy and dilation of urethral stricture 07/08/17 Past Anesthesia/Blood Transfusion Reactions: No Reported Reaction Past Psychological History: No Psychological Hx Reported Smoking Status: Never smoker Past Alcohol Use History: Occasional Past Drug Use History: None Reported - Past Family History Mother Family Medical History: Congestive Heart Failure (CHF) Additional Family Medical History / Comment(s): at age 92 Father Family Medical History: CVA/TIA, Myocardial Infarction ([place]) Medications and Allergies Home Medications Medication Instructions Recorded Confirmed Type Aspirin 81 mg PO HS 11/28/15 12/16/18 History Atorvastatin [Lipitor] 80 mg PO HS 11/28/15 12/16/18 History Clopidogrel Bisulfate [Plavix] 75 mg PO QA 11/28/15 12/16/18 History Folic Acid 1 mg PO [facility] 11/28/15 12/16/18 History Isosorbide Mononitrate [Isosorbide 30 mg PO HS 11/28/15 12/16/18 History Mononitrate ER] Levothyroxine Sodium [Synthroid] 137 mcg PO QAM 11/28/15 12/16/18 History allopurinoL [Zyloprim] 100 mg PO QAM 11/28/15 12/16/18 History calcitrioL [Calcitriol] 0.25 mcg PO QAM 11/28/15 12/16/18 History Ergocalciferol (Vitamin D2) 50,000 unit PO Q30D 11/29/16 12/16/18 History [Vitamin D2] Acetaminophen [Tylenol Arthritis] 1,300 mg PO HS 02/05/18 12/16/18 History Citalopram Hydrobromide [CeleXA] 20 mg PO DAILY 02/05/18 12/16/18 History Doxepin [SINEquan] 25 mg PO HS 02/05/18 12/16/18 History Fish Oil/Dha/Epa [Fish Oil 1,200 1 cap PO HS 02/05/18 12/16/18 History mg Fish Oil] INSULIN LISPRO (HumaLOG) [humaLOG] See Protocol SQ ACHS 02/05/18 12/16/18 History Iron 27mg 27 mg PO QAM 02/05/18 12/16/18 History Metoprolol Tartrate [Lopressor] 75 mg PO BID 02/05/18 12/16/18 History Tamsulosin HCl [Flomax] 0.4 mg PO QAM 02/05/18 12/16/18 History glipiZIDE [Glucotrol] 5 mg PO AC-BID 02/05/18 12/16/18 History hydroCHLOROthiazide [Hydrodiuril] 25 mg PO QAM 02/05/18 12/16/18 History raNITIdine HCL [Zantac] 150 mg PO BID 02/05/18 12/16/18 History Sodium Polystyrene Sulfonate 15 gm PO MOTUWETH 05/28/18 12/16/18 History [Kayexalate] Insulin Glargine [Lantus Vial] 20 unit SQ HS 07/21/18 12/16/18 History Magnesium Oxide [Hernandez] 500 mg PO HS 11/06/18 12/16/18 History Allergies Allergy/AdvReac Type Severity Reaction Status Date / Time Penicillins Allergy Severe Anaphylaxis Verified 06/17/22 12:39 cephalexin monohydrate Allergy Rash/Hives Verified 06/17/22 12:39 [From Keflex] gemfibrozil [From Lopid] AdvReac Abdominal Verified 06/17/22 12:39 Pain Physical Exam Vitals: Vital Signs Temp Pulse Resp BP Pulse Ox 06/17/22 15:44 78 16 137/83 96 06/17/22 12:37 98.1 F 83 20 135/63 98 Intake and Output 06/17/22 06/17/22 06/17/22 06:59 14:59 22:59 Other: Weight 99.79 kg Results CBC & Chem 7: 06/17/22 12:42 06/17/22 12:42 Labs: Abnormal Lab Results - Last 24 Hours (Table) 06/17/22 06/17/22 06/17/22 Range/Units 12:42 12:42 15:49 RBC 3.81 L (4.30-5.90) m/uL Hgb 11.9 L (13.0-17.5) gm/dL Hct 35.1 L (39.0-53.0) % Plt Count 128 L (150-450) k/uL Lymphocytes # 0.7 L (1.0-4.8) k/uL BUN 67 H (9-20) mg/dL Creatinine 2.52 H (0.66-1.25) mg/dL Glucose 211 H (74-99) mg/dL Total Protein 5.8 L (6.3-8.2) g/dL Urine Protein 1+ H (Negative) Urine Blood Large H (Negative) Ur Leukocyte Esterase Large H (Negative) Urine RBC 39 H (0-5) /hpf Urine WBC >182 H (0-5) /hpf Urine WBC Clumps Many H (None) /hpf Urine Bacteria Many H (None) /hpf Urine Mucus Rare H (None) /hpf
[2022-06-17] MEDS: SODIUM CHLORIDE 0.9% 1,000 ML IV SCH (17:52)
[2022-06-17] MEDS: HEPARIN SODIUM,PORCINE/PF 5,000 UNIT/0.5 ML SYRINGE SQ SCH (22:11)
[2022-06-18] MEDS: SODIUM CHLORIDE 0.9% 1,000 ML IV SCH (04:41)
[2022-06-18] MEDS: HEPARIN SODIUM,PORCINE/PF 5,000 UNIT/0.5 ML SYRINGE SQ SCH ×2 (08:18→20:19)
[2022-06-18] MEDS ORDERED: FAMOTIDINE 20 MG TAB PO SCH (09:30)
[2022-06-18] MEDS ORDERED: DEXTROSE 50% SYRINGE 50 ML IVP PRN ×2 (09:31)
[2022-06-18] MEDS: FERROUS SULFATE 325 MG TAB PO SCH (09:55)
[2022-06-18] MEDS: FOLIC ACID 1 MG TAB PO SCH (09:55)
[2022-06-18] MEDS: METOPROLOL TARTRATE 50 MG TAB PO SCH ×2 (09:55→20:19)
[2022-06-18] MEDS: CLOPIDOGREL 75 MG TAB PO SCH (09:55)
[2022-06-18] MEDS: CITALOPRAM HYDROBROMIDE 20 MG TAB PO SCH (09:55)
[2022-06-18] MEDS: LEVOTHYROXINE 75 MCG TAB PO SCH (09:55)
[2022-06-18] MEDS: allopurinoL 100 MG TAB PO SCH (09:55)
[2022-06-18] MEDS: TAMSULOSIN 0.4 MG CAP.ER.24H PO SCH (09:55)
[2022-06-18] MEDS: SODIUM BICARBONATE TAB 650 MG TAB PO SCH ×2 (09:56→20:19)
[2022-06-18 10:25] LABS: African American GFR (CKD) 28.9 (60.0-200.0); Anion Gap 14.1 mmol/L (10.00-18.00); BUN/Creat Ratio 24.47 Ratio (12.00-20.00); Blood Urea Nitrogen 59.7 mg/dL (9.0-27.0); Calcium 9.2 mg/dL (8.7-10.3); Carbon Dioxide 20.1 mmol/L (20.0-27.5); Non-African American GFR(CKD) 24.9 (60.0-200.0); Potassium 4.8 mmol/L (3.5-5.5)
[2022-06-18 11:18] LABS: Acanthocytes 2+; HCT 36.8 % (39.6-50.0); HGB 12.2 g/dL (13.0-17.0); MCH 30.7 pg (27.0-32.0); MCHC 33.2 g/dL (32.0-37.0); MCV 92.5 fL (80.0-97.0); NRBC Per 100 WBC 0 /100 WBCS (0.0-0.0); Platelet Count 117 X 10*3/uL (140-440); RBC 3.98 X 10*6/uL (4.40-5.60); RDW 13.8 % (11.5-14.5); WBC 8.21 X 10*3/uL (4.50-10.00)
[2022-06-18 11:45] LABS: Glucose,Whole Blood 189 mg/dL (70-110)
[2022-06-18] MEDS: INSULIN ASPART (NovoLOG) 100 UNIT/ML VIAL SQ SCH ×3 (12:53→20:20)
--- NOTE | 2022-06-18 15:06 | P.PN ---
Subjective Progress Note Date: 06/18/22 76-year-old pleasant male was brought in by daughter because of a worsening generalized weakness and confusion which has been going on for 3-4 days much worse last night. Patient is alert and oriented 3 when I valid the patient. Patient had similar symptoms in the past and had urinary tract infection. Patient urine analysis significantly abnormal. Patient urine analysis showed large leukocyte esterase and nitrates were negative showed WBC clumps, rather than 182 WBC and bacteria. Patient does have some question will symptoms of dysuria patient does have history of urinary retention benign prostatic hypertrophy. Patient denied any symptoms of cough. Patient doesn't have any fever here. Chest x-ray did not show any significant abnormality. Patient's home medications need to be verified and patient had history of Pseudomonas in the urine this was in month of August since is more than 6 months I'll continue with Azetreonam for now 06/18/2022 Patient is evaluated today in emergency room awaiting bed on the floor. Mentation seems to be improved today he is alert x 2-3. Urine culture is currently pending, patient is continued on IV aztreonam. He is a poor historian. Continues on IV antibiotics at this time. We will also ask PT/Ot to evaluate the patient. Home medications have been reviewed. Review of Systems Constitutional: Denied any fatigue denied any fever. Cardio vascular: denied any chest pain, palpitations Gastrointestinal: denied any nausea, vomiting, diarrhea Pulmonary: Denied any shortness of breath cough Neurologic denied any new focal deficits All inpatient medications were reviewed and appropriate changes in these medications as dictated in the interval history and assessment and plan. PHYSICAL EXAMINATION: GENERAL: The patient is alert and oriented x2-3, not in any acute distress. Well developed, well nourished. HEENT: Pupils are round and equally reacting to light. EOMI. No scleral icterus. No conjunctival pallor. Normocephalic, atraumatic. No pharyngeal erythema. No thyromegaly. CARDIOVASCULAR: S1 and S2 present. No murmurs, rubs, or gallops. PULMONARY: Chest is clear to auscultation, no wheezing or crackles. ABDOMEN: Soft, nontender, nondistended, normoactive bowel sounds. No palpable organomegaly. MUSCULOSKELETAL: No joint swelling or deformity. EXTREMITIES: No cyanosis, clubbing, or pedal edema. NEUROLOGICAL: Gross neurological examination did not reveal any focal deficits. SKIN: No rashes. Assessment and plan -Altered mental status, possibly toxic encephalopathy possibly of urinary tract infection, patient will be continued on azetreonam patient has multiple ALLERGIES. -Coronary artery disease -type 2 diabetes mellitus -Gastroesophageal reflux disease -hyperlipidemia -Hypertension -Chronic kidney disease stage IV -Sleep apnea -The history of diabetic nephropathy -Hypothyroidism GI prophyalxis DVT prophylaxis subcutaneous heparin Full Code The impression and plan of care has been dictated by Tracey Hernandez, Nurse Practitioner as directed. Dr. Zuri MD I have performed a history and physical examination and medical decision making of this patient, discussed the same with the dictator, and agree with the dictators assessment and plan as written, documented as a scribe. Based on total visit time, I have performed more than 50% of this visit. Objective - Vital Signs Vital signs: Vital Signs Temp 98.3 F 06/17/22 22:00 Pulse 85 06/18/22 09:57 Resp 18 06/18/22 09:57 BP 144/76 06/18/22 09:57 Pulse Ox 95 06/18/22 09:57 FiO2 Intake & Output 06/17/22 06/18/22 06/18/22 18:59 06:59 18:59 Weight 99.79 kg - Labs CBC & Chem 7: 06/18/22 05:15 06/18/22 05:15 Labs: Abnormal Lab Results - Last 24 Hours (Table) 06/17/22 06/17/22 06/17/22 Range/Units 12:42 12:42 15:49 RBC 3.81 L (4.30-5.90) m/uL Hgb 11.9 L (13.0-17.5) gm/dL Hct 35.1 L (39.0-53.0) % Plt Count 128 L (150-450) k/uL Plt Count Comment Lymphocytes # 0.7 L (1.0-4.8) k/uL BUN 67 H (9-20) mg/dL Creatinine 2.52 H (0.66-1.25) mg/dL Est GFR (CKD-EPI)AfAm (60.0-200.0) Est GFR (CKD-EPI)NonAf (60.0-200.0) BUN/Creatinine Ratio (12.00-20.00) Ratio Glucose 211 H (74-99) mg/dL POC Glucose (mg/dL) (70-110) mg/dL Total Protein 5.8 L (6.3-8.2) g/dL Urine Protein 1+ H (Negative) Urine Blood Large H (Negative) Ur Leukocyte Esterase Large H (Negative) Urine RBC 39 H (0-5) /hpf Urine WBC >182 H (0-5) /hpf Urine WBC Clumps Many H (None) /hpf Urine Bacteria Many H (None) /hpf Urine Mucus Rare H (None) /hpf 06/18/22 06/18/22 06/18/22 Range/Units 05:15 05:15 11:44 RBC 3.98 L (4.30-5.90) m/uL Hgb 12.2 L (13.0-17.5) gm/dL Hct 36.8 L (39.0-53.0) % Plt Count 117 L (150-450) k/uL Plt Count Comment DECREASED A Lymphocytes # (1.0-4.8) k/uL BUN 59.7 H (9-20) mg/dL Creatinine 2.4 H (0.66-1.25) mg/dL Est GFR (CKD-EPI)AfAm 28.9 L (60.0-200.0) Est GFR (CKD-EPI)NonAf 24.9 L (60.0-200.0) BUN/Creatinine Ratio 24.47 H (12.00-20.00) Ratio Glucose 163 H (74-99) mg/dL POC Glucose (mg/dL) 189 H (70-110) mg/dL Total Protein (6.3-8.2) g/dL Urine Protein (Negative) Urine Blood (Negative) Ur Leukocyte Esterase (Negative) Urine RBC (0-5) /hpf Urine WBC (0-5) /hpf Urine WBC Clumps (None) /hpf Urine Bacteria (None) /hpf Urine Mucus (None) /hpf Microbiology - Last 24 Hours (Table) 06/17/22 15:49 Urine Culture - Preliminary Urine,Voided Assessment and Plan Time with Patient: Less than 30
[2022-06-18 16:40] LABS: Glucose,Whole Blood 226 mg/dL (70-110)
[2022-06-18 20:08] LABS: Glucose,Whole Blood 206 mg/dL (70-110)
[2022-06-18] MEDS: ISOSORBIDE MONONITRATE ER 30 MG TAB.ER.24H PO SCH (20:19)
[2022-06-18] MEDS: ASPIRIN 81 MG PO SCH (20:19)
[2022-06-18] MEDS: ATORVASTATIN 80 MG TAB PO SCH (20:19)
[2022-06-18] MEDS ORDERED: INSULIN DETEMIR (LEVEMIR) 100 UNIT/ML SYR SQ SCH (21:00)
--- NOTE | 2022-06-18 22:45 | P.CONS ---
History of Present Illness - Reason for Consult Consult date: 06/18/22 Drug-resistant UTI Requesting physician: Juma Dodson - Chief Complaint Confusion and weakness x one day - History of Present Illness Patient is a 76-year male presenting to the ER yesterday afternoon for evaluation of confusion and chills and this patient symptom has been going on for a day or 2 before presentation to the hospital patient denies having any headache no chest pain or shortness of breath or cough no nausea no vomiting no abdominal pain no diarrhea has been complaining of some flank pain mostly on the right side dull aching 3-4 out of 10 and no radiation with the symptom the patient was evaluated by the ER physician on arrival to the ER the patient was afebrile and no fever have been recorded subsequently patient did have a white count of 8.4 with a mild lymphopenia did have elevated BUN and creatinine liver enzymes are normal patient did have a positive UA urine cultures currently pending patient did have a penicillin and cephalosporin allergies he was given a dose of Azactam has been admitted to the hospital infectious disease was consulted regarding drug-resistant UTI urine is currently showing a gram- negative bacilli last urine culture from August was a Pseudomonas aeruginosa resistant to quinolones Review of Systems Positive point has been mentioned in the HPI rest of the systems are negative Past Medical History Past Medical History: Coronary Artery Disease (CAD), CVA/TIA, Diabetes Mellitus, GERD/Reflux, Hyperlipidemia, Hypertension, Myocardial Infarction ([place]), Osteoarthritis (OA), Prostate Disorder, Renal Disease, Sleep Apnea/CPAP/BIPAP, Thyroid Disorder Additional Past Medical History / Comment(s): hx. TIA's, last one November 2016, heart murmur, OCC SOB, kidney stones, leakage of urine, uses CPAP, decreased kid elsie function, uti's Last Myocardial Infarction Date:: 2010 History of Any Multi-Drug Resistant Organisms: Other MDRO Past Surgical History: Coronary Bypass/CABG, Heart Catheterization, Hernia Repair, Orthopedic Surgery, Prostate Surgery Additional Past Surgical History / Comment(s): vasectomy, CABG 2010 with 4 vessels, keke knee arthroscopy, rt hand surgery x 3, TURP 02/2017, cystoscopy and dilation of urethral stricture 07/08/17 Past Anesthesia/Blood Transfusion Reactions: No Reported Reaction Past Psychological History: No Psychological Hx Reported Smoking Status: Never smoker Past Alcohol Use History: Occasional Past Drug Use History: None Reported - Past Family History Mother Family Medical History: Congestive Heart Failure (CHF) Additional Family Medical History / Comment(s): at age 92 Father Family Medical History: CVA/TIA, Myocardial Infarction ([place]) Medications and Allergies Home Medications Medication Instructions Recorded Confirmed Type Aspirin 81 mg PO HS 11/28/15 06/17/22 History Atorvastatin [Lipitor] 80 mg PO [id number]@2100 11/28/15 06/17/22 History Clopidogrel Bisulfate [Plavix] 75 mg PO DAILY 11/28/15 06/17/22 History Folic Acid 1 mg PO DAILY 11/28/15 06/17/22 History Isosorbide Mononitrate [Isosorbide 30 mg PO HS 11/28/15 06/17/22 History Mononitrate ER] allopurinoL [Zyloprim] 100 mg PO DAILY 11/28/15 06/17/22 History Ergocalciferol (Vitamin D2) 50,000 unit PO Q14D 11/29/16 06/17/22 History [Vitamin D2] Citalopram Hydrobromide [CeleXA] 20 mg PO DAILY 02/05/18 06/17/22 History Metoprolol Tartrate [Lopressor] 50 mg PO BID 02/05/18 06/17/22 History Tamsulosin HCl [Flomax] 0.4 mg PO DAILY 02/05/18 06/17/22 History Magnesium Oxide [Hernandez] 500 mg PO HS 11/06/18 06/17/22 History Acetaminophen Tab [Tylenol] 1,000 mg PO BID 06/17/22 06/17/22 History Famotidine [Pepcid] 20 mg PO BID 06/17/22 06/17/22 History Ferrous Sulfate [Iron (65 MG 325 mg PO DAILY 06/17/22 06/17/22 History Elemental)] Levothyroxine Sodium [Euthyrox] 150 mcg PO DAILY 06/17/22 06/17/22 History Methenamine Hippurate 1 gm PO DIRECTED 06/17/22 06/17/22 History Sodium Bicarbonate 650 mg PO BID 06/17/22 06/17/22 History calcitrioL [Calcitriol] 0.5 mcg PO DAILY 06/17/22 06/17/22 History Chlorthalidone 25 mg PO DAILY #30 tablet 06/24/22 Rx Ciprofloxacin HCl [Cipro] 500 mg PO BID #10 tab 06/24/22 Rx glipiZIDE [Glucotrol] 5 mg PO DAILY #0 06/24/22 06/17/22 Rx Allergies Allergy/AdvReac Type Severity Reaction Status Date / Time Penicillins Allergy Severe Anaphylaxis Verified 06/17/22 16:58 cephalexin monohydrate Allergy Rash/Hives Verified 06/17/22 16:58 [From Keflex] gemfibrozil [From Lopid] AdvReac Abdominal Verified 06/17/22 16:58 Pain Physical Exam Vitals: Vital Signs Temp Pulse Resp BP Pulse Ox 06/18/22 09:57 85 18 144/76 95 06/18/22 08:17 79 16 157/87 96 06/18/22 06:00 94 20 163/94 94 L 06/18/22 00:50 168/72 06/17/22 22:00 98.3 F 06/17/22 20:25 76 137/84 96 06/17/22 15:44 78 16 137/83 96 06/17/22 12:37 98.1 F 83 20 135/63 98 GENERAL DESCRIPTION: Elderly male lying in bed, no distress. No tachypnea or accessory muscle of respiration use. HEENT: Shows Pallor , no scleral icterus. Oral mucous membrane is dry. No pharyngeal erythema or thrush NECK: Trachea central, no thyromegaly. LUNGS: Unlabored breathing. Decreased breath sounds at the base. No wheeze or crackle. HEART: S1, S2, regular rate and rhythm. No loud murmur ABDOMEN: Soft, no tenderness , guarding or rigidity, no organomegaly EXTREMITIES: No edema of feet. SKIN: No rash, no masses palpable. NEUROLOGICAL: The patient is awake, alert, oriented x3, mood and affect normal. Results CBC & Chem 7: 06/23/22 07:12 06/23/22 07:12 Labs: Abnormal Lab Results - Last 24 Hours (Table) 06/17/22 06/17/22 06/17/22 Range/Units 12:42 12:42 15:49 RBC 3.81 L (4.30-5.90) m/uL Hgb 11.9 L (13.0-17.5) gm/dL Hct 35.1 L (39.0-53.0) % Plt Count 128 L (150-450) k/uL Plt Count Comment Lymphocytes # 0.7 L (1.0-4.8) k/uL BUN 67 H (9-20) mg/dL Creatinine 2.52 H (0.66-1.25) mg/dL Est GFR (CKD-EPI)AfAm (60.0-200.0) Est GFR (CKD-EPI)NonAf (60.0-200.0) BUN/Creatinine Ratio (12.00-20.00) Ratio Glucose 211 H (74-99) mg/dL Total Protein 5.8 L (6.3-8.2) g/dL Urine Protein 1+ H (Negative) Urine Blood Large H (Negative) Ur Leukocyte Esterase Large H (Negative) Urine RBC 39 H (0-5) /hpf Urine WBC >182 H (0-5) /hpf Urine WBC Clumps Many H (None) /hpf Urine Bacteria Many H (None) /hpf Urine Mucus Rare H (None) /hpf 06/18/22 06/18/22 Range/Units 05:15 05:15 RBC 3.98 L (4.30-5.90) m/uL Hgb 12.2 L (13.0-17.5) gm/dL Hct 36.8 L (39.0-53.0) % Plt Count 117 L (150-450) k/uL Plt Count Comment DECREASED A Lymphocytes # (1.0-4.8) k/uL BUN 59.7 H (9-20) mg/dL Creatinine 2.4 H (0.66-1.25) mg/dL Est GFR (CKD-EPI)AfAm 28.9 L (60.0-200.0) Est GFR (CKD-EPI)NonAf 24.9 L (60.0-200.0) BUN/Creatinine Ratio 24.47 H (12.00-20.00) Ratio Glucose 163 H (74-99) mg/dL Total Protein (6.3-8.2) g/dL Urine Protein (Negative) Urine Blood (Negative) Ur Leukocyte Esterase (Negative) Urine RBC (0-5) /hpf Urine WBC (0-5) /hpf Urine WBC Clumps (None) /hpf Urine Bacteria (None) /hpf Urine Mucus (None) /hpf Microbiology - Last 24 Hours (Table) 06/17/22 15:49 Urine Culture - Preliminary Urine,Voided Assessment and Plan (1) Urinary tract infection Status: Acute Code(s): N39.0 - URINARY TRACT INFECTION, SITE NOT SPECIFIED SNOMED Code(s): 83798234 Plan: 1patient presented to hospital with confusion chills did have urinary symptoms and some pain to the right flank area concerning for possible pyelonephritis in this patient with a borderline kidney function and high risk of nephrotoxicity, last urine culture positive for Pseudomonas that was resistant to quinolones. 2patient with a penicillin cephalosporin allergies that would limit the number of antibiotics safe to use. 3obtain ultrasound of the kidneys to make sure no evidence of any hydronephrosis or structural abnormality. 4we will start the patient on Azactam 2 g every 12 hours while waiting for the culture to finalize. We will follow on clinical condition and cultures to further adjust medication if needed Thank you for this consultation will follow this patient along with you Time with Patient: Greater than 30
[2022-06-19 00:26] LABS: Glucose,Whole Blood 140 mg/dL (70-110)
[2022-06-19] MEDS: AZTREONAM 2 GM in SODIUM CHLORIDE 0.9% 100 ML IVPB SCH ×3 (00:26→20:31)
[2022-06-19] MEDS: SODIUM CHLORIDE 0.9% 1,000 ML IV SCH ×2 (00:27→16:49)
[2022-06-19] MEDS: LEVOTHYROXINE 75 MCG TAB PO SCH (06:42)
[2022-06-19] MEDS: INSULIN ASPART (NovoLOG) 100 UNIT/ML VIAL SQ SCH ×4 (06:45→20:38)
[2022-06-19 06:46] LABS: Glucose,Whole Blood 114 mg/dL (70-110)
[2022-06-19 07:10] LABS: Calcium 8.6 mg/dL (8.4-10.2); Potassium 4.8 mmol/L (3.5-5.1)
[2022-06-19] MEDS: CLOPIDOGREL 75 MG TAB PO SCH (08:53)
[2022-06-19] MEDS: SODIUM BICARBONATE TAB 650 MG TAB PO SCH ×2 (08:53→20:33)
[2022-06-19] MEDS: FERROUS SULFATE 325 MG TAB PO SCH (08:53)
[2022-06-19] MEDS: FAMOTIDINE 20 MG TAB PO SCH (08:53)
[2022-06-19] MEDS: allopurinoL 100 MG TAB PO SCH (08:53)
[2022-06-19] MEDS: CITALOPRAM HYDROBROMIDE 20 MG TAB PO SCH (08:53)
[2022-06-19] MEDS: METOPROLOL TARTRATE 50 MG TAB PO SCH ×2 (08:53→20:32)
[2022-06-19] MEDS: FOLIC ACID 1 MG TAB PO SCH (08:53)
[2022-06-19] MEDS: TAMSULOSIN 0.4 MG CAP.ER.24H PO SCH (08:53)
[2022-06-19] MEDS: HEPARIN SODIUM,PORCINE/PF 5,000 UNIT/0.5 ML SYRINGE SQ SCH ×2 (08:54→20:31)
[2022-06-19 11:57] LABS: Glucose,Whole Blood 251 mg/dL (70-110)
--- NOTE | 2022-06-19 13:51 | P.PN ---
Progress Note - Text Progress Note Date: 06/19/22 Hospital course: 76-year-old pleasant male was brought in by daughter because of a worsening gene ralized weakness and confusion which has been going on for 3-4 days much worse last night. Patient is alert and oriented 3 when I valid the patient. Patient had similar symptoms in the past and had urinary tract infection. Patient urine analysis significantly abnormal. Patient urine analysis showed large leukocyte esterase and nitrates were negative showed WBC clumps, rather than 182 WBC and bacteria. Patient does have some question will symptoms of dysuria patient does have history of urinary retention benign prostatic hypertrophy. Patient denied any symptoms of cough. Patient doesn't have any fever here. Chest x-ray did not show any significant abnormality. Patient's home medications need to be verified and patient had history of Pseudomonas in the urine this was in month of August since is more than 6 months I'll continue with Azetreonam for now 06/18/2022 Patient is evaluated today in emergency room awaiting bed on the floor. Mentation seems to be improved today he is alert x 2-3. Urine culture is currently pending, patient is continued on IV aztreonam. He is a poor historian. Continues on IV antibiotics at this time. We will also ask PT/Ot to evaluate the patient. Home medications have been reviewed. 06/19/2022: I assumed the care of patient today from [facility] hospitalists. Patients in the ICU as an overflow patient. Up in a chair. Eating well. Able to answer questions appropriately. On IV aztreonam. Urine culture growing gram-negative bacilli. No fever. Patient did ambulate. Upon presentation patient is complaining of flank pain and urinary frequency. Active Medications Acetaminophen (Acetaminophen Tab 325 Mg Tab) 650 mg PO Q6HR PRN PRN Reason: Mild Pain or Fever > 100.5 Allopurinol (Allopurinol 100 Mg Tab) 100 mg PO DAILY [facility] Last Admin: 06/19/22 08:53 Dose: 100 mg Aspirin (Aspirin 81 Mg) 81 mg PO HS [facility] Last Admin: 06/18/22 20:19 Dose: 81 mg Atorvastatin Calcium (Atorvastatin 80 Mg Tab) 80 mg PO MOTUWETHFR@2100 [facility] Last Admin: 06/18/22 20:19 Dose: 80 mg Calcitriol (Calcitriol 0.25 Mcg Cap) 0.5 mcg PO DAILY [facility] Last Admin: 06/19/22 08:54 Dose: 0.5 mcg Citalopram Hydrobromide (Citalopram Hydrobromide 20 Mg Tab) 20 mg PO DAILY [facility] Last Admin: 06/19/22 08:53 Dose: 20 mg Clopidogrel Bisulfate (Clopidogrel 75 Mg Tab) 75 mg PO DAILY [facility] Last Admin: 06/19/22 08:53 Dose: 75 mg Dextrose/Water (Dextrose 50% Syringe 50 Ml) 25 ml IVP PER PROTOCOL PRN; Protocol PRN Reason: Hypoglycemia Dextrose/Water (Dextrose 50% Syringe 50 Ml) 50 ml IVP PER PROTOCOL PRN; Protocol PRN Reason: Hypoglycemia Famotidine (Famotidine 20 Mg Tab) 20 mg PO DAILY [facility] Last Admin: 06/19/22 08:53 Dose: 20 mg Ferrous Sulfate (Ferrous Sulfate 325 Mg Tab) 325 mg PO DAILY [facility] Last Admin: 06/19/22 08:53 Dose: 325 mg Folic Acid (Folic Acid 1 Mg Tab) 1 mg PO DAILY [facility] Last Admin: 06/19/22 08:53 Dose: 1 mg Heparin Sodium (Porcine) (Heparin Sodium,Porcine/Pf 5,000 Unit/0.5 Ml Syringe) 5,000 unit SQ Q12HR [facility] Last Admin: 06/19/22 08:54 Dose: 5,000 unit Sodium Chloride (Saline 0.9%) 1,000 mls @ 50 mls/hr IV .Q20H [facility] Last Admin: 06/19/22 00:27 Dose: 50 mls/hr Aztreonam 2 gm/ Sodium (Chloride) 100 mls @ 33.3 mls/hr IVPB Q12HR [facility]; Protocol Last Admin: 06/19/22 10:03 Dose: 33.3 mls/hr Insulin Aspart (Insulin Aspart (Novolog) 100 Unit/Ml Vial) 0 unit SQ ACHS [facility]; Protocol Last Admin: 06/19/22 12:05 Dose: 3 unit Insulin Detemir (Insulin Detemir (Levemir) 100 Unit/Ml Syr) 10 unit SQ [facility] Last Admin: 06/18/22 20:25 Dose: 10 unit Isosorbide Mononitrate (Isosorbide Mononitrate Er 30 Mg Tab.Er.24h) 30 mg PO HS [facility] Last Admin: 06/18/22 20:19 Dose: 30 mg Levothyroxine Sodium (Levothyroxine 75 Mcg Tab) 150 mcg PO DAILY@0630 [facility] Last Admin: 06/19/22 06:42 Dose: 150 mcg Metoprolol Tartrate (Metoprolol Tartrate 50 Mg Tab) 50 mg PO BID [facility] Last Admin: 06/19/22 08:53 Dose: 50 mg Naloxone HCl (Naloxone 0.4 Mg/Ml 1 Ml Vial) 0.2 mg IV Q2M PRN PRN Reason: Opioid Reversal Sodium Bicarbonate (Sodium Bicarbonate Tab 650 Mg Tab) 650 mg PO BID [facility] Last Admin: 06/19/22 08:53 Dose: 650 mg Tamsulosin HCl (Tamsulosin 0.4 Mg Cap.Er.24h) 0.4 mg PO DAILY [facility] Last Admin: 06/19/22 08:53 Dose: 0.4 mg On examination: VITAL SIGNS: [98.1, 80, 15, 127/74, 94% room air] GENERAL APPEARANCE: BMI 31.5, declining a chair awake, comfortable. HEENT: Normal external appearance of nose and ear. Oral cavity normal EYES: Pupils equal. Conjunctiva normal. NECK: JVD not raised. Mass not palpable. RESPIRATORY: Respiratory effort normal. Lungs clear to auscultation. CARDIOVASCULAR: First and second sounds normal. No edema. ABDOMEN: Soft. Liver and spleen not palpable. No tenderness. No mass palpable. PSYCHIATRY: Alert and oriented x3. Mood and affect normal. INVESTIGATIONS, reviewed in the clinical context: June 19: Sodium 136 potassium 4.8. 59 creatinine 2.38 Previous labs: White count 8.2 hemoglobin 12.2 platelets 17 UA: Positive for leukoesterase, WBC Urine culture: Positive for gram-negative bacilli Assessment and plan: - possibly toxic encephalopathy from urinary tract infection,: Improving -Acute UTI with cystitis secondary to gram-negative bacilli IV aztreonam -Coronary artery disease Aspirin, Plavix, Lopressor -type 2 diabetes mellitus, chronically on oral hypoglycemic Follow Accu-Cheks and sliding scale. Resume glyburide. -Gastroesophageal reflux disease Pepcid -hyperlipidemia Lipitor -Hypertension Lopressor -Chronic kidney disease stage IV, likely secondary to diabetic nephropathy and hypertensive nephrosclerosis Baseline creatinine around 2.4. Does follow with nephrology -Sleep apnea -Hypothyroidism Levothyroxine Continue IVs aztreonam. Resume glyburide. Increase activity. Awaiting cultures to be negative. Discussed with patient. Discussed with nurse.
--- NOTE | 2022-06-19 14:32 | CDI ---
Documentation Clarification Form Date: 06/19/2022 02:22:20 PM From: Nan Fofana CCS, CCDS Admit Date: 06/17/2022 04:15:00 PM Patient Name: Junaid Ruiz Visit Number: [id number] Discharge Date: ATTENTION: The Clinical Documentation Specialists (CDI) and [facility] Coding Staff appreciate your assistance in clarifying documentation. Please respond to the clarification below the line at the bottom and electronically sign. The CDI & [facility] Coding staff will review the response and follow-up if needed. Please note: Queries are made part of the Legal Health Record. If you have any questions, please contact the author of this message via ITS. Dr. Erik Chase: Stable Chronic Anemia is documented in the 06/17 ED Note without further specificity. Additional specificity regarding the Type & Acuity of Anemia is requested. History/Risk Factors per the 06/17 H/P: UTIs, Allergy to Penicillins, Urinary Retention, BPH status post TURP, Hypertension, CKD stage IV, CAD, DM II, Sleep Apnea, Diabetic Nephropathy, Hypothyroid, Hyperlipidemia, ME, Osteoarthritis, TIAs, Kidney stones, CABG. Clinical indicators: Presented to the ED on 06/17 with Weakness, confusion and chills with history of UTIs causing Sepsis, flank discomfort, poor appetite. Admit with Altered mental status, UTI and CKD. Hemoglobin 06/17: 11.9. 06/08: 12.2. Hematocrit 06/17: 35.1. 06/18: 36.8. Treatment: Urine cx, IV fl 1000 mls @ 50 mls/hr q20H, IV Aztreonam 2 gm 100 mls @ 100 mls/hr x1, Heparin sq, po Feosol 325 mg Daily. Home meds include Ferrous Sulfate (Feosol) 325 mg Daily, Plavix, Lipitor, Glucotrol Please clarify the Type and Acuity of Anemia: [ ] Chronic blood loss anemia [ ] Iron deficiency anemia [ ] Hemolytic anemia [ ] Drug induced anemia [ ] Anemia of chronic kidney disease [ ] Anemia of chronic disease [ ] Unable to determine [ ] Other, please specify (Template Last Revised: September 2020) Anemia of chronic kidney disease MTDD
[2022-06-19 16:22] LABS: Glucose,Whole Blood 148 mg/dL (70-110)
[2022-06-19 20:30] LABS: Glucose,Whole Blood 246 mg/dL (70-110)
[2022-06-19] MEDS: ASPIRIN 81 MG PO SCH (20:32)
[2022-06-19] MEDS: ATORVASTATIN 80 MG TAB PO SCH (20:32)
[2022-06-19] MEDS: ISOSORBIDE MONONITRATE ER 30 MG TAB.ER.24H PO SCH (20:32)
[2022-06-19] MEDS: glipiZIDE 5 MG TAB PO SCH (20:33)
[2022-06-19] MEDS: MAGNESIUM OXIDE 400 MG TAB PO SCH (20:33)
[2022-06-20] MEDS: LEVOTHYROXINE 75 MCG TAB PO SCH (07:03)
[2022-06-20] MEDS: INSULIN ASPART (NovoLOG) 100 UNIT/ML VIAL SQ SCH ×4 (07:04→21:21)
[2022-06-20 07:05] LABS: Glucose,Whole Blood 88 mg/dL (70-110)
[2022-06-20] MEDS: AZTREONAM 2 GM in SODIUM CHLORIDE 0.9% 100 ML IVPB SCH ×2 (08:48→21:24)
[2022-06-20] MEDS: allopurinoL 100 MG TAB PO SCH (08:51)
[2022-06-20] MEDS: METOPROLOL TARTRATE 50 MG TAB PO SCH ×2 (08:52→21:13)
[2022-06-20] MEDS: SODIUM BICARBONATE TAB 650 MG TAB PO SCH ×2 (08:52→21:13)
[2022-06-20] MEDS: glipiZIDE 5 MG TAB PO SCH ×2 (08:52→21:13)
[2022-06-20] MEDS: CITALOPRAM HYDROBROMIDE 20 MG TAB PO SCH (08:52)
[2022-06-20] MEDS: FOLIC ACID 1 MG TAB PO SCH (08:52)
[2022-06-20] MEDS: TAMSULOSIN 0.4 MG CAP.ER.24H PO SCH (08:52)
[2022-06-20] MEDS: FERROUS SULFATE 325 MG TAB PO SCH (08:52)
[2022-06-20] MEDS: CLOPIDOGREL 75 MG TAB PO SCH (08:52)
[2022-06-20] MEDS: FAMOTIDINE 20 MG TAB PO SCH (08:52)
[2022-06-20] MEDS: HEPARIN SODIUM,PORCINE/PF 5,000 UNIT/0.5 ML SYRINGE SQ SCH ×2 (08:52→21:13)
[2022-06-20 11:08] LABS: Glucose,Whole Blood 142 mg/dL (70-110)
--- NOTE | 2022-06-20 14:21 | P.PN ---
Progress Note - Text Progress Note Date: 06/20/22 Hospital course: 76-year-old pleasant male was brought in by daughter because of a worsening gen eralized weakness and confusion which has been going on for 3-4 days much worse last night. Patient is alert and oriented 3 when I valid the patient. Patient had similar symptoms in the past and had urinary tract infection. Patient urine analysis significantly abnormal. Patient urine analysis showed large leukocyte esterase and nitrates were negative showed WBC clumps, rather than 182 WBC and bacteria. Patient does have some question will symptoms of dysuria patient does have history of urinary retention benign prostatic hypertrophy. Patient denied any symptoms of cough. Patient doesn't have any fever here. Chest x-ray did not show any significant abnormality. Patient's home medications need to be verified and patient had history of Pseudomonas in the urine this was in month of August since is more than 6 months I'll continue with Azetreonam for now 06/18/2022 Patient is evaluated today in emergency room awaiting bed on the floor. Mentation seems to be improved today he is alert x 2-3. Urine culture is currently pending, patient is continued on IV aztreonam. He is a poor historian. Continues on IV antibiotics at this time. We will also ask PT/Ot to evaluate the patient. Home medications have been reviewed. 06/19/2022: I assumed the care of patient today from [facility] hospitalists. Patients in the ICU as an overflow patient. Up in a chair. Eating well. Able to answer questions appropriately. On IV aztreonam. Urine culture growing gram-negative bacilli. No fever. Patient did ambulate. Upon presentation patient is complaining of flank pain and urinary frequency. 06/20/2022: Oral intake fair. Comfortable. No fever. Urine culture growing Klebsiella oxytoca. Patient IV aztreonam. Follow with ID Active Medications Acetaminophen (Acetaminophen Tab 325 Mg Tab) 650 mg PO Q6HR PRN PRN Reason: Mild Pain or Fever > 100.5 Allopurinol (Allopurinol 100 Mg Tab) 100 mg PO DAILY [facility] Last Admin: 06/20/22 08:51 Dose: 100 mg Aspirin (Aspirin 81 Mg) 81 mg PO HS [facility] Last Admin: 06/19/22 20:32 Dose: 81 mg Atorvastatin Calcium (Atorvastatin 80 Mg Tab) 80 mg PO MOTUWETHFR@2100 [facility] Last Admin: 06/19/22 20:32 Dose: 80 mg Calcitriol (Calcitriol 0.25 Mcg Cap) 0.5 mcg PO DAILY [facility] Last Admin: 06/20/22 08:51 Dose: 0.5 mcg Citalopram Hydrobromide (Citalopram Hydrobromide 20 Mg Tab) 20 mg PO DAILY [facility] Last Admin: 06/20/22 08:52 Dose: 20 mg Clopidogrel Bisulfate (Clopidogrel 75 Mg Tab) 75 mg PO DAILY [facility] Last Admin: 06/20/22 08:52 Dose: 75 mg Dextrose/Water (Dextrose 50% Syringe 50 Ml) 25 ml IVP PER PROTOCOL PRN; Protocol PRN Reason: Hypoglycemia Dextrose/Water (Dextrose 50% Syringe 50 Ml) 50 ml IVP PER PROTOCOL PRN; Protocol PRN Reason: Hypoglycemia Famotidine (Famotidine 20 Mg Tab) 20 mg PO DAILY [facility] Last Admin: 06/20/22 08:52 Dose: 20 mg Ferrous Sulfate (Ferrous Sulfate 325 Mg Tab) 325 mg PO DAILY [facility] Last Admin: 06/20/22 08:52 Dose: 325 mg Folic Acid (Folic Acid 1 Mg Tab) 1 mg PO DAILY [facility] Last Admin: 06/20/22 08:52 Dose: 1 mg Glipizide (Glipizide 5 Mg Tab) 5 mg PO BID [facility] Last Admin: 06/20/22 08:52 Dose: 5 mg Heparin Sodium (Porcine) (Heparin Sodium,Porcine/Pf 5,000 Unit/0.5 Ml Syringe) 5,000 unit SQ Q12HR [facility] Last Admin: 06/20/22 08:52 Dose: 5,000 unit Aztreonam 2 gm/ Sodium (Chloride) 100 mls @ 33.3 mls/hr IVPB Q12HR [facility]; Protocol Last Admin: 06/20/22 08:48 Dose: 33.3 mls/hr Insulin Aspart (Insulin Aspart (Novolog) 100 Unit/Ml Vial) 0 unit SQ ACHS [facility]; Protocol Last Admin: 06/20/22 11:10 Dose: Not Given Isosorbide Mononitrate (Isosorbide Mononitrate Er 30 Mg Tab.Er.24h) 30 mg PO HS [facility] Last Admin: 06/19/22 20:32 Dose: 30 mg Levothyroxine Sodium (Levothyroxine 75 Mcg Tab) 150 mcg PO DAILY@0630 [facility] Last Admin: 06/20/22 07:03 Dose: 150 mcg Magnesium Oxide (Magnesium Oxide 400 Mg Tab) 400 mg PO HS [facility] Last Admin: 06/19/22 20:33 Dose: 400 mg Metoprolol Tartrate (Metoprolol Tartrate 50 Mg Tab) 50 mg PO BID [facility] Last Admin: 06/20/22 08:52 Dose: 50 mg Naloxone HCl (Naloxone 0.4 Mg/Ml 1 Ml Vial) 0.2 mg IV Q2M PRN PRN Reason: Opioid Reversal Sodium Bicarbonate (Sodium Bicarbonate Tab 650 Mg Tab) 650 mg PO BID [facility] Last Admin: 06/20/22 08:52 Dose: 650 mg Tamsulosin HCl (Tamsulosin 0.4 Mg Cap.Er.24h) 0.4 mg PO DAILY [facility] Last Admin: 06/20/22 08:52 Dose: 0.4 mg On examination: VITAL SIGNS: 97.8, 79, 14, 125-71, 97% room air GENERAL APPEARANCE: reclining a chair awake, comfortable. HEENT: Normal external appearance of nose and ear. Oral cavity normal EYES: Pupils equal. Conjunctiva normal. NECK: JVD not raised. Mass not palpable. RESPIRATORY: Respiratory effort normal. Lungs clear to auscultation. CARDIOVASCULAR: First and second sounds normal. No edema. ABDOMEN: Soft. Liver and spleen not palpable. No tenderness. No mass palpable. PSYCHIATRY: Alert and oriented x3. Mood and affect normal. INVESTIGATIONS, reviewed in the clinical context: June 19: Sodium 136 potassium 4.8. 59 creatinine 2.38 Previous labs: White count 8.2 hemoglobin 12.2 platelets 17 UA: Positive for leukoesterase, WBC Urine culture: Klebsiella oxytoca Assessment and plan: - possibly toxic encephalopathy from urinary tract infection,: Better -Acute UTI with cystitis secondary to capsular oxytoca IV aztreonam -Coronary artery disease Aspirin, Plavix, Lopressor -type 2 diabetes mellitus, chronically on oral hypoglycemic Follow Accu-Cheks and sliding scale. glyburide. -Gastroesophageal reflux disease Pepcid -hyperlipidemia Lipitor -Hypertension Lopressor -Chronic kidney disease stage IV, likely secondary to diabetic nephropathy and hypertensive nephrosclerosis Baseline creatinine around 2.4. Does follow with nephrology -Sleep apnea -Hypothyroidism Levothyroxine Continue IVs aztreonam. Increase activity. Continue current medications. Follow with ID.
--- NOTE | 2022-06-20 14:58 | P.PN ---
Subjective Progress Note Date: 06/19/22 Principal diagnosis: UTI Patient is a 76-year old male presenting to the hospital with confusion and chills also complaining of some right-sided flank pain did have a positive UA concerning for right-sided pyonephritis in this patient who did have multiple antibiotic allergies. On today's evaluation that is 06/19/2022 the patient is afebrile, the patient is feeling slightly better he is breathing comfortably denies having any chest pain or shortness of the cough right-sided flank pain is improved no vomiting or any diarrhea Objective - Vital Signs Vital signs: Vital Signs Temp 97.7 F 06/19/22 20:00 Pulse 76 06/19/22 20:00 Resp 16 06/19/22 20:00 BP 141/93 06/19/22 20:00 Pulse Ox 96 06/19/22 20:00 FiO2 Intake & Output 06/19/22 06/19/22 06/20/22 06:59 18:59 06:59 Intake Total 300 300 Output Total 700 500 Balance -400 -200 Intake: IV 300 300 Aztreonam 2 gm In Sodium 100 Chloride 0.9% 100 ml @ 33 .3 mls/hr IVPB Q12HR [facility] Rx#:[id number] Sodium Chloride 0.9% 1, 300 200 000 ml @ 50 mls/hr IV . Q20H [facility] Rx#:[id number] Output: Urine 700 500 Other: Voiding Method External Catheter External Catheter External Catheter # Voids 1 # Bowel Movements 1 - Exam GENERAL DESCRIPTION: Elderly male up in the chair, no distress. No tachypnea or accessory muscle of respiration use. LUNGS: Unlabored breathing. Clear to auscultation anteriorly. No wheeze or crackle. HEART: S1, S2, regular rate and rhythm. No loud murmur ABDOMEN: Soft, no tenderness , guarding or rigidity, no organomegaly EXTREMITIES: No edema of feet. - Labs CBC & Chem 7: 06/18/22 05:15 06/19/22 06:09 Labs: Abnormal Lab Results - Last 24 Hours (Table) 06/18/22 06/19/22 06/19/22 Range/Units 05:15 00:24 06:09 Sodium 136 L (137-145) mmol/L BUN 59 H (9-20) mg/dL Creatinine 2.38 H (0.66-1.25) mg/dL Glucose 113 H (74-99) mg/dL POC Glucose (mg/dL) 140 H (70-110) mg/dL Hemoglobin A1c 6.5 H (0.0-6.0) % 06/19/22 06/19/22 06/19/22 Range/Units 06:43 11:55 16:20 Sodium (137-145) mmol/L BUN (9-20) mg/dL Creatinine (0.66-1.25) mg/dL Glucose (74-99) mg/dL POC Glucose (mg/dL) 114 H 251 H 148 H (70-110) mg/dL Hemoglobin A1c (0.0-6.0) % 06/19/22 Range/Units 20:28 Sodium (137-145) mmol/L BUN (9-20) mg/dL Creatinine (0.66-1.25) mg/dL Glucose (74-99) mg/dL POC Glucose (mg/dL) 246 H (70-110) mg/dL Hemoglobin A1c (0.0-6.0) % Microbiology - Last 24 Hours (Table) 06/17/22 15:49 Urine Culture - Final Urine,Voided Klebsiella oxytoca Assessment and Plan (1) Urinary tract infection Current Visit: Yes Status: Acute Code(s): N39.0 - URINARY TRACT INFECTION, SITE NOT SPECIFIED SNOMED Code(s): 34428940 Plan: 1patient presented to hospital with confusion chills did have urinary symptoms and some pain to the right flank area concerning for possible pyelonephritis in this patient with a borderline kidney function and high risk of nephrotoxicity, last urine culture positive for Pseudomonas that was resistant to quinolones. 2patient with a penicillin cephalosporin allergies that would limit the number of antibiotics safe to use. 3Patient to continue with Azactam while waiting for the culture to finalize
--- NOTE | 2022-06-20 14:59 | P.PN ---
Subjective Progress Note Date: 06/20/22 Principal diagnosis: UTI Patient is a 76-year old male presenting to the hospital with confusion and chills also complaining of some right-sided flank pain did have a positive UA concerning for right-sided pyonephritis in this patient who did have multiple antibiotic allergies. On today's evaluation that is 06/20/2022 patient denies having any fever or any chills, the patient is breathing comfortably on room air, Pt denies having any chest pain or shortness of the cough no nausea vomiting and no diarrhea Objective - Vital Signs Vital signs: Vital Signs Temp 98.0 F 06/20/22 14:00 Pulse 64 06/20/22 14:00 Resp 16 06/20/22 14:00 BP 140/84 06/20/22 14:00 Pulse Ox 96 06/20/22 14:00 FiO2 Intake & Output 06/19/22 06/20/22 06/20/22 18:59 06:59 18:59 Intake Total 300 100 Output Total 500 250 Balance -200 -150 Intake: IV 300 Aztreonam 2 gm In Sodium 100 Chloride 0.9% 100 ml @ 33 .3 mls/hr IVPB Q12HR [facility] Rx#:[id number] Sodium Chloride 0.9% 1, 200 000 ml @ 50 mls/hr IV . Q20H [facility] Rx#:[id number] Oral 100 Output: Urine 500 250 Other: Voiding Method External Catheter External Catheter External Catheter # Voids 1 # Bowel Movements 1 - Exam GENERAL DESCRIPTION: Elderly male up in the chair, no distress. No tachypnea or accessory muscle of respiration use. LUNGS: Unlabored breathing. Clear to auscultation anteriorly. No wheeze or crackle. HEART: S1, S2, regular rate and rhythm. No loud murmur ABDOMEN: Soft, no tenderness , guarding or rigidity, no organomegaly EXTREMITIES: No edema of feet. - Labs CBC & Chem 7: 06/18/22 05:15 06/19/22 06:09 Labs: Abnormal Lab Results - Last 24 Hours (Table) 06/19/22 06/19/22 06/20/22 Range/Units 16:20 20:28 11:07 POC Glucose (mg/dL) 148 H 246 H 142 H (70-110) mg/dL Microbiology - Last 24 Hours (Table) 06/17/22 15:49 Urine Culture - Final Urine,Voided Klebsiella oxytoca Assessment and Plan (1) Urinary tract infection Current Visit: Yes Status: Acute Code(s): N39.0 - URINARY TRACT INFECTION, SITE NOT SPECIFIED SNOMED Code(s): 90330726 Plan: 1patient presented to hospital with confusion chills did have urinary symptoms and some pain to the right flank area concerning for possible pyelonephritis in this patient with a borderline kidney function and high risk of nephrotoxicity, last urine culture positive for Pseudomonas that was resistant to quinolones. 2patient with a penicillin cephalosporin allergies that would limit the number of antibiotics safe to use. 3Patient seem to have shown some clinical improvement and urine cultures currently showing Klebsiella with sensitivities pending patient to continue with Azactam because of his allergies discharge depending on the basis of final culture Time with Patient: Less than 30
--- NOTE | 2022-06-20 16:07 | US ---
EXAMINATION TYPE: US kidneys/renal and bladder DATE OF EXAM: 06/20/2022 COMPARISON: Renal ultrasound 01/25/2020. CLINICAL HISTORY: PYELO R/O HYDRO. ICU patient EXAM MEASUREMENTS: Right Kidney: 10.3 x 5.5 x 5.6 cm Left Kidney: 11.1 x 5.1 x 5.6 cm Limited visualization due to echogenicity and appearance of kidney Right Kidney: Cortical thinning with lobularity visualized. Stable renal sinus cyst measuring 1.8 x 1 .9 x 1.9 cm . No shadowing calculus. Left Kidney: Cortical thinning with lobularity visualized. Nausea and calculus. Bladder: distended, anechoic Left Jet seen IMPRESSION: 1. No hydronephrosis or shadowing calculi. 2. Findings of chronic medical renal disease bilaterally.
[2022-06-20 16:46] LABS: Glucose,Whole Blood 132 mg/dL (70-110)
[2022-06-20] MEDS: ASPIRIN 81 MG PO SCH (21:13)
[2022-06-20] MEDS: ATORVASTATIN 80 MG TAB PO SCH (21:13)
[2022-06-20] MEDS: ISOSORBIDE MONONITRATE ER 30 MG TAB.ER.24H PO SCH (21:13)
[2022-06-20] MEDS: MAGNESIUM OXIDE 400 MG TAB PO SCH (21:13)
[2022-06-20 21:19] LABS: Glucose,Whole Blood 122 mg/dL (70-110)
[2022-06-21] MEDS: LEVOTHYROXINE 75 MCG TAB PO SCH (06:24)
[2022-06-21 06:26] LABS: Glucose,Whole Blood 71 mg/dL (70-110)
[2022-06-21] MEDS: INSULIN ASPART (NovoLOG) 100 UNIT/ML VIAL SQ SCH ×4 (06:49→20:27)
--- NOTE | 2022-06-21 07:11 | XR ---
EXAMINATION TYPE: XR chest 2V DATE OF EXAM: 06/17/2022 COMPARISON: 12/16/18 HISTORY: Shortness of breath TECHNIQUE: Frontal and lateral views of the chest are obtained. FINDINGS: Scattered senescent parenchymal changes noted. Hyperinflation compatible with COPD. There is pleural thickening right midlung zone with several fractured right-sided ribs (6-8) of uncertain age and/or e tiology. No evidence for pneumothorax. No evidence for infiltrate. No evidence for atelectasis. Heart size is stable. Mediastinal structures are stable and grossly unremarkable. No evidence for hilar prominence. Degenerative changes dorsal spine. IMPRESSION: 1. There is pleural thickening right midlung zone with several fractured right-sided ribs (6-8) of un certain age and/or etiology. No evidence for pneumothorax.
[2022-06-21] MEDS: AZTREONAM 2 GM in SODIUM CHLORIDE 0.9% 100 ML IVPB SCH ×2 (08:39→20:27)
[2022-06-21] MEDS: HEPARIN SODIUM,PORCINE/PF 5,000 UNIT/0.5 ML SYRINGE SQ SCH ×2 (08:39→20:26)
[2022-06-21] MEDS: allopurinoL 100 MG TAB PO SCH (08:40)
[2022-06-21] MEDS: CITALOPRAM HYDROBROMIDE 20 MG TAB PO SCH (08:40)
[2022-06-21] MEDS: METOPROLOL TARTRATE 50 MG TAB PO SCH ×2 (08:40→20:26)
[2022-06-21] MEDS: FERROUS SULFATE 325 MG TAB PO SCH (08:40)
[2022-06-21] MEDS: glipiZIDE 5 MG TAB PO SCH ×2 (08:40→20:33)
[2022-06-21] MEDS: FOLIC ACID 1 MG TAB PO SCH (08:40)
[2022-06-21] MEDS: FAMOTIDINE 20 MG TAB PO SCH (08:40)
[2022-06-21] MEDS: CLOPIDOGREL 75 MG TAB PO SCH (08:40)
[2022-06-21] MEDS: TAMSULOSIN 0.4 MG CAP.ER.24H PO SCH (08:41)
[2022-06-21] MEDS: SODIUM BICARBONATE TAB 650 MG TAB PO SCH ×2 (08:41→20:27)
[2022-06-21 11:12] LABS: Glucose,Whole Blood 132 mg/dL (70-110)
--- NOTE | 2022-06-21 13:19 | P.PN ---
Progress Note - Text Progress Note Date: 06/21/22 Hospital course: 76-year-old pleasant male was brought in by daughter because of a worsening gen eralized weakness and confusion which has been going on for 3-4 days much worse last night. Patient is alert and oriented 3 when I valid the patient. Patient had similar symptoms in the past and had urinary tract infection. Patient urine analysis significantly abnormal. Patient urine analysis showed large leukocyte esterase and nitrates were negative showed WBC clumps, rather than 182 WBC and bacteria. Patient does have some question will symptoms of dysuria patient does have history of urinary retention benign prostatic hypertrophy. Patient denied any symptoms of cough. Patient doesn't have any fever here. Chest x-ray did not show any significant abnormality. Patient's home medications need to be verified and patient had history of Pseudomonas in the urine this was in month of August since is more than 6 months I'll continue with Azetreonam for now 06/18/2022 Patient is evaluated today in emergency room awaiting bed on the floor. Mentation seems to be improved today he is alert x 2-3. Urine culture is currently pending, patient is continued on IV aztreonam. He is a poor historian. Continues on IV antibiotics at this time. We will also ask PT/Ot to evaluate the patient. Home medications have been reviewed. 06/19/2022: I assumed the care of patient today from [facility] hospitalists. Patients in the ICU as an overflow patient. Up in a chair. Eating well. Able to answer questions appropriately. On IV aztreonam. Urine culture growing gram-negative bacilli. No fever. Patient did ambulate. Upon presentation patient is complaining of flank pain and urinary frequency. 06/20/2022: Oral intake fair. Comfortable. No fever. Urine culture growing Klebsiella oxytoca. Patient IV aztreonam. Follow with ID 06/21/2022: Urine culture still not finalized. On IV aztreonam. Sensitivities pending. Discussed with case planner rojelio. Patient does not have home IV by a tick coverage. Will need: 2 ECF if IV antibiotic prescribed. Eating well. Up in a recliner. Active Medications Acetaminophen (Acetaminophen Tab 325 Mg Tab) 650 mg PO Q6HR PRN PRN Reason: Mild Pain or Fever > 100.5 Allopurinol (Allopurinol 100 Mg Tab) 100 mg PO DAILY [facility] Last Admin: 10/28/22 08:40 Dose: 100 mg Aspirin (Aspirin 81 Mg) 81 mg PO HS [facility] Last Admin: 06/20/22 21:13 Dose: 81 mg Atorvastatin Calcium (Atorvastatin 80 Mg Tab) 80 mg PO MOTUWETHFR@2100 [facility] Last Admin: 06/20/22 21:13 Dose: 80 mg Calcitriol (Calcitriol 0.25 Mcg Cap) 0.5 mcg PO DAILY [facility] Last Admin: 06/21/22 08:40 Dose: 0.5 mcg Citalopram Hydrobromide (Citalopram Hydrobromide 20 Mg Tab) 20 mg PO DAILY [facility] Last Admin: 06/21/22 08:40 Dose: 20 mg Clopidogrel Bisulfate (Clopidogrel 75 Mg Tab) 75 mg PO DAILY [facility] Last Admin: 06/21/22 08:40 Dose: 75 mg Dextrose/Water (Dextrose 50% Syringe 50 Ml) 25 ml IVP PER PROTOCOL PRN; Protocol PRN Reason: Hypoglycemia Dextrose/Water (Dextrose 50% Syringe 50 Ml) 50 ml IVP PER PROTOCOL PRN; Protocol PRN Reason: Hypoglycemia Famotidine (Famotidine 20 Mg Tab) 20 mg PO DAILY [facility] Last Admin: 06/21/22 08:40 Dose: 20 mg Ferrous Sulfate (Ferrous Sulfate 325 Mg Tab) 325 mg PO DAILY [facility] Last Admin: 06/21/22 08:40 Dose: 325 mg Folic Acid (Folic Acid 1 Mg Tab) 1 mg PO DAILY [facility] Last Admin: 06/21/22 08:40 Dose: 1 mg Glipizide (Glipizide 5 Mg Tab) 5 mg PO BID [facility] Last Admin: 06/21/22 08:40 Dose: 5 mg Heparin Sodium (Porcine) (Heparin Sodium,Porcine/Pf 5,000 Unit/0.5 Ml Syringe) 5,000 unit SQ Q12HR [facility] Last Admin: 06/21/22 08:39 Dose: 5,000 unit Aztreonam 2 gm/ Sodium (Chloride) 100 mls @ 33.3 mls/hr IVPB Q12HR [facility]; Protocol Last Admin: 06/21/22 08:39 Dose: 33.3 mls/hr Insulin Aspart (Insulin Aspart (Novolog) 100 Unit/Ml Vial) 0 unit SQ ACHS [facility]; Protocol Last Admin: 06/21/22 11:12 Dose: Not Given Isosorbide Mononitrate (Isosorbide Mononitrate Er 30 Mg Tab.Er.24h) 30 mg PO [facility] Last Admin: 06/20/22 21:13 Dose: 30 mg Levothyroxine Sodium (Levothyroxine 75 Mcg Tab) 150 mcg PO DAILY@0630 [facility] Last Admin: 06/21/22 06:24 Dose: 150 mcg Magnesium Oxide (Magnesium Oxide 400 Mg Tab) 400 mg PO [facility] Last Admin: 06/20/22 21:13 Dose: 400 mg Metoprolol Tartrate (Metoprolol Tartrate 50 Mg Tab) 50 mg PO BID [facility] Last Admin: 06/21/22 08:40 Dose: 50 mg Naloxone HCl (Naloxone 0.4 Mg/Ml 1 Ml Vial) 0.2 mg IV Q2M PRN PRN Reason: Opioid Reversal Sodium Bicarbonate (Sodium Bicarbonate Tab 650 Mg Tab) 650 mg PO BID [facility] Last Admin: 06/21/22 08:41 Dose: 650 mg Tamsulosin HCl (Tamsulosin 0.4 Mg Cap.Er.24h) 0.4 mg PO DAILY [facility] Last Admin: 06/21/22 08:41 Dose: 0.4 mg On examination: VITAL SIGNS: 98.3, 84, 16, 11 9 x 71, 96% room air GENERAL APPEARANCE: reclining a chair awake, comfortable. HEENT: Normal external appearance of nose and ear. Oral cavity normal EYES: Pupils equal. Conjunctiva normal. NECK: JVD not raised. Mass not palpable. RESPIRATORY: Respiratory effort normal. Lungs clear to auscultation. CARDIOVASCULAR: First and second sounds normal. No edema. ABDOMEN: Soft. Liver and spleen not palpable. No tenderness. No mass palpable. PSYCHIATRY: Alert and oriented x3. Mood and affect normal. INVESTIGATIONS, reviewed in the clinical context: June 19: Sodium 136 potassium 4.8. 59 creatinine 2.38 Previous labs: White count 8.2 hemoglobin 12.2 platelets 17 UA: Positive for leukoesterase, WBC Urine culture: Klebsiella oxytoca Assessment and plan: - possibly toxic encephalopathy from urinary tract infection,: Better -Acute UTI with cystitis secondary to Klebsiella oxytoca, pending sensitivity IV aztreonam -Coronary artery disease Aspirin, Plavix, Lopressor -type 2 diabetes mellitus, chronically on oral hypoglycemic Follow Accu-Cheks and sliding scale. glyburide. -Gastroesophageal reflux disease Pepcid -hyperlipidemia Lipitor -Hypertension Lopressor -Chronic kidney disease stage IV, likely secondary to diabetic nephropathy and hypertensive nephrosclerosis Baseline creatinine around 2.4. Does follow with nephrology -Sleep apnea -Hypothyroidism Levothyroxine Continue IVs aztreonam. Pending sensitivity to make decision for discharge. Follow with ID in case planner.
--- NOTE | 2022-06-21 14:56 | P.PN ---
Subjective Progress Note Date: 06/21/22 Principal diagnosis: UTI Patient is a 76-year old male presenting to the hospital with confusion and chills also complaining of some right-sided flank pain did have a positive UA concerning for right-sided pyonephritis in this patient who did have multiple antibiotic allergies. On today's evaluation that is 06/21/2022 patient remains to be febrile, the patient is breathing comfortably on room air, the patient denies having any chest pain or shortness of the cough, the patient denies nausea vomiting and no diarrhea Objective - Vital Signs Vital signs: Vital Signs Temp 98.3 F 06/21/22 08:00 Pulse 84 06/21/22 08:00 Resp 16 06/21/22 08:00 BP 119/71 06/21/22 08:00 Pulse Ox 96 06/21/22 08:00 FiO2 Intake & Output 06/20/22 06/21/22 06/21/22 18:59 06:59 18:59 Intake Total 300 100 Output Total 500 Balance -200 100 Intake: IV 100 100 Aztreonam 2 gm In Sodium 100 100 Chloride 0.9% 100 ml @ 33 .3 mls/hr IVPB Q12HR [facility] Rx#:[id number] Oral 200 Output: Urine 500 Other: Voiding Method External Catheter Toilet Toilet Urinal Urinal # Voids 2 # Bowel Movements 1 - Exam GENERAL DESCRIPTION: Elderly male up in the chair, no distress. No tachypnea or accessory muscle of respiration use. LUNGS: Unlabored breathing. Clear to auscultation anteriorly. No wheeze or crackle. HEART: S1, S2, regular rate and rhythm. No loud murmur ABDOMEN: Soft, no tenderness , guarding or rigidity, no organomegaly EXTREMITIES: No edema of feet. - Labs CBC & Chem 7: 06/18/22 05:15 06/19/22 06:09 Labs: Abnormal Lab Results - Last 24 Hours (Table) 06/20/22 06/20/22 06/21/22 Range/Units 16:45 21:18 11:11 POC Glucose (mg/dL) 132 H 122 H 132 H (70-110) mg/dL Assessment and Plan (1) Urinary tract infection Current Visit: Yes Status: Acute Code(s): N39.0 - URINARY TRACT INFECTION, SITE NOT SPECIFIED SNOMED Code(s): 30687923 Plan: 1patient presented to hospital with confusion chills did have urinary symptoms and some pain to the right flank area concerning for possible pyelonephritis in this patient with a borderline kidney function and high risk of nephrotoxicity, last urine culture positive for Pseudomonas that was resistant to quinolones. 2patient with a penicillin cephalosporin allergies that would limit the number of antibiotics safe to use. 3Patient has shown clinical improvement and urine cultures currently showing Klebsiella however sensitivities are still pending as of 06/21/2022 patient underwent to call the micro-lab to get the updated for now she continue with Azactam because of his allergies discharge antibiotics depending on the basis of final sensitivity results Time with Patient: Less than 30
[2022-06-21 20:19] LABS: Glucose,Whole Blood 105 mg/dL (70-110)
[2022-06-21] MEDS: ISOSORBIDE MONONITRATE ER 30 MG TAB.ER.24H PO SCH (20:26)
[2022-06-21] MEDS: ATORVASTATIN 80 MG TAB PO SCH (20:27)
[2022-06-21] MEDS: ASPIRIN 81 MG PO SCH (20:27)
[2022-06-21] MEDS: MAGNESIUM OXIDE 400 MG TAB PO SCH (22:53)
[2022-06-22] MEDS: LEVOTHYROXINE 75 MCG TAB PO SCH (06:17)
[2022-06-22 06:21] LABS: Glucose,Whole Blood 61 mg/dL (70-110)
[2022-06-22 06:36] LABS: Glucose,Whole Blood 67 mg/dL (70-110)
[2022-06-22] MEDS: INSULIN ASPART (NovoLOG) 100 UNIT/ML VIAL SQ SCH ×4 (06:40→20:25)
[2022-06-22 06:53] LABS: Glucose,Whole Blood 78 mg/dL (70-110)
[2022-06-22] MEDS: AZTREONAM 2 GM in SODIUM CHLORIDE 0.9% 100 ML IVPB SCH ×2 (08:40→20:54)
[2022-06-22] MEDS: allopurinoL 100 MG TAB PO SCH (08:40)
[2022-06-22] MEDS: FAMOTIDINE 20 MG TAB PO SCH (08:41)
[2022-06-22] MEDS: CLOPIDOGREL 75 MG TAB PO SCH (08:41)
[2022-06-22] MEDS: CITALOPRAM HYDROBROMIDE 20 MG TAB PO SCH (08:41)
[2022-06-22] MEDS: FOLIC ACID 1 MG TAB PO SCH (08:41)
[2022-06-22] MEDS: FERROUS SULFATE 325 MG TAB PO SCH (08:41)
[2022-06-22] MEDS: glipiZIDE 5 MG TAB PO SCH (08:41)
[2022-06-22] MEDS: HEPARIN SODIUM,PORCINE/PF 5,000 UNIT/0.5 ML SYRINGE SQ SCH ×2 (08:42→20:44)
[2022-06-22] MEDS: METOPROLOL TARTRATE 50 MG TAB PO SCH ×2 (08:42→20:43)
[2022-06-22] MEDS: SODIUM BICARBONATE TAB 650 MG TAB PO SCH ×2 (08:42→20:44)
[2022-06-22] MEDS: TAMSULOSIN 0.4 MG CAP.ER.24H PO SCH (08:42)
--- NOTE | 2022-06-22 11:23 | P.PN ---
Progress Note - Text Progress Note Date: 06/22/22 Hospital course: 76-year-old pleasant male was brought in by daughter because of a worsening gen eralized weakness and confusion which has been going on for 3-4 days much worse last night. Patient is alert and oriented 3 when I valid the patient. Patient had similar symptoms in the past and had urinary tract infection. Patient urine analysis significantly abnormal. Patient urine analysis showed large leukocyte esterase and nitrates were negative showed WBC clumps, rather than 182 WBC and bacteria. Patient does have some question will symptoms of dysuria patient does have history of urinary retention benign prostatic hypertrophy. Patient denied any symptoms of cough. Patient doesn't have any fever here. Chest x-ray did not show any significant abnormality. Patient's home medications need to be verified and patient had history of Pseudomonas in the urine this was in month of August since is more than 6 months I'll continue with Azetreonam for now 06/18/2022 Patient is evaluated today in emergency room awaiting bed on the floor. Mentation seems to be improved today he is alert x 2-3. Urine culture is currently pending, patient is continued on IV aztreonam. He is a poor historian. Continues on IV antibiotics at this time. We will also ask PT/Ot to evaluate the patient. Home medications have been reviewed. 06/19/2022: I assumed the care of patient today from [facility] hospitalists. Patients in the ICU as an overflow patient. Up in a chair. Eating well. Able to answer questions appropriately. On IV aztreonam. Urine culture growing gram-negative bacilli. No fever. Patient did ambulate. Upon presentation patient is complaining of flank pain and urinary frequency. 06/20/2022: Oral intake fair. Comfortable. No fever. Urine culture growing Klebsiella oxytoca. Patient IV aztreonam. Follow with ID 06/21/2022: Urine culture still not finalized. On IV aztreonam. Sensitivities pending. Discussed with lead case manager drawn. Patient does not have home IV antibiotic coverage. Will need: 2 ECF if IV antibiotic prescribed. Eating well. Up in a recliner. 06/22/2022: Urine culture still not showing sensitivities. IV aztreonam. Oral intake GERD. Follow with ID. Active Medications Acetaminophen (Acetaminophen Tab 325 Mg Tab) 650 mg PO Q6HR PRN PRN Reason: Mild Pain or Fever > 100.5 Allopurinol (Allopurinol 100 Mg Tab) 100 mg PO DAILY [facility] Last Admin: 06/22/22 08:40 Dose: 100 mg Aspirin (Aspirin 81 Mg) 81 mg PO HS [facility] Last Admin: 06/21/22 20:27 Dose: 81 mg Atorvastatin Calcium (Atorvastatin 80 Mg Tab) 80 mg PO MOTUWETHFR@2100 [facility] Last Admin: 06/21/22 20:27 Dose: 80 mg Calcitriol (Calcitriol 0.25 Mcg Cap) 0.5 mcg PO DAILY [facility] Last Admin: 06/22/22 08:41 Dose: 0.5 mcg Citalopram Hydrobromide (Citalopram Hydrobromide 20 Mg Tab) 20 mg PO DAILY [facility] Last Admin: 06/22/22 08:41 Dose: 20 mg Clopidogrel Bisulfate (Clopidogrel 75 Mg Tab) 75 mg PO DAILY [facility] Last Admin: 06/22/22 08:41 Dose: 75 mg Dextrose/Water (Dextrose 50% Syringe 50 Ml) 25 ml IVP PER PROTOCOL PRN; Protocol PRN Reason: Hypoglycemia Dextrose/Water (Dextrose 50% Syringe 50 Ml) 50 ml IVP PER PROTOCOL PRN; Protocol PRN Reason: Hypoglycemia Famotidine (Famotidine 20 Mg Tab) 20 mg PO DAILY [facility] Last Admin: 06/22/22 08:41 Dose: 20 mg Ferrous Sulfate (Ferrous Sulfate 325 Mg Tab) 325 mg PO DAILY [facility] Last Admin: 06/22/22 08:41 Dose: 325 mg Folic Acid (Folic Acid 1 Mg Tab) 1 mg PO DAILY [facility] Last Admin: 06/22/22 08:41 Dose: 1 mg Glipizide (Glipizide 5 Mg Tab) 5 mg PO BID [facility] Last Admin: 06/22/22 08:41 Dose: 5 mg Heparin Sodium (Porcine) (Heparin Sodium,Porcine/Pf 5,000 Unit/0.5 Ml Syringe) 5,000 unit SQ Q12HR [facility] Last Admin: 06/22/22 08:42 Dose: 5,000 unit Aztreonam 2 gm/ Sodium (Chloride) 100 mls @ 33.3 mls/hr IVPB Q12HR [facility]; Protocol Last Admin: 06/22/22 08:40 Dose: 33.3 mls/hr Insulin Aspart (Insulin Aspart (Novolog) 100 Unit/Ml Vial) 0 unit SQ ACHS [facility]; Protocol Last Admin: 06/22/22 06:40 Dose: Not Given Isosorbide Mononitrate (Isosorbide Mononitrate Er 30 Mg Tab.Er.24h) 30 mg PO [facility] Last Admin: 06/21/22 20:26 Dose: 30 mg Levothyroxine Sodium (Levothyroxine 75 Mcg Tab) 150 mcg PO DAILY@0630 [facility] Last Admin: 06/22/22 06:17 Dose: 150 mcg Magnesium Oxide (Magnesium Oxide 400 Mg Tab) 400 mg PO [facility] Last Admin: 06/21/22 22:53 Dose: Not Given Metoprolol Tartrate (Metoprolol Tartrate 50 Mg Tab) 50 mg PO BID [facility] Last Admin: 06/22/22 08:42 Dose: 50 mg Naloxone HCl (Naloxone 0.4 Mg/Ml 1 Ml Vial) 0.2 mg IV Q2M PRN PRN Reason: Opioid Reversal Sodium Bicarbonate (Sodium Bicarbonate Tab 650 Mg Tab) 650 mg PO BID [facility] Last Admin: 06/22/22 08:42 Dose: 650 mg Tamsulosin HCl (Tamsulosin 0.4 Mg Cap.Er.24h) 0.4 mg PO DAILY [facility] Last Admin: 06/22/22 08:42 Dose: 0.4 mg On examination: VITAL SIGNS: 97.5, 77, 16, 125/68, 95% room air GENERAL APPEARANCE: Laying in bed, comfortable. HEENT: Normal external appearance of nose and ear. Oral cavity normal EYES: Pupils equal. Conjunctiva normal. NECK: JVD not raised. Mass not palpable. RESPIRATORY: Respiratory effort normal. Lungs clear to auscultation. CARDIOVASCULAR: First and second sounds normal. No edema. ABDOMEN: Soft. Liver and spleen not palpable. No tenderness. No mass palpable. PSYCHIATRY: Alert and oriented x3. Mood and affect normal. INVESTIGATIONS, reviewed in the clinical context: June 19: Sodium 136 potassium 4.8. 59 creatinine 2.38 Previous labs: White count 8.2 hemoglobin 12.2 platelets 17 UA: Positive for leukoesterase, WBC Urine culture: Klebsiella oxytoca Assessment and plan: - possibly toxic encephalopathy from urinary tract infection,: Better -Acute UTI with cystitis secondary to Klebsiella oxytoca, pending sensitivity IV aztreonam -Thrombocytopenia likely from infection -Coronary artery disease Aspirin, Plavix, Lopressor -type 2 diabetes mellitus, chronically on oral hypoglycemic Follow Accu-Cheks and sliding scale. glyburide. -Gastroesophageal reflux disease Pepcid -hyperlipidemia Lipitor -Hypertension Lopressor -Chronic kidney disease stage IV, likely secondary to diabetic nephropathy and hypertensive nephrosclerosis Baseline creatinine around 2.4. Does follow with nephrology -Sleep apnea -Hypothyroidism Levothyroxine Continue IVs aztreonam. Pending sensitivity . Decrease glyburide to once daily.
[2022-06-22 12:28] LABS: Appearance,Urine Clear (Clear); Bilirubin,Urine Negative (Negative); Blood,Urine Trace (Negative); Color,Urine Light Yellow; Glucose,Urine (UA) Negative (Negative); Ketones,Urine Negative (Negative); Leukocyte Esterase,Urine Large (Negative); Nitrite,Urine Negative (Negative); Protein,Urine Trace (Negative); RBC,Urine 3 /hpf (0-5); Specific Gravity,Urine 1.008 (1.001-1.035); Urobilinogen,Urine <2.0 mg/dL (<2.0); WBC,Urine 112 /hpf (0-5)
--- NOTE | 2022-06-22 15:34 | P.PN ---
Subjective Progress Note Date: 06/22/22 Principal diagnosis: UTI Patient is a 76-year old male presenting to the hospital with confusion and chills also complaining of some right-sided flank pain did have a positive UA concerning for right-sided pyonephritis in this patient who did have multiple antibiotic allergies. On today's evaluation that is 06/22/2022 patient continues to be febrile, the patient is breathing comfortably on room air, the patient denies having any chest pain or shortness of the cough, the patient denies nausea vomiting and no diarrhea and his urinary symptoms have improved Objective - Vital Signs Vital signs: Vital Signs Temp 97.5 F L 06/22/22 08:00 Pulse 77 06/22/22 08:00 Resp 16 06/22/22 08:00 BP 125/68 06/22/22 08:00 Pulse Ox 95 06/22/22 08:00 FiO2 Intake & Output 06/21/22 06/22/22 06/22/22 18:59 06:59 18:59 Intake Total 100 460 Balance 100 460 Intake: IV 100 100 Aztreonam 2 gm In Sodium 100 100 Chloride 0.9% 100 ml @ 33 .3 mls/hr IVPB Q12HR [facility] Rx#:[id number] Oral 360 Other: Voiding Method Toilet Toilet Toilet Urinal Urinal Urinal # Voids 4 3 # Bowel Movements 1 1 - Exam GENERAL DESCRIPTION: Elderly male up in the chair, no distress. No tachypnea or accessory muscle of respiration use. LUNGS: Unlabored breathing. Clear to auscultation anteriorly. No wheeze or crackle. HEART: S1, S2, regular rate and rhythm. No loud murmur ABDOMEN: Soft, no tenderness , guarding or rigidity, no organomegaly EXTREMITIES: No edema of feet. - Labs CBC & Chem 7: 06/18/22 05:15 06/19/22 06:09 Labs: Abnormal Lab Results - Last 24 Hours (Table) 06/22/22 06/22/22 06/22/22 Range/Units 06:20 06:35 11:51 POC Glucose (mg/dL) 61 L 67 L (70-110) mg/dL Urine Protein Trace H (Negative) Urine Blood Trace H (Negative) Ur Leukocyte Esterase Large H (Negative) Urine WBC 112 H (0-5) /hpf Assessment and Plan (1) Urinary tract infection Current Visit: Yes Status: Acute Code(s): N39.0 - URINARY TRACT INFECTION, SITE NOT SPECIFIED SNOMED Code(s): 90358432 Plan: 1patient presented to hospital with confusion chills did have urinary symptoms and some pain to the right flank area concerning for possible pyelonephritis in this patient with a borderline kidney function and high risk of nephrotoxicity, last urine culture positive for Pseudomonas that was resistant to quinolones. 2patient with a penicillin cephalosporin allergies that would limit the number of antibiotics safe to use. 3Patient has shown clinical improvement and urine cultures currently showing Klebsiella however sensitivities are still pending as of 06/22/2022 patient nurse to call the micro-lab to get the updated about the sensitivities. 4continue with Azactam awaiting for the cultures to finalize Time with Patient: Less than 30
[2022-06-22 16:33] LABS: Glucose,Whole Blood 120 mg/dL (70-110)
[2022-06-22 20:18] LABS: Glucose,Whole Blood 147 mg/dL (70-110)
[2022-06-22] MEDS: MAGNESIUM OXIDE 400 MG TAB PO SCH (20:43)
[2022-06-22] MEDS: ISOSORBIDE MONONITRATE ER 30 MG TAB.ER.24H PO SCH (20:43)
[2022-06-22] MEDS: ASPIRIN 81 MG PO SCH (20:44)
[2022-06-23] MEDS: LEVOTHYROXINE 75 MCG TAB PO SCH (06:40)
[2022-06-23 06:49] LABS: Glucose,Whole Blood 77 mg/dL (70-110)
[2022-06-23 07:33] LABS: Basophils % (A) 1 %; Eosinophils # (A) 0.2 k/uL (0-0.7); Eosinophils % (A) 3 %; HCT 32.2 % (39.0-53.0); HGB 10.8 gm/dL (13.0-17.5); Lymphocytes # (A) 1.3 k/uL (1.0-4.8); Lymphocytes % (A) 26 %; MCHC 33.6 g/dL (31.0-37.0); MCV 92.3 fL (80.0-100.0); Mean Platelet Volume 9.2; Monocytes # (A) 0.3 k/uL (0-1.0); Monocytes % (A) 5 %; Neutrophils # (A) 3.1 k/uL (1.3-7.7); Neutrophils % (A) 63 %; Platelet Count 132 k/uL (150-450); RBC 3.49 m/uL (4.30-5.90); RDW 13.2 % (11.5-15.5); WBC 4.9 k/uL (3.8-10.6)
[2022-06-23 07:46] LABS: African American GFR (CKD) 30 (>60 ml/min/1.73 sqM); Anion Gap 9 mmol/L; Blood Urea Nitrogen 78 mg/dL (9-20); Calcium 8.8 mg/dL (8.4-10.2); Carbon Dioxide 24 mmol/L (22-30); Chloride 105 mmol/L (98-107); Glucose 70 mg/dL (74-99); Non-African American GFR(CKD) 26 (>60 ml/min/1.73 sqM); Potassium 5.3 mmol/L (3.5-5.1); Sodium 138 mmol/L (137-145)
[2022-06-23] MEDS: INSULIN ASPART (NovoLOG) 100 UNIT/ML VIAL SQ SCH ×4 (07:50→20:30)
[2022-06-23] MEDS: TAMSULOSIN 0.4 MG CAP.ER.24H PO SCH (08:49)
[2022-06-23] MEDS: SODIUM BICARBONATE TAB 650 MG TAB PO SCH ×2 (08:49→20:43)
[2022-06-23] MEDS: FOLIC ACID 1 MG TAB PO SCH (08:49)
[2022-06-23] MEDS: METOPROLOL TARTRATE 50 MG TAB PO SCH ×2 (08:49→20:43)
[2022-06-23] MEDS: HEPARIN SODIUM,PORCINE/PF 5,000 UNIT/0.5 ML SYRINGE SQ SCH ×2 (08:49→20:43)
[2022-06-23] MEDS: allopurinoL 100 MG TAB PO SCH (08:49)
[2022-06-23] MEDS: CLOPIDOGREL 75 MG TAB PO SCH (08:49)
[2022-06-23] MEDS: CITALOPRAM HYDROBROMIDE 20 MG TAB PO SCH (08:49)
[2022-06-23] MEDS: FAMOTIDINE 20 MG TAB PO SCH (08:49)
[2022-06-23] MEDS: FERROUS SULFATE 325 MG TAB PO SCH (08:49)
[2022-06-23] MEDS: glipiZIDE 5 MG TAB PO SCH (08:49)
[2022-06-23] MEDS: AZTREONAM 2 GM in SODIUM CHLORIDE 0.9% 100 ML IVPB SCH ×2 (08:53→20:44)
[2022-06-23 12:08] LABS: Glucose,Whole Blood 141 mg/dL (70-110)
--- NOTE | 2022-06-23 12:20 | P.PN ---
Progress Note - Text Progress Note Date: 06/23/22 Hospital course: 76-year-old pleasant male was brought in by daughter because of a worsening gen eralized weakness and confusion which has been going on for 3-4 days much worse last night. Patient is alert and oriented 3 when I valid the patient. Patient had similar symptoms in the past and had urinary tract infection. Patient urine analysis significantly abnormal. Patient urine analysis showed large leukocyte esterase and nitrates were negative showed WBC clumps, rather than 182 WBC and bacteria. Patient does have some question will symptoms of dysuria patient does have history of urinary retention benign prostatic hypertrophy. Patient denied any symptoms of cough. Patient doesn't have any fever here. Chest x-ray did not show any significant abnormality. Patient's home medications need to be verified and patient had history of Pseudomonas in the urine this was in month of August since is more than 6 months I'll continue with Azetreonam for now 06/18/2022 Patient is evaluated today in emergency room awaiting bed on the floor. Mentation seems to be improved today he is alert x 2-3. Urine culture is currently pending, patient is continued on IV aztreonam. He is a poor historian. Continues on IV antibiotics at this time. We will also ask PT/Ot to evaluate the patient. Home medications have been reviewed. 06/19/2022: I assumed the care of patient today from [facility] hospitalists. Patients in the ICU as an overflow patient. Up in a chair. Eating well. Able to answer questions appropriately. On IV aztreonam. Urine culture growing gram-negative bacilli. No fever. Patient did ambulate. Upon presentation patient is complaining of flank pain and urinary frequency. 06/20/2022: Oral intake fair. Comfortable. No fever. Urine culture growing Klebsiella oxytoca. Patient IV aztreonam. Follow with ID 06/21/2022: Urine culture still not finalized. On IV aztreonam. Sensitivities pending. Discussed with lining caser rojelio. Patient does not have home IV antibiotic coverage. Will need: 2 ECF if IV antibiotic prescribed. Eating well. Up in a recliner. 06/22/2022: Urine culture still not showing sensitivities. IV aztreonam. Oral intake good. Follow with ID. 06/23/2022: Reclining in bed. Comfortable. Oral intake good. continue antibiotic per ID Active Medications Acetaminophen (Acetaminophen Tab 325 Mg Tab) 650 mg PO Q6HR PRN PRN Reason: Mild Pain or Fever > 100.5 Allopurinol (Allopurinol 100 Mg Tab) 100 mg PO DAILY [facility] Last Admin: 06/23/22 08:49 Dose: 100 mg Aspirin (Aspirin 81 Mg) 81 mg PO HS [facility] Last Admin: 06/22/22 20:44 Dose: 81 mg Atorvastatin Calcium (Atorvastatin 80 Mg Tab) 80 mg PO MOTUWETHFR@2100 [facility] Last Admin: 06/21/22 20:27 Dose: 80 mg Calcitriol (Calcitriol 0.25 Mcg Cap) 0.5 mcg PO DAILY [facility] Last Admin: 06/23/22 08:49 Dose: 0.5 mcg Citalopram Hydrobromide (Citalopram Hydrobromide 20 Mg Tab) 20 mg PO DAILY [facility] Last Admin: 06/23/22 08:49 Dose: 20 mg Clopidogrel Bisulfate (Clopidogrel 75 Mg Tab) 75 mg PO DAILY [facility] Last Admin: 06/23/22 08:49 Dose: 75 mg Dextrose/Water (Dextrose 50% Syringe 50 Ml) 25 ml IVP PER PROTOCOL PRN; Protocol PRN Reason: Hypoglycemia Dextrose/Water (Dextrose 50% Syringe 50 Ml) 50 ml IVP PER PROTOCOL PRN; Protocol PRN Reason: Hypoglycemia Famotidine (Famotidine 20 Mg Tab) 20 mg PO DAILY [facility] Last Admin: 06/23/22 08:49 Dose: 20 mg Ferrous Sulfate (Ferrous Sulfate 325 Mg Tab) 325 mg PO DAILY [facility] Last Admin: 06/23/22 08:49 Dose: 325 mg Folic Acid (Folic Acid 1 Mg Tab) 1 mg PO DAILY [facility] Last Admin: 06/23/22 08:49 Dose: 1 mg Glipizide (Glipizide 5 Mg Tab) 5 mg PO DAILY [facility] Last Admin: 06/23/22 08:49 Dose: 5 mg Heparin Sodium (Porcine) (Heparin Sodium,Porcine/Pf 5,000 Unit/0.5 Ml Syringe) 5,000 unit SQ Q12HR [facility] Last Admin: 06/23/22 08:49 Dose: 5,000 unit Aztreonam 2 gm/ Sodium (Chloride) 100 mls @ 33.3 mls/hr IVPB Q12HR [facility]; Protocol Last Admin: 06/23/22 08:53 Dose: 33.3 mls/hr Insulin Aspart (Insulin Aspart (Novolog) 100 Unit/Ml Vial) 0 unit SQ ACHS [facility]; Protocol Last Admin: 06/23/22 07:50 Dose: Not Given Isosorbide Mononitrate (Isosorbide Mononitrate Er 30 Mg Tab.Er.24h) 30 mg PO [facility] Last Admin: 06/22/22 20:43 Dose: 30 mg Levothyroxine Sodium (Levothyroxine 75 Mcg Tab) 150 mcg PO DAILY@0630 [facility] Last Admin: 06/23/22 06:40 Dose: 150 mcg Magnesium Oxide (Magnesium Oxide 400 Mg Tab) 400 mg PO [facility] Last Admin: 06/22/22 20:43 Dose: 400 mg Metoprolol Tartrate (Metoprolol Tartrate 50 Mg Tab) 50 mg PO BID [facility] Last Admin: 06/23/22 08:49 Dose: 50 mg Naloxone HCl (Naloxone 0.4 Mg/Ml 1 Ml Vial) 0.2 mg IV Q2M PRN PRN Reason: Opioid Reversal Sodium Bicarbonate (Sodium Bicarbonate Tab 650 Mg Tab) 650 mg PO BID [facility] Last Admin: 06/23/22 08:49 Dose: 650 mg Tamsulosin HCl (Tamsulosin 0.4 Mg Cap.Er.24h) 0.4 mg PO DAILY [facility] Last Admin: 06/23/22 08:49 Dose: 0.4 mg On examination: VITAL SIGNS: 98.5, 73, 16, 150/76, GENERAL APPEARANCE: Laying in bed, comfortable. HEENT: Normal external appearance of nose and ear. Oral cavity normal EYES: Pupils equal. Conjunctiva normal. NECK: JVD not raised. Mass not palpable. RESPIRATORY: Respiratory effort normal. Lungs clear to auscultation. CARDIOVASCULAR: First and second sounds normal. No edema. ABDOMEN: Soft. Liver and spleen not palpable. No tenderness. No mass palpable. PSYCHIATRY: Alert and oriented x3. Mood and affect normal. INVESTIGATIONS, reviewed in the clinical context: June 23: WBC 4.9 hemoglobin 10.8 platelets 132 potassium 5.3 BUN 78 creatinine 2.37 June 19: Sodium 136 potassium 4.8. 59 creatinine 2.38 Previous labs: White count 8.2 hemoglobin 12.2 platelets 17 UA: Positive for leukoesterase, WBC Urine culture: Klebsiella oxytoca Assessment and plan: - possibly toxic encephalopathy from urinary tract infection,: improved -Acute UTI with cystitis secondary to Klebsiella oxytoca, IV aztreonam-follow with ID -Thrombocytopenia likely from infection -Coronary artery disease Aspirin, Plavix, Lopressor -type 2 diabetes mellitus, chronically on oral hypoglycemic Follow Accu-Cheks and sliding scale. glyburide. -Gastroesophageal reflux disease Pepcid -hyperlipidemia Lipitor -Hypertension Lopressor -Chronic kidney disease stage IV, likely secondary to diabetic nephropathy and hypertensive nephrosclerosis Baseline creatinine around 2.4. Does follow with nephrology -Sleep apnea -Hypothyroidism Levothyroxine Continue IVs aztreonam. follow with ID. Hopefully discharge to rehab tomorrow.
[2022-06-23 17:29] LABS: Glucose,Whole Blood 100 mg/dL (70-110)
[2022-06-23 20:16] LABS: Glucose,Whole Blood 137 mg/dL (70-110)
[2022-06-23] MEDS: ISOSORBIDE MONONITRATE ER 30 MG TAB.ER.24H PO SCH (20:43)
[2022-06-23] MEDS: ASPIRIN 81 MG PO SCH (20:43)
[2022-06-23] MEDS: MAGNESIUM OXIDE 400 MG TAB PO SCH (20:43)
[2022-06-24] MEDS: LEVOTHYROXINE 75 MCG TAB PO SCH (06:05)
[2022-06-24 06:06] VITALS: BP 145/71; PULSE 80; RESP 20; TEMP 97.7
[2022-06-24 07:14] LABS: Glucose,Whole Blood 93 mg/dL (70-110)
[2022-06-24] MEDS: INSULIN ASPART (NovoLOG) 100 UNIT/ML VIAL SQ SCH (07:56)
[2022-06-24] MEDS: METOPROLOL TARTRATE 50 MG TAB PO SCH (07:57)
[2022-06-24] MEDS: FERROUS SULFATE 325 MG TAB PO SCH (07:57)
[2022-06-24] MEDS: allopurinoL 100 MG TAB PO SCH (07:57)
[2022-06-24] MEDS: SODIUM BICARBONATE TAB 650 MG TAB PO SCH (07:57)
[2022-06-24] MEDS: AZTREONAM 2 GM in SODIUM CHLORIDE 0.9% 100 ML IVPB SCH (07:57)
[2022-06-24] MEDS: FAMOTIDINE 20 MG TAB PO SCH (07:57)
[2022-06-24] MEDS: TAMSULOSIN 0.4 MG CAP.ER.24H PO SCH (07:58)
[2022-06-24] MEDS: glipiZIDE 5 MG TAB PO SCH (07:58)
[2022-06-24] MEDS: FOLIC ACID 1 MG TAB PO SCH (07:58)
[2022-06-24] MEDS: HEPARIN SODIUM,PORCINE/PF 5,000 UNIT/0.5 ML SYRINGE SQ SCH (07:58)
[2022-06-24] MEDS: CITALOPRAM HYDROBROMIDE 20 MG TAB PO SCH (07:58)
[2022-06-24] MEDS: CLOPIDOGREL 75 MG TAB PO SCH (07:58)
[2022-06-24 08:56] LABS: Glucose,Whole Blood 196 mg/dL (70-110)
--- NOTE | 2022-06-24 09:17 | P.PN ---
Subjective Progress Note Date: 06/23/22 Principal diagnosis: UTI Patient is a 76-year old male presenting to the hospital with confusion and chills also complaining of some right-sided flank pain did have a positive UA concerning for right-sided pyonephritis in this patient who did have multiple antibiotic allergies. On today's evaluation that is 06/23/2022 patient denies any fever or any chills, the patient is breathing comfortably on room air, the patient denies having any chest pain or shortness of the cough, the patient denies nausea vomiting and no diarrhea , overall feeling better Objective - Vital Signs Vital signs: Vital Signs Temp 98.5 F 06/23/22 12:04 Pulse 73 06/23/22 12:04 Resp 16 06/23/22 12:04 BP 150/76 06/23/22 12:04 Pulse Ox 96 06/23/22 12:04 FiO2 Intake & Output 06/22/22 06/23/22 06/23/22 18:59 06:59 18:59 Intake Total 100 350 Balance 100 350 Intake: IV 100 100 Aztreonam 2 gm In Sodium 100 100 Chloride 0.9% 100 ml @ 33 .3 mls/hr IVPB Q12HR [facility] Rx#:[id number] Oral 250 Other: Voiding Method Toilet Urinal Urinal Urinal # Voids 2 3 # Bowel Movements 1 - Exam GENERAL DESCRIPTION: Elderly male up in the chair, no distress. No tachypnea or accessory muscle of respiration use. LUNGS: Unlabored breathing. Clear to auscultation anteriorly. No wheeze or crackle. HEART: S1, S2, regular rate and rhythm. No loud murmur ABDOMEN: Soft, no tenderness , guarding or rigidity, no organomegaly EXTREMITIES: No edema of feet. - Labs CBC & Chem 7: 06/23/22 07:12 06/23/22 07:12 Labs: Abnormal Lab Results - Last 24 Hours (Table) 06/22/22 06/22/22 06/23/22 Range/Units 16:31 20:17 07:12 RBC 3.49 L (4.30-5.90) m/uL Hgb 10.8 L (13.0-17.5) gm/dL Hct 32.2 L (39.0-53.0) % Plt Count 132 L (150-450) k/uL Potassium (3.5-5.1) mmol/L BUN (9-20) mg/dL Creatinine (0.66-1.25) mg/dL Glucose (74-99) mg/dL POC Glucose (mg/dL) 120 H 147 H (70-110) mg/dL 06/23/22 06/23/22 Range/Units 07:12 12:06 RBC (4.30-5.90) m/uL Hgb (13.0-17.5) gm/dL Hct (39.0-53.0) % Plt Count (150-450) k/uL Potassium 5.3 H (3.5-5.1) mmol/L BUN 78 H (9-20) mg/dL Creatinine 2.37 H (0.66-1.25) mg/dL Glucose 70 L (74-99) mg/dL POC Glucose (mg/dL) 141 H (70-110) mg/dL Microbiology - Last 24 Hours (Table) 06/22/22 11:51 Urine Culture - Preliminary Urine,Voided 06/17/22 15:49 Urine Culture - Preliminary Urine,Voided Klebsiella oxytoca Klebsiella oxytoca#2 Assessment and Plan (1) Urinary tract infection Current Visit: Yes Status: Acute Code(s): N39.0 - URINARY TRACT INFECTION, SITE NOT SPECIFIED SNOMED Code(s): 76417581 Plan: 1patient presented to hospital with confusion chills did have urinary symptoms and some pain to the right flank area concerning for possible pyelonephritis in this patient with a borderline kidney function and high risk of nephrotoxicity, last urine culture positive for Pseudomonas that was resistant to quinolones. 2patient with a penicillin cephalosporin allergies that would limit the number of antibiotics safe to use. 3Patient has shown clinical improvement and urine cultures currently showing Klebsiella, sensitivities has been finalized it is sensitive to Cipro 4 patient tocontinue with Azactam with a plan to finish therapy with oral Cipro Time with Patient: Less than 30
[2022-06-24] MEDS ORDERED: VANCOMYCIN IV PER PHARMACY 1 EACH MISC MISCELLANE PRN (10:54)
[2022-06-24] MEDS ORDERED: VANCOMYCIN 1,750 MG in SODIUM CHLORIDE 0.9% 500 ML 500 ML IVPB SCH (12:00)
--- NOTE | 2022-06-24 16:54 | P.DS ---
Providers Date of admission: 06/17/22 16:15 Expected date of discharge: 06/24/22 Attending physician: Erik Chase Consults: 06/17/22 16:15 Consult Physician Routine Consulting Provider: Latoya Burdick Consult Reason/Comments: Drug resistant UTI Do you want consulting provider notified?: Yes Primary care physician: Bulmaro Graham [facility] Course: Hospital course: 76-year-old pleasant male was brought in by daughter because of a worsening generalized weakness and confusion which has been going on for 3-4 days much worse last night. Patient is alert and oriented 3 when I valid the patient. Patient had similar symptoms in the past and had urinary tract infection. Patient urine analysis significantly abnormal. Patient urine analysis showed large leukocyte esterase and nitrates were negative showed WBC clumps, rather than 182 WBC and bacteria. Patient does have some question will symptoms of dysuria patient does have history of urinary retention benign prostatic hyp ertrophy. Patient denied any symptoms of cough. Patient doesn't have any fever here. Chest x-ray did not show any significant abnormality. Patient's home medications need to be verified and patient had history of Pseudomonas in the urine this was in month of August since is more than 6 months I'll continue with Azetreonam for now 06/18/2022 Patient is evaluated today in emergency room awaiting bed on the floor. Mentation seems to be improved today he is alert x 2-3. Urine culture is currently pending, patient is continued on IV aztreonam. He is a poor historian. Continues on IV antibiotics at this time. We will also ask PT/Ot to evaluate the patient. Home medications have been reviewed. 06/19/2022: I assumed the care of patient today from [facility] hospitalists. Patients in the ICU as an overflow patient. Up in a chair. Eating well. Able to answer questions appropriately. On IV aztreonam. Urine culture growing gram-negative bacilli. No fever. Patient did ambulate. Upon presentation patient is complaining of flank pain and urinary frequency. 06/20/2022: Oral intake fair. Comfortable. No fever. Urine culture growing Klebsiella oxytoca. Patient IV aztreonam. Follow with ID 06/21/2022: Urine culture still not finalized. On IV aztreonam. Sensitivities pending. Discussed with binder caser rojelio. Patient does not have home IV antibiotic coverage. Will need: 2 ECF if IV antibiotic prescribed. Eating well. Up in a recliner. 06/22/2022: Urine culture still not showing sensitivities. IV aztreonam. Oral intake good. Follow with ID. 06/23/2022: Reclining in bed. Comfortable. Oral intake good. continue antibiotic per ID. 06/24/2022: Feeling well. No urinary symptoms. Discussed with ID. Patient be discharged on ciprofloxacin to complete a course. Discussed with the patient and the binder caser. On examination: VITAL SIGNS: 37.7, 80, 20, 145/71, 95% room air GENERAL APPEARANCE: Laying in bed, comfortable. HEENT: Normal external appearance of nose and ear. Oral cavity normal EYES: Pupils equal. Conjunctiva normal. NECK: JVD not raised. Mass not palpable. RESPIRATORY: Respiratory effort normal. Lungs clear to auscultation. CARDIOVASCULAR: First and second sounds normal. No edema. ABDOMEN: Soft. Liver and spleen not palpable. No tenderness. No mass palpable. PSYCHIATRY: Alert and oriented x3. Mood and affect normal. INVESTIGATIONS, reviewed in the clinical context: June 23: WBC 4.9 hemoglobin 10.8 platelets 132 potassium 5.3 BUN 78 creatinine 2.37 June 19: Sodium 136 potassium 4.8. 59 creatinine 2.38 Previous labs: White count 8.2 hemoglobin 12.2 platelets 17 UA: Positive for leukoesterase, WBC Urine culture: Klebsiella oxytoca Assessment and plan: - possibly toxic encephalopathy from urinary tract infection,: improved -Acute UTI with cystitis secondary to Klebsiella oxytoca, IV aztreonam-follow with ID. Complete oral course of ciprofloxacin -Thrombocytopenia likely from infection -Coronary artery disease Aspirin, Plavix, Lopressor -type 2 diabetes mellitus, chronically on oral hypoglycemic Follow Accu-Cheks and sliding scale. glyburide. -Gastroesophageal reflux disease Pepcid -hyperlipidemia Lipitor -Hypertension Lopressor -Chronic kidney disease stage IV, likely secondary to diabetic nephropathy and hypertensive nephrosclerosis Baseline creatinine around 2.4. Does follow with nephrology -Sleep apnea -Hypothyroidism Levothyroxine Disposition: Home Plan - Discharge Summary New Discharge Prescriptions: New Ciprofloxacin HCl [Cipro] 500 mg PO BID #10 tab Chlorthalidone 25 mg PO DAILY #30 tablet Continue Folic Acid 1 mg PO DAILY Clopidogrel Bisulfate [Plavix] 75 mg PO DAILY allopurinoL [Zyloprim] 100 mg PO DAILY Isosorbide Mononitrate [Isosorbide Mononitrate ER] 30 mg PO HS Atorvastatin [Lipitor] 80 mg PO MOTUWETHFR@2100 Aspirin 81 mg PO HS Ergocalciferol (Vitamin D2) [Vitamin D2] 50,000 unit PO Q14D Metoprolol Tartrate [Lopressor] 50 mg PO BID Citalopram Hydrobromide [CeleXA] 20 mg PO DAILY Tamsulosin HCl [Flomax] 0.4 mg PO DAILY Magnesium Oxide [Hernandez] 500 mg PO HS Levothyroxine Sodium [Euthyrox] 150 mcg PO DAILY Sodium Bicarbonate 650 mg PO BID calcitrioL [Calcitriol] 0.5 mcg PO DAILY Methenamine Hippurate 1 gm PO DIRECTED Ferrous Sulfate [Iron (65 MG Elemental)] 325 mg PO DAILY Acetaminophen Tab [Tylenol] 1,000 mg PO BID Famotidine [Pepcid] 20 mg PO BID Changed glipiZIDE [Glucotrol] 5 mg PO DAILY #0 Discontinued hydroCHLOROthiazide [Hydrodiuril] 25 mg PO DAILY Discharge Medication List Aspirin 81 mg PO HS 11/28/15 [History] Atorvastatin [Lipitor] 80 mg PO MOTUWETHFR@2100 11/28/15 [History] Clopidogrel Bisulfate [Plavix] 75 mg PO DAILY 11/28/15 [History] Folic Acid 1 mg PO DAILY 11/28/15 [History] Isosorbide Mononitrate [Isosorbide Mononitrate ER] 30 mg PO HS 11/28/15 [History] allopurinoL [Zyloprim] 100 mg PO DAILY 11/28/15 [History] Ergocalciferol (Vitamin D2) [Vitamin D2] 50,000 unit PO Q14D 11/29/16 [History] Citalopram Hydrobromide [CeleXA] 20 mg PO DAILY 02/05/18 [History] Metoprolol Tartrate [Lopressor] 50 mg PO BID 02/05/18 [History] Tamsulosin HCl [Flomax] 0.4 mg PO DAILY 02/05/18 [History] Magnesium Oxide [Hernandez] 500 mg PO HS 11/06/18 [History] Acetaminophen Tab [Tylenol] 1,000 mg PO BID 06/17/22 [History] Famotidine [Pepcid] 20 mg PO BID 06/17/22 [History] Ferrous Sulfate [Iron (65 MG Elemental)] 325 mg PO DAILY 06/17/22 [History] Levothyroxine Sodium [Euthyrox] 150 mcg PO DAILY 06/17/22 [History] Methenamine Hippurate 1 gm PO DIRECTED 06/17/22 [History] Sodium Bicarbonate 650 mg PO BID 06/17/22 [History] calcitrioL [Calcitriol] 0.5 mcg PO DAILY 06/17/22 [History] Chlorthalidone 25 mg PO DAILY #30 tablet 06/24/22 [Rx] Ciprofloxacin HCl [Cipro] 500 mg PO BID #10 tab 06/24/22 [Rx] glipiZIDE [Glucotrol] 5 mg PO DAILY #0 06/24/22 [Rx] Follow up Appointment(s)/Referral(s): [facility], [NON-STAFF] - 1 Week Bulmaro Graham DO [Primary Care Provider] - 07/01/22 8:45 am Patient Instructions/Handouts: Dehydration (DC), Catheter-associated Urinary Tract Infection (DC) Discharge Disposition: HOME WITH HOME HEALTH SERVICES
== END 2022-06-24 11:10 | disposition home health service (06) | DRG 689 ==
LOC: EC 11:52 → 4SSUR 16:15 → 2SICU 06-18 16:16 → 5NMEDONC 06-22 17:31
PROVIDERS: ADMIT Hospitalist; ATTEND Hospitalist
DX: N30.00 Acute cystitis without hematuria (principal); G92.8 Other toxic encephalopathy; N18.4 Chronic kidney disease, stage 4 (severe); I44.0 Atrioventricular block, first degree; I25.10 Atherosclerotic heart disease of native coronary artery without angina pectoris; K21.9 Gastro-esophageal reflux disease without esophagitis; B96.89 Other specified bacterial agents as the cause of diseases classified elsewhere; D69.59 Other secondary thrombocytopenia; E78.5 Hyperlipidemia, unspecified; G47.30 Sleep apnea, unspecified; E11.22 Type 2 diabetes mellitus with diabetic chronic kidney disease; I12.9 Hypertensive chronic kidney disease with stage 1 through stage 4 chronic kidney disease, or unspecified chronic kidney disease; E03.9 Hypothyroidism, unspecified; D63.1 Anemia in chronic kidney disease; N40.1 Benign prostatic hyperplasia with lower urinary tract symptoms; R33.8 Other retention of urine; Z79.899 Other long term (current) drug therapy; Z79.890 Hormone replacement therapy; Z79.84 Long term (current) use of oral hypoglycemic drugs; Z79.82 Long term (current) use of aspirin; Z79.4 Long term (current) use of insulin; Z79.02 Long term (current) use of antithrombotics/antiplatelets; Z95.1 Presence of aortocoronary bypass graft; I25.2 Old myocardial infarction; Z88.0 Allergy status to penicillin; Z88.1 Allergy status to other antibiotic agents; Z88.8 Allergy status to other drugs, medicaments and biological substances; Z87.892 Personal history of anaphylaxis; Z87.442 Personal history of urinary calculi; Z87.440 Personal history of urinary (tract) infections; Z86.73 Personal history of transient ischemic attack (TIA), and cerebral infarction without residual deficits
CPT/HCPCS: 36415; 71046; 76770; 80048; 80053; 81001; 83036; 83605; 83735; 84484; 85025; 85027; 85610; 85730; 87077; 87086; 87186; 93005; 96365; 99285

== ENCOUNTER 2022-07-22 18:49 | Inpatient (IN) | payer MEDICARE, BC ==
[2022-07-22] MEDS ORDERED: ACETAMINOPHEN TAB 500 MG TAB PO STA (19:02)
--- NOTE | 2022-07-22 19:25 | ED ---
General Adult HPI - General Chief complaint: Weakness Stated complaint: Weakness Source: patient, EMS, RN notes reviewed Mode of arrival: EMS Limitations: physical limitation (Weakness) - History of Present Illness Initial comments: Patient is a 76-year-old male presenting to the emergency room via EMS with complaints of generalized weakness worsening over the last 3 days along with nasal congestion cough and fevers. He reports not taking any medication for his cough. He states that at home prior to calling an ambulance to bring him to the hospital he became quite weak and kneeled down onto the ground and was unable to rise up without assistance. He denies any falls. According to EMS he was having some episodes of altered mental status however he is alert and o rientated 3 upon arrival to the emergency room. He reports a recently obtaining Covid booster and influenza vaccination within the last week but states that on Friday he was around family who had some cough and congestion and he is concerned that he may have contracted the illness from them. He has not taken any medications to treat his cough congestion or fevers. He has a past medical history significant for coronary artery disease with MA, diabetes, hypertension, hyperlipidemia, TIAs, GERD, arthritis, BPH, renal stones, impaired renal function, sleep apnea and hypothyroidism. - Related Data Home Medications Medication Instructions Recorded Confirmed Aspirin 81 mg PO HS 11/28/15 06/17/22 Atorvastatin [Lipitor] 80 mg PO MOTUWETHFR@2100 11/28/15 06/17/22 Clopidogrel Bisulfate [Plavix] 75 mg PO DAILY 11/28/15 06/17/22 Folic Acid 1 mg PO DAILY 11/28/15 06/17/22 Isosorbide Mononitrate [Isosorbide 30 mg PO HS 11/28/15 06/17/22 Mononitrate ER] allopurinoL [Zyloprim] 100 mg PO DAILY 11/28/15 06/17/22 Ergocalciferol (Vitamin D2) 50,000 unit PO Q14D 11/29/16 06/17/22 [Vitamin D2] Citalopram Hydrobromide [CeleXA] 20 mg PO DAILY 02/05/18 06/17/22 Metoprolol Tartrate [Lopressor] 50 mg PO BID 02/05/18 06/17/22 Tamsulosin HCl [Flomax] 0.4 mg PO DAILY 02/05/18 06/17/22 Magnesium Oxide [Hernandez] 500 mg PO HS 11/06/18 06/17/22 Acetaminophen Tab [Tylenol] 1,000 mg PO BID 06/17/22 06/17/22 Famotidine [Pepcid] 20 mg PO BID 06/17/22 06/17/22 Ferrous Sulfate [Iron (65 MG 325 mg PO DAILY 06/17/22 06/17/22 Elemental)] Levothyroxine Sodium [Euthyrox] 150 mcg PO DAILY 06/17/22 06/17/22 Methenamine Hippurate 1 gm PO DIRECTED 06/17/22 06/17/22 Sodium Bicarbonate 650 mg PO BID 06/17/22 06/17/22 calcitrioL [Calcitriol] 0.5 mcg PO DAILY 06/17/22 06/17/22 Previous Rx's Medication Instructions Recorded Chlorthalidone 25 mg PO DAILY #30 tablet 06/24/22 glipiZIDE [Glucotrol] 5 mg PO DAILY #0 06/24/22 Allergies Allergy/AdvReac Type Severity Reaction Status Date / Time Penicillins Allergy Severe Anaphylaxis Verified 07/22/22 21:43 cephalexin monohydrate Allergy Rash/Hives Verified 07/22/22 21:43 [From Keflex] gemfibrozil [From Lopid] AdvReac Abdominal Verified 07/22/22 21:43 Pain Review of Systems ROS Statement: Those systems with pertinent positive or pertinent negative responses have been documented in the HPI. ROS Other: All systems not noted in ROS Statement are negative. Past Medical History Past Medical History: Coronary Artery Disease (CAD), CVA/TIA, Diabetes Mellitus, GERD/Reflux, Hyperlipidemia, Hypertension, Myocardial Infarction ([place]), Osteoarthritis (OA), Prostate Disorder, Renal Disease, Sleep Apnea/CPAP/BIPAP, Thyroid Disorder Additional Past Medical History / Comment(s): hx. TIA's, last one November 2016, heart murmur, OCC SOB, kidney stones, leakage of urine, uses CPAP, decreased kidney function, uti's Last Myocardial Infarction Date:: 2010 History of Any Multi-Drug Resistant Organisms: Other MDRO Past Surgical History: Coronary Bypass/CABG, Heart Catheterization, Hernia Repair, Orthopedic Surgery, Prostate Surgery Additional Past Surgical History / Comment(s): vasectomy, CABG 2010 with 4 vessels, keke knee arthroscopy, rt hand surgery x 3, TURP 02/2017, cystoscopy and dilation of urethral stricture 07/08/17 Past Anesthesia/Blood Transfusion Reactions: No Reported Reaction Past Psychological History: No Psychological Hx Reported Smoking Status: Never smoker Past Alcohol Use History: Occasional Past Drug Use History: None Reported - Past Family History Mother Family Medical History: Congestive Heart Failure (CHF) Additional Family Medical History / Comment(s): at age 92 Father Family Medical History: CVA/TIA, Myocardial Infarction ([place]) General Exam Limitations: physical limitation (weakness) General appearance: alert, in no apparent distress Head exam: Present: atraumatic, normocephalic, normal inspection Eye exam: Present: normal appearance, PERRL, EOMI. Absent: scleral icterus, co njunctival injection, periorbital swelling ENT exam: Present: mucous membranes moist, other (nasal congestion) Neck exam: Present: normal inspection, full ROM. Absent: lymphadenopathy Respiratory exam: Present: normal lung sounds bilaterally. Absent: respiratory distress, wheezes, rales, rhonchi, stridor Cardiovascular Exam: Present: regular rate, irregular rhythm, normal heart sounds, systolic murmur. Absent: diastolic murmur, rubs, gallop, clicks GI/Abdominal exam: Present: soft, normal bowel sounds. Absent: distended, tenderness, guarding, rebound, rigid Rectal exam: Present: deferred Extremities exam: Present: pedal edema (Trace left chronic). Absent: tenderness Back exam: Present: normal inspection. Absent: tenderness Neurological exam: Present: alert, oriented X3, CN II-XII intact Psychiatric exam: Present: normal affect, normal mood Skin exam: Present: warm, dry, intact, normal color. Absent: rash Course Vital Signs 07/22/22 07/22/22 18:54 21:00 Temperature 102.4 F H 100.6 F H Pulse Rate 93 94 Respiratory 18 18 Rate Blood Pressure 155/86 162/94 O2 Sat by Pulse 96 94 L Oximetry Medical Decision Making - Medical Decision Making 76-year-old increase in weakness, cough and congestion ongoing for 3 days and fevers. He reports recent exposure to upper respiratory infection however he is unchanged cervical his family member had. EMS reports some altered mental status at home currently alert and oriented 3. No current indication for computed tomography scan. Will obtain chest x-ray, EKG, CBC, coags, and troponin along with Cephid swab. Currently febrile at 102.4 will give 1 g of Tylenol monitor response. EKG interpreted by me shows new onset of atrial fibrillation AP EKG shows sinus tachycardia with frequent PACs; with new onset of atrial fibrillation will add TSH to laboratory studies. CBC reveals mild anemia and low platelet count at 95, no leukocytosis, CMP consistent with chronic renal disease CKD stage IV. TSH normal. Coags normal, TSH normal. Cephid swab negative for RSV, influenza and COVID. Troponin negative. Lactic acid normal. Chest x-ray image interpreted by me reveals right mid lung increased pleural thickening, no consolidation or loc al infiltrate. Will obtain urinalysis give gentle hydration and give broad- spectrum antibiotic. Blood cultures pending. Previous admission for urosepsis. Previous reports reviewed showing last urinal ysis Enterococcus faecalis susceptible to Levaquin. Will give dose of IV Levaquin. The setting of new onset A. fib will also give subcu dose of Lovenox 1 mg/kg once and defer cardiology consult and further of anticoagulation to primary admission team. Presentation, results and recommendations reviewed with Tracey from [facility]. She is accepting of admission will order repeat labs for morning and continuation of antipyretics as needed, no further consult orders received at this time. Case discussed with Dr. Mcclendon. - Lab Data Result diagrams: 07/22/22 19:40 07/22/22 19:40 Lab Results 07/22/22 07/22/22 07/22/22 Range/Units 19:40 19:40 19:40 WBC 5.3 (3.8-10.6) k/uL RBC 3.89 L (4.30-5.90) m/uL Hgb 12.2 L (13.0-17.5) gm/dL Hct 36.3 L (39.0-53.0) % MCV 93.5 (80.0-100.0) fL MCH 31.4 (25.0-35.0) pg MCHC 33.6 (31.0-37.0) g/dL RDW 13.2 (11.5-15.5) % Plt Count 95 L (150-450) k/uL MPV 9.1 Neutrophils % 82 % Lymphocytes % 9 % Monocytes % 6 % Eosinophils % 2 % Basophils % 0 % Neutrophils # 4.4 (1.3-7.7) k/uL Lymphocytes # 0.5 L (1.0-4.8) k/uL Monocytes # 0.3 (0-1.0) k/uL Eosinophils # 0.1 (0-0.7) k/uL Basophils # 0.0 (0-0.2) k/uL PT 10.2 (9.0-12.0) sec INR 1.0 (<1.2) APTT 27.3 (22.0-30.0) sec Sodium 138 (137-145) mmol/L Potassium 4.6 (3.5-5.1) mmol/L Chloride 110 H (98-107) mmol/L Carbon Dioxide 18 L (22-30) mmol/L Anion Gap 10 mmol/L BUN 50 H (9-20) mg/dL Creatinine 2.49 H (0.66-1.25) mg/dL Est GFR (CKD-EPI)AfAm 28 (>60 ml/min/1.73 sqM) Est GFR (CKD-EPI)NonAf 24 (>60 ml/min/1.73 sqM) Glucose 136 H (74-99) mg/dL Plasma Lactic Acid Meek (0.7-2.0) mmol/L Calcium 9.1 (8.4-10.2) mg/dL Magnesium 1.7 (1.6-2.3) mg/dL Total Bilirubin 0.7 (0.2-1.3) mg/dL AST 18 (17-59) U/L ALT 15 (4-49) U/L Alkaline Phosphatase 100 (38-126) U/L Troponin I (0.000-0.034) ng/mL Total Protein 6.1 L (6.3-8.2) g/dL Albumin 4.0 (3.5-5.0) g/dL TSH 1.440 (0.465-4.680) mIU/L Influenza Type A (PCR) (Not Detectd) Influenza Type B (PCR) (Not Detectd) RSV (PCR) (Not Detectd) SARS-CoV-2 (PCR) (Not Detectd) 07/22/22 07/22/22 07/22/22 Range/Units 19:40 19:40 19:50 WBC (3.8-10.6) k/uL RBC (4.30-5.90) m/uL Hgb (13.0-17.5) gm/dL Hct (39.0-53.0) % MCV (80.0-100.0) fL MCH (25.0-35.0) pg MCHC (31.0-37.0) g/dL RDW (11.5-15.5) % Plt Count (150-450) k/uL MPV Neutrophils % % Lymphocytes % % Monocytes % % Eosinophils % % Basophils % % Neutrophils # (1.3-7.7) k/uL Lymphocytes # (1.0-4.8) k/uL Monocytes # (0-1.0) k/uL Eosinophils # (0-0.7) k/uL Basophils # (0-0.2) k/uL PT (9.0-12.0) sec INR (<1.2) APTT (22.0-30.0) sec Sodium (137-145) mmol/L Potassium (3.5-5.1) mmol/L Chloride (98-107) mmol/L Carbon Dioxide (22-30) mmol/L Anion Gap mmol/L BUN (9-20) mg/dL Creatinine (0.66-1.25) mg/dL Est GFR (CKD-EPI)AfAm (>60 ml/min/1.73 sqM) Est GFR (CKD-EPI)NonAf (>60 ml/min/1.73 sqM) Glucose (74-99) mg/dL Plasma Lactic Acid Meek 1.3 (0.7-2.0) mmol/L Calcium (8.4-10.2) mg/dL Magnesium (1.6-2.3) mg/dL Total Bilirubin (0.2-1.3) mg/dL AST (17-59) U/L ALT (4-49) U/L Alkaline Phosphatase (38-126) U/L Troponin I 0.013 (0.000-0.034) ng/mL Total Protein (6.3-8.2) g/dL Albumin (3.5-5.0) g/dL TSH (0.465-4.680) mIU/L Influenza Type A (PCR) Not Detected (Not Detectd) Influenza Type B (PCR) Not Detected (Not Detectd) RSV (PCR) Not Detected (Not Detectd) SARS-CoV-2 (PCR) Not Detected (Not Detectd) - EKG Data EKG Comments: EKG completed at 1929 interpreted by me shows atrial fibrillation ventricular rate 100 bpm, MN interval * ms, QRS duration 94 ms, QT/QTC 271/328 ms, PRT axes *, 50, -7 Repeat EKG completed at 1943 shows sinus tach with frequent supraventricular premature complexes, ventricular rate 101 bpm, MN interval 200 ms, QRS durations 103 ms, QT/QTC 342/400 ms, PRT axes 35, 31, 20 - Radiology Data Radiology results: report reviewed, image reviewed Chest x-ray 2 views impression by radiologist similar pleural thickening of the right midlung no significant change compared to prior exam on 06/17/2022. Disposition Clinical Impression: Fever, unknown origin, New onset atrial fibrillation Disposition: ADMITTED IP TO THIS HOSP Condition: Stable Is patient prescribed a controlled substance at d/c from ED?: No Referrals: None,Stated [REFERRING] - 1-2 days Time of Disposition: 22:46
[2022-07-22 19:50] LABS: Basophils % (A) 0 %; Eosinophils # (A) 0.1 k/uL (0-0.7); Eosinophils % (A) 2 %; HCT 36.3 % (39.0-53.0); HGB 12.2 gm/dL (13.0-17.5); Lymphocytes # (A) 0.5 k/uL (1.0-4.8); Lymphocytes % (A) 9 %; MCH 31.4 pg (25.0-35.0); MCHC 33.6 g/dL (31.0-37.0); MCV 93.5 fL (80.0-100.0); Mean Platelet Volume 9.1; Monocytes # (A) 0.3 k/uL (0-1.0); Monocytes % (A) 6 %; Neutrophils # (A) 4.4 k/uL (1.3-7.7); Neutrophils % (A) 82 %; RBC 3.89 m/uL (4.30-5.90); RDW 13.2 % (11.5-15.5); WBC 5.3 k/uL (3.8-10.6)
[2022-07-22 19:51] LABS: Platelet Count 95 k/uL (150-450)
[2022-07-22 19:58] LABS: ALT 15 U/L (4-49); AST 18 U/L (17-59); African American GFR (CKD) 28 (>60 ml/min/1.73 sqM); Alkaline Phosphatase 100 U/L (38-126); Anion Gap 10 mmol/L; Blood Urea Nitrogen 50 mg/dL (9-20); Calcium 9.1 mg/dL (8.4-10.2); Carbon Dioxide 18 mmol/L (22-30); Chloride 110 mmol/L (98-107); Glucose 136 mg/dL (74-99); Magnesium 1.7 mg/dL (1.6-2.3); Non-African American GFR(CKD) 24 (>60 ml/min/1.73 sqM); Potassium 4.6 mmol/L (3.5-5.1); Sodium 138 mmol/L (137-145); Total Bilirubin 0.7 mg/dL (0.2-1.3); Total Protein 6.1 g/dL (6.3-8.2)
[2022-07-22 20:02] LABS: Partial Thromboplastin Time 27.3 sec (22.0-30.0); Prothrombin Time 10.2 sec (9.0-12.0)
--- NOTE | 2022-07-22 20:45 | XR ---
EXAMINATION TYPE: XR chest 2V DATE OF EXAM: 07/22/2022 8:04 PM COMPARISON: Chest radiographs from and 06/17/2022 TECHNIQUE: XR chest 2V Frontal and lateral views of the chest. CLINICAL INDICATION:Male, 76 years old with history of Weakness; FINDINGS: Lungs/Pleura: There is no evidence of pleural effusion, focal consolidation, or pneumothorax. There is pleural thickening most pronounced along the right lateral chest wall which could be sequela of pr ior injury. This is not significantly changed from most recent prior 06/17/2022. Pulmonary vascularity: Unremarkable. Heart/mediastinum: Cardiomediastinal silhouette is unremarkable. Musculoskeletal: No acute osseous pathology. Midline sternotomy wires are noted. IMPRESSION: Similar pleural thickening of the right mid lung. No significant change from prior.
[2022-07-22] MEDS ORDERED: SODIUM CHLORIDE 0.9% 1,000 ML IV STA (21:36)
[2022-07-22] MEDS ORDERED: ACETAMINOPHEN TAB 325 MG TAB PO PRN (21:58)
[2022-07-22] MEDS ORDERED: NALOXONE 0.4 MG/ML 1 ML VIAL IV PRN (21:58)
[2022-07-22] MEDS ORDERED: ENOXAPARIN 100 MG/ML SYRINGE SQ STA (21:59)
[2022-07-22] MEDS ORDERED: LEVOFLOXACIN 500MG-D5W PMX 500 MG in DEXTROSE/WATER 1 100ML.BAG IVPB STA (22:05)
[2022-07-22 22:56] LABS: Appearance,Urine Cloudy (Clear); Bacteria,Urine Moderate /hpf; Bilirubin,Urine Negative (Negative); Blood,Urine Small (Negative); Color,Urine Light Yellow; Glucose,Urine (UA) Negative (Negative); Hyaline Casts,Urine 3 /lpf (0-2); Ketones,Urine Negative (Negative); Leukocyte Esterase,Urine Large (Negative); Nitrite,Urine Negative (Negative); PH, Urine 5.5 (5.0-8.0); Protein,Urine 2+ (Negative); RBC,Urine 13 /hpf (0-5); Specific Gravity,Urine 1.014 (1.001-1.035); Urobilinogen,Urine <2.0 mg/dL (<2.0); WBC,Urine >182 /hpf (0-5)
[2022-07-23] MEDS ORDERED: ONDANSETRON 4 MG/2 ML VIAL IVP PRN (00:27)
[2022-07-23] MEDS: METOPROLOL TARTRATE 50 MG TAB PO SCH ×3 (01:52→21:00)
[2022-07-23 06:23] LABS: Basophils # (A) 0.1 k/uL (0-0.2); Basophils % (A) 1 %; Eosinophils # (A) 0.2 k/uL (0-0.7); Eosinophils % (A) 3 %; HCT 35.5 % (39.0-53.0); Lymphocytes # (A) 0.7 k/uL (1.0-4.8); Lymphocytes % (A) 13 %; MCH 31.6 pg (25.0-35.0); MCHC 33.7 g/dL (31.0-37.0); MCV 93.9 fL (80.0-100.0); Mean Platelet Volume 9.1; Monocytes # (A) 0.4 k/uL (0-1.0); Monocytes % (A) 8 %; Neutrophils % (A) 73 %; Platelet Count 104 k/uL (150-450); RBC 3.78 m/uL (4.30-5.90); RDW 13.2 % (11.5-15.5); WBC 5.4 k/uL (3.8-10.6)
[2022-07-23 06:44] LABS: Calcium 8.9 mg/dL (8.4-10.2); Potassium 4.8 mmol/L (3.5-5.1)
[2022-07-23] MEDS ORDERED: DEXTROSE 50% SYRINGE 50 ML IVP PRN ×4 (07:19→11:40)
[2022-07-23 07:35] LABS: Glucose,Whole Blood 112 mg/dL (70-110)
[2022-07-23] MEDS: INSULIN ASPART (NovoLOG) 100 UNIT/ML VIAL SQ SCH ×4 (08:42→21:01)
[2022-07-23] MEDS: FERROUS SULFATE 325 MG TAB PO SCH (08:43)
[2022-07-23] MEDS: FOLIC ACID 1 MG TAB PO SCH (08:43)
[2022-07-23] MEDS: TAMSULOSIN 0.4 MG CAP.ER.24H PO SCH (08:43)
[2022-07-23] MEDS: CITALOPRAM HYDROBROMIDE 20 MG TAB PO SCH (08:43)
[2022-07-23] MEDS: allopurinoL 100 MG TAB PO SCH (08:43)
[2022-07-23] MEDS: LEVOTHYROXINE 75 MCG TAB PO SCH (08:46)
[2022-07-23] MEDS ORDERED: SODIUM BICARBONATE TAB 650 MG TAB PO SCH (09:00)
[2022-07-23] MEDS ORDERED: CLOPIDOGREL 75 MG TAB PO SCH (09:00)
[2022-07-23] MEDS ORDERED: FAMOTIDINE 20 MG TAB PO SCH (09:00)
[2022-07-23] MEDS ORDERED: APIXABAN 5 MG TAB PO SCH (10:30)
--- NOTE | 2022-07-23 10:57 | P.CRDCN ---
History of Present Illness History of present illness: HISTORY OF PRESENTING ILLNESS This is a pleasant 76-year-old male with a past medical history of coronary artery disease with prior CABG, and unsuccessful PCI of her chronic total occlusion of second obtuse marginal branch in 2014, hypertension, dyslipidemia, type 2 diabetes, chronic kidney disease. He follows in the office with Dr. Petty. We have been asked to see in consultation for new onset atrial fibrillation.Patient presents to the emergency department with complaints of generalized weakness, nasal congestion, cough and fevers. He also endorses generalized fatigue and weakness. He denies any chest pain, shortness of breath, lightheadedness, dizziness, syncope or near syncope. On admission patient found to be in atrial fibrillation with ventricular controlled ventricular rates. He did convert to sinus mechanism. He does not have a history of atrial fibrillation. DIAGNOSTICS * EKG reveals atrial fibrillation, heart rate 100 * Telemetry tracings indicate sinus rhythm * Chest xray pleural thickening of the right mid lung no change from prior. No focal consolidation or pneumothorax. No heart failure. * Echocardiogram in the office 04/2020 revealed EF 50%, anterior septal apical hypokinesis significant pulmonary hypertension. * Lexiscan stress test in the office 12/2021 revealed an EF of 50%, mild inferior apical [place], no significant evidence of ischemia. * Laboratory reviewed, troponin negative, sodium 138, potassium 4.8, BUN 48, serum creatinine 2.4, magnesium 1.7, WBC 5.4, hemoglobin 12, platelets 104, influenza negative, RSV negative, Covid 19 negative * Current home medications include Imdur 30 mg daily, atorvastatin 80 mg daily, metoprolol tartrate 50 mg twice a day, levothyroxine, folic acid, ferrous sulfate, Pepcid, Plavix 75 mg daily, Celexa, chlorthalidone 20 mg daily, aspirin 81 mg daily, Tylenol, Flomax, allopurinol, calcitriol, Glucotrol, pavan min D, magnesium oxide. REVIEW OF SYSTEMS At the time of my exam: CONSTITUTIONAL: Denies fever or chills. CARDIOVASCULAR: Denies chest pain, shortness of breath, orthopnea, PND or palpitations. RESPIRATORY: Denies cough. GASTROINTESTINAL: Denies abdominal pain, diarrhea, constipation, nausea or v omiting. MUSCULOSKELETAL: Denies myalgias. NEUROLOGIC: Denies numbness, tingling, headacbe or weakness. ENDOCRINE: Denies fatigue, weight change, polydipsia or polyurina. GENITOURINARY: Denies burning, hematuria or urgency with micturation. HEMATOLOGIC: Denies history of anemia or bleeding. PHYSICAL EXAMINATION Vitals 157/77, heart rate 72, temperature 100.4, 96% on room air CONSTITUTIONAL: No apparent distress. HEENT: Head is normocephalic. Pupils are equal, round. Sclerae anicteric. Mucous membranes of the mouth are moist. No JVD. No carotid bruit. CHEST EXAMINATION: Lungs are clear to auscultation. No chest wall tenderness is noted on palpation or with deep breathing. HEART EXAMINATION: Regular rate and rhythm. S1, S2 heard. No murmurs, gallops or rub. ABDOMEN: Soft, nontender. Positive bowel sounds. EXTREMITIES: 2+ peripheral pulses, no lower extremity edema and no calf tendern ess. SKIN: Warm, dry NEUROLOGIC EXAMINATION: Patient is awake, alert and oriented x3. ASSESSMENT Paroxysmal atrial fibrillation -CHADS2-VASc score 5, currently in sinus rhythm Fever, chills, cough, nasal congestion Coronary artery disease with prior CABG, and unsuccessful PCI of her chronic total occlusion of second obtuse marginal branch in 2014 Hypertension Dyslipidemia Type 2 diabetes Chronic kidney disease PLAN Recommend starting Eliquis 2.5mg BID for new onset atrial fibrillation, patient currently in sinus mechanism, heart rates are controlled. Rest of infectious workup per primary We will follow the patient as needed, please reconsult if needed Recommend patient follow up with Dr. Petty in 1-2 weeks on discharge, echocardiogram can be completed as an outpatient Nurse practitioner note has been reviewed by physician. Signing provider agrees with the documented findings, assessment, and plan of care. Past Medical History Past Medical History: Coronary Artery Disease (CAD), CVA/TIA, Diabetes Mellitus, GERD/Reflux, Hyperlipidemia, Hypertension, Myocardial Infarction ([place]), Osteoarthritis (OA), Prostate Disorder, Renal Disease, Sleep Apnea/CPAP/BIPAP, Thyroid Disorder Additional Past Medical History / Comment(s): hx. TIA's, last one November 2016, heart murmur, OCC SOB, kidney stones, leakage of urine, uses CPAP, decreased kidney function, uti's Last Myocardial Infarction Date:: 2010 History of Any Multi-Drug Resistant Organisms: Other MDRO Past Surgical History: Coronary Bypass/CABG, Heart Catheterization, Hernia Repair, Orthopedic Surgery, Prostate Surgery Additional Past Surgical History / Comment(s): vasectomy, CABG 2010 with 4 vessels, keke knee arthroscopy, rt hand surgery x 3, TURP 02/2017, cystoscopy and dilation of urethral stricture 07/08/17 Past Anesthesia/Blood Transfusion Reactions: No Reported Reaction Past Psychological History: No Psychological Hx Reported Additional Psychological History / Comment(s): , lives with and daughter, has cpap and cane /walker if needed. The adult children are healthy. Lifelong nonsmoker. No alcohol use. 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 Was in the in the [employer] no significant trouble since then. Pet dog at home Smoking Status: Never smoker Past Alcohol Use History: Occasional Past Drug Use History: None Reported - Past Family History Mother Family Medical History: Congestive Heart Failure (CHF) Additional Family Medical History / Comment(s): at age 92 Father Family Medical History: CVA/TIA, Myocardial Infarction ([place]) Medications and Allergies Home Medications Medication Instructions Recorded Confirmed Type Aspirin 81 mg PO HS 11/28/15 07/22/22 History Atorvastatin [Lipitor] 80 mg PO MOTUWETHFR@2100 11/28/15 07/22/22 History Folic Acid 1 mg PO DAILY 11/28/15 07/22/22 History Isosorbide Mononitrate [Isosorbide 30 mg PO HS 11/28/15 07/22/22 History Mononitrate ER] allopurinoL [Zyloprim] 100 mg PO DAILY 11/28/15 07/22/22 History Ergocalciferol (Vitamin D2) 50,000 unit PO Q14D 11/29/16 07/22/22 History [Vitamin D2] Citalopram Hydrobromide [CeleXA] 20 mg PO DAILY 02/05/18 07/22/22 History Metoprolol Tartrate [Lopressor] 50 mg PO BID 02/05/18 07/22/22 History Tamsulosin HCl [Flomax] 0.4 mg PO DAILY 02/05/18 07/22/22 History Magnesium Oxide [Hernandez] 500 mg PO HS 11/06/18 07/22/22 History Acetaminophen Tab [Tylenol] 1,000 mg PO BID 06/17/22 07/22/22 History Famotidine [Pepcid] 20 mg PO BID 06/17/22 07/22/22 History Ferrous Sulfate [Iron (65 MG 325 mg PO DAILY 06/17/22 07/22/22 History Elemental)] Levothyroxine Sodium [Euthyrox] 150 mcg PO DAILY 06/17/22 07/22/22 History Methenamine Hippurate 1 gm PO DIRECTED 06/17/22 07/22/22 History Sodium Bicarbonate 650 mg PO BID 06/17/22 07/22/22 History calcitrioL [Calcitriol] 0.5 mcg PO DAILY 06/17/22 07/22/22 History Chlorthalidone 25 mg PO DAILY #30 tablet 06/24/22 07/22/22 Rx glipiZIDE [Glucotrol] 5 mg PO DAILY #0 06/24/22 07/22/22 Rx Apixaban [Eliquis] 5 mg PO BID #60 tab 07/23/22 Rx Allergies Allergy/AdvReac Type Severity Reaction Status Date / Time Penicillins Allergy Severe Anaphylaxis Verified 07/22/22 21:43 cephalexin monohydrate Allergy Rash/Hives Verified 07/22/22 21:43 [From Keflex] gemfibrozil [From Lopid] AdvReac Abdominal Verified 07/22/22 21:43 Pain Physical Exam Vitals: Vital Signs Temp Pulse Pulse Resp BP BP Pulse Ox 07/23/22 05:08 100.4 F H 72 16 157/77 96 07/22/22 23:48 98.1 F 85 16 149/75 95 07/22/22 22:30 99.7 F H 07/22/22 22:26 90 18 153/79 95 07/22/22 21:00 100.6 F H 94 18 162/94 94 L 07/22/22 18:54 102.4 F H 93 18 155/86 96 Intake and Output 07/22/22 07/23/22 07/23/22 22:59 06:59 14:59 Other: Weight 99.79 kg 99.79 kg Results 07/23/22 05:32 07/23/22 05:32 Cardiac Enzymes 07/22/22 07/22/22 Range/Units 19:40 19:40 AST 18 (17-59) U/L Troponin I 0.013 (0.000-0.034) ng/mL Coagulation 07/22/22 Range/Units 19:40 PT 10.2 (9.0-12.0) sec APTT 27.3 (22.0-30.0) sec CBC 07/22/22 07/23/22 Range/Units 19:40 05:32 WBC 5.3 5.4 (3.8-10.6) k/uL RBC 3.89 L 3.78 L (4.30-5.90) m/uL Hgb 12.2 L 12.0 L (13.0-17.5) gm/dL Hct 36.3 L 35.5 L (39.0-53.0) % Plt Count 95 L 104 L (150-450) k/uL Comprehensive Metabolic Panel 07/22/22 07/23/22 Range/Units 19:40 05:32 Sodium 138 138 (137-145) mmol/L Potassium 4.6 4.8 (3.5-5.1) mmol/L Chloride 110 H 108 H (98-107) mmol/L Carbon Dioxide 18 L 21 L (22-30) mmol/L BUN 50 H 48 H (9-20) mg/dL Creatinine 2.49 H 2.41 H (0.66-1.25) mg/dL Glucose 136 H 102 H (74-99) mg/dL Calcium 9.1 8.9 (8.4-10.2) mg/dL AST 18 (17-59) U/L ALT 15 (4-49) U/L Alkaline Phosphatase 100 (38-126) U/L Total Protein 6.1 L (6.3-8.2) g/dL Albumin 4.0 (3.5-5.0) g/dL Current Medications Generic Name Dose Route Start Last Admin Trade Name Freq PRN Reason Stop Dose Admin Acetaminophen 650 mg 07/22/22 21:58 Acetaminophen Tab 325 Mg Tab PO Q6HR PRN Mild Pain or Fever > 100.5 Allopurinol 100 mg 07/23/22 09:00 Allopurinol 100 Mg Tab PO DAILY [facility] Aspirin 81 mg 07/23/22 21:00 Aspirin 81 Mg PO HS [facility] Atorvastatin Calcium 80 mg 07/23/22 21:00 Atorvastatin 80 Mg Tab PO MOTUWETHFR@2100 [facility] Calcitriol 0.5 mcg 07/23/22 09:00 Calcitriol 0.25 Mcg Cap PO DAILY [facility] Citalopram Hydrobromide 20 mg 07/23/22 09:00 Citalopram Hydrobromide 20 Mg Tab PO DAILY [facility] Clopidogrel Bisulfate 75 mg 07/23/22 09:00 Clopidogrel 75 Mg Tab PO DAILY [facility] Dextrose/Water 25 ml 07/23/22 07:19 Dextrose 50% Syringe 50 Ml IVP PER PROTOCOL PRN Hypoglycemia Protocol Dextrose/Water 50 ml 07/23/22 07:19 Dextrose 50% Syringe 50 Ml IVP PER PROTOCOL PRN Hypoglycemia Protocol Famotidine 20 mg 07/23/22 09:00 Famotidine 20 Mg Tab PO BID [facility] Ferrous Sulfate 325 mg 07/23/22 09:00 Ferrous Sulfate 325 Mg Tab PO DAILY [facility] Folic Acid 1 mg 07/23/22 09:00 Folic Acid 1 Mg Tab PO DAILY [facility] Insulin Aspart 0 unit 07/23/22 07:30 Insulin Aspart (Novolog) 100 Unit/Ml Vial SQ ACHS [facility] Protocol Isosorbide Mononitrate 30 mg 07/23/22 21:00 Isosorbide Mononitrate Er 30 Mg Tab.Er.24h PO HS [facility] Levothyroxine Sodium 150 mcg 07/23/22 07:30 Levothyroxine 75 Mcg Tab PO DAILY@0630 [facility] Metoprolol Tartrate 50 mg 07/23/22 00:30 07/23/22 01:52 Metoprolol Tartrate 50 Mg Tab PO 50 mg BID [facility] Administration Naloxone HCl 0.2 mg 07/22/22 21:58 Naloxone 0.4 Mg/Ml 1 Ml Vial IV Q2M PRN Opioid Reversal Ondansetron HCl 4 mg 07/23/22 00:27 Ondansetron 4 Mg/2 Ml Vial IVP Q6HR PRN Nausea And Vomiting Sodium Bicarbonate 650 mg 07/23/22 09:00 Sodium Bicarbonate Tab 650 Mg Tab PO BID [facility] Tamsulosin HCl 0.4 mg 07/23/22 09:00 Tamsulosin 0.4 Mg Cap.Er.24h PO DAILY [facility] Intake and Output 07/22/22 07/23/22 07/23/22 22:59 06:59 14:59 Other: Weight 99.79 kg 99.79 kg 07/23/22 05:32 07/23/22 05:32
[2022-07-23 11:34] LABS: Glucose,Whole Blood 177 mg/dL (70-110)
[2022-07-23] MEDS ORDERED: TEMAZEPAM 15 MG CAP PO PRN (11:39)
[2022-07-23] MEDS ORDERED: CALCIUM CARBONATE 500 MG CHEWABLE PO PRN (11:39)
[2022-07-23] MEDS ORDERED: LACTULOSE 20 GM/30 ML CUP PO PRN (11:39)
[2022-07-23] MEDS ORDERED: LORazepam 0.5 MG TAB PO PRN (11:39)
[2022-07-23] MEDS ORDERED: AZTREONAM 2 GM in SODIUM CHLORIDE 0.9% 100 ML IVPB SCH (11:45)
[2022-07-23] MEDS: APIXABAN 2.5 MG TABLET PO SCH ×2 (12:37→21:00)
[2022-07-23] MEDS: AZTREONAM 1 GM in SODIUM CHLORIDE 0.9% 50 ML IVPB SCH ×2 (12:37→21:00)
[2022-07-23] MEDS: ALBUTEROL NEBULIZED 2.5 MG/3 ML INHALATION SCH ×3 (13:24→20:12)
[2022-07-23] MEDS: BUDESONIDE 1 MG/2 ML NEBU INHALATION SCH ×2 (13:25→20:12)
--- NOTE | 2022-07-23 16:32 | P.HPIM ---
History of Present Illness H&P Date: 07/23/22 Chief Complaint: Generalized weakness Hospital course: This is a 76-year-old patient, follows with Dr. Bulmaro Velazquez. Chronic stable medical conditions include COPD, CAD with stent 2, GERD, hyperlipidemia, hypertension, CK D stage IV, baseline creatinine around 2.4, sleep apnea, hypothyroid. Patient is admitted to the hospital end of May with a diagnosis of acute UTI with metabolic encephalopathy. Patient now presents feeling weak and tired. Legs wobbly from weakness. Has a cough for 3-4 days. Appetite is okay. Slight loose stools. Shortness of breath and wheezing. Tired rundown. When he goes outside he does use a cane. Patient's son-in-law was at a time a few days ago who was sick with respiratory symptoms. In the ER was found to be in atrial fibrillation. Controlled ventricular rate. Denies any chest pain and palpitation or syncope. Had a fever 102.4 on presentation Review of systems: GEN.: Tired EYES: None HEENT: As above NECK: None RESPIRATORY: As above CARDIOVASCULAR: None GASTROINTESTINAL: As above, no abdominal pain GENITOURINARY: None MUSCULOSKELETAL: None LYMPHATICS: None HEMATOLOGICAL: None PSYCHIATRY: None NEUROLOGICAL: None Past medical history to include: COPD, CAD with a bypass, GERD, hypertension, hyperlipidemia, CK D stage IV, sleep apnea, hypothyroid, diabetes, osteoarthritis, kidney stones Social history: . Lives with . Uses a cane outside the house. 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 No smoking. Alcohol occasionally. Physical examination: VITAL SIGNS: 102.4, 93, 18, 155/86, 96% room air-on presentation GENERAL: BMI 30.7, reclining in bed, awake, tired. EYES: Pupils equal. Conjunctiva normal. HEENT: External appearance of nose and ears normal, oral cavity grossly normal. NECK: JVD not raised; masses not palpable. HEART: First and second heart sounds are normal; no edema. LUNGS: Respiratory rate increased; mild wheezing. ABDOMEN: Soft, nontender, liver spleen not palpable, no masses palpable. PSYCH: Alert and oriented x3; mood and affect anxiousl. MUSCULOSKELETAL:No Clubbing/cyanosis;muscles-grossly intact, OA NEUROLOGICAL: Cranial nerves grossly intact; no facial asymmetry, power and s ensation grossly intact. LYMPHATICS: No lymph nodes palpable in the axilla and neck INVESTIGATIONS, reviewed in the clinical context: 07/23/2022: WBC 5.4 hemoglobin 12 platelets 104 sodium 138 potassium 4.8. 48 creatinine 2.41 UA positive for leukoesterase, WBC, bacteria Influenza type A/diabetes/RSV/COVID-19: Not detected EKG tracing personally reviewed by me-atrial fibrillation, rate 101 Chest x-ray film personally reviewed by me-possible infiltrate Assessment and plan: -Suspect pneumonia from gram-negative organism. Has significant respiratory symptoms. IV aztreonam. -Sepsis secondary to pneumonia, UTI IV fluids antibiotic -Paroxysmal atrial fibrillation, rate controlled on presentation. sinus rhythm. 2-D echo. Cardiology consulted. Started on eliquis - possibly toxic encephalopathy from urinary tract infection,: improved -Acute UTI with cystitis the prior history of UTI., IV aztreonam-ID consulted -Thrombocytopenia likely from infection -Coronary artery disease, with a prior history of bypass Aspirin, Lopressor -type 2 diabetes mellitus, chronically on oral hypoglycemic Follow Accu-Cheks and sliding scale. Glipizide -Gastroesophageal reflux disease Pepcid -hyperlipidemia Lipitor -Hypertension Lopressor -Chronic kidney disease stage IV, likely secondary to diabetic nephropathy and hypertensive nephrosclerosis Baseline creatinine around 2.4. Does follow with nephrology -Obstructive Sleep apnea Uses CPAP -Hypothyroidism Levothyroxine IV aztreonam. ID consulted. IV fluids. Resume home medications. Follow renal function. Accu-Cheks. Care was discussed with the patient. Questions answered. Started on eliquis. Past Medical History Past Medical History: Coronary Artery Disease (CAD), CVA/TIA, Diabetes Mellitus, GERD/Reflux, Hyperlipidemia, Hypertension, Myocardial Infarction ([place]), Osteoarthritis (OA), Prostate Disorder, Renal Disease, Sleep Apnea/CPAP/BIPAP, Thyroid Disorder Additional Past Medical History / Comment(s): hx. TIA's, last one November 2016, heart murmur, OCC SOB, kidney stones, leakage of urine, uses CPAP, decreased kidney function, uti's Last Myocardial Infarction Date:: 2010 History of Any Multi-Drug Resistant Organisms: Other MDRO Past Surgical History: Coronary Bypass/CABG, Heart Catheterization, Hernia Repair, Orthopedic Surgery, Prostate Surgery Additional Past Surgical History / Comment(s): vasectomy, CABG 2010 with 4 vessels, keke knee arthroscopy, rt hand surgery x 3, TURP 02/2017, cystoscopy and dilation of urethral stricture 07/08/17 Past Anesthesia/Blood Transfusion Reactions: No Reported Reaction Past Psychological History: No Psychological Hx Reported Additional Psychological History / Comment(s): , lives with and daughter, has cpap and cane /walker if needed. The adult children are healthy. Lifelong nonsmoker. No alcohol use. 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 Was in the in the [employer] no significant trouble since then. Pet dog at home Smoking Status: Never smoker Past Alcohol Use History: Occasional Past Drug Use History: None Reported - Past Family History Mother Family Medical History: Congestive Heart Failure (CHF) Additional Family Medical History / Comment(s): at age 92 Father Family Medical History: CVA/TIA, Myocardial Infarction ([place]) Medications and Allergies Home Medications Medication Instructions Recorded Confirmed Type Aspirin 81 mg PO HS 11/28/15 07/22/22 History Atorvastatin [Lipitor] 80 mg PO MOTUWETHFR@2100 11/28/15 07/22/22 History Folic Acid 1 mg PO DAILY 11/28/15 07/22/22 History Isosorbide Mononitrate [Isosorbide 30 mg PO HS 11/28/15 07/22/22 History Mononitrate ER] allopurinoL [Zyloprim] 100 mg PO DAILY 11/28/15 07/22/22 History Ergocalciferol (Vitamin D2) 50,000 unit PO Q14D 11/29/16 07/22/22 History [Vitamin D2] Citalopram Hydrobromide [CeleXA] 20 mg PO DAILY 02/05/18 07/22/22 History Metoprolol Tartrate [Lopressor] 50 mg PO BID 02/05/18 07/22/22 History Tamsulosin HCl [Flomax] 0.4 mg PO DAILY 02/05/18 07/22/22 History Magnesium Oxide [Hernandez] 500 mg PO HS 11/06/18 07/22/22 History Acetaminophen Tab [Tylenol] 1,000 mg PO BID 06/17/22 07/22/22 History Famotidine [Pepcid] 20 mg PO BID 06/17/22 07/22/22 History Ferrous Sulfate [Iron (65 MG 325 mg PO DAILY 06/17/22 07/22/22 History Elemental)] Levothyroxine Sodium [Euthyrox] 150 mcg PO DAILY 06/17/22 07/22/22 History Methenamine Hippurate 1 gm PO DIRECTED 06/17/22 07/22/22 History Sodium Bicarbonate 650 mg PO BID 06/17/22 07/22/22 History calcitrioL [Calcitriol] 0.5 mcg PO DAILY 06/17/22 07/22/22 History Chlorthalidone 25 mg PO DAILY #30 tablet 06/24/22 07/22/22 Rx glipiZIDE [Glucotrol] 5 mg PO DAILY #0 06/24/22 07/22/22 Rx Apixaban [Eliquis] 5 mg PO BID #60 tab 07/23/22 Rx Allergies Allergy/AdvReac Type Severity Reaction Status Date / Time Penicillins Allergy Severe Anaphylaxis Verified 07/22/22 21:43 cephalexin monohydrate Allergy Rash/Hives Verified 07/22/22 21:43 [From Keflex] gemfibrozil [From Lopid] AdvReac Abdominal Verified 07/22/22 21:43 Pain Physical Exam Vitals: Vital Signs Temp Pulse Pulse Resp BP BP Pulse Ox 07/23/22 07:56 95 07/23/22 05:08 100.4 F H 72 16 157/77 96 07/22/22 23:48 98.1 F 85 16 149/75 95 07/22/22 22:30 99.7 F H 07/22/22 22:26 90 18 153/79 95 07/22/22 21:00 100.6 F H 94 18 162/94 94 L 07/22/22 18:54 102.4 F H 93 18 155/86 96 Intake and Output 07/22/22 07/23/22 07/23/22 22:59 06:59 14:59 Other: Weight 99.79 kg 99.79 kg Results CBC & Chem 7: 07/23/22 05:32 07/23/22 05:32 Labs: Abnormal Lab Results - Last 24 Hours (Table) 07/22/22 07/22/22 07/22/22 Range/Units 19:40 19:40 22:03 RBC 3.89 L (4.30-5.90) m/uL Hgb 12.2 L (13.0-17.5) gm/dL Hct 36.3 L (39.0-53.0) % Plt Count 95 L (150-450) k/uL Lymphocytes # 0.5 L (1.0-4.8) k/uL Chloride 110 H (98-107) mmol/L Carbon Dioxide 18 L (22-30) mmol/L BUN 50 H (9-20) mg/dL Creatinine 2.49 H (0.66-1.25) mg/dL Glucose 136 H (74-99) mg/dL POC Glucose (mg/dL) (70-110) mg/dL Total Protein 6.1 L (6.3-8.2) g/dL Urine Protein 2+ H (Negative) Urine Blood Small H (Negative) Ur Leukocyte Esterase Large H (Negative) Urine RBC 13 H (0-5) /hpf Urine WBC >182 H (0-5) /hpf Urine WBC Clumps Many H (None) /hpf Urine Bacteria Moderate H (None) /hpf Hyaline Casts 3 H (0-2) /lpf 07/23/22 07/23/22 07/23/22 Range/Units 05:32 05:32 07:33 RBC 3.78 L (4.30-5.90) m/uL Hgb 12.0 L (13.0-17.5) gm/dL Hct 35.5 L (39.0-53.0) % Plt Count 104 L (150-450) k/uL Lymphocytes # 0.7 L (1.0-4.8) k/uL Chloride 108 H (98-107) mmol/L Carbon Dioxide 21 L (22-30) mmol/L BUN 48 H (9-20) mg/dL Creatinine 2.41 H (0.66-1.25) mg/dL Glucose 102 H (74-99) mg/dL POC Glucose (mg/dL) 112 H (70-110) mg/dL Total Protein (6.3-8.2) g/dL Urine Protein (Negative) Urine Blood (Negative) Ur Leukocyte Esterase (Negative) Urine RBC (0-5) /hpf Urine WBC (0-5) /hpf Urine WBC Clumps (None) /hpf Urine Bacteria (None) /hpf Hyaline Casts (0-2) /lpf Thrombosis Risk Factor Assmnt - Choose All That Apply Any of the Below Risk Factors Present?: Yes Each Factor Represents 1 point: Sepsis (< 1month) Other Risk Factors: Yes Each Risk Factor Represents 3 Points: Age 75 years or older Other congenital or acquired thrombophilia - If yes, enter type in comment: No Thrombosis Risk Factor Assessment Total Risk Factor Score: 4 Thrombosis Risk Factor Assessment Level: Moderate Risk
[2022-07-23] MEDS: SODIUM CHLORIDE 0.9% 1,000 ML IV SCH (17:22)
[2022-07-23 17:28] LABS: Glucose,Whole Blood 213 mg/dL (70-110)
[2022-07-23 20:01] LABS: Glucose,Whole Blood 187 mg/dL (70-110)
[2022-07-23] MEDS: ISOSORBIDE MONONITRATE ER 30 MG TAB.ER.24H PO SCH (21:00)
[2022-07-23] MEDS: ASPIRIN 81 MG PO SCH (21:00)
[2022-07-23] MEDS: ATORVASTATIN 80 MG TAB PO SCH (21:00)
[2022-07-23] MEDS: SODIUM BICARBONATE TAB 650 MG TAB PO SCH (21:00)
--- NOTE | 2022-07-23 22:49 | P.CONS ---
History of Present Illness - Reason for Consult Consult date: 07/23/22 Fever and UTI Requesting physician: Tracey Hernandez - Chief Complaint Generalized weakness x few days - History of Present Illness Patient is a 76-year-old male with a past medical history significant for COPD coronary disease hypertension hyperlipidemia recent admission to the hospital for UTI and metabolic encephalopathy patient now presenting back to the hospital concerning for generalized weakness tired leg weakness in this patient symptom has been going on for 3 to 4 days before presentation to the hospital patient denies having any URI symptoms he did have a mild cough but not bring up any sputum patient denies having any nausea or vomiting and no diarrhea patient on presentation to the hospital have fever of 102 F patient was not hypoxic or need for Solu-Medrol oxygen patient did have a normal white count with some lymphopenia did have elevated BUN/creatinine liver exam has been normal did have a positive UA influenza RSV and COVID testing was negative patient did have a chest x-ray similar pleural thickening of the right midlung and no significant change patient received a dose of Levaquin in the ER patient did have a cephalexin and penicillin allergy infectious he was consulted for further management of antibiotic therapy Review of Systems Positive point has been mentioned in the HPI rest of the systems are negative Past Medical History Past Medical History: Coronary Artery Disease (CAD), CVA/TIA, Diabetes Mellitus, GERD/Reflux, Hyperlipidemia, Hypertension, Myocardial Infarction ([place]), Osteoarthritis (OA), Prostate Disorder, Renal Disease, Sleep Apnea/CPAP/BIPAP, Thyroid Disorder Additional Past Medical History / Comment(s): hx. TIA's, last one November 2016, heart murmur, OCC SOB, kidney stones, leakage of urine, uses CPAP, decreased kidney function, uti's Last Myocardial Infarction Date:: 2010 History of Any Multi-Drug Resistant Organisms: Other MDRO Past Surgical History: Coronary Bypass/CABG, Heart Catheterization, Hernia Repair, Orthopedic Surgery, Prostate Surgery Additional Past Surgical History / Comment(s): vasectomy, CABG 2010 with 4 vessels, keke knee arthroscopy, rt hand surgery x 3, TURP 02/2017, cystoscopy and dilation of urethral stricture 07/08/17 Past Anesthesia/Blood Transfusion Reactions: No Reported Reaction Past Psychological History: No Psychological Hx Reported Additional Psychological History / Comment(s): , lives with and daughter, has cpap and cane /walker if needed. The adult children are healthy. Lifelong nonsmoker. No alcohol use. 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 Was in the in the [employer] no significant trouble since then. Pet dog at home Smoking Status: Never smoker Past Alcohol Use History: Occasional Past Drug Use History: None Reported - Past Family History Mother Family Medical History: Congestive Heart Failure (CHF) Additional Family Medical History / Comment(s): at age 92 Father Family Medical History: CVA/TIA, Myocardial Infarction ([place]) Medications and Allergies Home Medications Medication Instructions Recorded Confirmed Type Aspirin 81 mg PO HS 11/28/15 07/22/22 History Atorvastatin [Lipitor] 80 mg PO MOTUWETHFR@2100 11/28/15 07/22/22 History Folic Acid 1 mg PO DAILY 11/28/15 07/22/22 History Isosorbide Mononitrate [Isosorbide 30 mg PO HS 11/28/15 07/22/22 History Mononitrate ER] allopurinoL [Zyloprim] 100 mg PO DAILY 11/28/15 07/22/22 History Ergocalciferol (Vitamin D2) 50,000 unit PO Q14D 11/29/16 07/22/22 History [Vitamin D2] Citalopram Hydrobromide [CeleXA] 20 mg PO DAILY 02/05/18 07/22/22 History Metoprolol Tartrate [Lopressor] 50 mg PO BID 02/05/18 07/22/22 History Tamsulosin HCl [Flomax] 0.4 mg PO DAILY 02/05/18 07/22/22 History Magnesium Oxide [Hernandez] 500 mg PO HS 11/06/18 07/22/22 History Acetaminophen Tab [Tylenol] 1,000 mg PO BID 06/17/22 07/22/22 History Famotidine [Pepcid] 20 mg PO BID 06/17/22 07/22/22 History Ferrous Sulfate [Iron (65 MG 325 mg PO DAILY 06/17/22 07/22/22 History Elemental)] Levothyroxine Sodium [Euthyrox] 150 mcg PO DAILY 06/17/22 07/22/22 History Methenamine Hippurate 1 gm PO DIRECTED 06/17/22 07/22/22 History Sodium Bicarbonate 650 mg PO BID 06/17/22 07/22/22 History calcitrioL [Calcitriol] 0.5 mcg PO DAILY 06/17/22 07/22/22 History Chlorthalidone 25 mg PO DAILY #30 tablet 06/24/22 07/22/22 Rx glipiZIDE [Glucotrol] 5 mg PO DAILY #0 06/24/22 07/22/22 Rx Apixaban [Eliquis] 5 mg PO BID #60 tab 07/23/22 Rx Albuterol Sulfate [Albuterol 1 puff PO Q4-6H #8.5 gm 07/26/22 Rx Sulfate Hfa] Ertapenem [INVanz] 0.5 gm IVPB Q24H #7 each 07/26/22 Rx Allergies Allergy/AdvReac Type Severity Reaction Status Date / Time Penicillins Allergy Severe Anaphylaxis Verified 07/22/22 21:43 cephalexin monohydrate Allergy Rash/Hives Verified 07/22/22 21:43 [From Keflex] gemfibrozil [From Lopid] AdvReac Abdominal Verified 07/22/22 21:43 Pain Physical Exam Vitals: Vital Signs Temp Pulse Pulse Resp BP BP Pulse Ox 07/23/22 07:56 95 07/23/22 05:08 100.4 F H 72 16 157/77 96 07/22/22 23:48 98.1 F 85 16 149/75 95 07/22/22 22:30 99.7 F H 07/22/22 22:26 90 18 153/79 95 07/22/22 21:00 100.6 F H 94 18 162/94 94 L 07/22/22 18:54 102.4 F H 93 18 155/86 96 Intake and Output 07/22/22 07/23/22 07/23/22 22:59 06:59 14:59 Other: # Voids 1 # Bowel Movements 1 Weight 99.79 kg 99.79 kg GENERAL DESCRIPTION: Elderly male lying in bed, no distress. No tachypnea or accessory muscle of respiration use. HEENT: Shows Pallor , no scleral icterus. Oral mucous membrane is dry. No pharyngeal erythema or thrush NECK: Trachea central, no thyromegaly. LUNGS: Unlabored breathing. Clear to auscultation anteriorly. No wheeze or crackle. HEART: S1, S2, regular rate and rhythm. No loud murmur ABDOMEN: Soft, no tenderness , guarding or rigidity, no organomegaly EXTREMITIES: No edema of feet. SKIN: No rash, no masses palpable. NEUROLOGICAL: The patient is awake, alert, oriented x2, mood and affect normal. Results CBC & Chem 7: 07/25/22 06:04 07/25/22 06:04 Labs: Abnormal Lab Results - Last 24 Hours (Table) 07/22/22 07/22/22 07/22/22 Range/Units 19:40 19:40 22:03 RBC 3.89 L (4.30-5.90) m/uL Hgb 12.2 L (13.0-17.5) gm/dL Hct 36.3 L (39.0-53.0) % Plt Count 95 L (150-450) k/uL Lymphocytes # 0.5 L (1.0-4.8) k/uL Chloride 110 H (98-107) mmol/L Carbon Dioxide 18 L (22-30) mmol/L BUN 50 H (9-20) mg/dL Creatinine 2.49 H (0.66-1.25) mg/dL Glucose 136 H (74-99) mg/dL POC Glucose (mg/dL) (70-110) mg/dL Total Protein 6.1 L (6.3-8.2) g/dL Urine Protein 2+ H (Negative) Urine Blood Small H (Negative) Ur Leukocyte Esterase Large H (Negative) Urine RBC 13 H (0-5) /hpf Urine WBC >182 H (0-5) /hpf Urine WBC Clumps Many H (None) /hpf Urine Bacteria Moderate H (None) /hpf Hyaline Casts 3 H (0-2) /lpf 07/23/22 07/23/22 07/23/22 Range/Units 05:32 05:32 07:33 RBC 3.78 L (4.30-5.90) m/uL Hgb 12.0 L (13.0-17.5) gm/dL Hct 35.5 L (39.0-53.0) % Plt Count 104 L (150-450) k/uL Lymphocytes # 0.7 L (1.0-4.8) k/uL Chloride 108 H (98-107) mmol/L Carbon Dioxide 21 L (22-30) mmol/L BUN 48 H (9-20) mg/dL Creatinine 2.41 H (0.66-1.25) mg/dL Glucose 102 H (74-99) mg/dL POC Glucose (mg/dL) 112 H (70-110) mg/dL Total Protein (6.3-8.2) g/dL Urine Protein (Negative) Urine Blood (Negative) Ur Leukocyte Esterase (Negative) Urine RBC (0-5) /hpf Urine WBC (0-5) /hpf Urine WBC Clumps (None) /hpf Urine Bacteria (None) /hpf Hyaline Casts (0-2) /lpf 07/23/22 Range/Units 11:32 RBC (4.30-5.90) m/uL Hgb (13.0-17.5) gm/dL Hct (39.0-53.0) % Plt Count (150-450) k/uL Lymphocytes # (1.0-4.8) k/uL Chloride (98-107) mmol/L Carbon Dioxide (22-30) mmol/L BUN (9-20) mg/dL Creatinine (0.66-1.25) mg/dL Glucose (74-99) mg/dL POC Glucose (mg/dL) 177 H (70-110) mg/dL Total Protein (6.3-8.2) g/dL Urine Protein (Negative) Urine Blood (Negative) Ur Leukocyte Esterase (Negative) Urine RBC (0-5) /hpf Urine WBC (0-5) /hpf Urine WBC Clumps (None) /hpf Urine Bacteria (None) /hpf Hyaline Casts (0-2) /lpf Assessment and Plan (1) Urinary tract infection Current Visit: No Status: Acute Code(s): N39.0 - URINARY TRACT INFECTION, SITE NOT SPECIFIED SNOMED Code(s): 19977011 Plan: 1patient presented to hospital with generalized weakness no energy in this patient did have a positive UA likely a symptomatic urinary tract infection as no other obvious focus of fever abdominal soft chest x-ray was negative for evidence of any joint swelling or cellulitis. 2patient with penicillin and cephalosporin allergy that would limit the number of antibiotics safe to use 3we will start patient on Azactam while waiting for the culture to finalize 4gentle IV fluid We will follow on clinical condition and cultures to further adjust medication if needed Thank you for this consultation will follow this patient along with you Time with Patient: Greater than 30
[2022-07-24 04:13] LABS: Basophils % (A) 1 %; Eosinophils # (A) 0.1 k/uL (0-0.7); Eosinophils % (A) 3 %; HCT 31.9 % (39.0-53.0); HGB 10.9 gm/dL (13.0-17.5); Lymphocytes # (A) 1.1 k/uL (1.0-4.8); Lymphocytes % (A) 26 %; MCH 31.8 pg (25.0-35.0); MCHC 34.1 g/dL (31.0-37.0); MCV 93.1 fL (80.0-100.0); Mean Platelet Volume 9.2; Monocytes # (A) 0.4 k/uL (0-1.0); Monocytes % (A) 9 %; Neutrophils # (A) 2.3 k/uL (1.3-7.7); Neutrophils % (A) 58 %; Platelet Count 103 k/uL (150-450); RBC 3.42 m/uL (4.30-5.90); RDW 13.2 % (11.5-15.5)
[2022-07-24] MEDS: AZTREONAM 1 GM in SODIUM CHLORIDE 0.9% 50 ML IVPB SCH ×3 (04:20→21:42)
[2022-07-24] MEDS: LEVOTHYROXINE 75 MCG TAB PO SCH (05:34)
[2022-07-24] MEDS: SODIUM CHLORIDE 0.9% 1,000 ML IV SCH ×2 (05:34→13:06)
[2022-07-24 07:10] LABS: Glucose,Whole Blood 132 mg/dL (70-110)
[2022-07-24] MEDS: BUDESONIDE 1 MG/2 ML NEBU INHALATION SCH ×2 (07:46→19:59)
[2022-07-24] MEDS: ALBUTEROL NEBULIZED 2.5 MG/3 ML INHALATION SCH ×5 (07:46→23:50)
[2022-07-24] MEDS: FERROUS SULFATE 325 MG TAB PO SCH (08:20)
[2022-07-24] MEDS: allopurinoL 100 MG TAB PO SCH (08:20)
[2022-07-24] MEDS: APIXABAN 2.5 MG TABLET PO SCH ×2 (08:21→21:43)
[2022-07-24] MEDS: SODIUM BICARBONATE TAB 650 MG TAB PO SCH ×3 (08:21→21:43)
[2022-07-24] MEDS: TAMSULOSIN 0.4 MG CAP.ER.24H PO SCH (08:21)
[2022-07-24] MEDS: CITALOPRAM HYDROBROMIDE 20 MG TAB PO SCH (08:21)
[2022-07-24] MEDS: METOPROLOL TARTRATE 50 MG TAB PO SCH ×2 (08:21→21:43)
[2022-07-24] MEDS: INSULIN ASPART (NovoLOG) 100 UNIT/ML VIAL SQ SCH ×4 (08:21→21:43)
[2022-07-24] MEDS: FOLIC ACID 1 MG TAB PO SCH (08:21)
[2022-07-24] MEDS: FAMOTIDINE 20 MG TAB PO SCH (08:21)
[2022-07-24 11:50] LABS: Glucose,Whole Blood 186 mg/dL (70-110)
--- NOTE | 2022-07-24 16:45 | XR ---
EXAMINATION TYPE: XR chest 2V DATE OF EXAM: 07/24/2022 4:37 PM COMPARISON: Chest radiographs from 07/14/2022 TECHNIQUE: XR chest 2V Frontal and lateral views of the chest. CLINICAL INDICATION:Male, 76 years old with history of Short of breath wheezing; FINDINGS: Lungs/Pleura: Increased interstitial lung markings are present throughout exam. Similar prominence of the right lateral pleura. There is no evidence of large pleural effusion, focal consolidation, or pn eumothorax. Pulmonary vascularity: Unremarkable. Heart/mediastinum: Cardiomediastinal silhouette is enlarged and stable. Atherosclerotic calcificatio ns are seen in the aorta. Musculoskeletal: No acute osseous pathology. Midline sternotomy wires are noted. IMPRESSION: Similar right hazy/thickened appearance of the lateral pleura with increased interstitial lung markin gs. Overall findings are not significantly changed from 07/14/2022.
[2022-07-24] MEDS ORDERED: FUROSEMIDE 10 MG/ML 10 ML VIAL IV STA (16:48)
--- NOTE | 2022-07-24 16:50 | P.PN ---
Progress Note - Text Progress Note Date: 07/24/22 Chief Complaint: Generalized weakness Hospital course: This is a 76-year-old patient, follows with Dr. Bulmaro Velazquez. Chronic stable medical conditions include COPD, CAD with stent 2, GERD, hyperlipidemia, hypertension, CK D stage IV, baseline creatinine around 2.4, sleep apnea, hypothyroid. Patient is admitted to the hospital end of May with a diagnosis of acute UTI with metabolic encephalopathy. Patient now presents feeling weak and tired. Legs wobbly from weakness. Has a cough for 3-4 days. Appetite is okay. Slight loose stools. Shortness of breath and wheezing. Tired rundown. When he goes outside he does use a cane. Patient's son-in-law was at a time a few days ago who was sick with respiratory symptoms. In the ER was found to be in atrial fibrillation. Controlled ventricular rate. Denies any chest pain and palpitation or syncope. Had a fever 102.4 on presentation Admitted with pneumonia, sepsis, acute UTI, started IV aztreonam IV fluids. 07/24/2022: Eating fair. Was delirious this morning. Some shortness of breath and coughing. Getting IV aztreonam. Increased wheezing. Albuterol frequency increased. Active Medications Acetaminophen (Acetaminophen Tab 325 Mg Tab) 650 mg PO Q6HR PRN PRN Reason: Mild Pain or Fever > 100.5 Albuterol Sulfate (Albuterol Nebulized 2.5 Mg/3 Ml) 2.5 mg INHALATION RT-Q4H [facility] Last Admin: 07/24/22 15:33 Dose: 2.5 mg Allopurinol (Allopurinol 100 Mg Tab) 100 mg PO DAILY [facility] Last Admin: 07/24/22 08:20 Dose: 100 mg Apixaban (Apixaban 2.5 Mg Tablet) 2.5 mg PO BID [facility]; Protocol Last Admin: 07/24/22 08:21 Dose: 2.5 mg Aspirin (Aspirin 81 Mg) 81 mg PO HS [facility] Last Admin: 07/23/22 21:00 Dose: 81 mg Atorvastatin Calcium (Atorvastatin 80 Mg Tab) 80 mg PO MOTUWETHFR@2100 [facility] Last Admin: 07/23/22 21:00 Dose: 80 mg Budesonide (Budesonide 1 Mg/2 Ml Nebu) 1 mg INHALATION RT-BID [facility] Last Admin: 07/24/22 07:46 Dose: 1 mg Calcitriol (Calcitriol 0.25 Mcg Cap) 0.5 mcg PO DAILY [facility] Last Admin: 07/24/22 08:20 Dose: 0.5 mcg Calcium Carbonate/Glycine (Calcium Carbonate 500 Mg Chewable) 1,000 mg PO Q4HR PRN PRN Reason: Dyspepsia Citalopram Hydrobromide (Citalopram Hydrobromide 20 Mg Tab) 20 mg PO DAILY [facility] Last Admin: 07/24/22 08:21 Dose: 20 mg Dextrose/Water (Dextrose 50% Syringe 50 Ml) 25 ml IVP PER PROTOCOL PRN; Protocol PRN Reason: Hypoglycemia Dextrose/Water (Dextrose 50% Syringe 50 Ml) 50 ml IVP PER PROTOCOL PRN; Protocol PRN Reason: Hypoglycemia Dextrose/Water (Dextrose 50% Syringe 50 Ml) 25 ml IVP PER PROTOCOL PRN; Protocol PRN Reason: Hypoglycemia Dextrose/Water (Dextrose 50% Syringe 50 Ml) 50 ml IVP PER PROTOCOL PRN; Protocol PRN Reason: Hypoglycemia Famotidine (Famotidine 20 Mg Tab) 20 mg PO DAILY [facility] Last Admin: 07/24/22 08:21 Dose: 20 mg Ferrous Sulfate (Ferrous Sulfate 325 Mg Tab) 325 mg PO DAILY [facility] Last Admin: 07/24/22 08:20 Dose: 325 mg Folic Acid (Folic Acid 1 Mg Tab) 1 mg PO DAILY [facility] Last Admin: 07/24/22 08:21 Dose: 1 mg Aztreonam 1 gm/ Sodium (Chloride) 50 mls @ 16.667 mls/hr IVPB Q8H [facility] Last Admin: 07/24/22 11:47 Dose: 16.667 mls/hr Sodium Chloride (Saline 0.9%) 1,000 mls @ 10 mls/hr IV .Q24H [facility] Last Admin: 07/24/22 13:06 Dose: Not Given Insulin Aspart (Insulin Aspart (Novolog) 100 Unit/Ml Vial) 0 unit SQ ACHS [facility]; Protocol Last Admin: 07/24/22 13:05 Dose: 2 unit Isosorbide Mononitrate (Isosorbide Mononitrate Er 30 Mg Tab.Er.24h) 30 mg PO HS [facility] Last Admin: 07/23/22 21:00 Dose: 30 mg Lactulose (Lactulose 20 Gm/30 Ml Cup) 20 gm PO DAILY PRN PRN Reason: Constipation Levothyroxine Sodium (Levothyroxine 75 Mcg Tab) 150 mcg PO DAILY@0630 [facility] Last Admin: 07/24/22 05:34 Dose: 150 mcg Lorazepam (Lorazepam 0.5 Mg Tab) 0.5 mg PO Q6HR PRN PRN Reason: Anxiety Metoprolol Tartrate (Metoprolol Tartrate 50 Mg Tab) 50 mg PO BID [facility] Last Admin: 07/24/22 08:21 Dose: 50 mg Naloxone HCl (Naloxone 0.4 Mg/Ml 1 Ml Vial) 0.2 mg IV Q2M PRN PRN Reason: Opioid Reversal Ondansetron HCl (Ondansetron 4 Mg/2 Ml Vial) 4 mg IVP Q6HR PRN PRN Reason: Nausea And Vomiting Sodium Bicarbonate (Sodium Bicarbonate Tab 650 Mg Tab) 650 mg PO TID [facility] Last Admin: 07/24/22 15:25 Dose: 650 mg Tamsulosin HCl (Tamsulosin 0.4 Mg Cap.Er.24h) 0.4 mg PO DAILY [facility] Last Admin: 07/24/22 08:21 Dose: 0.4 mg Temazepam (Temazepam 15 Mg Cap) 15 mg PO HS PRN PRN Reason: Insomnia Past medical history to include: COPD, CAD with a bypass, GERD, hypertension, hyperlipidemia, CK D stage IV, sleep apnea, hypothyroid, diabetes, osteoarthritis, kidney stones Social history: . Lives with . Uses a cane outside the house. 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 No smoking. Alcohol occasionally. Physical examination: VITAL SIGNS: 97.5, 72, 22, 1 4580, 95% room air GENERAL: Awake, but anxious, but short of breath EYES: Pupils equal. Conjunctiva normal. HEENT: External appearance of nose and ears normal, oral cavity grossly normal. NECK: JVD not raised; masses not palpable. HEART: First and second heart sounds are normal; no edema. LUNGS: Respiratory rate increased; mild wheezing. ABDOMEN: Soft, nontender, liver spleen not palpable, no masses palpable. PSYCH: Alert and oriented x3; mood and affect anxiousl. MUSCULOSKELETAL:No Clubbing/cyanosis;muscles-grossly intact, OA INVESTIGATIONS, reviewed in the clinical context: 07/23/2022: WBC 5.4 hemoglobin 12 platelets 104 sodium 138 potassium 4.8. 48 creatinine 2.41 UA positive for leukoesterase, WBC, bacteria Influenza type A/diabetes/RSV/COVID-19: Not detected EKG tracing personally reviewed by me-atrial fibrillation, rate 101 Chest x-ray film personally reviewed by me-possible infiltrate Assessment and plan: -Suspect pneumonia from gram-negative organism. Has significant respiratory symptoms. IV aztreonam. -Sepsis secondary to pneumonia, UTI IV fluids antibiotic -Paroxysmal atrial fibrillation, rate controlled on presentation. sinus rhythm. 2-D echo. Cardiology consulted. Started on eliquis - possibly toxic encephalopathy from urinary tract infection,: Slow to respond -Acute UTI with cystitis the prior history of UTI. Gram-negative bacilli, IV aztreonam-ID consulted -Thrombocytopenia likely from infection -Coronary artery disease, with a prior history of bypass Aspirin, Lopressor -type 2 diabetes mellitus, chronically on oral hypoglycemic Follow Accu-Cheks and sliding scale. Glipizide -Gastroesophageal reflux disease Pepcid -hyperlipidemia Lipitor -Hypertension Lopressor -Chronic kidney disease stage IV, likely secondary to diabetic nephropathy and hypertensive nephrosclerosis Baseline creatinine around 2.4. Does follow with nephrology -Obstructive Sleep apnea Uses CPAP -Hypothyroidism Levothyroxine IV aztreonam. Albuterol dose increased. 1 dose of IV Lasix. Cutback IV fluids. Oral intake better. Follow with ID. Blood cultures showing Gram positive bacilli, likely contaminant
[2022-07-24 17:10] LABS: Glucose,Whole Blood 181 mg/dL (70-110)
[2022-07-24 21:17] LABS: Glucose,Whole Blood 189 mg/dL (70-110)
[2022-07-24] MEDS: ATORVASTATIN 80 MG TAB PO SCH (21:43)
[2022-07-24] MEDS: ASPIRIN 81 MG PO SCH (21:43)
[2022-07-24] MEDS: ISOSORBIDE MONONITRATE ER 30 MG TAB.ER.24H PO SCH (21:43)
[2022-07-25] MEDS: ALBUTEROL NEBULIZED 2.5 MG/3 ML INHALATION SCH ×6 (04:06→23:32)
[2022-07-25] MEDS: AZTREONAM 1 GM in SODIUM CHLORIDE 0.9% 50 ML IVPB SCH ×3 (04:37→19:31)
[2022-07-25] MEDS: LEVOTHYROXINE 75 MCG TAB PO SCH (05:44)
[2022-07-25 06:54] LABS: Basophils % (A) 0 %; Eosinophils # (A) 0.2 k/uL (0-0.7); Eosinophils % (A) 4 %; HCT 34.5 % (39.0-53.0); HGB 11.5 gm/dL (13.0-17.5); Lymphocytes # (A) 0.9 k/uL (1.0-4.8); Lymphocytes % (A) 19 %; MCH 31.2 pg (25.0-35.0); MCHC 33.4 g/dL (31.0-37.0); MCV 93.4 fL (80.0-100.0); Mean Platelet Volume 8.9; Monocytes # (A) 0.3 k/uL (0-1.0); Monocytes % (A) 7 %; Neutrophils % (A) 67 %; Platelet Count 114 k/uL (150-450); RDW 13.2 % (11.5-15.5); WBC 4.5 k/uL (3.8-10.6)
[2022-07-25 07:06] LABS: Glucose,Whole Blood 156 mg/dL (70-110)
[2022-07-25 07:07] LABS: African American GFR (CKD) 31 (>60 ml/min/1.73 sqM); Anion Gap 8 mmol/L; Blood Urea Nitrogen 54 mg/dL (9-20); Calcium 8.6 mg/dL (8.4-10.2); Carbon Dioxide 20 mmol/L (22-30); Chloride 111 mmol/L (98-107); Glucose 164 mg/dL (74-99); Non-African American GFR(CKD) 27 (>60 ml/min/1.73 sqM); Potassium 4.5 mmol/L (3.5-5.1); Sodium 139 mmol/L (137-145)
[2022-07-25] MEDS: INSULIN ASPART (NovoLOG) 100 UNIT/ML VIAL SQ SCH ×4 (08:11→20:45)
[2022-07-25] MEDS: BUDESONIDE 1 MG/2 ML NEBU INHALATION SCH ×2 (08:40→20:55)
[2022-07-25] MEDS: SODIUM BICARBONATE TAB 650 MG TAB PO SCH ×3 (08:59→20:45)
[2022-07-25] MEDS: FOLIC ACID 1 MG TAB PO SCH (09:00)
[2022-07-25] MEDS: APIXABAN 2.5 MG TABLET PO SCH ×2 (09:00→20:45)
[2022-07-25] MEDS: FERROUS SULFATE 325 MG TAB PO SCH (09:00)
[2022-07-25] MEDS: CITALOPRAM HYDROBROMIDE 20 MG TAB PO SCH (09:00)
[2022-07-25] MEDS: TAMSULOSIN 0.4 MG CAP.ER.24H PO SCH (09:00)
[2022-07-25] MEDS: allopurinoL 100 MG TAB PO SCH (09:00)
[2022-07-25] MEDS: FAMOTIDINE 20 MG TAB PO SCH (09:00)
[2022-07-25] MEDS: METOPROLOL TARTRATE 50 MG TAB PO SCH ×2 (09:00→20:45)
[2022-07-25 11:06] LABS: Glucose,Whole Blood 185 mg/dL (70-110)
[2022-07-25] MEDS: SODIUM CHLORIDE 0.9% 1,000 ML IV SCH (14:31)
--- NOTE | 2022-07-25 14:35 | P.PN ---
Subjective Progress Note Date: 07/24/22 Principal diagnosis: UTI and Bacteremia Patient is a 76-year-old male with multiple comorbidities presenting to the hospital with generalized weakness patient did have positive UA concerning for symptomatic urinary tract infection. On today's evaluation that is 07/24/2022 the patient is afebrile, the patient is breathing comfortably no chest pain shortness of breath or cough no nausea vomiting no abdominal pain no diarrhea Objective - Vital Signs Vital signs: Vital Signs Temp 98.0 F 07/24/22 08:47 Pulse 68 07/24/22 08:47 Resp 16 07/24/22 08:47 BP 151/77 07/24/22 08:47 Pulse Ox 95 07/24/22 08:47 FiO2 Intake & Output 07/23/22 07/24/22 07/24/22 18:59 06:59 18:59 Intake Total 1200 Balance 1200 Intake: Intake, IV Titration 1200 Amount Sodium Chloride 0.9% 1, 1200 000 ml @ 100 mls/hr IV . Q10H [facility] Rx#:[id number] Other: Voiding Method Toilet # Voids 1 2 # Bowel Movements 1 - Exam GENERAL DESCRIPTION: Elderly male lying in bed, no distress. No tachypnea or accessory muscle of respiration use. LUNGS: Unlabored breathing. Decreased breath sound at the base HEART: S1, S2, regular rate and rhythm. No loud murmur ABDOMEN: Soft, no tenderness , guarding or rigidity, no organomegaly EXTREMITIES: No edema of feet. - Labs CBC & Chem 7: 07/25/22 06:04 07/25/22 06:04 Labs: Abnormal Lab Results - Last 24 Hours (Table) 07/23/22 07/23/22 07/24/22 Range/Units 17:26 19:59 03:40 RBC 3.42 L (4.30-5.90) m/uL Hgb 10.9 L (13.0-17.5) gm/dL Hct 31.9 L (39.0-53.0) % Plt Count 103 L (150-450) k/uL POC Glucose (mg/dL) 213 H 187 H (70-110) mg/dL 07/24/22 07/24/22 Range/Units 07:08 11:49 RBC (4.30-5.90) m/uL Hgb (13.0-17.5) gm/dL Hct (39.0-53.0) % Plt Count (150-450) k/uL POC Glucose (mg/dL) 132 H 186 H (70-110) mg/dL Microbiology - Last 24 Hours (Table) 07/22/22 19:30 Blood Culture Gram Stain - Preliminary Blood 07/22/22 19:30 Blood Culture - Final Blood 07/22/22 19:45 Blood Culture - Preliminary Blood No Growth after 24 hours 07/22/22 22:03 Urine Culture - Preliminary Urine,Voided Assessment and Plan (1) Urinary tract infection Current Visit: No Status: Acute Code(s): N39.0 - URINARY TRACT INFECTION, SITE NOT SPECIFIED SNOMED Code(s): 28142930 Plan: 1patient presented to hospital with generalized weakness no energy in this patient did have a positive UA likely a symptomatic urinary tract infection as no other obvious focus of fever abdominal soft chest x-ray was negative for evidence of any joint swelling or cellulitis. 2patient with penicillin and cephalosporin allergy that would limit the number of antibiotics safe to use 3- Patient positive blood culture with gram-positive bacilli likely skin contamination. 4patient to continue with Azactam in view of clinical response while waiting for the culture to finalize to determine discharge antibiotics Time with Patient: Less than 30
--- NOTE | 2022-07-25 14:41 | P.PN ---
Progress Note - Text Progress Note Date: 07/25/22 Chief Complaint: Generalized weakness Hospital course: This is a 76-year-old patient, follows with Dr. Bulmaro Velazquez. Chronic stable medical conditions include COPD, CAD with stent 2, GERD, hyperlipidemia, hypertension, CK D stage IV, baseline creatinine around 2.4, sleep apnea, hypothyroid. Patient is admitted to the hospital end of May with a diagnosis of acute UTI with metabolic encephalopathy. Patient now presents feeling weak and tired. Legs wobbly from weakness. Has a cough for 3-4 days. Appetite is okay. Slight loose stools. Shortness of breath and wheezing. Tired rundown. When he goes outside he does use a cane. Patient's son-in-law was at a time a few days ago who was sick with respiratory symptoms. In the ER was found to be in atrial fibrillation. Controlled ventricular rate. Denies any chest pain and palpitation or syncope. Had a fever 102.4 on presentation Admitted with pneumonia, sepsis, acute UTI, started IV aztreonam IV fluids. 07/24/2022: Eating fair. Was delirious this morning. Some shortness of breath and coughing. Getting IV aztreonam. Increased wheezing. Albuterol frequency increased. 07/25/2022: Doing better. But delirious. Breathing better. Up in a chair. IV aztreonam. Cough with sputum sputum production present. Dressing wheezing. Blood cultures seem to be growing contaminants:diptheroids. Had 100% breakfast Active Medications Acetaminophen (Acetaminophen Tab 325 Mg Tab) 650 mg PO Q6HR PRN PRN Reason: Mild Pain or Fever > 100.5 Albuterol Sulfate (Albuterol Nebulized 2.5 Mg/3 Ml) 2.5 mg INHALATION RT-Q4H [facility] Last Admin: 07/25/22 10:50 Dose: 2.5 mg Allopurinol (Allopurinol 100 Mg Tab) 100 mg PO DAILY [facility] Last Admin: 07/25/22 09:00 Dose: 100 mg Apixaban (Apixaban 2.5 Mg Tablet) 2.5 mg PO BID [facility]; Protocol Last Admin: 07/25/22 09:00 Dose: 2.5 mg Aspirin (Aspirin 81 Mg) 81 mg PO HS [facility] Last Admin: 07/24/22 21:43 Dose: 81 mg Atorvastatin Calcium (Atorvastatin 80 Mg Tab) 80 mg PO MOTUWETHFR@2100 [facility] Last Admin: 07/24/22 21:43 Dose: 80 mg Budesonide (Budesonide 1 Mg/2 Ml Nebu) 1 mg INHALATION RT-BID [facility] Last Admin: 07/25/22 08:40 Dose: Not Given Calcitriol (Calcitriol 0.25 Mcg Cap) 0.5 mcg PO DAILY [facility] Last Admin: 07/25/22 08:59 Dose: 0.5 mcg Calcium Carbonate/Glycine (Calcium Carbonate 500 Mg Chewable) 1,000 mg PO Q4HR PRN PRN Reason: Dyspepsia Citalopram Hydrobromide (Citalopram Hydrobromide 20 Mg Tab) 20 mg PO DAILY [facility] Last Admin: 07/25/22 09:00 Dose: 20 mg Dextrose/Water (Dextrose 50% Syringe 50 Ml) 25 ml IVP PER PROTOCOL PRN; Protocol PRN Reason: Hypoglycemia Dextrose/Water (Dextrose 50% Syringe 50 Ml) 50 ml IVP PER PROTOCOL PRN; Protocol PRN Reason: Hypoglycemia Dextrose/Water (Dextrose 50% Syringe 50 Ml) 25 ml IVP PER PROTOCOL PRN; Protocol PRN Reason: Hypoglycemia Dextrose/Water (Dextrose 50% Syringe 50 Ml) 50 ml IVP PER PROTOCOL PRN; Protocol PRN Reason: Hypoglycemia Famotidine (Famotidine 20 Mg Tab) 20 mg PO DAILY [facility] Last Admin: 07/25/22 09:00 Dose: 20 mg Ferrous Sulfate (Ferrous Sulfate 325 Mg Tab) 325 mg PO DAILY [facility] Last Admin: 07/25/22 09:00 Dose: 325 mg Folic Acid (Folic Acid 1 Mg Tab) 1 mg PO DAILY [facility] Last Admin: 07/25/22 09:00 Dose: 1 mg Aztreonam 1 gm/ Sodium (Chloride) 50 mls @ 16.667 mls/hr IVPB Q8H [facility] Last Admin: 07/25/22 11:57 Dose: 16.667 mls/hr Sodium Chloride (Saline 0.9%) 1,000 mls @ 10 mls/hr IV .Q24H [facility] Last Admin: 07/25/22 14:31 Dose: Not Given Insulin Aspart (Insulin Aspart (Novolog) 100 Unit/Ml Vial) 0 unit SQ ACHS [facility]; Protocol Last Admin: 07/25/22 13:25 Dose: 2 unit Isosorbide Mononitrate (Isosorbide Mononitrate Er 30 Mg Tab.Er.24h) 30 mg PO HS [facility] Last Admin: 07/24/22 21:43 Dose: 30 mg Lactulose (Lactulose 20 Gm/30 Ml Cup) 20 gm PO DAILY PRN PRN Reason: Constipation Levothyroxine Sodium (Levothyroxine 75 Mcg Tab) 150 mcg PO DAILY@0630 [facility] Last Admin: 07/25/22 05:44 Dose: 150 mcg Lorazepam (Lorazepam 0.5 Mg Tab) 0.5 mg PO Q6HR PRN PRN Reason: Anxiety Metoprolol Tartrate (Metoprolol Tartrate 50 Mg Tab) 50 mg PO BID [facility] Last Admin: 07/25/22 09:00 Dose: 50 mg Naloxone HCl (Naloxone 0.4 Mg/Ml 1 Ml Vial) 0.2 mg IV Q2M PRN PRN Reason: Opioid Reversal Ondansetron HCl (Ondansetron 4 Mg/2 Ml Vial) 4 mg IVP Q6HR PRN PRN Reason: Nausea And Vomiting Sodium Bicarbonate (Sodium Bicarbonate Tab 650 Mg Tab) 650 mg PO TID [facility] Last Admin: 07/25/22 08:59 Dose: 650 mg Tamsulosin HCl (Tamsulosin 0.4 Mg Cap.Er.24h) 0.4 mg PO DAILY [facility] Last Admin: 07/25/22 09:00 Dose: 0.4 mg Temazepam (Temazepam 15 Mg Cap) 15 mg PO HS PRN PRN Reason: Insomnia Past medical history to include: COPD, CAD with a bypass, GERD, hypertension, hyperlipidemia, CK D stage IV, sleep apnea, hypothyroid, diabetes, osteoarthritis, kidney stones Social history: . Lives with . Uses a cane outside the house. 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 No smoking. Alcohol occasionally. Physical examination: VITAL SIGNS: 97.7, 68, 17, 135/71, 94% room air GENERAL: Awake, up in a chair, breathing better EYES: Pupils equal. Conjunctiva normal. HEENT: External appearance of nose and ears normal, oral cavity grossly normal. NECK: JVD not raised; masses not palpable. HEART: First and second heart sounds are normal; no edema. LUNGS: Respiratory rate increased; mild wheezing. ABDOMEN: Soft, nontender, liver spleen not palpable, no masses palpable. PSYCH: Alert and oriented x3; mood and affect anxiousl. MUSCULOSKELETAL:No Clubbing/cyanosis;muscles-grossly intact, OA INVESTIGATIONS, reviewed in the clinical context: Blood culture positive for diptheroid Urine culture: Klebsiella oxytoca 07/25/2022: WBC 4.5 hemoglobin 11.5 platelets 114 potassium 4.5. 54 creatinine 2.3 bun pro-calcitonin 0.26 07/23/2022: WBC 5.4 hemoglobin 12 platelets 104 sodium 138 potassium 4.8. 48 creatinine 2.41 UA positive for leukoesterase, WBC, bacteria Influenza type A/diabetes/RSV/COVID-19: Not detected EKG tracing personally reviewed by me-atrial fibrillation, rate 101 Chest x-ray film personally reviewed by me-possible infiltrate Assessment and plan: -Suspect pneumonia from gram-negative organism. Has significant respiratory symptoms. IV aztreonam. -Sepsis secondary to pneumonia, UTI IV fluids antibiotic -Paroxysmal atrial fibrillation, rate controlled on presentation. sinus rhythm. 2-D echo. Cardiology consulted. Started on eliquis - possibly toxic encephalopathy from urinary tract infection,: Much improved -Acute UTI with cystitis the prior history of UTI. Klebsiella oxytoca IV aztreonam-ID consulted -Thrombocytopenia likely from infection -Coronary artery disease, with a prior history of bypass Aspirin, Lopressor -type 2 diabetes mellitus, chronically on oral hypoglycemic Follow Accu-Cheks and sliding scale. Glipizide -Gastroesophageal reflux disease Pepcid -hyperlipidemia Lipitor -Hypertension Lopressor -Chronic kidney disease stage IV, likely secondary to diabetic nephropathy and hypertensive nephrosclerosis Baseline creatinine around 2.4. Does follow with nephrology -Obstructive Sleep apnea Uses CPAP -Hypothyroidism Levothyroxine IV aztreonam. Oral intake better. Follow with ID. Blood cultures - contaminant. Patient doing much better.
[2022-07-25 17:12] LABS: Glucose,Whole Blood 157 mg/dL (70-110)
[2022-07-25 20:40] LABS: Glucose,Whole Blood 213 mg/dL (70-110)
[2022-07-25] MEDS: ATORVASTATIN 80 MG TAB PO SCH (20:45)
[2022-07-25] MEDS: ASPIRIN 81 MG PO SCH (20:45)
[2022-07-25] MEDS: ISOSORBIDE MONONITRATE ER 30 MG TAB.ER.24H PO SCH (20:45)
[2022-07-26] MEDS: ALBUTEROL NEBULIZED 2.5 MG/3 ML INHALATION SCH ×4 (03:40→15:47)
[2022-07-26] MEDS: LEVOTHYROXINE 75 MCG TAB PO SCH (03:51)
[2022-07-26] MEDS: AZTREONAM 1 GM in SODIUM CHLORIDE 0.9% 50 ML IVPB SCH ×2 (03:51→13:08)
[2022-07-26 07:17] LABS: Glucose,Whole Blood 133 mg/dL (70-110)
[2022-07-26] MEDS: BUDESONIDE 1 MG/2 ML NEBU INHALATION SCH (07:47)
[2022-07-26] MEDS: INSULIN ASPART (NovoLOG) 100 UNIT/ML VIAL SQ SCH ×2 (10:13→13:08)
[2022-07-26] MEDS: FAMOTIDINE 20 MG TAB PO SCH (10:15)
[2022-07-26] MEDS: CITALOPRAM HYDROBROMIDE 20 MG TAB PO SCH (10:15)
[2022-07-26] MEDS: APIXABAN 2.5 MG TABLET PO SCH (10:15)
[2022-07-26] MEDS: FERROUS SULFATE 325 MG TAB PO SCH (10:15)
[2022-07-26] MEDS: FOLIC ACID 1 MG TAB PO SCH (10:15)
[2022-07-26] MEDS: METOPROLOL TARTRATE 50 MG TAB PO SCH (10:15)
[2022-07-26] MEDS: allopurinoL 100 MG TAB PO SCH (10:15)
[2022-07-26] MEDS: TAMSULOSIN 0.4 MG CAP.ER.24H PO SCH (10:18)
[2022-07-26] MEDS: SODIUM BICARBONATE TAB 650 MG TAB PO SCH (10:18)
[2022-07-26 11:08] LABS: Glucose,Whole Blood 225 mg/dL (70-110)
[2022-07-26] MEDS: SODIUM CHLORIDE 0.9% 1,000 ML IV SCH (13:06)
[2022-07-26 14:23] VITALS: BP 138/75; RESP 19; TEMP 97.5
--- NOTE | 2022-07-26 14:26 | P.DS ---
Providers Date of admission: 07/22/22 21:58 Expected date of discharge: 07/26/22 Attending physician: Erik Chase Consults: 07/23/22 00:29 Consult Physician Routine Consulting Provider: Gil Escoto Consult Reason/Comments: New onset afib Do you want consulting provider notified?: Yes, Notify in am 07/23/22 07:14 Consult Physician Routine Consulting Provider: Latoya Ball Consult Reason/Comments: fever, UTI, recent UTI with drug resistance Do you want consulting provider notified?: Yes Primary care physician: Bulmaro Graham [facility] Course: Chief Complaint: Generalized weakness Hospital course: This is a 76-year-old patient, follows with Dr. Bulmaro Velazquez. Chronic stable medical conditions include COPD, CAD with stent 2, GERD, hyperlipidemia, hypertension, CK D stage IV, baseline creatinine around 2.4, sleep apnea, hypothyroid. Patient is admitted to the hospital end of May with a diagnosis of acute UTI with metabolic encephalopathy. Patient now presents feeling weak and tired. Legs wobbly from weakness. Has a cough for 3-4 days. Appetite is okay. Slight loose stools. Shortness of breath and wheezing. Tired rundown. When he goes outside he does use a cane. Patient's son-in-law was at a time a few days ago who was sick with respiratory symptoms. In the ER was found to be in atrial fibrillation. Controlled ventricular rate. Denies any chest pain and palpitation or syncope. Had a fever 102.4 on presentation Admitted with pneumonia, sepsis, acute UTI, started IV aztreonam IV fluids. 07/24/2022: Eating fair. Was delirious this morning. Some shortness of breath and coughing. Getting IV aztreonam. Increased wheezing. Albuterol frequency increased. 07/25/2022: Doing better. But delirious. Breathing better. Up in a chair. IV aztreonam. Cough with sputum sputum production present. Dressing wheezing. Blood cultures seem to be growing contaminants:diptheroids. Had 100% breakfast 07/26/2022: Doing well. Oral intake good. No fever. Respiratory symptoms better. Patient could've ECF because of IV antibiotics. Discussed with case management social worker. Discussion and discharge planning more than 35 minutes Past medical history to include: COPD, CAD with a bypass, GERD, hypertension, hyperlipidemia, CK D stage IV, sleep apnea, hypothyroid, diabetes, osteoarthritis, kidney stones Social history: . Lives with . Uses a cane outside the house. 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 No smoking. Alcohol occasionally. Physical examination: VITAL SIGNS: 97.5, 96, 19, 1:30 but 75, 96% room air GENERAL: Sitting up, comfortable EYES: Pupils equal. Conjunctiva normal. HEENT: External appearance of nose and ears normal, oral cavity grossly normal. NECK: JVD not raised; masses not palpable. HEART: First and second heart sounds are normal; no edema. LUNGS: Respiratory rate normal; mild wheezing. ABDOMEN: Soft, nontender, liver spleen not palpable, no masses palpable. PSYCH: Alert and oriented x3; mood and affect anxiousl. MUSCULOSKELETAL:No Clubbing/cyanosis;muscles-grossly intact, OA INVESTIGATIONS, reviewed in the clinical context: Blood culture positive for diptheroid Urine culture: Klebsiella oxytoca 07/25/2022: WBC 4.5 hemoglobin 11.5 platelets 114 potassium 4.5. 54 creatinine 2.3 bun pro-calcitonin 0.26 07/23/2022: WBC 5.4 hemoglobin 12 platelets 104 sodium 138 potassium 4.8. 48 creatinine 2.41 UA positive for leukoesterase, WBC, bacteria Influenza type A/diabetes/RSV/COVID-19: Not detected EKG tracing personally reviewed by me-atrial fibrillation, rate 101 Chest x-ray film personally reviewed by me-possible infiltrate Assessment and plan: -Suspect pneumonia from gram-negative organism. Has significant respiratory symptoms.: Better IV aztreonam. -Sepsis secondary to pneumonia, UTI IV fluids antibiotic -Paroxysmal atrial fibrillation, rate controlled on presentation. sinus rhythm. 2-D echo. Cardiology consulted. Started on eliquis - possibly toxic encephalopathy from urinary tract infection,: Much improved -Acute UTI with cystitis the prior history of UTI. Klebsiella oxytoca IV aztreonam-complete IV antibiotics outpatient -Thrombocytopenia likely from infection -Coronary artery disease, with a prior history of bypass Aspirin, Lopressor -type 2 diabetes mellitus, chronically on oral hypoglycemic Follow Accu-Cheks and sliding scale. Glipizide -Gastroesophageal reflux disease Pepcid -hyperlipidemia Lipitor -Hypertension Lopressor -Chronic kidney disease stage IV, likely secondary to diabetic nephropathy and hypertensive nephrosclerosis Baseline creatinine around 2.4. Does follow with nephrology -Obstructive Sleep apnea Uses CPAP -Hypothyroidism Levothyroxine Disposition: ECF Plan - Discharge Summary Discharge Rx Participant: No New Discharge Prescriptions: New Albuterol Sulfate [Albuterol Sulfate Hfa] 1 puff PO Q4-6H #8.5 gm Apixaban [Eliquis] 5 mg PO BID #60 tab Continue Folic Acid 1 mg PO DAILY allopurinoL [Zyloprim] 100 mg PO DAILY Isosorbide Mononitrate [Isosorbide Mononitrate ER] 30 mg PO HS Atorvastatin [Lipitor] 80 mg PO MOTUWETHFR@2100 Aspirin 81 mg PO HS Ergocalciferol (Vitamin D2) [Vitamin D2] 50,000 unit PO Q14D Metoprolol Tartrate [Lopressor] 50 mg PO BID Citalopram Hydrobromide [CeleXA] 20 mg PO DAILY Tamsulosin HCl [Flomax] 0.4 mg PO DAILY Magnesium Oxide [Hernandez] 500 mg PO HS Levothyroxine Sodium [Euthyrox] 150 mcg PO DAILY Sodium Bicarbonate 650 mg PO BID calcitrioL [Calcitriol] 0.5 mcg PO DAILY Methenamine Hippurate 1 gm PO DIRECTED glipiZIDE [Glucotrol] 5 mg PO DAILY #0 Ferrous Sulfate [Iron (65 MG Elemental)] 325 mg PO DAILY Acetaminophen Tab [Tylenol] 1,000 mg PO BID Famotidine [Pepcid] 20 mg PO BID Chlorthalidone 25 mg PO DAILY #30 tablet Discontinued Clopidogrel Bisulfate [Plavix] 75 mg PO DAILY Discharge Medication List Aspirin 81 mg PO HS 11/28/15 [History] Atorvastatin [Lipitor] 80 mg PO MOTUWETHFR@2100 11/28/15 [History] Folic Acid 1 mg PO DAILY 11/28/15 [History] Isosorbide Mononitrate [Isosorbide Mononitrate ER] 30 mg PO HS 11/28/15 [History] allopurinoL [Zyloprim] 100 mg PO DAILY 11/28/15 [History] Ergocalciferol (Vitamin D2) [Vitamin D2] 50,000 unit PO Q14D 11/29/16 [History] Citalopram Hydrobromide [CeleXA] 20 mg PO DAILY 02/05/18 [History] Metoprolol Tartrate [Lopressor] 50 mg PO BID 02/05/18 [History] Tamsulosin HCl [Flomax] 0.4 mg PO DAILY 02/05/18 [History] Magnesium Oxide [Hernandez] 500 mg PO HS 11/06/18 [History] Acetaminophen Tab [Tylenol] 1,000 mg PO BID 06/17/22 [History] Famotidine [Pepcid] 20 mg PO BID 06/17/22 [History] Ferrous Sulfate [Iron (65 MG Elemental)] 325 mg PO DAILY 06/17/22 [History] Levothyroxine Sodium [Euthyrox] 150 mcg PO DAILY 06/17/22 [History] Methenamine Hippurate 1 gm PO DIRECTED 06/17/22 [History] Sodium Bicarbonate 650 mg PO BID 06/17/22 [History] calcitrioL [Calcitriol] 0.5 mcg PO DAILY 06/17/22 [History] Chlorthalidone 25 mg PO DAILY #30 tablet 06/24/22 [Rx] glipiZIDE [Glucotrol] 5 mg PO DAILY #0 06/24/22 [Rx] Apixaban [Eliquis] 5 mg PO BID #60 tab 07/23/22 [Rx] Albuterol Sulfate [Albuterol Sulfate Hfa] 1 puff PO Q4-6H #8.5 gm 07/26/22 [Rx] Follow up Appointment(s)/Referral(s): Loco Petty MD [STAFF PHYSICIAN] - 1 Week Bulmaro Graham DO [Primary Care Provider] - 3 Days None,Stated [REFERRING] - 1-2 days Patient Instructions/Handouts: Apixaban (By mouth), A-fib (Atrial Fibrillation) (GEN) Activity/Diet/Wound Care/Special Instructions: ELIQUIS: USE COPAY CARD IN BAG FOR $[address] ball
[2022-07-26] MEDS ORDERED: ERTAPENEM 0.5 GM in SODIUM CHLORIDE 0.9% 50 ML IVPB SCH (15:00)
[2022-07-26 15:59] VITALS: PULSE 88
--- NOTE | 2022-07-26 16:52 | P.PN ---
Subjective Progress Note Date: 07/25/22 Principal diagnosis: UTI and Bacteremia Patient is a 76-year-old male with multiple comorbidities presenting to the hospital with generalized weakness patient did have positive UA concerning for symptomatic urinary tract infection. On today's evaluation that is 07/25/2022 the patient remains to be afebrile, the patient is breathing comfortably on room air, the patient denies chest pain shortness of breath or cough no nausea vomiting no abdominal pain no diarrhea Objective - Vital Signs Vital signs: Vital Signs Temp 97.7 F 07/25/22 11:47 Pulse 68 07/25/22 11:47 Resp 17 07/25/22 11:47 BP 135/71 07/25/22 11:47 Pulse Ox 94 L 07/25/22 11:47 FiO2 Intake & Output 07/24/22 07/25/22 07/25/22 18:59 06:59 18:59 Other: # Voids 1 # Bowel Movements 1 - Exam GENERAL DESCRIPTION: Elderly male lying in bed, no distress. No tachypnea or accessory muscle of respiration use. LUNGS: Unlabored breathing. Decreased breath sound at the base HEART: S1, S2, regular rate and rhythm. No loud murmur ABDOMEN: Soft, no tenderness , guarding or rigidity, no organomegaly EXTREMITIES: No edema of feet. - Labs CBC & Chem 7: 07/25/22 06:04 07/25/22 06:04 Labs: Abnormal Lab Results - Last 24 Hours (Table) 07/24/22 07/24/22 07/25/22 Range/Units 17:08 21:14 06:04 RBC (4.30-5.90) m/uL Hgb (13.0-17.5) gm/dL Hct (39.0-53.0) % Plt Count (150-450) k/uL Lymphocytes # (1.0-4.8) k/uL Chloride (98-107) mmol/L Carbon Dioxide (22-30) mmol/L BUN (9-20) mg/dL Creatinine (0.66-1.25) mg/dL Glucose (74-99) mg/dL POC Glucose (mg/dL) 181 H 189 H (70-110) mg/dL Procalcitonin 0.26 H (0.02-0.09) ng/mL 07/25/22 07/25/22 07/25/22 Range/Units 06:04 06:04 07:04 RBC 3.70 L (4.30-5.90) m/uL Hgb 11.5 L (13.0-17.5) gm/dL Hct 34.5 L (39.0-53.0) % Plt Count 114 L (150-450) k/uL Lymphocytes # 0.9 L (1.0-4.8) k/uL Chloride 111 H (98-107) mmol/L Carbon Dioxide 20 L (22-30) mmol/L BUN 54 H (9-20) mg/dL Creatinine 2.31 H (0.66-1.25) mg/dL Glucose 164 H (74-99) mg/dL POC Glucose (mg/dL) 156 H (70-110) mg/dL Procalcitonin (0.02-0.09) ng/mL 07/25/22 Range/Units 11:03 RBC (4.30-5.90) m/uL Hgb (13.0-17.5) gm/dL Hct (39.0-53.0) % Plt Count (150-450) k/uL Lymphocytes # (1.0-4.8) k/uL Chloride (98-107) mmol/L Carbon Dioxide (22-30) mmol/L BUN (9-20) mg/dL Creatinine (0.66-1.25) mg/dL Glucose (74-99) mg/dL POC Glucose (mg/dL) 185 H (70-110) mg/dL Procalcitonin (0.02-0.09) ng/mL Microbiology - Last 24 Hours (Table) 07/22/22 19:30 Blood Culture Gram Stain - Preliminary Blood Blood Culture - Preliminary Diphtheroid species 07/22/22 22:03 Urine Culture - Final Urine,Voided Klebsiella oxytoca 07/22/22 19:45 Blood Culture - Preliminary Blood No Growth after 48 hours Assessment and Plan (1) Urinary tract infection Current Visit: No Status: Acute Code(s): N39.0 - URINARY TRACT INFECTION, SITE NOT SPECIFIED SNOMED Code(s): 82781530 Plan: 1patient presented to hospital with generalized weakness no energy in this patient did have a positive UA likely a symptomatic urinary tract infection as no other obvious focus of fever abdominal soft chest x-ray was negative for evidence of any joint swelling or cellulitis. 2patient with penicillin and cephalosporin allergy that would limit the number of antibiotics safe to use 3- Patient positive blood culture with gram-positive bacilli likely skin cont amination, no need for vancomycin. 4patient to continue with Azactam in view of clinical response while waiting for the culture to finalize to determine discharge antibiotics and monitor clinical course closely Time with Patient: Less than 30
--- NOTE | 2022-07-26 16:53 | P.PN ---
Subjective Progress Note Date: 07/26/22 Principal diagnosis: UTI and Bacteremia Patient is a 76-year-old male with multiple comorbidities presenting to the hospital with generalized weakness patient did have positive UA concerning for symptomatic urinary tract infection. On today's evaluation that is 07/26/2022 the patient continues to be afebrile, the patient is breathing comfortably on room air, the patient denies chest pain shortness of breath or cough , the patient denies nausea vomiting no abdominal pain no diarrhea, overall feeling better Objective - Vital Signs Vital signs: Vital Signs Temp 97.6 F 07/26/22 09:26 Pulse 88 07/26/22 11:33 Resp 17 07/26/22 09:26 BP 151/68 07/26/22 09:26 Pulse Ox 96 07/26/22 09:26 FiO2 Intake & Output 07/25/22 07/26/22 07/26/22 18:59 06:59 18:59 Intake Total 120 Output Total 500 Balance -380 Intake: Oral 120 Output: Urine 500 Other: Voiding Method Toilet Toilet # Voids 2 - Exam GENERAL DESCRIPTION: Elderly male lying in bed, no distress. No tachypnea or accessory muscle of respiration use. LUNGS: Unlabored breathing. Decreased breath sound at the base HEART: S1, S2, regular rate and rhythm. No loud murmur ABDOMEN: Soft, no tenderness , guarding or rigidity, no organomegaly EXTREMITIES: No edema of feet. - Labs CBC & Chem 7: 07/25/22 06:04 07/25/22 06:04 Labs: Abnormal Lab Results - Last 24 Hours (Table) 07/25/22 07/25/22 07/26/22 Range/Units 17:10 20:37 07:16 POC Glucose (mg/dL) 157 H 213 H 133 H (70-110) mg/dL 07/26/22 Range/Units 11:07 POC Glucose (mg/dL) 225 H (70-110) mg/dL Microbiology - Last 24 Hours (Table) 07/22/22 19:30 Blood Culture Gram Stain - Final Blood Blood Culture - Final Diphtheroid species 07/22/22 19:45 Blood Culture - Preliminary Blood No Growth after 72 hours 07/22/22 22:03 Urine Culture - Final Urine,Voided Klebsiella oxytoca Assessment and Plan (1) Urinary tract infection Current Visit: No Status: Acute Code(s): N39.0 - URINARY TRACT INFECTION, SITE NOT SPECIFIED SNOMED Code(s): 26255956 Plan: 1patient presented to hospital with generalized weakness no energy in this patient did have a positive UA likely a symptomatic urinary tract infection as no other obvious focus of fever abdominal soft chest x-ray was negative for evidence of any joint swelling or cellulitis. 2patient with penicillin and cephalosporin allergy that would limit the number of antibiotics safe to use 3- Patient positive blood culture with gram-positive bacilli likely skin contamination, no need for vancomycin. 4patient urine culture had been finalized with Klebsiella in this patient responded to IV Azactam unfortunately patient is ALLERGIC to penicillin and cephalosporin and cannot use Cipro as the patient is on Celexa with the patient elevated creatinine Bactrim is not a good choice area hence we will get a mi dline and the patient will get a week course of IV Invanz 500 mg daily on the basis of creatinine clearance dose was confirmed with the pharmacist Time with Patient: Less than 30
== END 2022-07-26 17:20 | DRG 871 ==
LOC: EC 18:49 → 5NMEDONC 21:58
PROVIDERS: ADMIT Hospitalist; ATTEND Hospitalist
PROC: 05HC33Z Insertion of Infusion Device into Left Basilic Vein, Percutaneous Approach (ICD-10-PCS; principal; 2022-07-26 14:30)
DX: A41.59 Other Gram-negative sepsis (principal); G92.9 Unspecified toxic encephalopathy; J15.6 Pneumonia due to other Gram-negative bacteria; J44.0 Chronic obstructive pulmonary disease with (acute) lower respiratory infection; N18.4 Chronic kidney disease, stage 4 (severe); N30.00 Acute cystitis without hematuria; Z16.11 Resistance to penicillins; I27.20 Pulmonary hypertension, unspecified; D69.59 Other secondary thrombocytopenia; E11.22 Type 2 diabetes mellitus with diabetic chronic kidney disease; I12.9 Hypertensive chronic kidney disease with stage 1 through stage 4 chronic kidney disease, or unspecified chronic kidney disease; E03.9 Hypothyroidism, unspecified; D63.1 Anemia in chronic kidney disease; I25.82 Chronic total occlusion of coronary artery; I48.0 Paroxysmal atrial fibrillation; B96.20 Unspecified Escherichia coli [E. coli] as the cause of diseases classified elsewhere; E78.5 Hyperlipidemia, unspecified; G47.33 Obstructive sleep apnea (adult) (pediatric); K21.9 Gastro-esophageal reflux disease without esophagitis; N40.0 Benign prostatic hyperplasia without lower urinary tract symptoms; I25.10 Atherosclerotic heart disease of native coronary artery without angina pectoris; Z20.822 Contact with and (suspected) exposure to COVID-19; Z20.89 Contact with and (suspected) exposure to other communicable diseases; I25.2 Old myocardial infarction; Z87.440 Personal history of urinary (tract) infections; Z95.5 Presence of coronary angioplasty implant and graft; Z95.1 Presence of aortocoronary bypass graft; Z86.73 Personal history of transient ischemic attack (TIA), and cerebral infarction without residual deficits; Z88.0 Allergy status to penicillin; Z79.899 Other long term (current) drug therapy; Z79.890 Hormone replacement therapy; Z79.84 Long term (current) use of oral hypoglycemic drugs; Z79.82 Long term (current) use of aspirin; Z79.02 Long term (current) use of antithrombotics/antiplatelets; Z79.01 Long term (current) use of anticoagulants; Z88.1 Allergy status to other antibiotic agents; Z88.8 Allergy status to other drugs, medicaments and biological substances
CPT/HCPCS: 36410; 36415; 71046; 76937; 80048; 80053; 81001; 83605; 83735; 84145; 84443; 84484; 85025; 85610; 85730; 87040; 87077; 87086; 87186; 87636; 93005; 94640; 94760; 96372; 96374; 99285

== ENCOUNTER → 2022-12-20 | Outpatient (CLI) | payer MEDICARE, BC ==
[2022-12-20 16:12] LABS: ALT 15 U/L (10-49); AST 15 U/L (14-35); African American GFR (CKD) 29.9 (60.0-200.0); Albumin/Globulin Ratio 2.25 (1.60-3.17); Alkaline Phosphatase 82 U/L (41-126); Blood Urea Nitrogen 47.9 mg/dL (9.0-27.0); Calcium 9.7 mg/dL (8.7-10.3); Carbon Dioxide 24.5 mmol/L (20.0-27.5); Chloride 105 mmol/L (96-109); Chol/HDL Ratio 3.62 Ratio; Globulin 1.8 g/dL (1.6-3.3); Glucose 101 mg/dL (70-110); LDL Cholesterol,Calculated 49.4 mg/dL (0.0-131.0); Non-African American GFR(CKD) 25.8 (60.0-200.0); Potassium 5.4 mmol/L (3.5-5.5); Sodium 141 mmol/L (135-145); Total Protein 5.8 g/dL (6.2-8.2)
[2022-12-20 18:35] LABS: Urine Creatinine 90.2 mg/dL (39.0-259.0)
== END | disposition home or self-care (01) ==
LOC: LABWHC1 10:12
PROVIDERS: ATTEND Internal Medicine Endocrinology, Diabetes & Metabolism
DX: E11.65 Type 2 diabetes mellitus with hyperglycemia (principal)
CPT/HCPCS: 36415; 80053; 80061; 82043; 82570; 83036; 84443

== ENCOUNTER → 2023-01-10 | Outpatient (CLI) | payer MEDICARE, BC ==
[2023-01-10 15:24] LABS: Basophils # (A) 0.03 X 10*3/uL (0.00-0.10); Basophils % (A) 0.5 %; Eosinophils # (A) 0.11 X 10*3/uL (0.04-0.35); Eosinophils % (A) 1.8 %; HCT 34.8 % (39.6-50.0); HGB 10.9 g/dL (13.0-17.0); Immature Grans, Automated 0.6 %; Lymphocytes # (A) 1.27 X 10*3/uL (0.90-5.00); Lymphocytes % (A) 20.5 %; MCH 29.8 pg (27.0-32.0); MCHC 31.3 g/dL (32.0-37.0); MCV 95.1 fL (80.0-97.0); Mean Platelet Volume 11.3 fL (9.5-12.2); Monocytes # (A) 0.35 X 10*3/uL (0.20-1.00); Monocytes % (A) 5.7 %; NRBC Per 100 WBC 0.5 /100 WBCS (0.0-0.0); Neutrophils # (A) 4.39 X 10*3/uL (1.80-7.70); Neutrophils % (A) 70.9 %; Platelet Count 128 X 10*3/uL (140-440); RBC 3.66 X 10*6/uL (4.40-5.60); RDW 14.1 % (11.5-14.5); WBC 6.19 X 10*3/uL (4.50-10.00)
[2023-01-10 16:07] LABS: African American GFR (CKD) 30.7 (60.0-200.0); Albumin/Globulin Ratio 2.2 (1.60-3.17); Anion Gap 9.9 mmol/L (10.00-18.00); BUN/Creat Ratio 25.63 Ratio (12.00-20.00); Blood Urea Nitrogen 59.2 mg/dL (9.0-27.0); Calcium 9.3 mg/dL (8.7-10.3); Carbon Dioxide 24.5 mmol/L (20.0-27.5); Globulin 1.8 g/dL (1.6-3.3); Non-African American GFR(CKD) 26.5 (60.0-200.0); Potassium 4.9 mmol/L (3.5-5.5); Total Bilirubin 0.6 mg/dL (0.30-1.20); Total Protein 5.8 g/dL (6.2-8.2)
[2023-01-10 21:20] LABS: Gliadin AB IgA, Deaminated POSITIVE (NEGATIVE); Gliadin AB IgA, Unit 23.3 U/mL; Gliadin AB IgG, Deaminated POSITIVE (NEGATIVE); Gliadin AB IgG, Unit 85.6 U/mL
== END | disposition home or self-care (01) ==
LOC: LABWHC1 10:43
PROVIDERS: ATTEND Nurse Practitioner Family
DX: R19.7 Diarrhea, unspecified (principal)
CPT/HCPCS: 36415; 80053; 83516; 85025

== ENCOUNTER 2023-01-31 09:36 | Day surgery (SDC) | payer MEDICARE, BC ==
[2023-01-29 12:17] VITALS: BMI 31.8
[~2023-01-31 09:36] MED LIST changes: -CLINDAMYCIN 900 MG in DEXTROSE 5% IN WATER 50 ML IVPB ONE; -HYDROmorphone 0.5 MG/0.5 ML SYRINGE IVP PRN; +LIDOCAINE 1% (10MG/ML) FOR IV START INTRADERMA PRN; -LIDOCAINE 1% 20 ML VIAL (10MG/ML) FOR IV START INTRADERMA PRN; -MIDAZOLAM 2 MG/2 ML VIAL IV PRN
[2023-01-31 10:09] VITALS: TEMP 97.6
[2023-01-31 10:26] LABS: Glucose,Whole Blood 67 mg/dL (70-110)
[2023-01-31] MEDS ORDERED: DEXTROSE 50% SYRINGE 50 ML IVP ONE (10:29)
[2023-01-31 10:46] LABS: Glucose,Whole Blood 126 mg/dL (70-110)
[2023-01-31] MEDS ORDERED: PROPOFOL 10 MG/ML 20 ML VIAL IV ONE (10:56)
--- NOTE | 2023-01-31 11:07 | P.PCN ---
Date of Procedure: 01/31/23 Procedure(s) Performed: BRIEF HISTORY: Patient is a 77-year-old pleasant 8 male scheduled for an elective colonoscopy as a part of evaluation of chronic diarrhea for the last 2 months duration. PROCEDURE PERFORMED: Colonoscopy with random biopsies. PREOPERATIVE DIAGNOSIS: Chronic diarrhea of 2 months duration. IV sedation per Anesthesia. PROCEDURE: After informed consent was obtained, the patient, was brought into the endoscopy unit. IV sedation was administered by Anesthesia under continuous monitoring. Digital rectal examination was normal. Initially the Olympus CF-160 flexible video colonoscope was then inserted in the rectum, gradually advanced into the cecum without any difficulty. Careful examination was performed as the scope was gradually being withdrawn. Ileocecal valve and the appendiceal orifice were visualized and appeared normal. Prep was excellent. Mucosa of the cecum, ascending colon, transverse colon, descending colon, sigmoid colon, and rectum appeared normal. Scattered sigmoid diverticulosis. Random biopsies were done from ascending and descending colon to rule out metastatic/collagenous colitis Retroflexion was performed in the rectum and no lesions were seen. The patient tolerated the procedure well. IMPRESSION: ' Normal-appearing colon from rectum to cecum no evidence of colorectal neoplasia. Scattered sigmoid diverticula RECOMMENDATIONS: Findings of this examination were discussed with the patient well as his family. He was advised to follow with the biopsy results. Advised to use [id number] Imodium as needed for the chronic diarrhea. If have a repeat screening colonoscopy in 10 years..
[2023-01-31 11:19] LABS: Glucose,Whole Blood 108 mg/dL (70-110)
[2023-01-31 11:20] VITALS: PULSE 62; RESP 16
[2023-01-31 11:31] VITALS: BP 132/71
== END 2023-01-31 11:58 | disposition home or self-care (01) ==
LOC: ORWHC2ENDO 09:36
PROVIDERS: ATTEND Internal Medicine Gastroenterology
DX: K52.9 Noninfective gastroenteritis and colitis, unspecified (principal); K57.30 Diverticulosis of large intestine without perforation or abscess without bleeding; I48.91 Unspecified atrial fibrillation; I11.0 Hypertensive heart disease with heart failure; I50.9 Heart failure, unspecified; E78.5 Hyperlipidemia, unspecified; E03.9 Hypothyroidism, unspecified; E11.9 Type 2 diabetes mellitus without complications; I25.10 Atherosclerotic heart disease of native coronary artery without angina pectoris; K21.9 Gastro-esophageal reflux disease without esophagitis; N20.0 Calculus of kidney; Z86.73 Personal history of transient ischemic attack (TIA), and cerebral infarction without residual deficits; Z95.1 Presence of aortocoronary bypass graft; Z79.01 Long term (current) use of anticoagulants; Z79.84 Long term (current) use of oral hypoglycemic drugs; Z79.890 Hormone replacement therapy; Z79.899 Other long term (current) drug therapy; Z88.8 Allergy status to other drugs, medicaments and biological substances
CPT/HCPCS: 45380; J2704; 88305